=== PATIENT | female | born 1950 | race Caucasian/White ===

== ENCOUNTER → 2020-07-19 12:55 | Outpatient (BNVA) | payer MEDICARE, MEDICAID, SELFPAY | PROVIDERS: PCP Internal Medicine; Visit Provider Surgery Vascular Surgery | DX: I83.12 Varicose veins of left lower extremity with inflammation (principal) | CPT/HCPCS: 99212 ==

== ENCOUNTER 2020-08-03 14:01 | Outpatient (REF) | payer MEDICARE, MEDICAID, SELFPAY ==
--- NOTE | 2020-08-03 | MM_ITS ---
EXAMINATION: MM SCREENING DIGITAL BREAST TOMOSYNTHESIS, BILATERAL CLINICAL INFORMATION: Screening. Asymptomatic. Family history breast cancer, 2 sisters. The lifetime risk of breast cancer based on the Tyrer-Cuzick Model is 8%. COMPARISON: Mammography: 01/17/2019, 06/22/2017, 06/10/2017 TECHNIQUE: Digital breast tomosynthesis is performed in both the craniocaudal and mediolateral oblique views along with computer-aided detection (CAD). Synthesized 2D images are generated from the tomosynthesis. FINDINGS: The breasts are heterogeneously dense, which may obscure small masses (ACR BI-RADS breast composition Category c). Breast tissue composition borders on average fibroglandular. There are no significant masses, abnormal calcifications, or other abnormalities. Parenchymal pattern is similar to prior studies. No developing density. There are some fine vascular calcifications and digital processing artifact on the synthesized images. No significant changes from prior studies. MM/MM tomosynthesis screening BI IMPRESSION: No significant changes from prior studies. ASSESSMENT: BI-RADS 2: Benign RECOMMENDATION: Routine annual mammography screening. This patient's information was entered into a reminder system with a target due date for their next mammogram.
== END 2020-08-03 14:02 | disposition home or self-care (01) ==
LOC: HO.MAMMO 14:01
PROVIDERS: PCP Internal Medicine; Visit Provider Internal Medicine
DX: Z12.31 Encounter for screening mammogram for malignant neoplasm of breast (principal)
CPT/HCPCS: 77063; 77067

== ENCOUNTER → 2020-08-31 10:22 | Outpatient (BNVA) | payer MEDICARE, MEDICAID, SELFPAY | PROVIDERS: PCP Internal Medicine; Referring Provider Internal Medicine; Visit Provider Surgery Vascular Surgery | DX: I83.12 Varicose veins of left lower extremity with inflammation (principal) | CPT/HCPCS: 36482 ==

== ENCOUNTER 2020-09-07 16:46 | Outpatient (REF) | payer MEDICARE, MEDICAID, SELFPAY | END 2020-09-07 16:47 | disposition home or self-care (01) | LOC: HO.LAB 16:46 | PROVIDERS: Visit Provider Internal Medicine | DX: Z20.828 Contact with and (suspected) exposure to other viral communicable diseases (principal) | CPT/HCPCS: C9803; U0003 ==

== ENCOUNTER 2021-07-23 14:23 | Outpatient (REF) | payer MEDICARE, MEDICAID, SELFPAY ==
--- NOTE | ~2021-07-23 | US_ITS ---
EXAMINATION: RIGHT and LEFT LOWER EXTREMITY VENOUS ULTRASOUND (Reflux Exam) CLINICAL INDICATION: leg pain and varicose veins. COMPARISON: Previous exams most recent May 2020 TECHNIQUE: Color flow triplex imaging and compression Doppler was performed to evaluate both the deep and the superficial systems bilaterally. To evaluate the superficial system, the examination was performed in the upright position. Color-flow Doppler ultrasound and compression ultrasound were utilized. In addition, maneuvers were utilized to demonstrate reflux. FINDINGS: 1. DEEP VENOUS ULTRASOUND OF THE RIGHT LOWER EXTREMITY: Respiratory variation, normal compression and augmented flow are noted in the right common femoral vein as well as the right popliteal vein and there is no evidence of deep venous thrombosis at these locations. There is no evidence of reflux in the deep system in either the common femoral vein or the popliteal vein. There is no evidence of a Figueroa's cyst. 2. SUPERFICIAL ULTRASOUND WITH DOPPLER OF RIGHT LOWER EXTREMITY: The right great saphenous vein at the saphenofemoral junction measures 4 mm, at the mid thigh 4 mm, vxblh-uui-mpzu 4 mm, oprsj-yze-ydny 3 mm, at mid calf 3 mm and at not seen at the ankle. There is right greater saphenous vein reflux from the mid thigh to below the knee measuring maximum 3.5 seconds. There is a small accessory lateral greater saphenous vein that measures 1 mm and does not demonstrate reflux. The right small saphenous vein measures 1-2 mm and shows no reflux. There is a small market relationship manager in the proximal calf that measures 2 mm and does not demonstrate reflux. There is a small varicosity in the proximal thigh that measures 3 mm and does not demonstrate reflux. 3. DEEP VENOUS ULTRASOUND OF THE LEFT LOWER EXTREMITY: Respiratory variation, normal compression and augmented flow are noted in the left common femoral vein as well as the left popliteal vein and there is no evidence of deep venous thrombosis at these locations. There is deep venous reflux in the popliteal vein measuring 2.2 seconds.. . There is no evidence of a Figueroa's cyst. 4. SUPERFICIAL ULTRASOUND WITH DOPPLER OF LEFT LOWER EXTREMITY: Left great saphenous vein at the saphenofemoral junction measures 5 mm, at the mid thigh to mm, haygc-mxw-uxhe 2 mm, iysyv-fpa-vbmo 2 mm, at mid calf 2 mm and at the ankle measures 1 mm. there are changes from venous seal procedure in the left greater saphenous vein in the thigh. There is left greater saphenous vein reflux from knee to the ankle measuring maximum 3.4 seconds at the knee. The left lesser saphenous vein measures 1-2 mm and shows no reflux. There is a market relationship manager in the mid thigh that measure 2 mm and demonstrates 1.3 seconds reflux. There is a market relationship manager in the proximal calf that measures 1 mm and does not demonstrate reflux. US/US venous duplex LE BI IMPRESSION: Right: No evidence of DVT or deep venous reflux. Right greater saphenous vein reflux from the mid thigh to below the knee measuring maximum 3.5 seconds. Left: No evidence of DVT. Left deep venous reflux in the popliteal vein measuring 2.2 seconds. Post vena seal changes in the thigh. Left greater saphenous vein reflux from the knee to the ankle measuring maximum 3.4 seconds.
== END 2021-07-23 14:24 | disposition home or self-care (01) ==
LOC: HO.US 14:23
PROVIDERS: PCP Internal Medicine; Visit Provider Surgery Vascular Surgery
DX: I83.893 Varicose veins of bilateral lower extremities with other complications (principal)
CPT/HCPCS: 93970

== ENCOUNTER 2021-07-26 14:23 | Outpatient (REF) | payer MEDICARE, MEDICAID, SELFPAY ==
--- NOTE | ~2021-07-26 | MM_ITS ---
EXAMINATION: BONE DENSITOMETRY CLINICAL INDICATION: Encounter for screening for osteoporosis. COMPARISON: Previous BD dated 07/23/2017 and baseline BD dated 12/31/2007. TECHNIQUE: Using a ECO DXA System (software version: 13.1) manufactured by [employer], dual-energy x-ray absorptiometry was performed of the lumbar spine and left hip. The images are of good technical quality. Summary results are attached. FINDINGS: AP SPINE L1-L3 (excluding L4): The data of L1-L4 has been changed to exclude the L4 vertebral body, because degenerative sclerosis at this level may cause overestimation of lumbar spine density. Current: BMD 0.872 g/cm2, Z-score -0.7, T-score -2.5, osteoporosis, 9.5% increase from previous, 2.0% decrease from baseline (<5% change is not significant). Prior: BMD 0.796 g/cm2. Baseline: BMD 0.890 g/cm2. LEFT FEMUR, NECK: Current: BMD 0.552 g/cm2, Z-score -1.7, T-score -3.5, osteoporosis. Prior: BMD 0.724 g/cm2. Baseline: BMD 0.803 g/cm2. LEFT FEMUR, TOTAL: Current: BMD 0.517 g/cm2, Z-score -2.3, T-score -3.9, osteoporosis, 22.0% decrease from previous, 32.8% decrease from baseline (<5% change is not significant). Prior: BMD 0.663 g/cm2. Baseline: BMD 0.769 g/cm2. IDENTIFIED RISK FACTORS: Rheumatoid arthritis, osteoporosis, menopause. HISTORY OF FRACTURE: None listed. MEDICATIONS: Calcium supplements or multivitamin, vitamin D. MM/XR DEXA axial skeleton IMPRESSION: 1. DIAGNOSIS: Osteoporosis based on the lowest T-score value of -3.9 in the total femur applying World Health Organization criteria. 2. 10-YEAR FRACTURE RISK PREDICTION, FRAX: Major osteoporotic fracture (clinical spine, forearm, hip or shoulder) 14.1%. Hip fracture 5.9%. 3. Treatment Recommendations: NOF guidelines recommend consideration for treatment in postmenopausal women and men age 50 and older presenting with the following: -A hip or vertebral (clinical or morphometric) fracture. -T-score less than or equal to -2.5 at the femoral neck or spine after appropriate evaluation to exclude secondary causes. -Low bone mass at the hip or spine and a 10-year fracture probability by FRAX of greater than or equal to 3% for hip fracture or greater than or equal to 20% for major osteoporotic fracture based on the [place] adapted WHO algorithm. 4. Other Recommendations: All treatment decisions require clinical judgment and consideration of individual patient factors, including patient preferences, comorbidities, previous drug use, risk factors not captured in the FRAX model (e.g. frailty, falls, vitamin D deficiency, increased bone turnover, interval significant decline in bone density) and possible under or overestimation of fracture risk by FRAX. Additional medical evaluation for secondary cause of low bone mineral density may be appropriate. FUTURE SCAN RECOMMENDATION: People with diagnosed cases of osteoporosis or at high risk for fracture should have regular bone mineral density tests. For patients eligible for Medicare, routine testing is allowed once every 2 years. The testing frequency can be increased to one year for patients who have rapidly progressing disease, those who are receiving or discontinuing medical therapy to restore bone mass, or have additional risk factors.
== END 2021-07-26 14:24 | disposition home or self-care (01) ==
LOC: HO.MAMMO 14:23
PROVIDERS: Visit Provider Internal Medicine
DX: Z13.820 Encounter for screening for osteoporosis (principal); M81.0 Age-related osteoporosis without current pathological fracture; E55.9 Vitamin D deficiency, unspecified; M05.9 Rheumatoid arthritis with rheumatoid factor, unspecified; Z78.0 Asymptomatic menopausal state; Z79.899 Other long term (current) drug therapy
CPT/HCPCS: 77080

== ENCOUNTER → 2021-08-22 15:15 | Outpatient (BNVA) | payer MEDICARE, MEDICAID, SELFPAY | PROVIDERS: PCP Internal Medicine; Visit Provider Surgery Vascular Surgery | DX: M79.606 Pain in leg, unspecified (principal) | CPT/HCPCS: 99212 ==

== ENCOUNTER 2021-10-09 09:09 | Outpatient (REF) | payer MEDICARE, MEDICAID, SELFPAY ==
[2021-10-09 15:55] LABS: COVID-19 Test Positive (Negative); IDNOW Serial# 16C4AD1C
== END 2021-10-09 09:10 | disposition home or self-care (01) ==
LOC: HO.LAB 09:09
PROVIDERS: Visit Provider Internal Medicine
DX: Z20.822 Contact with and (suspected) exposure to COVID-19 (principal)
CPT/HCPCS: 87635; C9803

== ENCOUNTER 2021-10-23 10:36 | Outpatient (REF) | payer MEDICARE, MEDICAID, SELFPAY ==
[2021-10-23 11:07] LABS: COVID-19 Test Negative (Negative); IDNOW Serial# 16C4AD1C
== END 2021-10-23 10:37 | disposition home or self-care (01) ==
LOC: HO.LAB 10:36
PROVIDERS: Visit Provider Internal Medicine
DX: Z20.822 Contact with and (suspected) exposure to COVID-19 (principal)
CPT/HCPCS: 87635; C9803

== ENCOUNTER 2021-12-31 09:59 | Outpatient (REF) | payer MEDICARE, MEDICAID, SELFPAY ==
--- NOTE | ~2021-12-31 | XR_ITS ---
EXAMINATION: XR LUMBOSACRAL SPINE WITH OBLIQUES CLINICAL INFORMATION: Pain in left leg. COMPARISON: X-ray of the lumbosacral spine October 2009. TECHNIQUE: AP, both oblique, and lateral views of the lumbar spine. Lateral view of the lumbosacral junction. FINDINGS: The vertebral bodies are normally aligned. At L4-5 there is prominent disc space narrowing with endplate osteophytes indicative of advanced degenerative disc disease. This is new compared to the prior examination. Mild degenerative disc changes at L3-L4 with endplate osteophytes without disc space narrowing. The remaining disc levels are unremarkable. The facets are unremarkable. The partially visualized pelvis including the sacroiliac joints are normal. 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
--- NOTE | ~2021-12-31 | XR_ITS ---
EXAMINATION: XR HIP, LEFT CLINICAL INFORMATION: Pain in the left leg. COMPARISON: None TECHNIQUE: Two views of the left hip. FINDINGS: The hip joint is normal without arthrosis. The immediately surrounding bone and soft tissues are unremarkable. Focal thickening of the lateral cortex of the proximal diaphysis of the femur. I do not see a discrete fracture line or underlying lesion. XR/XR hip LT min 2V IMPRESSION: Normal-appearing left hip joint. Focal cortical thickening of the femur as noted of uncertain clinical significance. This may reflect a normal variation or sequela of old healed fracture.
== END 2021-12-31 10:00 | disposition home or self-care (01) ==
LOC: HO.XRAY 09:59
PROVIDERS: PCP Internal Medicine; Visit Provider Internal Medicine
DX: M79.605 Pain in left leg (principal); M47.817 Spondylosis without myelopathy or radiculopathy, lumbosacral region
CPT/HCPCS: 72110; 73502

== ENCOUNTER 2022-02-20 10:00 | Outpatient (RCR) | payer MEDICARE, MEDICAID, SELFPAY ==
--- NOTE | 2022-04-02 12:01 | MHC.PT.DC ---
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 Electronically signed by: Ruth Montoya,PT Please sign and return to therapist. Thank you for your referral.
== END 2022-04-02 12:03 | disposition home or self-care (01) ==
LOC: HO.PT 10:00
PROVIDERS: PCP Internal Medicine; Visit Provider Internal Medicine
DX: M47.817 Spondylosis without myelopathy or radiculopathy, lumbosacral region (principal); M79.605 Pain in left leg
CPT/HCPCS: 97110; 97161

== ENCOUNTER 2022-03-27 08:22 | Outpatient (REF) | payer MEDICARE, MEDICAID, SELFPAY ==
--- NOTE | ~2022-03-27 | MM_ITS ---
EXAMINATION: MM SCREENING DIGITAL BREAST TOMOSYNTHESIS, BILATERAL CLINICAL INFORMATION: Screening. Asymptomatic. The lifetime risk of breast cancer based on the Tyrer-Cuzick Model is 4%. COMPARISON: Mammography: 08/03/2020, 01/17/2019, 06/22/2017 TECHNIQUE: Digital breast tomosynthesis is performed in both the craniocaudal and mediolateral oblique views along with computer-aided detection (CAD). Synthesized 2D images are generated from the tomosynthesis. FINDINGS: The breasts are heterogeneously dense, which may obscure small masses (ACR BI-RADS breast composition Category c). There are no significant masses, abnormal calcifications, or other abnormalities. Breast tissue composition borders on average fibroglandular. There is fine fibronodular pattern similar to prior exams. No significant changes. MM/MM tomosynthesis screening BI IMPRESSION: No mammographic evidence of malignancy. ASSESSMENT: BI-RADS 1: Negative RECOMMENDATION: Routine annual mammography screening. This patient's information was entered into a reminder system with a target due date for their next mammogram.
== END 2022-03-27 08:23 | disposition home or self-care (01) ==
LOC: HO.MAMMO 08:22
PROVIDERS: Visit Provider Internal Medicine
DX: Z12.31 Encounter for screening mammogram for malignant neoplasm of breast (principal)
CPT/HCPCS: 77063; 77067

== ENCOUNTER 2023-03-30 08:53 | Outpatient (REF) | payer MEDICARE, MEDICAID, SELFPAY ==
--- NOTE | ~2023-03-30 | MM_ITS ---
EXAMINATION: MM SCREENING DIGITAL BREAST TOMOSYNTHESIS, BILATERAL CLINICAL INFORMATION: Screening. Asymptomatic. The lifetime risk of breast cancer based on the Tyrer-Cuzick Model is 4.5%. COMPARISON: Mammography: This study is compared with prior exams dating back to 2017. TECHNIQUE: Digital breast tomosynthesis is performed in both the craniocaudal and mediolateral oblique views along with computer-aided detection (CAD). Synthesized 2D images are generated from the tomosynthesis. FINDINGS: There are scattered areas of fibroglandular density (ACR BI-RADS breast composition Category b). There are no significant masses, abnormal calcifications, or other abnormalities. MM/MM tomosynthesis screening BI IMPRESSION: No mammographic evidence of malignancy. ASSESSMENT: BI-RADS BI-RADS 1 - Negative RECOMMENDATION: Routine annual mammography screening. 1 year F/U This examination should not preclude the clinical evaluation of a suspicious palpable abnormality. This patient's information was entered into a reminder system with a target due date for their next mammogram.
== END 2023-03-30 08:54 | disposition home or self-care (01) ==
LOC: HO.MAMMO 08:53
PROVIDERS: PCP Internal Medicine; Visit Provider Internal Medicine
DX: Z12.31 Encounter for screening mammogram for malignant neoplasm of breast (principal)
CPT/HCPCS: 77063; 77067

== ENCOUNTER → 2023-03-30 09:15 | Outpatient (BNV) | payer MEDICARE, MEDICAID, SELFPAY | PROVIDERS: PCP Internal Medicine; Visit Provider Radiology Diagnostic Radiology | DX: Z12.31 Encounter for screening mammogram for malignant neoplasm of breast (principal) | CPT/HCPCS: 77063; 77067 ==

== ENCOUNTER 2023-06-24 09:00 | Outpatient (RCR) | payer MEDICARE, MEDICAID, SELFPAY ==
--- NOTE | 2023-10-19 09:06 | MHC.PT.DC ---
[facility] [place] Office [place] Office [place] Office [address] Bonnie Menard [address] [phone] F: [phone] F: [phone] F: [phone] F: [phone] Physical Therapy Discharge Report Diagnosis: Low back pain, L radiculopathy Date of Surgery: N/A Date of Evaluation: 06/02/23 Date of Discharge: 06/24/23 Treatments to Date: 5 Cancellations to Date: 1 No Shows to Date: 2 Discharge Status: Visit Non-compliance Discharge Summary: Pt is a 73yo female who presents to PT for treatment of low back and L LE pain. Skilled PT indicated to address core and hip muscle weakness, improve her mobility quality and tolerance for standing/walking. Pt did not f/u with more appointments after cancels and no-shows, and is being discharged due to visit non-compliance. Electronically signed by: Alvina Flores PT, DPT Please sign and return to therapist. Thank you for your referral.
== END 2023-09-22 10:00 | disposition home or self-care (01) ==
LOC: HO.PT 09:00
PROVIDERS: PCP Internal Medicine; Visit Provider Internal Medicine
DX: M47.27 Other spondylosis with radiculopathy, lumbosacral region (principal)
CPT/HCPCS: 97014; 97110; 97162

== ENCOUNTER 2023-11-10 10:00 | Outpatient (RCR) | payer OTHER, SELFPAY | END 2024-02-16 13:47 | disposition home or self-care (01) | LOC: HO.PT 10:00 | PROVIDERS: PCP Internal Medicine; Visit Provider Physician Assistant Surgical | DX: Z98.890 Other specified postprocedural states (principal) | CPT/HCPCS: 97110; 97112; 97116; 97162 ==

== ENCOUNTER 2024-04-04 11:00 | Outpatient (REF) | payer OTHER, SELFPAY ==
[2024-04-04 13:49] LABS: Anion Gap 12 (12-20); Blood Urea Nitrogen 21 mg/dL (9-16); Calcium 8.7 mg/dL (8.4-10.2); Carbon Dioxide 28 mmol/L (22-29); Chloride 106 mmol/L (96-108); Estimated Glomerular Filt Rate 51; Glucose Random 84 mg/dL (60-115); Potassium 3.6 mmol/L (3.3-5.1); Sodium 142 mmol/L (135-145)
== END 2024-04-04 11:01 | disposition home or self-care (01) ==
LOC: HO.HHCL 11:00
PROVIDERS: Visit Provider Internal Medicine
DX: M81.0 Age-related osteoporosis without current pathological fracture (principal); I10 Essential (primary) hypertension
CPT/HCPCS: 36415; 80048; 82306

== ENCOUNTER 2024-04-11 09:37 | Outpatient (REF) | payer OTHER, SELFPAY | END 2024-04-11 09:38 | disposition home or self-care (01) | LOC: HO.MAMMO 09:37 | PROVIDERS: PCP Internal Medicine; Visit Provider Internal Medicine | DX: Z12.31 Encounter for screening mammogram for malignant neoplasm of breast (principal) | CPT/HCPCS: 77063; 77067 ==

== ENCOUNTER → 2024-04-11 09:45 | Outpatient (BNV) | payer OTHER, SELFPAY | PROVIDERS: PCP Internal Medicine; Visit Provider Radiology Diagnostic Radiology | DX: Z12.31 Encounter for screening mammogram for malignant neoplasm of breast (principal) | CPT/HCPCS: 77063; 77067 ==

== ENCOUNTER 2025-01-16 12:55 | Outpatient (REF) | payer OTHER, SELFPAY ==
--- NOTE | ~2025-01-16 | XR_ITS ---
EXAMINATION: XR FEMUR, RIGHT CLINICAL INFORMATION: 1.5 week h/o atraumatic right hip and thigh pain COMPARISON: Right hip dated January 16, 2025. TECHNIQUE: AP and lateral views of the right femur were obtained. FINDINGS: Partial visualization of the femur which is complemented with the right hip x-ray. No acute cortical disruption. Focal periosteal bone reaction in the proximal to mid diaphysis of the femur without a lucent nidus. No lytic or blastic lesions. Small exostosis at the quadriceps tendon insertion. Degenerative changes in the medial and lateral compartment, right knee. XR/XR femur RT 2V IMPRESSION: No acute fracture. The possibility of osteoid osteoma at the proximal/mid diaphysis right femur cannot be excluded. Electronically signed by: Lee Hernandez MD 01/16/2025 02:49 PM EDT
--- NOTE | ~2025-01-16 | US_ITS ---
EXAMINATION: US TRIPLEX LOWER EXTREMITY, RIGHT CLINICAL INFORMATION: Pain, right lower extremity COMPARISON: None available. TECHNIQUE: Color-flow triplex imaging with spectral analysis and compression Doppler were performed on the right lower extremity. FINDINGS: Respiratory variation, normal compression and augmented flow are noted throughout the interrogated common femoral vein, superficial femoral vein, profunda femoral vein, popliteal vein and midcalf peroneal and posterior tibial venous There is no Figueroa's cyst. US/US venous duplex LE RT IMPRESSION: No acute deep venous thrombosis involving the right lower extremity. Negative for DVT. Electronically signed by: Lee Hernandez MD 01/16/2025 02:46 PM EDT
--- NOTE | ~2025-01-16 | XR_ITS ---
EXAMINATION: XR HIP, RIGHT CLINICAL INFORMATION: 1.5 week h/o atraumatic right hip and thigh pain COMPARISON: None available. TECHNIQUE: Two views of the right hip. FINDINGS: No acute cortical disruption or malalignment. No lytic or blastic lesions. Questionable small focal periosteal bone reaction in the proximal to mid diaphysis right femur. XR/XR hip RT min 2V IMPRESSION: No acute fracture or dislocation, right hip. Please refer to the right femur x-ray. Electronically signed by: Lee Hernandez MD 01/16/2025 02:49 PM EDT
--- OUTSIDE RECORDS SUMMARY | 2025-01-16 15:18 | XMS_ITS | Encounter Summary ---
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 Phone Deborah Joaquin MD Primary Care Provider + Reason for Visit * Reason Onset Date Comments Pre-op Exam 03/11/2024 Encounter Details Date Type Department Care Team ([facility] st Contact Info) Description 03/11/2024 Telephone [facility] MEDICINE [address] [place] [address] Deborah Joaquin MD [address] [place], [place] [id number] Pre-op Exam Social History Tobacco Use Types Packs/Day Years Used Date Smoking Tobacco: Never Smokeless Tobacco: Never Alcohol Use Standard Drinks/Week Comments Never 0 (1 standard drink = 0.6 oz pur e alcohol) Housing Stability Answer Date Recorded What is your housing situation today? I have aminatathiago martinez 12/30/[address] you li ve. Do you have problems with any of the following? None of the above 12/30/2023 Food Insecurity Answer Date Recorded Within the past 12 months, y ou worried that your food would run out before you got money to buy more: Never True 12/30/2023 Within the past 12 months,th e food you bought just didn't last and you didn't have enough money to get more: Never True 06/2024 Transportation Answer Date Recorded In the past 12 months, has l ack of transportation kept you from medical appts, meetings, work or from getting things needed for daily living? No 12/30/2023 Utilities Answer Date Recorded In the past 12 months, has t he electric, gas, oil or water company threatened to shut off services in your home? No 12/30/2023 Depression Answer Date Recorded Patient Health Questionnaire-2 Score 0 10/01/2022 Comments Unknown Sex and Gender Information Value Date Recorded Sex Assigned at Female 07/21/2022 10:16 AM EDT Legal Sex Female 10:16 AM EDT Gender Identity Female 07/21/2022 10:16 AM EDT Sexual Orientation Straight 07/21/2022 10 :16 AM EDT documented as of this encounter Miscellaneous Notes * Telephone Encounter - Sejal Grider - 03/14/2024 4:14 PM EDT Pt scheduled for Pre op on 03/18/24 at 9AM with Liza Joaquin * Telephone Encounter - Paddy Rodriguez - 03/11/2024 1:49 PM EDT Date of Surgery: 03/29 Surgical procedure being done: Cataract surgery on the Left eye Type of anesthesia: MAC Lab needed: no EKG: no Surgeon's name: Dr. Sonny Freeman Facility name: [facility] Surgeon's office number: [phone] Surgeon's office fax number: [phone] Contact name (person you spoke with): Manisha Last office note from surgeon requested: Will be faxed Date of Surgery: 04/19 Surgical procedure being done: Cataract Surgery on the right eye Type of anesthesia: Mac Lab needed: no EKG: no Surgeon's name: Dr. 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
--- OUTSIDE RECORDS SUMMARY | 2025-01-16 15:18 | XMS_ITS | Encounter Summary ---
Author Organization [email or web address] Address [address] [facility] [address] [place] [address] Care Team Providers Care Sponge Press Operator Name Role Phone Deborah Joaquin MD Primary Care Provider + Reason for Referral * Imaging (STAT) - Pending Review Specialty Diagnoses / Procedures Referred By Contleela t Referred To Contact Cardiology Diagnoses Right thigh pain Procedures Vascular US lower extremity venous duplex right Eren Rodriguez MD [address] [place] [phone] Phone: tel: fax: [address] Phone: tel: fax: Referral ID Status Reason Start Date Expiration Date Visits Requested Visits Authorized [id number] Pending Review Perform Procedure 01/16/2025 01/16/2026 1 1 Reason for Visit * Reason Comments Leg Pain Encounter Details Date Type Department Care Team (Late st Contact Info) Description 01/16/2025 10:20 AM EDT Office Visit [facility] [address] [place] [address] [phone] Eren Rodriguez MD [address] [place] [address] [phone] Pain of right hip (Primary Dx); Right thigh pain; Hypertension, unspecified type Social History Tobacco Use Types Packs/Day Years Used Date Smoking Tobacco: Never Smokeless Tobacco: Never Alcohol Use Standard Drinks/Week Comments Never 0 (1 standard drink = 0.6 oz pur e alcohol) Housing Stability Answer Date Recorded What is your housing situation today? I have aminata martinez 12/30/[address] you [...] Date Recorded Patient Health Questionnaire-2 Score 0 06/10/2024 Internet Access Answer Date Recorded Internet Access Q1 No 12/07/2024 Internet Access Q2 I do not want or need it 11/19 Comments No Sex and Gender Information Value Date Recorded Sex Assigned at Female 07/21/2022 10:16 AM EDT Legal Sex Female 10:16 AM EDT Gender Identity Female 07/21/2022 10:16 AM EDT Sexual Orientation Straight 07/21/2022 10 :16 AM EDT documented as of this encounter Last Filed Vital Signs Vital Sign Reading Time Taken Comments Blood Pressure 155/82 01/16/2025 10:43 AM EDT Pulse 65 01/16/2025 10:43 AM EDT Temperature 36.4 ??C (97.5 ??F) 01/16/2025 10:43 AM E DT Respiratory Rate 16 01/16/2025 10:43 AM EDT Oxygen Saturation 96% 01/16/2025 10:43 AM EDT Inhaled Oxygen Concentration - - Weight 54.2 kg (119 lb 6.4 oz) 01/16/2025 10:43 AM EDT Height - - Body Mass Index 21.15 06/10/2024 9:43 AM EDT documented in this encounter Progress Notes * Eren Rodriguez MD - 01/16/2025 10:20 AM EDT Subjective Patient ID: Fatoumata Rose is a 74 y.o. female. Figure Clerk: Theresarita Here with daughter. HPI 1.5 weeks ago Fatoumata had onset of pain in right hip and thigh, denies injury, she thinks that it may be due to osteoporosis. Pain is not present when sitting or when she is in bed at night. Pain occurs with weight-bearing. Denies trauma back pain, fever, rash, tick bite, or family h/o gout. Tried Tylenol prn. Lives alone. Never smoked. 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 Respiratory: Negative for shortness of breath. Cardiovascular: Negative for chest pain. Gastrointestinal: Negative for abdominal pain. Musculoskeletal: Positive for arthralgias. Skin: Negative for rash. Neurological: Negative for headaches. Objective Physical Exam Constitutional: Appearance: Normal appearance. HENT: Nose: Nose normal. Eyes: Conjunctiva/sclera: Conjunctivae normal. Pupils: Pupils are equal, round, and reactive to light. Cardiovascular: Rate and Rhythm: Normal rate and regular rhythm. Pulses: Dorsalis pedis pulses are 2+ on the right side. Heart sounds: No murmur heard. Pulmonary: Effort: Pulmonary effort is normal. Breath sounds: Normal breath sounds. Musculoskeletal: General: Normal range of motion. Cervical back: No tenderness. Comments: Tenderness over right hip, with pain on range of motion of hip. Tenderness over the right thigh with no apparent swelling. Normal exam of right knee. No tenderness of the back on exam. Skin: Findings: No rash. Neurological: Mental Status: She is alert. Sensory: Sensation is intact. Motor: Motor function is intact. Gait: Gait is intact. Psychiatric: Mood and Affect: Mood normal. Behavior: Behavior normal. Procedures Assessment/Plan Diagnoses and all orders for this visit: Pain of right hip X-rays ordered. Will call patient with results. Continue Tylenol, try heat or ice. Return to clinic if not improving - XR Hip 2 or 3 Views Right; Future Right thigh pain Stat venous Doppler ultrasound of the right lower extremity ordered to rule out DVT. Will call patient with results. Return to clinic if not improving - Vascular US lower extremity venous duplex right; Future - XR Femur 2+ Views Right; Future Hypertension, unspecified type Has not taken hydrochlorothiazide yet this morning. States home BP readings have been in normal range. documented in this encounter Plan of Treatment Not on file documented as of this encounter Procedures Procedure Name Priority Date/Time Associated Diagnosis Comments XR FEMUR 2+ VIEWS RIGHT Routine 01/16/2025 1:00 PM EDT Right thigh pain XR HIP 2 OR 3 VIEWS RIGHT Routine 01/16/2025 1:00 PM EDT Pain of right hip documented in this encounter Results * XR Femur 2+ Views Right (01/16/2025 1:00 PM EDT) Anatomical Region Laterality Modality Lower Extremities, Femur Right Radiogr aphic Imaging 01/16/2025 1:00 PM EDT Narrative 01/16/2025 2:51 PM EDT ? [facility] ?[address] ?[place] [address] ?XRay Report ? Signed ? Patient: Gibson,Fatoumata ?MR#: [id number] ?? 086 ? : 1950 ?Acct:[id number] ? Age/Sex: 74 / F ?ADM Date: 04/28/25 ? Loc: HO.US ? Attending Dr: Eren Rodriguez MD ? Ordering Physician: EREN RODRIGUEZ MD ?? Date of Service: 01/16/25 ?? Procedure(s): XR femur RT 2V ?? Accession Number(s): [id number] ? cc: EREN RODRIGUEZ MD; Deborah Joaquin MD ? EXAMINATION: ?? XR FEMUR, RIGHT ? CLINICAL INFORMATION: ?? 1.5 week h/o atraumatic right hip and thigh pain ? COMPARISON: ?? Right hip dated January 16, 2025. ? TECHNIQUE: ?? AP and lateral views of the right femur were obtained. ? FINDINGS: ?? Partial visualization of the femur which is complemented with the right ?? hip x-ray. ?? No acute cortical disruption. ?? Focal periosteal bone reaction in the proximal to mid diaphysis of the ?? femur without a lucent nidus. No lytic or blastic lesions. Small ?? exostosis at the quadriceps tendon insertion. ?? Degenerative changes in the medial and lateral compartment, right knee. ? XR/XR femur RT 2V ?? IMPRESSION: ?? No acute fracture. ?? The possibility of osteoid osteoma at the proximal/mid diaphysis right ?? femur cannot be excluded. ? Electronically signed by: ??Lee Hernandez MD ??01/16/2025 02:49 PM ?? EDT ? Dictated By: ?Lee Pinto MD ? Signed By: ?<Electronically signed by Lee Day MD in OV> ? 01/16/25 1449 ? DD/ 1300 ? TD/TT: 01/16/25 1328 ? Training Assistant: ? Procedure Note Niharika, Image - 01/16/[address] [address] XRay Report Signed Patient: Fatoumata GibsonMR#: [id number] 086 : 1Acct:[id number] Age/Sex: 74 / FADM Date: 01/16/25 Loc: HO.US Attending Dr: Eren Rodriguez MD Ordering Physician: EREN RODRIGUEZ MD Date of Service: 01/16/25 Procedure(s): XR femur RT 2V Accession Number(s): [id number] cc: EREN RODRIGUEZ MD; Deborah Joaquin MD EXAMINATION: XR FEMUR, RIGHT CLINICAL INFORMATION: 1.5 week h/o atraumatic right hip and thigh pain COMPARISON: Right hip dated January 16, 2025. TECHNIQUE: AP and lateral views of the right femur were obtained. FINDINGS: Partial visualization of the femur which is complemented with the right hip x-ray. No acute cortical disruption. Focal periosteal bone reaction in the proximal to mid diaphysis of the femur without a lucent nidus. No lytic or blastic lesions. Small exostosis at the quadriceps tendon insertion. Degenerative changes in the medial and lateral compartment, right knee. XR/XR femur RT 2V IMPRESSION: No acute fracture. The possibility of osteoid osteoma at the proximal/mid diaphysis right femur cannot be excluded. Electronically signed by: Lee Hernandez MD 01/16/2025 02:49 PM EDT RP Dictated By: Lee Pinto MD Signed By: <Electronically signed by Lee Day MDin OV> 01/16/25 1449 DD/ 1300 TD/TT: 01/16/25 1328 Training Assistant: Eren Rodriguez MD IMG XR PROCEDURES Final Result * XR Hip 2 or 3 Views Right (01/16/2025 1:00 PM EDT) Anatomical Region Laterality Modality Lower Extremities, Hip Right Radiograp hic Imaging 01/16/2025 1:00 PM EDT Narrative 01/16/2025 2:52 PM EDT ? [facility] ?[address] ?[place] [address] ?XRay Report ? Signed ? Patient: Gibson,Fatoumata ?MR#: [id number] ?? 086 ? : 1950 ?Acct:[id number] ? Age/Sex: 74 / F ?ADM Date: 04/28/25 ? Loc: HO.US ? Attending : Eren Rodriguez MD ? Ordering Physician: EREN RODRIGUEZ MD ?? Date of Service: 01/16/25 ?? Procedure(s): XR hip RT min 2V ?? Accession Number(s): [id number] ? cc: EREN RODRIGUEZ MD; Deborah Joaquin MD ? EXAMINATION: ?? XR HIP, RIGHT ? CLINICAL INFORMATION: ?? 1.5 week h/o atraumatic right hip and thigh pain ? COMPARISON: ?? None available. ? TECHNIQUE: ?? Two views of the right hip. ? FINDINGS: ?? No acute cortical disruption or malalignment. No lytic or blastic ?? lesions. Questionable small focal periosteal bone reaction in the ?? proximal to mid diaphysis right femur. ? XR/XR hip RT min 2V ?? IMPRESSION: ?? No acute fracture or dislocation, right hip. Please refer to the right ?? femur x-ray. ? Electronically signed by: ??Lee Hernandez MD ??01/16/2025 02:49 PM ?? EDT RP ? Dictated By: ?Lee Pinto MD ? Signed By: ?<Electronically signed by Lee Day MD in OV> ? 01/16/25 1449 ? DD/ 1300 ? TD/TT: 01/16/25 1328 ? Training Assistant: ? Procedure Note Jesus Bundy - 01/16/[address] [address] XRay Report Signed Patient: Fatoumata GibsonMR#: [id number] : 1950cct:[id number] Age/Sex: 74 / FADM Date: 01/16/25 Loc: HO.US Attending Dr: Eren Rodriguez MD Ordering Physician: EREN RODRIGUEZ MD Date of Service: 01/16/25 Procedure(s): XR hip RT min 2V Accession Number(s): [id number] cc: EREN RODRIGUEZ MD; Deborah Joaquin MD EXAMINATION: XR HIP, RIGHT CLINICAL INFORMATION: 1.5 week h/o atraumatic right hip and thigh pain COMPARISON: None available. TECHNIQUE: Two views of the right hip. FINDINGS: No acute cortical disruption or malalignment. No lytic or blastic lesions. Questionable small focal periosteal bone reaction in the proximal to mid diaphysis right femur. XR/XR hip RT min 2V IMPRESSION: No acute fracture or dislocation, right hip. Please refer to the right femur x-ray. Electronically signed by: Lee Hernandez MD 01/16/2025 02:49 PM EDT RP Dictated By: Lee Pinto MD Signed By: <Electronically signed by Lee Day MDin OV> 01/16/25 1449 DD/ 1300 TD/TT: 01/16/25 1328 Training Assistant: Eren Rodriguez MD IMG XR PROCEDURES Final Result documented in this encounter Visit Diagnoses Diagnosis Pain of right hip- Primary Right thigh pain Pain in soft tissues of limb Hypertension, unspecified type documented in this encounter Care Teams Sponge Press Operator Relationship Specialty Start Date End Date Deborah Joaquin MD [address] [place] [phone] PCP - General Family Medicine 05/14/17 documented as of this encounter
--- OUTSIDE RECORDS SUMMARY | 2025-01-16 15:18 | XMS_ITS | Encounter Summary ---
Author Organization [employer] Address [address] [facility] [address] [place] [address] Care Team Providers Care Painter Set Name Role Phone Deborah Joaquin MD Primary Care Provider + Encounter Details Date Type Department Care Team (Latest Contact Info) Description 01/13/2025 Travel Social History Tobacco Use Types Packs/Day Years [...] AM EDT documented as of this encounter Plan of Treatment Not on file documented as of this encounter Visit Diagnoses Not on filedocumented in this encounter Care Teams Painter Set Relationship Specialty Start Date End Date Deborah Joaquin MD [address] [place] [phone] PCP - General Family Medicine 05/14/17 documented as of this encounter
--- OUTSIDE RECORDS SUMMARY | 2025-01-16 15:18 | XMS_ITS | Encounter Summary ---
Author Organization [facility] Address [address] [facility] [address] [place] [address] Care Team Providers Care Payroll Bookkeeper Name Role Phone Deborah Joaquin MD Primary Care Provider + Reason for Visit * Reason Comments Med Refill Encounter Details Date Type Department Care Team (Late st Contact Info) Description 04/21/2023 Refill [facility] [address] [place] [address] [phone] Deborah Joaquin MD [address], [place] [phone] Social History Tobacco Use Types Packs/Day Years Used Date Smoking Tobacco: Never Smokeless Tobacco: Never Alcohol Use Standard Drinks/Week Comments Never 0 (1 standard drink = 0.6 oz pur e alcohol) Depression Answer Date Recorded Patient Health Questionnaire-2 [...] on filedocumented in this encounter Care Teams Payroll Bookkeeper Relationship Specialty Start Date End Date Deborah Joaquin MD [address] [place] [address] [phone] PCP - General Family Medicine 05/14/17 documented as of this encounter
--- OUTSIDE RECORDS SUMMARY | 2025-01-16 15:19 | XMS_ITS | Clinical Summary ---
Author Organization [employer] Address [address] [facility] [address] [place] [address] Care Team Providers Care Cyber Systems Administrator Name Role Phone Deborah Joaquin MD Primary Care Provider + Allergies Active Allergy Reactions Criticality Noted Date Comments Atenolol Swelling Ibuprofen 04/09/2012 Other reaction(s): HEART PALPITATIONS Medications latanoprost (Xalatan) 0.005 % ophthalmic solution INSTILL 1 DROP INTO BOTH EYES AT BEDTIME MUST SEE PROVIDER TO OBTAIN MORE REFILLS 022 Active Diclofenac Sodium 1 % gelIndications:Contusio n of rib on left side, initial encounter APPLY 1 INCH TOPICALLY IF NEEDED FOR PAIN IN THE MORNING AND AT BEDTIME 100 g 023 Active Calcium Carb-Cholecalciferol (Calcium 500 + D3) 500-5 MG-MCG tablet Take 1 tablet by mouth Once per day. 90 tablet 3 024 2024 Active alendronate (Fosamax) 70 MG tablet Take 1 tablet (70 mg) by mouth every 7 (seven) days. Take in the morning with a full glass of water, on an empty stomach, and do not take anything else by mouth or lie down for the next 30 min. 4 tablet 11 024 2024 Active lisinopril 40 MG tablet TAKE 1 TABLET BY MOUTH EVERY DAY 90 tablet 1 024 Active hydroCHLOROthiazide (HYDRODiuril) 25 MG tabletIndications:Prima ry hypertension TAKE 1 TABLET BY MOUTH EVERY DAY 90 tablet 1 024 Active atorvastatin (Lipitor) 20 MG tabletIndications:Pure hypercholesterolemia TOME 1 TABLETA POR VIA ORAL TODOS LOS STEWART 90 tablet 1 025 Active brimonidine (AlphaGAN) 0.2 % ophthalmic solutionIndications:Nahomy elsie open angle glaucoma (POAG) of both eyes, moderate stage Administer 1 drop into both eyes 2 times daily. 15 mL 5 025 2024 Active ketorolac (Acular) 0.5 % ophthalmic solution 024 2024 Disconti nued(The rapy complete d) prednisoLONE acetate (Pred-Forte) 1 % ophthalmic suspension 024 2024 Disconti nued(The rapy complete d) Active Problems Problem Noted Date Diagnosed Date Primary open angle glaucoma (POAG) of both eyes, moderate stage 11/25/2024 Encounter for colorectal cancer screening 2023 Hyperlipidemia 03/18/2024 Pre-op exam 03/18/2024 Assessment & Plan (03/18/2024 1:15 PM EDT): -patient is at acceptable risk for the proposed surgery and may procced without further testing -surgery clearance reviewed with patient and informed that no surgery is 100% risk free. This visit is solely to assist the surgeon in accurately reviewing informed consent. -Patient is at low risk for major adverse cardiac event -Meets ACC/AHA guidelines to proceed with this non-cardiac surgery without additional testing -BP is maintained on oral agents: patient advised to take these medications on the morning of surgery Closed 2-part intertrochante mary fracture of left femur with routine healing 08/20/2023 Assessment & Plan (04/04/2024 10:29 AM EDT): - resolved, continues to ambulate PRN with a cane - discussed about prevention of falls - order vitamin D levels Assessment & Plan (08/20/2023 3:36 PM EST): Healing well, continue ambulating w/ a walker inside the house. FU w/ knee orthopedics at [facility], they will refer to PT if needed or let me know to send The referral. 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 take Tylenol PRN or diclofenac gel Use lidocaine patch to affected area and reconsult PRN Poor housing 01/01/2023 Multiple actinic keratoses 01/01/2023 Left leg pain 01/01/2023 Lumbosacral spondylosis 10/01/2022 Assessment & Plan (04/14/2023 9:36 AM EDT): continue tylenol PRN Refer to PT Plantar callosity 10/01/2022 Assessment & Plan (04/14/2023 9:46 AM EDT): I reminded pt to use plantar pads nad reschedule appointment with sulphate tester Assessment & Plan (01/02/2023 12:05 PM EDT): Residual callus on left foot. 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 Keep hydrated and reconsult PRN ulcerations. Hypertension 06/09/2012 Assessment & Plan (06/10/2024 10:14 AM EDT): Controlled. Compliant w/meds Continue lisinopril 40 mg + Hydrochlorothiazide 25 mg Counseled re low salt diet/increase moderate physical activity. Check home BP BIW and prn CP/SEWELL/[place] Non smoking patient. Pt agreed to influenza immunization administration today. Assessment & Plan (04/04/2024 10:19 AM EDT): Controlled. Compliant w/meds Continue lisinopril same dose Counseled re low salt diet/increase moderate physical activity. Check home BP BIW and prn CP/SEWELL/[place] Non smoking patient. Order labs and f/u with me in 2 months Assessment & Plan (01/02/2023 12:06 PM EDT): BP is at goal. Continue Lisinopril 40 + HCTZ 25 Counseled re low salt diet/increase moderate physical activity. Check home BP BIW and prn CP/SEWELL/[place] Non smoking patient. FU in 6 months Assessment & Plan (10/01/2022 10:05 PM EST): Uncontrolled. Sec to recent URI? Unclear if she's compliant w/meds, she didn't bring them and doesn't recall names of them. Continue lisinopril+ hctz same dose Counseled re low salt diet/increase moderate physical activity. Check home BP BIW and prn CP/SEWELL/[place] Non smoking patient. FU w me in 1m Underweight 06/09/2012 Chronic kidney disease, stage II (mild) 04/09/20 09 Anemia 04/09/2008 Osteoporosis 04/09/2008 Assessment & Plan (06/10/2024 10:23 AM EDT): Continue Calcium + Vitamin D daily + Fosamax once per week. Discussed with family and pt risks of fall, she will continue to use cane. Assessment & Plan (04/04/2024 11:12 AM EDT): - she is off Fosamax for now, awaiting Vitamin D replenishment - check Vitamin D and f/u with me - will restart Fosamax once Vitamin D is above 30 Assessment & Plan (01/02/2023 12:09 PM EDT): DC Fosamax Complete vit d supplementation and repat Vit D levels in 3 months. Spoke with pt regarding risk of falls and counseled about outdoor exercise for at least 15 minutes per day. Assessment & Plan (10/01/2022 10:08 PM EST): BMD on 2020, next one on 2022. Continue fosamax, vit D supplementations D/ patient re risk of fractures Vitamin D deficiency 04/09/2008 Assessment & Plan (04/04/2024 10:20 AM EDT): - on daily dose of vitamin D, has constipation - change to vitamin D weekly and recheck vitamin D levels Assessment & Plan (01/02/2023 12:07 PM EDT): Complete Vit d supplementation and repeat vit d levels in 3 months See above. 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 Encounters Date Type Department Care Team Description 01/16/2025 10:20 AM EDT Office Visit [facility] [address] [place] [id number] Eren Oscar MD Pain of right hip (Primary Dx); Right thigh pain; Hypertension, unspecified type 01/16/2025 Orders Only [facility] [address] [place] [id number] Eren Oscar MD 01/13/2025 9:00 AM EDT Office Visit [facility] [address] [place] [address] Kenyd Butler, OD Primary open angle glaucoma (POAG) of both eyes, moderate stage (Primary Dx) 01/13/2025 Travel 12/16/[address] [address] Deborah Joaquin MD Appointment Request 12/16/[address] [address] Deborah Joaquin MD Appointment Request 12/15/[address] [address] Deborah Joaquin MD Chart prep 12/09/2024 9:15 AM EDT Office Visit [facility] [address] [place] [phone] Kendy Butler, OD Primary open angle glaucoma (POAG) of both eyes, moderate stage (Primary Dx) 12/09/2024 Travel 12/07/2024 Patient Outreach [address] [phone] Deborah Joaquin MD Pre-visit Planning (SDOH screening negative and tobacco screening negative) 11/25/2024 9:45 AM EST Office Visit [facility] [address] [place] [address] Kendy Butler, OD Primary open angle glaucoma (POAG) of both eyes, moderate stage (Primary Dx); Pellucid marginal degeneration of both corneas; 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; Posterior vitreous detachment of left eye; Bilateral posterior capsular opacification; Presbyopia 11/25/2024 Travel 10/19/[address] [address] Deborah Joaquin MD December recall from Last 3 Months Immunizations Name Administration Dates Next Due INFLUENZA INJECTABLE QUADRIV ALANT CCIIV4 MDCK Multi-dose vial 07/19/2020 Influenza High-dose Quadriva lent Preservative Free 06/12/2022,06/14/2021 Influenza, High Dose Seasona l, Preservative Free 06/10/2024,06/07/2019,07/19/2018,06/09 Influenza, IIV3, injectable 09/26/2011,1 10/08/2009,11/09/2009,06/22,08/02/2001,09/10/2000 Influenza, Split (incl. flex fied surface antigen) 06/09/2012 Pneumococcal Conjugate PCV 20 06/12/2022 Pneumococcal Polysaccharide PPSV23 03/15/2010, TD (adult), 2 Lf tetanus tox oid, preservative free, adsorbed 06/12/2022,02/22/2008 Tdap 09/26/2011 Family History Medical History Relation Name Comments Glaucoma Brother Relation Name Status Comments Brother Social History Tobacco Use Types Packs/Day Years Used Date Smoking Tobacco: Never Smokeless Tobacco: Never Tobacco Cessation:Counseling Given: Not Answered Alcohol Use Standard Drinks/Week Comments Never 0 [...] Orientation Straight 07/21/2022 10 :16 AM EDT Last Filed Vital Signs Vital Sign Reading [...] 6.4 oz) 01/16/2025 10:43 AM EDT Height 160 cm (5' 3 ) 06/10/2024 9:43 AM EDT Body Mass Index 21.15 06/10/2024 9:43 AM EDT Plan of Treatment Health Maintenance Due Date Last Done Comments CT Colonography 1950 Colonoscopy 1950 Colorectal Cancer Screening 1950 FIT DNA/Cologuard 1950 FIT 1950 FOBT 1950 Sigmoidoscopy 1950 Alcohol/Substance Use Screening 1963 Hepatitis C Screening 1969 Zoster Vaccines (1 of 2) 2001 COVID-19 Vaccine ( season) 2024 12/21/2020, 11/23/2020 Mammogram 04/11/2025 04/11/2024, 03/21, 03/27/2022, Additional history exists Depression Screening 06/10/2025 06/10/2024, 06/10/20 24 SDOH Screening 12/07/2025 12/07/2024 Tobacco Screening 01/16/2026 01/16/2025 RSV Patients and Patients Aged 60 years or older (1 - 1-dose 75+ series) 2026 Lipid Panel 12/31/2026 12/31/2021 DTaP/Tdap/Td Vaccines (3 - Td or Tdap) 06/12/2032 06/12/2022, 09/26/2011, 02/22/2008 Pneumococcal Vaccine: 50+ Years Completed 06/12/2022, 03/15/2010, 08/02/2001 Influenza Vaccine Completed 06/10/2024, , 06/14/2021, Additional history exists HIB Vaccines Aged Out No longer eligi ble based on patient's age to complete this topic HPV Vaccines Aged Out No longer eligi ble based on patient's age to complete this topic Hepatitis A Vaccines Aged Out No long er eligible based on patient's age to complete this topic Hepatitis B Vaccines Aged Out No long er eligible based on patient's age to complete this topic IPV Vaccines Aged Out No longer eligi ble based on patient's age to complete this topic Meningococcal Vaccine Aged Out No molly rahel eligible based on patient's age to complete this topic RSV under 20 months Aged Out No longe r eligible based on patient's age to complete this topic Rotavirus Vaccines Aged Out No longer eligible based on patient's age to complete this topic Procedures Procedure Name Priority Date/Time Associated Diagnosis Comments US VENOUS DUPLEX LE RT Routine 1:30 PM EDT XR FEMUR 2+ VIEWS RIGHT Routine 01/16/2025 1:00 PM EDT Right thigh pain XR HIP 2 OR 3 VIEWS RIGHT Routine 01/16/2025 1:00 PM EDT Pain of right hip AUTOMATED VISUAL FIELD, EXTENDED - OU - BOTH EYES Routine 01/13/2025 4:23 PM EDT Primary open angle glaucoma (POAG) of both eyes, moderate stage OCT, OPTIC NERVE - OU - BOTH EYES Routine 11/25/2024 3:30 PM EST Primary open angle glaucoma (POAG) of both eyes, moderate stage BI MAMMOGRAM SCREENING TOMOSYNTHESIS BILATERAL Routine 04/11/2024 10:15 AM EDT LIPID PANEL, STANDARD Routine 12/31/2021 9:12 AM EDT from Last 3 Months or Most Recently Relevant to Health Maintenance Results * US VENOUS DUPLEX LE RT (01/16/2025 1:30 PM EDT) Anatomical Region Laterality Modality Abdomen Ultrasound 01/16/2025 1:30 PM EDT Narrative 01/16/2025 2:48 PM EDT ? [facility] ?[address] ?[place] [address] ? Ultrasound Report ? Signed ? Patient: Gibson,Fatoumata ?MR#: [id number] ?? 086 ? : 1950 ?Acct:[id number] ? Age/Sex: 74 / F ?ADM Date: 01/16/25 ? Loc: HO.US ? Attending Dr: Eren Oscar MD ? Ordering Physician: EREN OSCAR MD ?? Date of Service: 01/16/25 ?? Procedure(s): US venous duplex LE RT ?? Accession Number(s): [id number] ? cc: EREN OSCAR MD; Deborah Joaquin MD ? EXAMINATION: ?? US TRIPLEX LOWER EXTREMITY, RIGHT ? CLINICAL INFORMATION: ?? Pain, right lower extremity ? COMPARISON: ?? None available. ? TECHNIQUE: ?? Color-flow triplex imaging with spectral analysis and compression ?? Doppler were performed on the right lower extremity. ? FINDINGS: ?? Respiratory variation, normal compression and augmented flow are noted ?? throughout the interrogated common femoral vein, superficial femoral ?? vein, profunda femoral vein, popliteal vein and midcalf peroneal and ?? posterior tibial venous ? There is no Figueroa's cyst. ? US/US venous duplex LE RT ?? IMPRESSION: ?? No acute deep venous thrombosis involving the right lower extremity. ?? Negative for DVT. ? Electronically signed by: ??Lee Hernandez MD ??01/16/2025 02:46 PM ?? EDT RP ? Dictated By: ?Lee Pinto MD ? Signed By: ?<Electronically signed by Lee Day MD in OV> ? 01/16/25 1446 ? DD/ 1330 ? TD/TT: 01/16/25 1343 ? Specialties Operator: ? Procedure Note Niharika, Image - 01/16/[address] [address] Ultrasound Report Signed Patient: Fatoumata GibsonMR#: [id number] 086 : 1950cct:[id number] Age/Sex: 74 / FADM Date: 01/16/25 Loc: .US Attending Dr: Eren Oscar MD Ordering Physician: EREN OSCAR MD Date of Service: 01/16/25 Procedure(s): US venous duplex LE RT Accession Number(s): [id number] cc: EREN OSCAR MD; Deborah Joaquin MD EXAMINATION: US TRIPLEX LOWER EXTREMITY, RIGHT CLINICAL INFORMATION: Pain, right lower extremity COMPARISON: None available. TECHNIQUE: Color-flow triplex imaging with spectral analysis and compression Doppler were performed on the right lower extremity. FINDINGS: Respiratory variation, normal compression and augmented flow are noted throughout the interrogated common femoral vein, superficial femoral vein, profunda femoral vein, popliteal vein and midcalf peroneal and posterior tibial venous There is no Figueroa's cyst. US/US venous duplex LE RT IMPRESSION: No acute deep venous thrombosis involving the right lower extremity. Negative for DVT. Electronically signed by: Lee Hernandez MD 01/16/2025 02:46 PM EDT Dictated By: Lee Pinto MD Signed By: <Electronically signed by Lee Day MDin OV> 01/16/25 1446 DD/ 1330 TD/TT: 01/16/25 1343 Specialties Operator: us Eren Oscar MD IMG US PROCEDURES Final Result * XR Femur 2+ Views Right (01/16/2025 1:00 PM EDT) Anatomical Region Laterality Modality Lower Extremities, Femur Right Radiogr aphic Imaging 01/16/2025 1:00 PM EDT Narrative 01/16/2025 2:51 PM EDT ? [place] [facility] ?[address] ?[place] [address] ?XRay Report ? Signed ? Patient: Gibson,Fatoumata ?MR#: [id number] ?? 086 ? : 1950 ?Acct:[id number] ? Age/Sex: 74 / F ?ADM Date: 01/16/25 ? Loc: HO.US ? Attending Dr: Eren Oscar MD ? Ordering Physician: EREN OSCAR MD ?? Date of Service: 01/16/25 ?? Procedure(s): XR femur RT 2V ?? Accession Number(s): [id number] ? cc: EREN OSCAR MD; Deborah Joaquin MD ? EXAMINATION: ?? [...] DD/ 1300 ? TD/TT: 01/16/25 1328 ? Specialties Operator: ? Procedure Note Jesus Bundy - 01/16/[address] [address] XRay Report Signed Patient: Fatoumata GibsonMR#: [id number] 086 : 1Acct:[id number] Age/Sex: 74 / FADM Date: 01/16/25 Loc: HO.US Attending Dr: Eren Oscar MD Ordering Physician: EREN OSCAR MD Date of Service: 01/16/25 Procedure(s): XR femur RT 2V Accession Number(s): [id number] cc: EREN OSCAR MD; Deborah Joaquin MD EXAMINATION: XR FEMUR, [...] 01/16/25 1449 DD/ 1300 TD/TT: 01/16/25 1328 Specialties Operator: Eren Oscar MD IMG XR PROCEDURES Final Result * XR Hip 2 or 3 Views Right (01/16/2025 1:00 PM EDT) Anatomical Region Laterality Modality Lower Extremities, Hip Right Radiograp hic Imaging 01/16/2025 1:00 PM EDT Narrative 01/16/2025 2:52 PM EDT ? [facility] ?[address] ?[place] [address] ?XRay Report ? Signed ? Patient: Gibson,Fatoumata ?MR#: [id number] ?? 086 ? : 1950 ?Acct:[id number] ? Age/Sex: 74 / F ?ADM Date: 04/28/25 ? Loc: HO.US ? Attending Dr: Eren Oscar MD ? Ordering Physician: EREN OSCAR MD ?? Date of Service: 01/16/25 ?? Procedure(s): XR hip RT min 2V ?? Accession Number(s): [id number] ? cc: EREN OSCAR MD; Deborah Joaquin MD ? EXAMINATION: ?? [...] DD/ 1300 ? TD/TT: 01/16/25 1328 ? Specialties Operator: ? Procedure Note Donamyter, Image - 01/16/[address] [address] XRay Report Signed Patient: Fatoumata GibsonMR#: [id number] 086 : 1Acct:[id number] Age/Sex: 74 / FADM Date: 01/16/25 Loc: HO.US Attending Dr: Eren Oscar MD Ordering Physician: EREN OSCAR MD Date of Service: 01/16/25 Procedure(s): XR hip RT min 2V Accession Number(s): [id number] cc: EREN OSCAR MD; Deborah Joaquin MD EXAMINATION: XR HIP, [...] right femur x-ray. Electronically signed by: Lee Heranndez MD 01/16/2025 02:49 PM EDT RP Dictated By: Lee Pinto MD Signed By: <Electronically signed by Lee Day MDin OV> 01/16/25 1449 DD/ 1300 TD/TT: 01/16/25 1328 Specialties Operator: Eren Oscar MD IMG XR PROCEDURES Final Result * Automated Visual Field, Extended - OU - Both Eyes (01/13/2025 4:23 PM EDT) Kendy Gaona, OD - 01/13/2025 4:23 PM EDT VISUAL FIELD INTERPRETATION Reliability: OD: _Reduced reliability_ (FP: 28%, FN: 25%) OS: _Unreliable_ (FP: 0%, FN: 55%) Statistical Indices: OD: MD: ??-18.3 dB, PSD: 8.3 dB OS: MD: ??-18.8 dB, PSD: ??6.3 dB Impression: OD: 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 Baseline. OS: Enlarged blindspot with cluster of defects inferior temporal - no structural correlation. Baseline. Management Plan: Poor reliability, visual rubio likely much better than testing is showing (very high FN). Continue to monitor with OCT as patient is a poor visual field (VF) test taker. Repeat OCT in 6 months, need to repeat visual field (VF) testing afterwards. us Kendy Butler OD OPHTH VISUAL FIELD Final Result * OCT, Optic Nerve - OU - Both Eyes (11/25/2024 3:30 PM EST) Kendy Gaona, OD - 11/25/2024 3:30 PM EST OCT GLAUCOMA INTERPRETATION Reliability: OD: SS 39, adequate quality scan OS: SS 38, adequate quality scan Optical Coherence Tomography Interpretation Report RNFL Measurements RNFL: Avg RNFL thickness OD: ??73 microns OS: ??64 microns Test findings RNFL: RNFL OD: Progressive thinning inferior nasal and superior nasal, however overall reduction in signal quality today compared to last could be contributing to apparent thinning. Need to repeat scans to determine reliability/repeatability. RNFL OS: Progressive thinning in most clock hours. However overall reduction in signal quality today compared to last could be contributing to apparent thinning. Need to repeat scans to determine reliability/repeatability. Optical Coherence Tomography Interpretation Report GCL: Test findings GCL: GCL OD: Thin inferior temporal, borderline thin superior temporal and inferior. Baseline. GCL OS: Thin inferior temporal with horizontal midline respect. Baseline. Impression and Plan: Primary open angle glaucoma (POAG) both eyes (OU). Possibly progressive thinning since last/baseline scans on 03/17/2022. Need to repeat. Kendy Butler OD OPHTH TOMOGRAPHY Edited Result - Final * BI Mammogram Screening Tomosynthesis Bilateral (04/11/2024 10:15 AM EDT) Anatomical Region Laterality Modality Breast Bilateral Mammography 04/11/2024 10:1 5 AM EDT Narrative 05/03/2024 6:13 PM EDT ? [facility] [place] ? [address] ?[place] [address] ? Mammography Report ? Signed ? Patient: Gibson,Fatoumata ?MR#: [id number] ?? 086 ? : 1950 ?Acct:[id number] ? Age/Sex: 74 / F ?ADM Date: 07/22/24 ? Loc: HO.MAMMO ? Attending Dr: Deborah Joaquin MD ? Ordering Physician: Deborah Joaquin MD ?Results: 1Ne ?? gative ? Date of Service: 04/11/24 ?Follow Up: 1 Year From Orig ?? inal Mammogram ? Procedure(s): MM tomosynthesis screening BI ?? Accession Number(s): [id number] ? cc: Deborah Joaquin MD ? EXAMINATION: ?? MM SCREENING DIGITAL BREAST TOMOSYNTHESIS, BILATERAL ? CLINICAL INFORMATION: ? Screening. Asymptomatic. ? COMPARISON: ?? Mammography: This study is compared with prior exams dating back to ?? 2018. ? TECHNIQUE: ?? Digital breast tomosynthesis is performed in both the craniocaudal and ?? mediolateral oblique views along with computer-aided detection (CAD). ?? Synthesized 2D images are generated from the tomosynthesis. ? FINDINGS: ?? There are scattered areas of fibroglandular density (ACR BI-RADS breast ?? composition Category b). ? There are no significant masses, abnormal calcifications, or other ?? abnormalities. ? MM/MM tomosynthesis screening BI ?? IMPRESSION: ?? No mammographic evidence of malignancy. ? ASSESSMENT: ? BI-RADS BI-RADS 1 - Negative ? RECOMMENDATION: ?? Routine annual mammography screening. ? 1 year F/U ? This examination should not preclude the clinical evaluation of a ?? suspicious palpable abnormality. ? This patient's information was entered into a reminder system with a ?? target due date for their next mammogram. ? Dictated By: ?Lesia Jimenez MD ? Signed By: ?<Electronically signed by Lesia Jimenez MD in OV> ? 08/13/24 1809 ? DD/ 1015 ? TD/TT: ? Specialties Operator: ? Procedure Note Donotuseinterpreter, Image - [facility] [address] [place], [place] [id number] Mammography Report Signed Patient: Fatoumata GibsonMR#: [id number] 086 : 1Acct:[id number] Age/Sex: 74 / FADM Date: 04/11/24 Loc: HO.MAMMO Attending Dr: Deborah Joaquin MD Ordering Physician: Deborah Joaquin MDResults: 1Ne gative Date of Service: 04/11/24Follow Up: 1 Year From Orig inal Mammogram Procedure(s): MM tomosynthesis screening BI Accession Number(s): [id number] cc: Deborah Joaquin MD EXAMINATION: MM SCREENING DIGITAL BREAST TOMOSYNTHESIS, BILATERAL CLINICAL INFORMATION: Screening. Asymptomatic. COMPARISON: Mammography: This study is compared with prior exams dating back to 2019. TECHNIQUE: Digital breast tomosynthesis is performed in both the craniocaudal and mediolateral oblique views along with computer-aided detection (CAD). Synthesized 2D images are generated from the tomosynthesis. FINDINGS: There are scattered areas of fibroglandular density (ACR BI-RADS breast composition Category b). There are no significant masses, abnormal calcifications, or other abnormalities. MM/MM tomosynthesis screening BI IMPRESSION: No mammographic evidence of malignancy. ASSESSMENT: BI-RADS BI-RADS 1 - Negative RECOMMENDATION: Routine annual mammography screening. 1 year F/U This examination should not preclude the clinical evaluation of a suspicious palpable abnormality. This patient's information was entered into a reminder system with a target due date for their next mammogram. Dictated By: Lesia Jimenez MD Signed By: <Electronically signed by Lesia Jimenez MD in OV> 05/03/24 1809 DD/ 1015 TD/TT: Specialties Operator: Deborah Joaquin MD IM BI PROCEDURES Edited Result - Final * LIPID PANEL, STANDARD (12/31/2021 9:12 AM EDT) Chol/HDLC Ratio 2.1 <5.0 (calc) [facility] Cholesterol, Total 164 <200 mg/dL [facility] HDL Cholesterol 78 > OR = 50 mg/dL [facility] LDL Cholesterol 69 mg/dL (calc) [facility] Comment: Reference range: <100 ?? Desirable range <100 mg/dL for primary prevention; ?? <70 mg/dL for patients with CHD or diabetic patients ?? with > or = 2 CHD risk factors. ?? LDL-C is now calculated using the Ce ?? calculation, which is a validated novel method providing ?? better accuracy than the Friedewald equation in the ?? estimation of LDL-C. ?? Jorge LAKHANI et al. TIM. 2013;310(19): 0996-1062 ?? (http://education.Keystok/faq/TOC807) Non-HDL Cholesterol 86 <130 mg/dL (calc) [facility] Comment: For patients with diabetes plus 1 major ASCVD risk ?? factor, treating to a non-HDL-C goal of <100 mg/dL ?? (LDL-C of <70 mg/dL) is considered a therapeutic ?? option. Triglycerides 90 <150 mg/dL [facility] 12/31/2021 9:12 AM EDT us Deborah Joaquin MD LAB BLOOD ORDERABLES Fin al Result [facility] [address] from Last 3 Months or Most Recently Relevant to Health Maintenance Insurance STANDARD [facility] RESIDENTIAL OPTIONS (HMO D-SNP) Care Teams Cyber Systems Administrator Relationship Specialty Start Date End Date Deborah Joaquin MD [address] [place] [phone] PCP - General Family Medicine 05/14/17
--- OUTSIDE RECORDS SUMMARY | 2025-01-16 15:19 | XMS_ITS | Encounter Summary ---
Author Organization [employer] Address [address] 7[address] [place] [address] Care Team Providers Care Occupational Work Experience Teacher Name Role Phone Deborah Joaquin MD Primary Care Provider + Reason for Visit * Reason Onset Date Comments Appointment Request 12/16/2024 Encounter Details Date Type Department Care Team ([facility] Contact Info) Description 12/16/2024 Telephone [facility] [address] [place] [address] Deborah Joaquin MD [address] [place], [place] [phone] Appointment Request Social History Tobacco Use Types Packs/Day Years [...] the past 12 months, has t he [employer], oil or water company threatened to shut [...] encounter Miscellaneous Notes * Telephone Encounter - Tim Hancock - 12/16/2024 8:15 AM EDT Tc from pt requesting nto R/s appt from 12/16/24. Contact pt at [phone] documented in this encounter Plan of Treatment Not on file documented as of this encounter Visit Diagnoses Not on filedocumented in this encounter Care Teams Occupational Work Experience Teacher Relationship Specialty Start Date End Date Deborah Joaquin MD [address] [place] [id number] PCP - General Family Medicine 05/14/17 documented as of this encounter
--- OUTSIDE RECORDS SUMMARY | 2025-01-16 15:19 | XMS_ITS | Encounter Summary ---
Author Organization [employer] Address [address] 7[address] [place] [address] Care Team Providers Care Professor Of Legal Studies Name Role Phone Deborah Joaquin MD Primary Care Provider + Encounter Details Date Type Department Care Team (Late st Contact Info) Description 01/13/2025 9:00 AM EDT Office Visit [facility] [address] [place], [place] [phone] Kendy Butler, OD [address] [place], [place] [phone] Primary open angle glaucoma (POAG) of both eyes, moderate stage (Primary Dx) Social History Tobacco Use Types Packs/Day Years [...] AM EDT documented as of this encounter Progress Notes * Kendy Butler, OD - 01/13/2025 9:00 AM EDT Eye Care Progress Note Patient ID: Fatoumata Rose is a 74 y.o. female. HPI Patient presents for visual field and intraocular pressure (IOP) check. Current glaucoma medications: Latanoprost QHS OU, Brimonidine BID OU. Patient reports compliance with Latanoprost QHS OU but reports fatigue when using Brimonidine in the AM, so she only uses Brimonidine QHS OU. Patient uses artificial tears BID both eyes (OU). Last edited by Kendy Butler, OD on 01/13/2025 12:45 PM. Current Outpatient Medications Medication Sig Dispense Refill alendronate (Fosamax) 70 MG tablet Take 1 tablet (70 mg) by mouth every 7 (seven) days. Take in themorning with a full glass of water, on an empty stomach, and do not take anything else by mouth or lie down for the next 30 min. 4 tablet 11 atorvastatin (Lipitor) 20 MG tablet TOME 1 TABLETA POR VIA ORAL TODOS LOS STEWART 90 tablet 1 brimonidine (AlphaGAN) 0.2 % ophthalmic solution Administer 1 drop into both eyes 2 times daily. 15mL 5 Calcium Carb-Cholecalciferol (Calcium 500 + D3) 500-5 MG-MCG tablet Take 1 tablet by mouth Once perday. 90 tablet 3 Diclofenac Sodium 1 % gel APPLY 1 INCH TOPICALLY IF NEEDED FOR PAIN IN THE MORNING AND AT BEDTIME 100 g 0 hydroCHLOROthiazide (HYDRODiuril) 25 MG tablet TAKE 1 TABLET BY MOUTH EVERY DAY 90 tablet 1 latanoprost (Xalatan) 0.005 % ophthalmic solution INSTILL 1 DROP INTO BOTH EYES AT BEDTIME MUST SEEPROVIDER TO OBTAIN MORE REFILLS lisinopril 40 MG tablet TAKE 1 TABLET BY MOUTH EVERY DAY 90 tablet 1 No current facility-administered medications for this visit. No past medical history on file. Past Surgical History: Procedure Laterality Date CATARACT EXTRACTION, BILATERAL Bilateral 05/2024 ORIF FEMUR FRACTURE Left 07/19/2023 Family History Problem Relation Name Age of Onset Glaucoma Brother Tobacco Use: Low Risk (11/25/2024) Tobacco Smoking Tobacco Use: Never Smokeless Tobacco Use: Never Passive Exposure: Not on file Allergies Allergen Reactions Atenolol Swelling Ibuprofen Other reaction(s): HEART PALPITATIONS ROS Positive for: Eyes Negative for: Constitutional, Gastrointestinal, Neurological, Skin, Genitourinary, Musculoskeletal,HENT, Endocrine, Cardiovascular, Respiratory, Psychiatric, Allergic/Imm, Heme/Lymph Last edited by Kendy Butler, CEASAR on 01/13/2025 9:29 AM. Base Eye Exam Visual Acuity (Snellen - Linear) Right Left Dist cc 20/30 20/40 Dist ph cc NI NI Tonometry (Applanation, 9:34 AM) Right Left Pressure 15 16 Gonioscopy (Zeiss, four mirror) Right Left Temporal CBB CBB Nasal CBB CBB Superior CBB CBB Inferior CBB CBB OU: Gr 3+ pigment, (-) NVA/PAS/AR Pupils Pupils APD Right PERRL None Left PERRL None Visual Marie (Counting fingers) Left Right Full Full Extraocular Movement Right Left Full Full Neuro/Psych Oriented x3: Yes Mood/Affect: Normal Slit Lamp and Fundus Exam External Exam Right Left External Normal Normal Slit Lamp Exam Right Left Lids/Lashes Lid margin scalloping, tr bleph UL Lid margin scalloping, 1+ bleph UL Conjunctiva/Sclera White and quiet White and quiet Cornea CE scars temporal, 3 small round scars inferior with one scar encroaching on VA, EBMD superior Nasal EBDM superior, CE scars temporal Anterior Chamber Deep and quiet, angles open gr 4 Deep and quiet, angles open Iris Flat, round Flat, round Lens 1+ diffuse PCO tr diffuse PCO Fundus Exam Right Left Vitreous Clear (+) PVD Disc [place] and healthy, glial tissue nasally [place] and healthy C/D Ratio Vertical 0.70 0.70 C/D Ratio Horizontal 0.65 0.65 Assessment and Plan Diagnoses and all orders for this visit: Primary open angle glaucoma (POAG) of both eyes, moderate stage Glaucoma summary - Current treatment: Latanoprost QHS OU, Brimondine BID OU - using QHS - Fhx glaucoma: (+) brother - IOP today (GAT): , Tmax: (11/16/20) - RNFL OCT (11/25/24): Appears to have progressive thinning OU however reduction in signal could be contributing, need to repeat scans to determine reliability - GCL OCT today (11/25/24): OD: thin GCL inferior temporal, OS: thin GCL inferior and inferior temporal. Baseline. - HVF 24-2 today (01/13/25): OD: Reduced reliability, central defects in all 4 quadrants with a cluster of dense defects inferior temporal - no structural correlation, OS: Poor reliability with 55% FN, enlarge blindspot with cluster of defects inferior temporal - no structural correlation. Baseline.Need to repeat. - Gonio today (01/13/25): Open to ciliary body bend (CBB) 360 OU - Pachymetry (09/09/2017): 520/522 - Continue use of Latanoprost QHS OU. Due to excellent IOP, patient can continue using Brimonidine 1gtt QHS only OU for now - RTC in 6 months for intraocular pressure (IOP) check and dilated OCT Intraocular pressure (IOP) history: /27 @ 1518 09/27/2018 @ 1315 / @ 1400 --- Latanoprost OU initiated by [facility]--- 03/17/2022 1515 @ 0917 (icare) 05/07/2023 @ 1120 (icare) 06/28/2024 18 @ 1600 5/15 @ 1554 /19 @ 1005 --- Brimonidine OU added, patient using QHS only--- 12/09/2024 14/17 @ 0933 12/13/2024 15 @ 0934 Kendy Butler, OD 01/13/2025, 4:24 PM Scrap Piler Source: __ None _x_ Bilingual Staff __ Qualified Staff Head Screen Worker __ Telephone Scrap Piler; ID# __ Scrap Piler brought by patient (family member, friend, POWER PLANT ASSISTANT, etc) __ In person retirement plan counselor __ Ipad Scrap Piler; ID#: Language Spoken During Exam: Icelandic documented in this encounter Plan of Treatment Not on file documented as of this encounter Procedures Procedure Name Priority Date/Time Associated Diagnosis Comments AUTOMATED VISUAL FIELD, EXTENDED - OU - BOTH EYES Routine 01/13/2025 4:23 PM EDT Primary open angle glaucoma (POAG) of both eyes, moderate stage documented in this encounter Results * Automated Visual Field, Extended - OU [...] correlation. Baseline. Management Plan: Poor reliability, visual marie likely much better than testing is showing (very high FN). Continue to monitor with OCT as patient is a poor visual field (VF) test taker. Repeat OCT in 6 months, need to repeat visual field (VF) testing afterwards. us Kendyvalente Butler OD OPHTH VISUAL FIELD Final Result documented in this encounter Visit Diagnoses Diagnosis Primary open angle glaucoma (POAG) of both eyes, moderate stage- Primary documented in this encounter Care Teams Professor Of Legal Studies Relationship Specialty Start Date End Date Deborah Joaquin MD [address] [place] [address] PCP - General Family Medicine 05/14/17 documented as of this encounter
--- OUTSIDE RECORDS SUMMARY | 2025-01-16 15:19 | XMS_ITS | Encounter Summary ---
Author Organization [employer] Address [address] [place] [address] Care Team Providers Care Pick Up Operator Name Role Phone Deborah Joaquin MD Primary Care Provider + Encounter Details Date Type Department Care Team (Late st Contact Info) Description 01/16/2025 Orders Only [facility] [address] [place] [address] rEen Rodriguez MD [address] [place] [phone] Social History Tobacco Use Types Packs/Day Years [...] Comments US VENOUS DUPLEX LE RT Routine 01/16/2025 1:30 PM EDT documented in this encounter Results * US VENOUS DUPLEX LE RT (01/16/2025 1:30 PM EDT) Anatomical Region Laterality Modality Abdomen Ultrasound 01/16/2025 1:30 PM EDT Narrative 01/16/2025 2:48 PM EDT ? [facility] ?[address] ?[place] [address] ? Ultrasound Report ? Signed ? Patient: Fatoumata Gibson ?MR#: [id number] ?? [id number] ? : 1950 ?Acct:[id number] ? Age/Sex: 74 / F ?ADM Date: 01/16/25 ? Loc: HO.US ? Attending Dr: Eren Rodriguez MD ? Ordering Physician: EREN RODRIGUEZ MD ?? Date of Service: 01/16/25 ?? Procedure(s): US venous duplex LE RT ?? Accession Number(s): [id number] ? cc: EREN RODRIGUEZ MD; Deborah Joaquin [...] DD/ 1330 ? TD/TT: 01/16/25 1343 ? Air Valve Mechanic: ? Procedure Note Donotuseinterpreter, Image - 01/16/2025 [place] [address] Ultrasound Report Signed Patient: Fatoumata GibsonMR#: [id number] : 1950cct:[id number] Age/Sex: 74 / FADM Date: 01/16/25 Loc: HO.US Attending Dr: Eren Rodriguez MD Ordering Physician: EREN RODRIGUEZ MD Date of Service: 01/16/25 Procedure(s): US venous duplex LE RT Accession Number(s): [id number] cc: EREN RODRIGUEZ MD; Deborah Joaquin MD EXAMINATION: US TRIPLEX [...] 01/16/25 1446 DD/ 1330 TD/TT: 01/16/25 1343 Air Valve Mechanic: us Eren Rodriguez MD [facility] PROCEDURES Final Result documented in this encounter Visit Diagnoses Not on filedocumented in this encounter Care Teams Pick Up Operator Relationship Specialty Start Date End Date Deborah Joaquin MD [address] [place] [phone] PCP - General Family Medicine 05/14/17 documented as of this encounter
== END 2025-01-16 12:56 | disposition home or self-care (01) ==
LOC: HO.US 12:55
PROVIDERS: PCP Internal Medicine; Visit Provider Emergency Medicine
DX: M79.651 Pain in right thigh (principal); M25.551 Pain in right hip
CPT/HCPCS: 73502; 73552; 93971

== ENCOUNTER → 2025-01-16 13:00 | Outpatient (BNV) | payer OTHER, SELFPAY | PROVIDERS: PCP Internal Medicine; Visit Provider Radiology Diagnostic Radiology | DX: D16.21 Benign neoplasm of long bones of right lower limb (principal); M89.8X5 Other specified disorders of bone, thigh; M79.604 Pain in right leg | CPT/HCPCS: 73502; 73552; 93971 ==

== ENCOUNTER 2025-02-24 10:10 | Outpatient (AMB) | payer OTHER, SELFPAY ==
--- NOTE | 2025-02-24 10:18 | A.OFFVIS_ITS ---
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 Patient was seen by her PCP who ordered x-rays and an US to rule out DVT. Patient was referred to orthopedics for pain with weight bear. States pain is on her lateral aspect of her hip and sharp radiating pains down the side of her leg. At ties she has mild tingling in her toes. No pain at rest. Denies injury, P.T or injections. 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 She denies injury. She does have a history of a left femur fracture in 2022 in which she needed an intramedullary nail placed. She states this fracture was not the result of an injury. She does not have any history of cancer. She feels the right lower extremity is similar to how the left 1 felt prior to her fracture. She has discomfort with prolonged standing and sleeping it is radiates down the leg. She denies numbness or tingling. She does have a history of low back pain. She states she has osteoporosis and arthritis. [facility] Medical History (Updated 02/24/25 @ 10:36 by Adiel Henderson PA-C) Femur fracture, left Surgical History H/O removal of cyst Family History Father Heart problem HTN (hypertension) CVD (cardiovascular disease) Mother HTN (hypertension) Brother No problems noted. Brother No problems noted. Brother No problems noted. Sister No problems noted. Sister No problems noted. Sister No problems noted. Daughter No problems noted. Daughter No problems noted. Social History (Updated 02/24/25 @ 10:25 by SOLEDAD Davison) Current occupational status: disabled Current occupation: right hand Review of Systems Const All systems reviewed & are unremarkable except as noted in HPI and below Physical Exam Vital Signs: BMI result Body Mass Index 22.1 Const General: cooperative and no acute distress Orientation/consciousness: patient oriented x3 Resp Effort & Inspection: normal respiratory effort and able to speak in complete sentences Cardio Peripheral pulses: Peripheral pulses 2+ throughout Neuro General: patient oriented x3 Extrem Other: Right hip appears normal to inspection. She has no pain with hip flexion or range of motion. She does have tenderness with palpation over the greater troch and also some discomfort along the proximal and mid shaft of the thigh when compared to contralateral side. Results Reviewed Results Reviewed: Right femur IMPRESSION: No acute fracture. The possibility of osteoid osteoma at the proximal/mid diaphysis right femur cannot be excluded. Assessment & Plan Assessment & Plan (1) Pain in right femur: Code(s): M89.8X5 - Other specified disorders of bone, thigh Category: Medical Plan: Given her history of a traumatic femur fracture on the left an MRI of the right femur has been ordered to further evaluate the integrity of her bone and determine etiology of her pain. If the MRI is negative I will treat this as trochanteric bursitis of the right and we can refer her to physical therapy. I also explained how anti-inflammatories and cortisone injections can be helpful in the setting of trochanteric bursitis. Once the scan is complete I will contact her to discuss the results along with treatment options. Orders: Orders MR femur RT wo con Today M89.8X5 - Other specified disorders of bone, thigh Coding Level of Care Code New Pt Level 3 (58908) Complex EM visit Add On G2211 Diagnoses Pain in right femur M89.8X5
[2025-02-24 10:21] VITALS: BMI 22.1
--- OUTSIDE RECORDS SUMMARY | 2025-02-24 10:56 | XMS_ITS | Encounter Summary ---
Author Organization [employer] Address [address] [facility] 7[address] [place] [address] Care Team Providers Care Hydrogeologist Name Role Phone Deborah Joaquin MD Primary Care Provider + Reason for Visit * Reason Comments Med Refill Encounter Details Date Type Department Care Team (Late st Contact Info) Description 04/21/2023 Refill [facility] [address] [place] [address] [phone] Deborah Joaquin MD [address] [place], [place] [phone] Social History Tobacco Use Types Packs/Day Years [...] on filedocumented in this encounter Care Teams Hydrogeologist Relationship Specialty Start Date End Date Deborah Joaquin MD [address] [place] [address] [phone] PCP - General Family Medicine 05/14/17 documented as of this encounter
== END 2025-02-24 11:01 | disposition home or self-care (01) ==
LOC: HO.HOS 10:11
PROVIDERS: PCP Internal Medicine; Visit Provider Physician Assistant
DX: M89.8X5 Other specified disorders of bone, thigh (principal)
CPT/HCPCS: 99203; G2211

== ENCOUNTER → 2025-02-24 10:10 | Outpatient (BNVA) | payer OTHER, SELFPAY | PROVIDERS: PCP Internal Medicine; Visit Provider Physician Assistant | DX: M89.8X5 Other specified disorders of bone, thigh (principal) | CPT/HCPCS: 99202 ==

== ENCOUNTER 2025-04-02 11:16 | Outpatient (REF) | payer OTHER, SELFPAY ==
--- NOTE | ~2025-04-02 | MR_ITS ---
CLINICAL HISTORY: M89.8X5 - Other specified disorders of bone, thigh --- Additional Notes or Special Instructions: h o atraumatic femur fracture on left MRI right femur without contrast Comparison: 01/16/2025 Findings: Increased signal noted central medullary canal mid femur. Cortical thickening noted lateral aspect of this region. The appearance on coronal images suggests stress fracture. Recommend continued follow-up to ensure healing. No bone destruction is identified. No other bony abnormality is identified. No soft tissue or muscular abnormality noted. Impression: Probable stress fracture mid femur as above Recommend continued follow-up to ensure healing This document has been electronically signed by: Piero Anand MD on 04/04/2025 19:09:29
--- OUTSIDE RECORDS SUMMARY | 2025-04-02 11:21 | XMS_ITS | Encounter Summary ---
Author Organization [employer] Address [address] [place] [address] [address] [place] [address] Care Team Providers Care Taper Operator Name Role Phone Deborah Joaquin MD Primary Care Provider + Reason for Visit * Reason Comments Med Refill Encounter Details Date Type Department Care Team (Late st Contact Info) Description 04/21/2023 Refill [facility] [address] [place], [place] [phone] Deborah Joaquin MD [address] [place] [address] Social History Tobacco Use Types Packs/Day Years [...] as of this encounter Plan of Treatment Upcoming Encounters Date Type Department Care Team (Late st Contact Info) Description 07/24/2025 11:15 AM EST Office Visit [facility] OPTOMETRY [address] [place], [place] [phone] TarsharifaKendy, OD [address] [place], [place] [phone] documented as of this encounter Visit Diagnoses Not on filedocumented in this encounter Care Teams Taper Operator Relationship Specialty Start Date End Date Deborah Joaquin MD [address] [place] [address] PCP - General Family Medicine 05/14/17 documented as of this encounter
== END 2025-04-02 11:17 | disposition home or self-care (01) ==
LOC: HO.MRI 11:16
PROVIDERS: PCP Internal Medicine; Visit Provider Physician Assistant
DX: M89.8X5 Other specified disorders of bone, thigh (principal)
CPT/HCPCS: 73718

== ENCOUNTER → 2025-04-02 11:33 | Outpatient (BNV) | payer OTHER, SELFPAY | PROVIDERS: PCP Internal Medicine; Visit Provider Radiology Diagnostic Radiology | DX: M79.651 Pain in right thigh (principal) | CPT/HCPCS: 73718 ==

== ENCOUNTER 2025-04-10 09:27 | Outpatient (AMB) | payer OTHER, SELFPAY ==
--- NOTE | 2025-04-10 09:44 | A.OFFVIS_ITS ---
Vital Signs 04/10/25 09:49 Height 5 ft 3 in Weight 125 lb BMI 22.1 Intake Visit Reasons: ov-MRI results of right femur Intake Note: Fatoumata is a 75 year old female who presents today for a MRI review of her right femur. Patient states that her pain has gotten better. Assistant Federal Public Defender Services: Assistant Federal Public Defender Present (([id number])) Allergies atenolol Allergy (Unknown, Verified 04/10/25 09:48) swelling ibuprofen (From Motrin) Adverse Reaction (Mild, Verified 04/10/25 09:48) TACHYCARDIA/CHEST PAIN Medication List - Last Reconciled 04/10/25 by Adiel Henderson PA-C alendronate 0 mg PO DIRECTED atorvastatin 20 mg PO DAILY hydrochlorothiazide 25 mg PO DAILY lisinopril 40 mg PO DAILY HPI HPI ov-MRI results of right femur: Details: 75 yo female returns to the office today fu Rt femur MRI. She continues to have some pain but it is less than her previous visit. [facility] Medical History (Updated 04/10/25 @ 10:16 by Adiel Henderson PA-C) Femur fracture, left Surgical History H/O removal of cyst Family History Father Heart problem HTN (hypertension) CVD (cardiovascular disease) Mother HTN (hypertension) Brother No problems noted. Brother No problems noted. Brother No problems noted. Sister No problems noted. Sister No problems noted. Sister No problems noted. Daughter No problems noted. Daughter No problems noted. Social History Current occupational status: disabled Current occupation: right hand Review of Systems Const All systems reviewed & are unremarkable except as noted in HPI and below Physical Exam Vital Signs: BMI result Body Mass Index 22.1 Const General: cooperative and no acute distress Orientation/consciousness: patient oriented x3 Resp Effort & Inspection: normal respiratory effort and able to speak in complete sentences Cardio Peripheral pulses: Peripheral pulses 2+ throughout Neuro General: patient oriented x3 Extrem Other: Right hip appears normal to inspection. She has no pain with hip flexion or range of motion. She does have some discomfort along the proximal and mid shaft of the thigh when compared to contralateral side. Results Reviewed Results Reviewed: MRI rt femur Impression: Probable stress fracture mid femur as above Recommend continued follow-up to ensure healing Assessment & Plan Assessment & Plan (1) Stress fracture, right femur, initial encounter for fracture: Code(s): M84.351A - Stress fracture, right femur, initial encounter for fracture Category: Medical Plan: Dr. Ortiz was available to see the patient with me today. We discussed the extent of the MRI findings along with the injury. We discussed options which includes nonsurgical intervention which would likely be partial to nonweightbearing right lower extremity to reduce risk of fracture. Surgical intervention would be prophylactic intramedullary nailing of the right femur in the setting of the stress fracture, especially since she has a history of a traumatic femur fracture on the left which resulted in an IM nail. We explained to the patient and her daughter in the office today prophylactically treating this would reduce risk of fracture but also be less recovery time than if she were to fracture and then need surgery. We also discussed her medication which is a bisphosphonate and its affect it can have on quality. She has been taking this medication for quite some time which may be causing an increased risk of her fracture which is a concern. At this time I have placed an endocrinology referral for her to discuss this at more length with a provider to determine if this is an appropriate medication for her and how she should continue to manage this. In the meantime, her and her family we will also discuss the option of surgical intervention along with the risks and benefits of this which were discussed in the office today with Dr. Ortiz. Risks are including but not limited to blood loss, pain, nerve , bone or tissue damage to surrounding area, risk for periprosthetic fracture. If she would like to proceed they will contact our office and we will booked him for a right femur intramedullary nail. All questions were answered today. Orders: Referrals Endocrinology Referral T45.8X5A - Adverse effect of other primarily systemic and hematological agents, initial encounter Coding Level of Care Code Est Pt Level 4 (12532) Diagnoses Stress fracture, right femur, initial encounter for fracture M84.351A
[2025-04-10 09:49] VITALS: BMI 22.1
--- OUTSIDE RECORDS SUMMARY | 2025-04-10 09:56 | XMS_ITS | Encounter Summary ---
Author Organization [employer] Address [address] [place] [address] [address] [place] [address] Care Team Providers Care Dedicated Local Truck Driver Name Role Phone Deborah Joaquin MD Primary Care Provider + Reason for Visit * Reason Comments Med Refill Encounter Details Date Type Department Care Team (Late st Contact Info) Description 04/21/[address] [facility] [address] [place], [place] [phone] Deborah Joaquin MD [address] [place] [address] Social History Tobacco Use Types Packs/Day Years [...] Description 07/24/2025 11:15 AM EST Office Visit [facility] [address] [place], [place] [phone] TarKendy skaggs, OD [address] [place], [place] [phone] documented as of this encounter Visit Diagnoses Not on filedocumented in this encounter Care Teams Dedicated Local Truck Driver Relationship Specialty Start Date End Date Deborah Joaquin MD [address] [place] [address] PCP - General Family Medicine 05/14/17 documented as of this encounter
== END 2025-04-10 10:34 | disposition home or self-care (01) ==
LOC: HO.HOS 09:27
PROVIDERS: PCP Internal Medicine; Visit Provider Physician Assistant
DX: M84.351A Stress fracture, right femur, initial encounter for fracture (principal)
CPT/HCPCS: 99214

== ENCOUNTER → 2025-04-10 09:27 | Outpatient (BNVA) | payer OTHER, SELFPAY | PROVIDERS: PCP Internal Medicine; Visit Provider Physician Assistant | DX: Z71.2 Person consulting for explanation of examination or test findings (principal); M84.351A Stress fracture, right femur, initial encounter for fracture | CPT/HCPCS: 99212 ==

== ENCOUNTER 2025-04-19 14:22 | Outpatient (AMB) | payer OTHER, SELFPAY ==
--- NOTE | 2025-04-19 14:23 | MHC.OFFVIS ---
Vital Signs 04/19/25 14:24 Height 5 ft 3 in Weight 118 lb 2.684 oz BMI 20.9 BP 140/76 H Blood Pressure Location Lt brachial Position Sitting Pulse 65 Pulse Source Pulse Oximeter Pulse Oximetry (%) 96 Oxygen Delivery Method Room Air Intake Visit Reasons: Adverse effect of other primarily systemic and hem Intake Note: Patient present today for Adverse effect of other primarily systemic and hematological agents, initial encounter. Parking Lot Manager Required: Yes Parking Lot Manager Language: Sample Maker Hand Services: Parking Lot Manager Present Parking Lot Manager Name: Information Interpreted: non-clinical & clinical Accompanied by: Daughter Allergies atenolol Allergy (Unknown, Verified 04/19/25 14:29) swelling ibuprofen (From Motrin) Adverse Reaction (Mild, Verified 04/19/25 14:29) TACHYCARDIA/CHEST PAIN Medication List - Last Reconciled 04/19/25 by Ramu Mahoney MD alendronate 0 mg PO DIRECTED atorvastatin 20 mg PO DAILY hydrochlorothiazide 25 mg PO DAILY lisinopril 40 mg PO DAILY HPI Comments Details: 75 YO Female is seen in consultation at the request of PCP for Osteoporosis. First diagnosed in >10 yrs . Received treatment in the past with alendronate , from more than 10 yrs . Developed a right femoral stress fracture on alendronate.Stopped alendronate last wk history of pathologic fracture in hip or ONJ. Has servings of dietary calcium per day in the form of []. Takes Calcium supplement ? mg daily in divided doses. Takes [] IU of Vitamin D daily. Denies ever using PPI, anticoagulant, antiepileptic or glucocorticoid medication. 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 UTD on dental cleanings and sees dentist every 6 months. No planned upcoming dental work or extractions. No tabacco use or heavy ETOH abuse DXA dated 2020 :FINDINGS: AP SPINE L1-L3 (excluding L4): The data of L1-L4 has been changed to exclude the L4 vertebral body, because degenerative sclerosis at this level may cause overestimation of lumbar spine density. Current: BMD 0.872 g/cm2, Z-score -0.7, T-score -2.5, osteoporosis, 9.5% increase from previous, 2.0% decrease from baseline (<5% change is not significant). Prior: BMD 0.796 g/cm2. Baseline: BMD 0.890 g/cm2. LEFT FEMUR, NECK: Current: BMD 0.552 g/cm2, Z-score -1.7, T-score -3.5, osteoporosis. Prior: BMD 0.724 g/cm2. Baseline: BMD 0.803 g/cm2. LEFT FEMUR, TOTAL: Current: BMD 0.517 g/cm2, Z-score -2.3, T-score -3.9, osteoporosis, 22.0% decrease from previous, 32.8% decrease from baseline (<5% change is not significant). Prior: BMD 0.663 g/cm2. Baseline: BMD 0.769 g/cm2. IDENTIFIED RISK FACTORS: Rheumatoid arthritis, osteoporosis, menopause. HISTORY OF FRACTURE: None listed. MEDICATIONS: Calcium supplements or multivitamin, vitamin D. MM/XR DEXA axial skeleton IMPRESSION: 1. DIAGNOSIS: Osteoporosis based on the lowest T-score v Labs: COUNTS INCLUDE 234 BEDS AT THE [facility] Medical History (Updated 04/19/25 @ 14:30 by Ramu Mahoney MD) Osteoporosis Femur fracture, left Surgical History H/O removal of cyst Family History Father Heart problem HTN (hypertension) CVD (cardiovascular disease) Mother HTN (hypertension) Brother No problems noted. Brother No problems noted. Brother No problems noted. Sister No problems noted. Sister No problems noted. Sister No problems noted. Daughter No problems noted. Daughter No problems noted. Social History Current occupational status: disabled Current occupation: right hand Physical Exam There are no Cushingoid features. Absence of blue sclera. Absence of kyphosis. Thyroid gland is of nl size and weighs 15 gms. There are no thyroid nodules palpated. Lungs CTA. Heart S1 S2 Reg R/R Abdominal exam benign. Muscle strength 5/5 . Examination of spine reveals absence of tenderness on palpation Assessment & Plan Assessment & Plan (1) Stress fracture, right femur, initial encounter for fracture: Code(s): M84.351A - Stress fracture, right femur, initial encounter for fracture Category: Medical Plan: Plan as below (2) Osteoporosis: Code(s): M81.0 - Age-related osteoporosis without current pathological fracture Category: Medical Plan: This is a 75-year-old female with a history of severe osteoporosis currently being treated the bisphosphonate and having a stress fracture of the right femur while on alendronate. Rule out secondary causes. The plan is to stop the alendronate. We will complete secondary workup by checking TSH, free T4, 24 hour urine for calcium and creatinine, phosphorus level, urine immunofixation. We will also obtain urine NTX. Will ensure 1200 mg of calcium as well as continued vitamin D3 supplementation. Assuming secondary workup is negative, would strongly consider starting a anabolic agent like Tymlos or Forteo which would increase bone strength and decrease the risk of fracture and then could transition back to bisphosphonate after course Orders: Orders Thyroid Stimulating Hormone Today M81.0 - Age-related osteoporosis without current pathological fracture, M84.351A - Stress fracture, right femur, initial encounter for fracture Immunofixation, Random Urine Today M81.0 - Age-related osteoporosis without current pathological fracture, M84.351A - Stress fracture, right femur, initial encounter for fracture Free T4 (Free Thyroxine) Today M81.0 - Age-related osteoporosis without current pathological fracture, M84.351A - Stress fracture, right femur, initial encounter for fracture Creatinine, 24 Hr Group Today M81.0 - Age-related osteoporosis without current pathological fracture, M84.351A - Stress fracture, right femur, initial encounter for fracture Calcium, 24 Hr Ur Today M81.0 - Age-related osteoporosis without current pathological fracture, M84.351A - Stress fracture, right femur, initial encounter for fracture Phosphorus Today M81.0 - Age-related osteoporosis without current pathological fracture, M84.351A - Stress fracture, right femur, initial encounter for fracture Collagen Crosslinks NTX Today M81.0 - Age-related osteoporosis without current pathological fracture Coding Level of Care Code New Pt Level 4 (65592) Diagnoses Stress fracture, right femur, initial encounter for fracture M84.351A Osteoporosis M81.0
[2025-04-19 14:24] VITALS: BP 140/76; PULSE 65; O2SAT 96; BMI 20.9
== END 2025-04-19 15:17 | disposition home or self-care (01) ==
LOC: HO.ENCR 14:23
PROVIDERS: PCP Internal Medicine; Visit Provider Internal Medicine Endocrinology, Diabetes & Metabolism
DX: M84.351A Stress fracture, right femur, initial encounter for fracture (principal); M81.0 Age-related osteoporosis without current pathological fracture
CPT/HCPCS: 99204

== ENCOUNTER → 2025-04-19 14:22 | Outpatient (BNVA) | payer OTHER, SELFPAY | PROVIDERS: PCP Internal Medicine; Visit Provider Internal Medicine Endocrinology, Diabetes & Metabolism | DX: M81.0 Age-related osteoporosis without current pathological fracture (principal); M84.351A Stress fracture, right femur, initial encounter for fracture | CPT/HCPCS: 99202 ==

== ENCOUNTER 2025-04-20 11:19 | Outpatient (AMB) | payer OTHER, SELFPAY ==
--- NOTE | 2025-04-20 11:37 | A.OFFVIS_ITS ---
Vital Signs 04/20/25 11:45 Height 5 ft 3 in Weight 118 lb BMI 20.9 BP 128/60 Blood Pressure Location Rt brachial Position Sitting Pulse 58 Pulse Source Pulse Oximeter Pulse Oximetry (%) 97 Oxygen Delivery Method Room Air Intake Visit Reasons: Pre-Rt Femur IMN 04/26/25 Intake Note: Fatoumata is a 75 year old female who presents today pre-operatively to discuss upcoming right femur IMN scheduled for 04/26/[address] Ortiz. Leave Specialist Required: Yes Leave Specialist Language: Electrical Power Station Technician Services: Leave Specialist Present Leave Specialist Name: Atul SOLEDAD/KRISTOFER Information Interpreted: non-clinical & clinical Allergies atenolol Allergy (Unknown, Verified 04/20/25 11:47) swelling ibuprofen (From Motrin) Adverse Reaction (Mild, Verified 04/20/25 11:47) TACHYCARDIA/CHEST PAIN HPI HPI Pre-Rt Femur IMN 04/26/25: Details: The patient is a 75-year-old female with a known history of left femoral stress fracture treated with intramedullary (IM) nailing with [employer] in 2022, she is unaware of who the surgeon was at that time. She reorts no post operative complications. She now presents with right thigh pain and imaging-confirmed stress fracture of the right femoral shaft. Ever since the left femur IM Nail she has been using a cane to assist with ambulation. She has a PMH significant for HTN, HLD and osteoporosis (On Alendronate). The patient reports the gradual onset of right-sided anterior thigh pain over the past month and a half, associated with increased activity levels such as standing or walking. The pain is described as throbbing and burning, worsened by weight-bearing and physical activity, and relieved with rest. Patient uses a cane to assist with ambulation. The patient denies any acute trauma, swelling, or constitutional symptoms. There is no weakness in the lower extremities. Due to persistent symptoms and imaging findings concerning for a high-risk femoral stress fracture, the patient is now interested in undergoing right femoral IM nailing, having previously had a successful outcome on the left side. The left femoral IM nail continues to be well tolerated without complication. Patient had a prior left great saphenous vein ablation performed by Dr. Rodriguez on 08/31/2020 for left leg varicose veins with inflammation. Of note, the patient was last seen with Dr. Rodriguez in vascular surgery on 08/22/2021 for reoccurring pa in on the left lower extremity. She was discharged with continued conservative management. She reports a history of low back pain and scoliosis associated with numbness in bilateral feet in which she has been treated at physical therapy for 02/20/2022. At her last appointment with our office she was referred to Endocrinology with Dr. Mahoney for further workup and treatment of osteoporosis. The result of that visit was to stop the alendronate and complete a secondary workup by checking TSH, free T4, 24 hour urine for calcium and creatinine, phosphorus level, urine immunofixation and urine NTX. Recommendation for 1200 mg of calcium as well as continued vitamin D3 supplementation. If the secondary workup is negative, Dr. Mahoney recommended consideration of an anabolic agent like Tymlos or Forteo to increase bone strength and decrease the risk of fracture. After this course, the patient would likely transition back to bisphosphonates. [facility] Medical History (Updated 04/19/25 @ 14:30 by Raum Mahoney MD) Osteoporosis Femur fracture, left Surgical History H/O removal of cyst Family History Father Heart problem HTN (hypertension) CVD (cardiovascular disease) Mother HTN (hypertension) Brother No problems noted. Brother No problems noted. Brother No problems noted. Sister No problems noted. Sister No problems noted. Sister No problems noted. Daughter No problems noted. Daughter No problems noted. Social History Current occupational status: disabled Current occupation: right hand Physical Exam Vital Signs: Last Vital Signs Pulse 58 04/20/25 11:45 BP 128/60 04/20/25 11:45 Pulse Ox 97 04/20/25 11:45 Oxygen Delivery Method Room Air 04/20/25 11:45 BMI result Body Mass Index 20.9 Const General: cooperative and no acute distress Orientation/consciousness: patient oriented x3 Resp Effort & Inspection: normal respiratory effort and able to speak in complete sentences Cardio Peripheral pulses: Peripheral pulses 2+ throughout Neuro General: patient oriented x3 Extrem Other: Right hip: Full hip ROM in all planes. No groin pain with internal and external rotation. Tenderness to palpation over the proximal and mid shaft of the femur. Reports numbness and tingling in bilateral feet. Assessment & Plan Assessment & Plan (1) Stress fracture, right femur, initial encounter for fracture: Code(s): M84.351A - Stress fracture, right femur, initial encounter for fracture Category: Medical Plan The patient is a 75-year-old female with a known history of left femoral shaft fracture treated with intramedullary (IM) nailing with [facility] in 2022, she is unaware of who the surgeon was at that time. She reorts no post operative complications. She now presents with right thigh pain and imaging-confirmed stress fracture of the right femoral shaft. Ever since the left femur IM Nail she has been using a cane to assist with ambulation. She has a PMH significant for HTN, HLD and osteoporosis (On Alendronate). The patient reports the gradual onset of right-sided anterior thigh pain over the past month and a half, associated with increased activity levels such as standing or walking. The pain is described as throbbing and burning, worsened by weight-bearing and physical activity, and relieved with rest. Patient uses a cane to assist with ambulation. The patient denies any acute trauma, swelling, or constitutional symptoms. There is no weakness in the lower extremities. Due to persistent symptoms and imaging findings concerning for a high-risk femoral stress fracture, the patient is now interested in undergoing right femoral IM nailing before the fracture progresses to a complete fracture. She has previously had a successful outcome on the left side. The left femoral IM nail continues to be well tolerated without complication. Patient had a prior left great saphenous vein ablation performed by Dr. Rodriguez on 08/31/2020 for left leg varicose veins with inflammation. Of note, the patient was last seen with Dr. Rodriguez in vascular surgery on 08/22/2021 for reoccurring pain on the left lower extremity. She was discharged with continued conservative management. She reports a history of low back pain and scoliosis associated with numbness in bilateral feet in which she has been treated at physical therapy for 02/20/2022. At her last appointment with our office she was referred to Endocrinology with Dr. Mahoney for further workup and treatment of osteoporosis. The result of that visit was to stop the alendronate and complete a secondary workup by checking TSH, free T4, 24 hour urine for calcium and creatinine, phosphorus level, urine immunofixation and urine NTX. Recommendation for 1200 mg of calcium as well as continued vitamin D3 supplementation. If the secondary workup is negative, Dr. Mahoney recommended consideration of an anabolic agent like Tymlos or Forteo to increase bone strength and decrease the risk of fracture. After this course, the patient would likely transition back to bisphosphonates. I conducted a detailed discussion with the patient and her daughter regarding the proposed the right femur intramedullary nail. The nature of the procedure was explained as follows; we inserted a metal demetrius into the center of the bone using x-ray guidance to ensure proper positioning. Throughout his then secured with screws at the top and bottom of the femur so it does not move. This keeps the bone stable. After the surgery it is anticipated the patient will stay in the hospital for 1-2 days. Physical therapy will work with the patient to regain movement strength and return to normal activities. The patient wishes to return home instead of rehab. The patient's daughter states that she will have help at home. This will be evaluated with physical therapy in the hospital postoperatively. We discussed the risks, benefits and alternatives to the surgery as well as the rehabilitation course. The alternatives; Activity modification, rest, physical therapy, nutritional optimization, bone health workup and bracing. The risks; which include, but are not limited to infection, bleeding, nerve injury, ongoing pain, swelling, and stiffness, perioperative risk of injury to bones and/or soft tissues, nonunion or malunion, hardware complications, blood clots, the need for further surgery, amputation and . The benefits; stable fixation, faster recovery, high success rate, and durability. The patient was given ample opportunity to ask questions and all were answered. The patient expressed understanding of the procedure, risks and alternatives. The patient voluntarily consents to proceed with a right femur intramedullary nail to be performed by Dr. Ortiz. The patient is unable to read or write therefore I witnessed the consent form be signed by her daughter. Coding Level of Care Code Global (94645) Diagnoses Stress fracture, right femur, initial encounter for fracture M84.351A
[2025-04-20 11:45] VITALS: BP 128/60; PULSE 58; O2SAT 97; BMI 20.9
--- OUTSIDE RECORDS SUMMARY | 2025-04-20 12:09 | XMS_ITS | Encounter Summary ---
Author Organization [employer] Address [address] [place] [address] [address] [place] [address] Care Team Providers Care Pasteurizing Machine Operator Name Role Phone Deborah Joaquin MD Primary Care Provider + Reason for Visit * Reason Comments Med Refill Encounter Details Date Type Department Care Team (Late st Contact Info) Description 04/21/2023 Refill [facility] [address] [place], [place] [phone] Deborah Joaquin MD [address] [place] [address] Social History Tobacco Use Types Packs/Day Years [...] Description 07/24/2025 11:15 AM EST Office Visit [facility] [address] [place], [place] [address] TarKendy skaggs, OD [address] [place], [place] [phone] documented as of this encounter Visit Diagnoses Not on filedocumented in this encounter Care Teams Pasteurizing Machine Operator Relationship Specialty Start Date End Date Deborah Joaquin MD [address] [place] [address] PCP - General Family Medicine 05/14/17 documented as of this encounter
== END 2025-04-20 12:12 | disposition home or self-care (01) ==
LOC: HO.HOS 11:20
PROVIDERS: PCP Internal Medicine; Visit Provider Physician Assistant
DX: M84.351A Stress fracture, right femur, initial encounter for fracture (principal)
CPT/HCPCS: 99024

== ENCOUNTER → 2025-04-20 11:19 | Outpatient (BNVA) | payer OTHER, SELFPAY | PROVIDERS: PCP Internal Medicine; Visit Provider Physician Assistant | DX: Z01.818 Encounter for other preprocedural examination (principal); M84.351A Stress fracture, right femur, initial encounter for fracture; X58.XXXA Exposure to other specified factors, initial encounter; Y93.9 Activity, unspecified; Y92.9 Unspecified place or not applicable; Y99.9 Unspecified external cause status; M81.0 Age-related osteoporosis without current pathological fracture; Z79.83 Long term (current) use of bisphosphonates | CPT/HCPCS: 99212 ==

== ENCOUNTER → 2025-04-21 14:18 | Outpatient (BNV) | payer OTHER, SELFPAY | PROVIDERS: Admitting Provider Orthopaedic Surgery; PCP Internal Medicine; Visit Provider Internal Medicine Cardiovascular Disease | DX: R00.1 Bradycardia, unspecified (principal) | CPT/HCPCS: 93010 ==

== ENCOUNTER 2025-04-24 09:44 | Outpatient (REF) | payer OTHER, SELFPAY ==
--- OUTSIDE RECORDS SUMMARY | 2025-04-24 10:18 | XMS_ITS | Encounter Summary ---
Author Organization [employer] Address [address] [place] [address] [address] [place] [address] Care Team Providers Care Radiologic Therapist Name Role Phone Deborah Joaquin MD Primary Care Provider + Reason for Visit * Reason Comments Med Refill Encounter Details Date Type Department Care Team (Late st Contact Info) Description 04/21/2023 Refill [facility] MEDICINE [address], [place] [phone] Deborah Joaquin MD [address] [place] [address] Social History Tobacco Use Types Packs/Day Years [...] Description 07/24/2025 11:15 AM EST Office Visit [facility] OPTOMETRY [address] [place], [place] [phone] TarKendy skaggs, OD [address], [place] [phone] documented as of this encounter Visit Diagnoses Not on filedocumented in this encounter Care Teams Radiologic Therapist Relationship Specialty Start Date End Date Deborah Joaquin MD [address] [place] [address] PCP - General Family Medicine 05/14/17 documented as of this encounter
== END 2025-04-24 09:45 | disposition home or self-care (01) ==
LOC: HO.MAMMO 09:44
PROVIDERS: PCP Internal Medicine; Visit Provider Internal Medicine
DX: Z12.31 Encounter for screening mammogram for malignant neoplasm of breast (principal)
CPT/HCPCS: 77063; 77067

== ENCOUNTER → 2025-04-24 10:00 | Outpatient (BNV) | payer OTHER, SELFPAY | PROVIDERS: PCP Internal Medicine; Visit Provider Internal Medicine | DX: Z12.31 Encounter for screening mammogram for malignant neoplasm of breast (principal) | CPT/HCPCS: 77063; 77067 ==

== ENCOUNTER → 2025-04-26 07:21 | Outpatient (BNV) | payer OTHER, SELFPAY | PROVIDERS: PCP Internal Medicine; Visit Provider Internal Medicine | DX: I48.91 Unspecified atrial fibrillation (principal) | CPT/HCPCS: 99223 ==

== ENCOUNTER → 2025-04-26 07:21 | Outpatient (BNV) | payer OTHER, SELFPAY | PROVIDERS: PCP Internal Medicine; Visit Provider Orthopaedic Surgery | DX: M84.351A Stress fracture, right femur, initial encounter for fracture (principal) | CPT/HCPCS: 27506 ==

== ENCOUNTER → 2025-04-26 07:21 | Outpatient (BNV) | payer OTHER, SELFPAY | PROVIDERS: PCP Internal Medicine; Visit Provider Nurse Practitioner Family | DX: I48.91 Unspecified atrial fibrillation (principal) | CPT/HCPCS: 99223; 99233 ==

== ENCOUNTER → 2025-04-27 07:00 | Outpatient (BNV) | payer OTHER, SELFPAY | PROVIDERS: PCP Internal Medicine; Visit Provider Internal Medicine | DX: I48.91 Unspecified atrial fibrillation (principal); I36.1 Nonrheumatic tricuspid (valve) insufficiency; I51.7 Cardiomegaly | CPT/HCPCS: 93306 ==

== ENCOUNTER 2025-04-27 12:46 | Inpatient (IN) | payer OTHER, SELFPAY ==
--- OUTSIDE RECORDS SUMMARY | 2025-04-14 11:20 | XMS_ITS | Encounter Summary ---
Author Organization [employer] Address [address] [place] [address] [address] [place] [address] Care Team Providers Care Matrix Drier Tender Name Role Phone Deborah Joaquin MD Primary Care Provider + Reason for Visit * Reason Comments Med Refill Encounter Details Date Type Department Care Team (Late st Contact Info) Description 04/21/2023 Refill [facility] [address] [place], [place] [phone] Deborah Joaquin MD [address] [place] [address] Social History Tobacco Use Types Packs/Day Years [...] Description 07/24/2025 11:15 AM EST Office Visit [facility] [address] [place], [place] [phone] TarKendy skaggs, OD [address] [place], [place] [phone] documented as of this encounter Visit Diagnoses Not on filedocumented in this encounter Care Teams Matrix Drier Tender Relationship Specialty Start Date End Date Deborah Joaquin MD [address] [place] [address] PCP - General Family Medicine 05/14/17 documented as of this encounter
--- NOTE | 2025-04-21 | ECG_ITS ---
Test Reason : pre op Blood Pressure : */* mmHG Vent. Rate : 58 BPM Atrial Rate : 58 BPM P-R Int : 166 ms QRS Dur : 92 ms QT Int : 422 ms P-R-T Axes : 75 29 47 degrees QTcB Int : 414 ms Sinus bradycardia RSR' or QR pattern in V1 suggests right ventricular conduction delay Borderline ECG When compared with ECG of 30-Oct-2017 10:08, No significant change was found Referred By: Alisa Toney Electronically Signed By: LANDY RIVERA MD
[2025-04-21 13:04] VITALS: BP 149/70; PULSE 65; RESP 16; O2SAT 100; BMI 21.1
--- NOTE | 2025-04-21 13:49 | HO.ANESPROP2 ---
Documented by User: Alisa Toney NP 04/21/25 14:02 HPI - Anesthesia Eval Consult details Narrative: 75 yr old female for right femoral I-M nailing No recent illness No CP/SOB with walking inside her house only s/p left femoral nailing 2022 PMFSH Active Problems Active Problems: All Active Problems Stress fracture, right femur, initial encounter for fracture (Acute) Pain in right femur (Acute) Lower extremity pain (Acute) Varicose veins of left lower extremity with inflammation (Acute) Osteoporosis (Acute) Past Medical History Medical History Teeth missing Anemia CKD (chronic kidney disease), stage II Benign paroxysmal positional vertigo Ambulates with cane HLD (hyperlipidemia) HTN (hypertension) Osteoporosis Femur fracture, left Family History Family History Father Heart problem HTN (hypertension) CVD (cardiovascular disease) Mother HTN (hypertension) Brother No problems noted. Brother No problems noted. Brother No problems noted. Sister No problems noted. Sister No problems noted. Sister No problems noted. Daughter No problems noted. Daughter No problems noted. Family history of problems with anesthesia: No Surgical History Surgical History Hx of bilateral cataract extraction (~2023) Hx of colonoscopy History of surgery (~2022) Hx of breast biopsy H/O removal of cyst History of Problems with Anesthesia: No Social History Social History (Updated 04/21/25 @ 13:24 by Floresita Yusuf RN) Household Members: None Housing: Apartment Are you a primary home care giver to a significant other at home: No Do you presently have visiting nurse or other home services: Yes ([employer] 20 hours per week) Patient Tobacco Use Status: Never used Tobacco e-Cigarette/Vaping Use: Never Used Use of substances other than those prescribed or required for medical reasons: No Have you been hit, kicked, punched, or otherwise hurt by someone within the past year? If so, by whom?: No Are you DNR?: No Advance Directives: No Advance Directives Information Provided: Yes Advance Directives on File: No Poor oral hygiene: No (teeth upper, only front lower teeth) Current occupational status: disabled Current occupation: right hand Meds Allergies Allergy/AdvReac Type Severity Reaction Status Date / Time atenolol Allergy Unknown swelling Verified 04/26/25 07:59 ibuprofen (From Motrin) AdvReac Intermediate palpatations,TACHYCARDIA/CHEST Verified 04/26/25 07:59 PAIN Home Medications ?Medication ?Instructions ?Recorded ?Confirmed ?Last Taken ?Type atorvastatin 20 mg tablet 20 mg PO DAILY 07/19/20 04/21/25 Unknown History hydrochlorothiazide 25 mg tablet 25 mg PO DAILY 07/19/20 04/21/25 Unknown History lisinopril 40 mg tablet 40 mg PO DAILY 08/22/21 04/21/25 Unknown History Exam Height,Weight and Vital Signs: Height 5 ft 3 in Weight 53.977 kg Last Vital Signs Pulse 65 04/21/25 13:04 Resp 16 04/21/25 13:04 BP 149/70 H 04/21/25 13:04 Pulse Ox 100 04/21/25 13:04 O2 Del Method Room Air 04/21/25 13:04 Airway Mallampati Class: I TM Dist: >3cm Neck ROM: Full Loose/Missing/Broken Teeth: Yes, Upper (M all) and Lower (M all back teeth) Heart: RRR Lungs: CTAB Assessment and Plan Final Anesthetic Review Family History of Problems with Anesthesia: No History of Problems with Anesthesia: No Documented by User: Dahlia Leon NP 04/24/25 12:54 [facility] Past Medical History Medical History Teeth missing Anemia CKD (chronic kidney disease), stage II Benign paroxysmal positional vertigo Ambulates with cane HLD (hyperlipidemia) HTN (hypertension) Osteoporosis Femur fracture, left Family History Family History Father Heart problem HTN (hypertension) CVD (cardiovascular disease) Mother HTN (hypertension) Brother No problems noted. Brother No problems noted. Brother No problems noted. Sister No problems noted. Sister No problems noted. Sister No problems noted. Daughter No problems noted. Daughter No problems noted. 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 If so, by whom?: No Are you DNR?: No Advance Directives: No Advance Directives Information Provided: Yes Advance Directives on File: No Poor oral hygiene: No (teeth upper, only front lower teeth) Current occupational status: disabled Current occupation: right hand Meds Allergies Allergy/AdvReac Type Severity Reaction Status Date / Time atenolol Allergy Unknown swelling Verified 04/26/25 07:59 ibuprofen (From Motrin) AdvReac Intermediate palpatations,TACHYCARDIA/CHEST Verified 04/26/25 07:59 PAIN Home Medications ?Medication ?Instructions ?Recorded ?Confirmed ?Last Taken ?Type atorvastatin 20 mg tablet 20 mg PO DAILY 07/19/20 04/21/25 Unknown History hydrochlorothiazide 25 mg tablet 25 mg PO DAILY 07/19/20 04/21/25 Unknown History lisinopril 40 mg tablet 40 mg PO DAILY 08/22/21 04/21/25 Unknown History Exam Pertinent Lab Results Pertinent Lab Results: Lab Results 04/21/25 04/21/25 Range/Units 13:30 14:25 WBC 5.6 (4.8-10.8) X10*3/uL RBC 4.68 (4.20-5.50) X10*6/uL Hgb 12.3 (12.0-16.0) g/dl Hct 38.7 (37.0-47.0) % MCV 82.7 (80.0-98.0) fL MCH 26.3 L (27.0-33.0) pg MCHC 31.8 (31.0-35.0) g/dl RDW 13.6 (11.0-16.0) % Plt Count 238 (160-400) X10*3/uL MPV 9.4 (9.4-12.3) fL Absolute Nucleated RBC 0.000 (0.0-0.012) X10*3/uL Nucleated RBC % (auto) 0.0 (0.0-0.2) /100WBC Sodium 143 (135-145) mmol/L Potassium 4.2 (3.3-5.1) mmol/L Chloride 106 (96-108) mmol/L Carbon Dioxide 30 H (22-29) mmol/L Anion Gap 11 L (12-20) BUN 24 H (9-16) mg/dL Creatinine 1.16 (0.5-1.4) mg/dL Estim Creat Clear Calc 35.2 Estimated GFR 46 Random Glucose 91 (60-115) mg/dL Calcium 9.7 D (8.4-10.2) mg/dL Nasal Screen MRSA (PCR) NEGATIVE (Negative) Nasal S. aureus Screen NEGATIVE (Negative) Nasal MRSA/S.aureus Interp SEE NOTE Blood Type B Positive Antibody Screen NEGATIVE Narrative Narrative: EKG 04/2025 Vent. Rate : 58 BPM Atrial Rate : 58 BPM P-R Int : 166 ms QRS Dur : 92 ms QT Int : 422 ms P-R-T Axes : 75 29 47 degrees QTcB Int : 414 ms Sinus bradycardia RSR' or QR pattern in V1 suggests right ventricular conduction delay Borderline ECG When compared with ECG of 30-Oct-2017 10:08, No significant change was found Documented by User: Teresa Reyna MD 04/26/25 08:08 [facility] Past Medical History Medical History Teeth missing Anemia CKD (chronic kidney disease), stage II Benign paroxysmal positional vertigo Ambulates with cane HLD (hyperlipidemia) HTN (hypertension) Osteoporosis Femur fracture, left Family History Family History Father Heart problem HTN (hypertension) CVD (cardiovascular disease) Mother HTN (hypertension) Brother No problems noted. Brother No problems noted. Brother No problems noted. Sister No problems noted. Sister No problems noted. Sister No problems noted. Daughter No problems noted. Daughter No problems noted. 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 If so, by whom?: No Are you DNR?: No Advance Directives: No Advance Directives Information Provided: Yes Advance Directives on File: No Poor oral hygiene: No (teeth upper, only front lower teeth) Current occupational status: disabled Current occupation: right hand Meds Allergies Allergy/AdvReac Type Severity Reaction Status Date / Time atenolol Allergy Unknown swelling Verified 04/26/25 07:59 ibuprofen (From Motrin) AdvReac Intermediate palpatations,TACHYCARDIA/CHEST Verified 04/26/25 07:59 PAIN Home Medications ?Medication ?Instructions ?Recorded ?Confirmed ?Last Taken ?Type atorvastatin 20 mg tablet 20 mg PO DAILY 07/19/20 04/21/25 Unknown History hydrochlorothiazide 25 mg tablet 25 mg PO DAILY 07/19/20 04/21/25 Unknown History lisinopril 40 mg tablet 40 mg PO DAILY 08/22/21 04/21/25 Unknown History Exam Airway Mallampati Class: I (couple teeth present on bottom center, edentulous) Assessment and Plan Assessment Anesthesia Assessment: Anesthesia Plan Discussed and Chart Reviewed Final Anesthetic Review NPO: Yes ASA Class: III Final Preanesthetic Review: No Changes in Pt Med Stat, Meds/Allgs Chart Reviewed and Consent Obtained/Reviewed Patient Risk: Intermediate Procedure Risk: Intermediate Anesthetic Plan Anesthetic Plan: GA Disposition: Standard PACU
[2025-04-21 14:48] LABS: Hematocrit 38.7 % (37.0-47.0); Hemoglobin 12.3 g/dl (12.0-16.0); Mean Corpuscular HGB Conc 31.8 g/dl (31.0-35.0); Mean Corpuscular Hemoglobin 26.3 pg (27.0-33.0); Mean Corpuscular Volume 82.7 fL (80.0-98.0); NRBC Abs Auto 0.000 X10*3/uL (0.0-0.012); NRBC Pct Auto 0.0 /100WBC (0.0-0.2); Platelet Count 238 X10*3/uL (160-400); Red Blood Count 4.68 X10*6/uL (4.20-5.50); White Blood Count 5.6 X10*3/uL (4.8-10.8)
[2025-04-21 15:10] LABS: Anion Gap 11 (12-20); Blood Urea Nitrogen 24 mg/dL (9-16); Calcium 9.7 mg/dL (8.4-10.2); Carbon Dioxide 30 mmol/L (22-29); Chloride 106 mmol/L (96-108); Creatinine Clr Calc Pharmacy 35.2; Estimated Glomerular Filt Rate 46; Potassium 4.2 mmol/L (3.3-5.1); Sodium 143 mmol/L (135-145)
[2025-04-21 15:31] LABS: MRSA Nasal PCR NEGATIVE (Negative); SA Nasal PCR NEGATIVE (Negative)
[2025-04-26] VITALS (14 sets, daily range): BP systolic 123–158; BP diastolic 59–76; PULSE 53–101; RESP 12–18; TEMP 36.1–36.8; O2SAT 96–100; BMI 21.1
--- NOTE | 2025-04-26 | ECG_ITS ---
Test Reason : tachycardia ? irregularoty Blood Pressure : */* mmHG Vent. Rate : 102 BPM Atrial Rate : * BPM P-R Int : * ms QRS Dur : 82 ms QT Int : 358 ms P-R-T Axes : * 18 24 degrees QTcB Int : 466 ms Atrial fibrillation with rapid ventricular response Abnormal ECG When compared with ECG of 21-Apr-2025 14:18, Atrial fibrillation has replaced Sinus rhythm Vent. rate has increased by 44 bpm Nonspecific T wave abnormality now evident in Inferior leads Nonspecific T wave abnormality now evident in Anterolateral leads Referred By: Jayashree Ag Electronically Signed By: KEITH SHAH
[2025-04-26] MEDS: Lactated Ringers 1,000 ML 100 ML IVCONT ×3 (07:43→23:48)
--- NOTE | 2025-04-26 08:55 | MHC.SHP ---
Pre-Procedural Eval Section A - 24 Hr Update-Section A only Date of Service: 04/26/25 The patient is an INPATIENT: No Changes since office visit: No Cold of Flu in the past 2 weeks, No New Medical Problems, No Changes in Medication and No Patient answered all questions The patient has been examined within 24 hours of the surgical procedure. The History & Physical has been completed within 30 days and I have reviewed it.: Yes Section B - Complete if H&P > 30 days Chief Complaint: Stress fracture, right femur, initial encounter Allergies: Allergies Allergy/AdvReac Type Severity Reaction Status Date / Time atenolol Allergy Unknown swelling Verified 04/26/25 07:59 ibuprofen (From Motrin) AdvReac Intermediate palpatations,TACHYCARDIA/CHEST Verified 04/26/25 07:59 PAIN Plan I have reviewed the history and physical and performed a pertinent physical examination on my patient. No changes have occurred unless specified. Time Spent With Patient Time: Total time managing care of this patient today ____ minutes.
[2025-04-26] MEDS: oxyCODONE HCl Immed Release 5 MG TABLET PO ×2 (09:04→16:51)
--- NOTE | 2025-04-26 09:06 | PC.NURSE ---
dr. laguerre changed oxycontin 5 mg to oxycodone IR 5 mg as our pharmacy does not carry first dose.
--- NOTE | 2025-04-26 11:03 | P.BOP_ITS ---
Brief Operative Note Date of Service: 04/26/25 Pre-op diagnosis: Right femur stress fracture Post-op diagnosis: same Procedure: Right femur IMN Implants: Collins 10x 360 Piriformis nail with 2 proximal and one distal screw Surgeon: Amanuel Ortiz MD Anesthesia: GETA Was an Traffic Controller Cable used for this Procedure?: Yes Traffic Controller Cable: Sharron Velez Estimated blood loss (mL): 100 IV fluids (mL): 750 Pathology: none sent Condition: stable Disposition: PACU
--- NOTE | 2025-04-26 13:50 | PHA.MEDREC ---
Pharmacy Consult ? Medication Reconciliation Pharmacy has completed the medication reconciliation.
--- NOTE | 2025-04-26 15:06 | PHA.MEDREC ---
Addendum entered by Corky Daniel PharmD 04/26/25 16:07: reviewed Original Note: Pharmacy Consult ? Medication Reconciliation Pharmacy has completed the medication reconciliation. Spoke with patient daughter at bedside and she confirmed her mothers medications. Pt using Brimonidine eye drops; claims shows written 1 drop in both eyes BID, daughter confirmed pt is only using it at bedtime.
--- NOTE | 2025-04-26 19:19 | HO.PM.IMCN ---
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 Patient is seen postoperatively resting in bed appearing comfortable. Family at bedside. Reviewed patient's past medical and surgical history with sales support administrator. Patient states years ago when she lived in [place] she was told that she had some problems with 1 of her kidneys. Patient has been tested since being in the [facility] and was told that her renal function stable. Currently labs reveal creatinine of 1.16, creatinine clearance of 35.2 and a GFR of 46. Patient is normally on lisinopril for hypertension. In addition patient currently denies any chest pain, nausea or vomiting but was having nausea with 1 episode of vomiting postoperatively which is now resolved since patient had some broth. Patient denies any pain in the affected leg. Patient does not have chronic issues with diarrhea or constipation. On exam, only concern was patient has borderline tachycardia, question of irregularity and bounding pulse. At times it felt pulse was racing with irregular irregularity that was intermittent and patient has sensed skipping of her heart rate since surgery. Patient also states she has had this sensation in the past. HR currently 99, BP 126/76. EKG done on April 21 notes sinus bradycardia with a heart rate of 58 and a VA of 166. There is suggestion of right ventricular conduction delay. No echo available. Patient does not normally follow with a pier worker and denies any specific cardiac history except for hypertension and hyperlipidemia. Blood pressure is currently stable and patient is not diaphoretic or dizzy or lightheaded. Patient denies any recent falls. Patient takes lisinopril and hydrochlorothiazide for blood pressure. Patient is not on any AV laura blocking agents. Medical concerns found on exam include CKD Stage III B and new onset AFIB with RVR - 2100 ECG notes AFIB RVR HR 103, BP stable. MG 1.4, low. BNP 321. See plan in A/P. Review of Systems Review of Systems: Patient states nausea that occurred earlier postoperatively is now resolved since having some chicken broth. Patient currently denies any chest pain, shortness of breath at rest, but is reporting a ?racing heart rate?. Patient denies any abdominal pain, lower leg pain. Patient presents comfortable in no distress. (Family at the bedside) Yes all other systems are reviewed and are negative [facility] Medical History Teeth missing Anemia CKD (chronic kidney disease), stage II Benign paroxysmal positional vertigo Ambulates with cane HLD (hyperlipidemia) HTN (hypertension) Osteoporosis Femur fracture, left Cognitive capacity: Alert and orientated x3 Functional capacity: wheelchair bound (Status post femur fracture repair) Family History Father Heart problem HTN (hypertension) CVD (cardiovascular disease) Mother HTN (hypertension) Brother No problems noted. Brother No problems noted. Brother No problems noted. Sister No problems noted. Sister No problems noted. Sister No problems noted. Daughter No problems noted. Daughter No problems noted. Surgical History Hx of bilateral cataract extraction (~2023) Hx of colonoscopy History of surgery (~2022) Hx of breast biopsy H/O removal of cyst Social History (Updated 04/26/25 @ 19:32 by WILBER Herrera-TARYN) Household Members: None Housing: Apartment Are you a primary plant care worker to a significant other at home: No Do you presently have visiting nurse or other home services: No Alcohol intake: never Comment: COUNTS CORRECT Patient Tobacco Use Status: Never used Tobacco e-Cigarette/Vaping Use: Never Used Second Hand Smoke Exposure: No Use of substances other than those prescribed or required for medical reasons: No Currently Displaying Signs/Symptoms of Drug Intoxication Withdrawal: No Have you been hit, kicked, punched, or otherwise hurt by someone within the past year? If so, by whom?: No Do you feel safe in your current relationship?: No Current Relationship Are you DNR?: No Advance Directives: No Advance Directives Information Provided: Yes Advance Directives on File: No Do you have a plan to hurt others: No Plan Recently lost weight without trying: No Nutrition Risks: No Nutritional Risk Patient : No : No Poor oral hygiene: No Current occupational status: disabled Current occupation: right hand Ebola Risk: Travel/Contact With Anyone From Affected Area/s: No Has Patient Experienced Ebola Symptoms: No Meds Allergies Allergy/AdvReac Type Severity Reaction Status Date / Time atenolol Allergy Unknown swelling Verified 04/26/25 07:59 ibuprofen (From Motrin) AdvReac Intermediate palpatations,TACHYCARDIA/CHEST Verified 04/26/25 07:59 PAIN Active Medications: Current Medications Acetaminophen (Acetaminophen 325 Mg Tablet) 650 mg PO Q6H PRN PRN Reason: Pain, Mild 1-3,fever,headache Aspirin (Aspirin 325 Mg Tablet) 325 mg PO BID [facility] Atorvastatin Calcium (Atorvastatin Calcium 20 Mg Tablet) 20 mg PO DAILY [facility] Celecoxib (Celecoxib 200 Mg Capsule) 200 mg PO BID [facility] Docusate Sodium (Docusate Sodium 100 Mg Capsule) 100 mg PO BID [facility] Hydrochlorothiazide (Hydrochlorothiazide 25 Mg Tablet) 25 mg PO DAILY [facility]; Protocol Hydromorphone HCl (Hydromorphone Hcl 0.5 Mg/0.5 Ml Syringe) 0.25 mg IVPUSH Q4H PRN; Protocol PRN Reason: Pain, Severe (Pain Scale 7-10) Lactated Ringer's (Lr) 1,000 mls @ 100 mls/hr IVCONT .Q10H [facility] Last Admin: 04/26/25 13:58 Dose: 100 mls/hr Lisinopril (Lisinopril 40 Mg Tablet) 40 mg PO DAILY [facility]; Protocol Magnesium Hydroxide (Milk Of Magnesia 30 Ml Oral.Susp) 30 ml PO DAILY PRN PRN Reason: Constipation Melatonin (Melatonin 3 Mg Tablet) 6 mg PO BEDTIME PRN PRN Reason: Insomnia Ondansetron HCl (Ondansetron Hcl 4 Mg/2 Ml Vial) 4 mg IVPUSH Q8H PRN PRN Reason: Nausea and Vomiting Oxycodone HCl (Oxycodone Hcl Er 10 Mg Tab.Er.12h) 10 mg PO BID [facility] Oxycodone HCl (Oxycodone Hcl Immed Release 5 Mg Tablet) 5 mg PO Q4H PRN PRN Reason: Pain, Moderate(Pain Scale 4-6) Last Admin: 04/26/25 16:51 Dose: 5 mg Sodium Chloride (0.9 % Sodium Chloride Flush 3 Ml Syringe) 3 ml IVFLUSH QSHIFT [facility] Last Admin: 04/26/25 15:30 Dose: Not Given Home Medications ?Medication ?Instructions ?Recorded ?Confirmed ?Last Taken ?Type hydrochlorothiazide 25 mg tablet 25 mg PO DAILY 07/19/20 04/26/25 04/25/25 History lisinopril 40 mg tablet 40 mg PO DAILY 08/22/21 04/26/25 04/25/25 History brimonidine 0.2 % eye drops 1 drp ophthalmic (eye) BEDTIME 04/26/25 04/26/25 04/25/25 History Physical Exam Vital Signs and Narrative: Vital Signs: Last Vital Signs Temp 97.8 F 04/26/25 18:56 Pulse 99 04/26/25 18:56 Resp 17 04/26/25 18:56 BP 126/76 04/26/25 18:56 Pulse Ox 96 04/26/25 18:56 O2 Del Method Room Air 04/26/25 18:56 O2 Flow Rate 4 04/26/25 11:25 BMI result Body Mass Index 21.1 Alert and orientated X3, counter former used, pt able to answer questions asked regarding medical history Neuro: CN II-X11 intact, no deficits, visual acuity intact EYES: PERRLA, EOM intact, sclerae nonicteric, conjunctiva pink ENT: hearing intact, no issues with swallowing, uvula midline, lips moist, nares patent no epistaxis Cardiac: S1 S2, heart rate bounding with intermittent irregular racing and noted tachycardia 100 beats per minute, no murmur, no JVD, no edema in Lower ext Pulmonary: lungs clear to auscultation B Abdominal: BS active in all 4 quadrants, no guarding, tenderness, rebounding MSK: strength 4/5 upper and L lower extremities , unable to assess strength in the right lower extremity : no CVA tenderness no bladder distension Extremities: no edema in lower extremities, PT and DP pulses palpable +2 Psych: mood stable, judgement and insight good Skin: Intact, dressing to incision sites of right leg dry and intact Results Labs 04/26/25 19:56 04/26/25 19:56 ECG Attestation: I personally reviewed and interpreted this ECG as follows: (AFIB RVR 103 ) Imaging Radiologist's Impressions: Impressions Guidance Fluoroscopy 04/26/25 09:45 IMPRESSION: Fluoroscopy during procedure. Please see procedure report for additional information. 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 Medical concerns found on exam include CKD Stage III B and Tachycardia with possible Sinus Arrhythmia. NEW ONSET AFIB / elevated BNP Patient noted to be bradycardic prior to surgical intervention, normal VA, possible ventricular conduction delay EKG ordered now, AFIB RVR HR 103, pt asymptomatic Cardiololgy consulted ECHO ordered BNP elevated 321 Anticoagulation per cardiology and surgery Pt has hx of adverse reaction to atenolol, giving low dose cardizem 15 mg X1 now MG 1.4, replacement ordered TSH WNL Telemetry started to monitor patient's rhythm overnight Chronic kidney disease stage IIIB Patient is recorded as having a history of chronic kidney disease stage II (in [place] years ago pt had issues with her renal fx) Based on patient's current creatinine clearance and GFR, chronic kidney disease is now IIIb Repeat BMP Monitor I's and O's Pt does not currently follow with assistant accounting manager as an outpatient Recommend patient receive a referral from PCP for follow-up with renal specialist in the community for folllow up upon discharge as pt is on lisinopril HTN Currently controlled Lisinopril is planned to continue in AM, reviewed with hospitalist attending noting CKD III B Hyperlipidemia Continue statin Cardiac low-fat diet Osteoporosis Continue calcium and vitamin D3 Patient follows with recreation attendant supervisor in the outpatient setting We appreciate this consultation the hospitalist group will continue to follow to ensure cardiac issues and renal function are stable and will make further recommendations as needed. Please contact the hospital group with any concerns or questions. Plan reviewed with Dr. Peter, hospitalist attending.
[2025-04-26] MEDS: oxyCODONE HCl ER 10 MG TAB.ER.12H PO (19:42)
[2025-04-26 20:48] LABS: Hematocrit 33.0 % (37.0-47.0); Hemoglobin 10.8 g/dl (12.0-16.0); Imm Gran Abs Auto 0.04 X10*3/uL (0.00-0.03); Imm Gran Pct Auto 0.4 % (0.0-0.4); Lymphocytes Absolute Auto 0.5 X10*3/uL (1.2-4.9); MANUAL DIFF FLAG SCAN; Mean Corpuscular HGB Conc 32.7 g/dl (31.0-35.0); Mean Corpuscular Hemoglobin 26.5 pg (27.0-33.0); Mean Corpuscular Volume 80.9 fL (80.0-98.0); NRBC Abs Auto 0.000 X10*3/uL (0.0-0.012); NRBC Pct Auto 0.0 /100WBC (0.0-0.2); Platelet Count 180 X10*3/uL (160-400); Red Blood Count 4.08 X10*6/uL (4.20-5.50); SCAN SMEAR FLAG 1; White Blood Count 9.9 X10*3/uL (4.8-10.8)
[2025-04-26 20:50] LABS: B Type Natriuretic Peptide 321 pg/mL (<100)
[2025-04-26 21:11] LABS: Alanine Aminotransferase 22 U/L (0-31); Albumin Level 3.9 g/dL (3.5-5.0); Alkaline Phosphatase 75 U/L (39-117); Anion Gap 11 (12-20); Aspartate Amino Transferase 30 U/L (5-31); Blood Urea Nitrogen 20 mg/dL (9-16); Calcium 8.5 mg/dL (8.4-10.2); Carbon Dioxide 28 mmol/L (22-29); Chloride 103 mmol/L (96-108); Creatinine Clr Calc Pharmacy 38.8; Estimated Glomerular Filt Rate 51; Magnesium 1.4 mg/dL (1.6-2.6); Potassium 4.2 mmol/L (3.3-5.1); Sodium 138 mmol/L (135-145); Total Protein 6.5 g/dL (6.5-8.0)
[2025-04-26] MEDS: Magnesium Sulfate/H2O 2 GM/50 ML PIGGYBACK IV (21:35)
--- NOTE | ~2025-04-27 | FL_ITS ---
EXAMINATION: FL GUIDANCE ONLY HISTORY: I-M Nail COMPARISON: Correlation is made with an MRI of the right femur dated 04/02/2025. TECHNIQUE: Fluoroscopy time: 1.6 minutes. Cumulative Dose: 12.3 mGy. DAP: 0.205 mGym2 Images: 6. FINDINGS: Fluoroscopic spot films of the right femur demonstrate placement of an intramedullary demetrius. FL/FL guidance in OR IMPRESSION: Fluoroscopy during procedure. Please see procedure report for additional information. Electronically signed by: Ramu Caal MD 04/26/2025 11:51 AM EDT
[2025-04-27 03:28] VITALS: BP 105/57; PULSE 87; RESP 18; TEMP 36.3; O2SAT 96
[2025-04-27 06:53] LABS: MANUAL DIFF FLAG NO
--- NOTE | 2025-04-27 07:00 | CA_ITS ---
Transthoracic Echocardiogram Patient (Last, First, Middle): Fatoumata Gibson, Gender: Female Date of : 1950 Age: 75 Procedure Date: 04/27/2025 Procedure Type: Transthoracic Echocardiogram Location: S3E Height: 160.02 cm Weight: 53.98 kg BSA: 1.55 m2 Heart Rate: bpm BP: 124 / 72 mmHg Housekeeper Manager: TO/RC Referring MD: Jayashree Ag DYE RANGE FEEDER- Symptoms: new onset AFIB, elevated BNP Study Quality: Fair/Contrast ECG Rhythm: Atrial Fibrillation Conclusions: - The left ventricular systolic function is normal. The visually estimated ejection fraction is between 60-65%. - No obvious valvular pathology seen on this study. Findings Procedure Information Contrast agent, definity, is being given per protocol without apparent complications. Left Ventricle Normal left ventricular cavity size. There is normal left ventricular wall thickness. The left ventricular systolic function is normal. The visually estimated ejection fraction is between 60-65%. There is no evidence of regional wall motion abnormalities. Diastolic function is indeterminate on the basis of available data. Right Ventricle Normal right ventricular cavity size. There is mildly decreased right ventricular systolic function. Atria The left atrium is normal in size. The right atrium is mildly dilated. Aortic Valve There is a normal trileaflet aortic valve. There is no aortic valve stenosis. There is no aortic valve regurgitation. Mitral Valve The mitral valve appears normal. There is trace mitral valve regurgitation. There is no mitral valve stenosis. Pulmonic Valve The pulmonic valve is likely normal. Tricuspid Valve There is mild tricuspid valve regurgitation. There is no evidence of pulmonary hypertension. Great Vessels The asc aorta is normal in size. Venous The inferior vena cava is normal in size and collapses less than 50% with inspiration. Pericardium/Pleural There is no evidence of pericardial effusion. Prior Study Comparison No significant change compared to prior study dated: 01/21/2007. Recommendations, Care & Conclusions No obvious valvular pathology seen on this study. Measurements 2D Linear Measurements IVSd: 0.97 0.6-0.9/0.6-1.0 cm LVIDd: 3.07 3.9-5.3/4.2-5.9 cm LVIDd Index: 1.98 2.4-3.2/2.2-3.1 cm/m2 LVIDs: 2.07 2.0-3.6 cm LVPWd: 1.03 0.7-1.1 cm LV Mass: 105.77 67-162/88-224 g LV Mass Index: 68.24 43-95/49-115 g/m2 LVOT Diam: 1.90 3.0+(-)1.3 cm 2D Systolic Function EF 4C: 65.60 >55% EF 2C: 64.20 >55% EF BiP: 65.30 >55% Mitral Valve MV Pk E: 0.86 MV Decel Time: 165.00 E'Lateral: 10.40 E'Medial: 7.61 E/E' Med: 11.20 E/E' Lat: 8.20 Aortic Valve AoV Pk Arcenio: 1.32 AoV Pk Grad: 7.00 LVOT LVOT Pk Arcenio: 0.97 LVOT Mn Arcenio: 0.62 LVOT VTI: 0.16 LVOT Pk Grad: 4.00 LVOT Mn Grad: 2.00 LVOT Diam: 1.90 LVOT Area: 2.84 Diastolic Function MV Pk E: 0.86 E'Medial: 7.61 E/E' Med: 11.20 E' Laterial: 10.40 E/E' Lat: 8.20 Right Ventricle TAPSE (mm): 15.30 TVS' Arcenio: 8.96 Tricuspid Valve TR Pk Arcenio: 2.10 TR Pk Grad: 18.00 RA Press: 8.00 RVSP: 26.00 Great Vessels Aorta Sinus of Valsalva: 2.70 2.0-3.5 cm Ao Asc: 3.10 2.1-3.4 cm Pulmonary Valve PV Pk Arcenio: 0.77 Peak PV Grad: 2.00 Updated in Other Vendor System with Status of Final Mayo Allan MD electronically signed on 04/27/2025 10:59:31 AM with status of Final
[2025-04-27 07:17] LABS: Hematocrit 32.5 % (37.0-47.0); Hemoglobin 11.2 g/dl (12.0-16.0); Imm Gran Abs Auto 0.05 X10*3/uL (0.00-0.03); Imm Gran Pct Auto 0.5 % (0.0-0.4); Lymphocytes Absolute Auto 1.0 X10*3/uL (1.2-4.9); Mean Corpuscular HGB Conc 34.5 g/dl (31.0-35.0); Mean Corpuscular Hemoglobin 27.5 pg (27.0-33.0); Mean Corpuscular Volume 79.9 fL (80.0-98.0); NRBC Abs Auto 0.000 X10*3/uL (0.0-0.012); NRBC Pct Auto 0.0 /100WBC (0.0-0.2); Platelet Count 217 X10*3/uL (160-400); Red Blood Count 4.07 X10*6/uL (4.20-5.50); White Blood Count 9.6 X10*3/uL (4.8-10.8)
[2025-04-27 07:21] LABS: Anion Gap 13 (12-20); Blood Urea Nitrogen 22 mg/dL (9-16); Calcium 8.3 mg/dL (8.4-10.2); Carbon Dioxide 27 mmol/L (22-29); Chloride 103 mmol/L (96-108); Creatinine Clr Calc Pharmacy 37.1; Estimated Glomerular Filt Rate 49; Potassium 4.6 mmol/L (3.3-5.1); Sodium 138 mmol/L (135-145)
[2025-04-27 07:22] LABS: Cholesterol 135 mg/dL (<200); HDL Cholesterol 64 mg/dL (>40); Magnesium 2.0 mg/dL (1.6-2.6); Triglycerides 69 mg/dL (<150)
[2025-04-27 07:35] VITALS: BP 124/72; PULSE 87; RESP 18; TEMP 36.1; O2SAT 97
--- NOTE | 2025-04-27 07:47 | PM.PNORT ---
Subjective Subjective Date of Service: 04/27/25 Interval history: Postop day 1 status post right femur IM nail Patient resting comfortably in bed this morning Pain well managed Of note, patient was noted to have gone into new onset atrial fibrillation last night Cardiology consult was placed at that time Patient currently on telemetry monitoring No other acute complaints or concerns at this time Physical Exam Vital Signs: Vital Signs: Last Vital Signs Temp 96.9 F 04/27/25 07:35 Pulse 87 04/27/25 07:35 Resp 18 04/27/25 07:35 BP 124/72 04/27/25 07:35 Pulse Ox 97 04/27/25 07:35 O2 Del Method Room Air 04/27/25 07:35 O2 Flow Rate 4 04/26/25 11:25 BMI result Body Mass Index 21.1 Extrem: Other: Dressing on right leg clean, dry, intact No evidence of surrounding erythema, ecchymosis No evidence of infection Patient is able to flex and extend the digits of the left foot without difficulty Compartments soft, nontender Distal sensation intact Capillary refill brisk Procedures Date of Service Date of Service: 04/27/25 Progress Note: A&P Assessment and plan (1) Stress fracture, right femur, initial encounter for fracture: Status: Acute Plan 1. Status post IM nail of right femur DOS 04/26/2025 Continue pain management Begin aspirin 325 b.i.d. for DVT prophylaxis Cardiology consult pending for new onset atrial fibrillation PT/OT eval pending Weight-bearing as tolerated on right lower extremity Dispo planning-cardiology consult pending, case management, PT/OT pending Time Spent With Patient Time: Total time managing care of this patient today ____ minutes. Quality Stroke Does the patient have a stroke diagnosis?: No VTE Prior VTE?: No VTE Risk Level:: Surgical - high VTE Device Contraindication: N/A - Device Ordered VTE Drug Contraindication: N/A - Med Ordered
--- NOTE | 2025-04-27 08:01 | HO.POSTANES ---
Post Anesthesia Evaluation Post Anesthesia Evaluation Date of Service: 04/27/25 Vital Signs: Vital Signs Temp Pulse Resp BP Pulse Ox O2 Del Method 04/27/25 07:35 96.9 F 87 18 124/72 97 Room Air 04/27/25 03:28 97.3 F 87 18 105/57 L 96 Room Air 04/26/25 23:30 98.3 F 93 18 123/72 98 Room Air 04/26/25 22:20 101 H 126/69 Anesthesia: General Mental Status: Awake Pain Control: Satisfactory Nausea/Vomiting: None Hydration: Adequate Anesthesia-Related Issues: No Anes. Related Issues
[2025-04-27] MEDS: oxyCODONE HCl ER 10 MG TAB.ER.12H PO (08:51)
--- NOTE | 2025-04-27 08:51 | P.PNIM_ITS ---
Subjective Subjective Date of Service: 04/27/25 Interval History: Seen and examined this morning Follow-up for medical consultation History obtained with the assistance of a caterpillar tractor operator and patient's daughter at the bedside Patient denies any palpitations, chest pain Right hip pain under adequate control Constitutional Constitutional: Denies chills and Denies fever(s) Physical Exam 2 Vital Signs: Vital Signs: Last Vital Signs Temp 96.9 F 04/27/25 07:35 Pulse 87 04/27/25 07:35 Resp 18 04/27/25 07:35 BP 124/72 04/27/25 07:35 Pulse Ox 97 04/27/25 07:35 O2 Del Method Room Air 04/27/25 07:35 O2 Flow Rate 4 04/26/25 11:25 BMI result Body Mass Index 21.1 Const: General: cooperative, comfortable, no acute distress, alert and awake Nutritional Appearance: average body habitus Resp: Effort & Inspection: normal respiratory effort, able to speak in complete sentences, no respiratory distress and no use of accessory muscles Cardio: Rate: regular rate Rhythm: abnormal rhythm (irregular) GI: Inspection: No distended Palpation (GI): Soft to palpation Objective Data Active Medications Acetaminophen (Acetaminophen 325 Mg Tablet) 650 mg PO Q6H PRN PRN Reason: Pain, Mild 1-3,fever,headache Aspirin (Aspirin 325 Mg Tablet) 325 mg PO BID [facility] Atorvastatin Calcium (Atorvastatin Calcium 20 Mg Tablet) 20 mg PO DAILY [facility] Celecoxib (Celecoxib 200 Mg Capsule) 200 mg PO BID [facility] Last Admin: 04/26/25 19:42 Dose: 200 mg Documented By: JASMIN Docusate Sodium (Docusate Sodium 100 Mg Capsule) 100 mg PO BID [facility] Last Admin: 04/26/25 19:42 Dose: 100 mg Documented By: JSAMIN Hydrochlorothiazide (Hydrochlorothiazide 25 Mg Tablet) 25 mg PO DAILY [facility]; Protocol Hydromorphone HCl (Hydromorphone Hcl 0.5 Mg/0.5 Ml Syringe) 0.25 mg IVPUSH Q4H PRN; Protocol PRN Reason: Pain, Severe (Pain Scale 7-10) Lactated Ringer's (Lr) 1,000 mls @ 100 mls/hr IVCONT .Q10H [facility] Last Admin: 04/26/25 23:48 Dose: 100 mls/hr Documented By: JASMIN Lisinopril (Lisinopril 40 Mg Tablet) 40 mg PO DAILY [facility]; Protocol Magnesium Hydroxide (Milk Of Magnesia 30 Ml Oral.Susp) 30 ml PO DAILY PRN PRN Reason: Constipation Melatonin (Melatonin 3 Mg Tablet) 6 mg PO BEDTIME PRN PRN Reason: Insomnia Ondansetron HCl (Ondansetron Hcl 4 Mg/2 Ml Vial) 4 mg IVPUSH Q8H PRN PRN Reason: Nausea and Vomiting Oxycodone HCl (Oxycodone Hcl Er 10 Mg Tab.Er.12h) 10 mg PO BID [facility] Last Admin: 04/26/25 19:42 Dose: 10 mg Documented By: JASMIN Oxycodone HCl (Oxycodone Hcl Immed Release 5 Mg Tablet) 5 mg PO Q4H PRN PRN Reason: Pain, Moderate(Pain Scale 4-6) Last Admin: 04/26/25 16:51 Dose: 5 mg Documented By: ISABEL Sodium Chloride (0.9 % Sodium Chloride Flush 3 Ml Syringe) 3 ml IVFLUSH QSHIFT [facility] Last Admin: 04/27/25 07:05 Dose: Not Given Documented By: ISABEL Non-Admin Reason: IV Running Labs 04/27/25 05:33 04/27/25 05:33 Labs: Laboratory Results - last 24 hr 04/26/25 04/27/25 19:56 05:33 MCV 80.9 79.9 L MCH 26.5 L 27.5 MCHC 32.7 34.5 RDW 13.3 13.9 Plt Count 180 217 MPV 9.6 11.6 Immature Gran % (Auto) 0.4 0.5 H Neut % (Auto) 91.9 H 82.1 H Lymph % (Auto) 5.1 L 10.6 L Gonzales % (Auto) 2.5 6.6 Eos % (Auto) 0.0 0.1 Baso % (Auto) 0.1 0.1 Lymph # (Auto) 0.5 L 1.0 L Gonzales # (Auto) 0.3 0.6 Eos # (Auto) 0.0 0.0 Baso # (Auto) 0.0 0.0 Abs Immat Gran (auto) 0.04 H 0.05 H Absolute Neuts (auto) 9.1 H 7.9 Absolute Nucleated RBC 0.000 0.000 Nucleated RBC % (auto) 0.0 0.0 Smear Tech's Comments VERIFIED Anion Gap 11 L 13 Estim Creat Clear Calc 38.8 37.1 Estimated GFR 51 49 Random Glucose 195 H Fasting Glucose 108 H Calcium 8.5 D 8.3 L Magnesium 1.4 L* 2.0 Total Bilirubin 0.5 AST 30 ALT 22 Alkaline Phosphatase 75 B-Natriuretic Peptide 321 H Total Protein 6.5 Albumin 3.9 Triglycerides 69 Cholesterol 135 LDL Cholesterol, Calc 58 HDL Cholesterol 64 TSH 0.54 Assessment and Plan (1) New onset a-fib: Status: Acute Plan This is a 75-year-old female Stateless-speaking only, machine preservative filler used for consultation has past medical history of hypertension, hyperlipidemia, osteoporosis, varicose veins, previous femur fracture with current repair of right stress fracture of the femur is seen for medical management per request of Orthopedics. stress fracture right femoral shaft Postop day 1 status post right femur IM nail Management as per Orthopedic team NEW ONSET AFIB Patient noted to be bradycardic prior to surgical intervention EKG ordered now, AFIB RVR HR 103, pt asymptomatic Received Cardizem 15 mg x 1 overnight. Heart rate controlled Cardiololgy consult pending ECHO pending CHADS2 Vasc score 3 - likely change AC to Eliquis, will discuss with cardiology and surgery TSH WNL Hypomagnesemia Improved with replacement Chronic kidney disease stage IIIB Patient is recorded as having a history of chronic kidney disease stage II (in [place] years ago pt had issues with her renal fx) Based on patient's current creatinine clearance and GFR, chronic kidney disease is now IIIb Outpatient follow-up HTN Currently controlled, BP soft overnight, hold lisinopril, HCTZ this am and monitor bp Hyperlipidemia Continue statin Osteoporosis Continue calcium and vitamin D3 Patient follows with section laborer in the outpatient setting Thank you for allowing us to participate in the care of this patient, we will follow along with you Quality Stroke Does the patient have a stroke diagnosis?: No VTE Prior VTE?: No VTE Risk Level:: Surgical - high VTE Device Contraindication: N/A - Device Ordered VTE Drug Contraindication: N/A - Med Ordered
--- NOTE | 2025-04-27 09:37 | P.CONCA_ITS ---
History of Present Illness History of Present Illness Date of Service: 04/27/25 Chief complaint: s/p right femur IM nail Narrative: This is a cardiology consultation regarding atrial fibrillation. It appears that she underwent surgical fixation of the femur for stress fracture. In this context, has developed atrial fibrillation but the actual time of onset is not very clear to me. EKG from April 21 shows sinus rhythm at 58/Min. There is another EKG from April 26 that shows atrial fibrillation at 102/Min. Patient herself denies any clear-cut complaints like angina or shortness of breath or palpitations or in fact anything cardiac sounding. She also denies any previous cardiac history. Review of Systems 2 Review of Systems: Yes all other systems are reviewed and are negative Constitutional: Constitutional: Reports as per HPI and Reports no additional constitutional complaints Eyes: Eyes: Reports as per HPI and Denies no additional eye complaints ENT: Denies system reviewed and no additional complaints, except as documented and Reports as per HPI Cardiovascular: Cardiovascular: Reports as per HPI, Reports no additional cardiovascular complaints, Denies acrocyanosis, Denies cool extremities, Denies chest pain, Denies leg edema, Denies lightheadedness, Denies palpitations and Denies dyspnea Respiratory: Respiratory: Reports as per HPI, Denies no additional respiratory complaints and Denies dyspnea Gastrointestinal: Gastrointestinal: Reports as per HPI and Denies no additional gastrointestinal complaints Genitourinary: Genitourinary: Reports as per HPI Musculoskeletal: Musculoskeletal: Reports no additional musculoskeletal complaints and Reports as per HPI Integumentary/Breasts: Skin/Breast: Reports system reviewed and no additional complaints, except as docu Neurologic: Reports system reviewed and no additional complaints, except as documented and Reports as per HPI Psychiatric: Psychiatric: Reports no additional psychiatric complaints and Reports as per HPI Endocrine: Endocrine: Reports no additional endocrine complaints, Reports as per HPI and Denies palpitations Hematologic/Lymphatic: Hematologic/Lymphatic: Reports no additional hematologic/lymphatic complaints and Reports as per HPI Allergic/Immunologic: Allergic/Immunologic: Reports no additional allergic/immunologic complaints and Reports as per HPI PMF Past Medical History Medical History Teeth missing Anemia CKD (chronic kidney disease), stage II Benign paroxysmal positional vertigo Ambulates with cane HLD (hyperlipidemia) HTN (hypertension) Osteoporosis Femur fracture, left Family History Family History Father Heart problem HTN (hypertension) CVD (cardiovascular disease) Mother HTN (hypertension) Brother No problems noted. Brother No problems noted. Brother No problems noted. Sister No problems noted. Sister No problems noted. Sister No problems noted. Daughter No problems noted. Daughter No problems noted. Surgical History Surgical History Hx of bilateral cataract extraction (~2023) Hx of colonoscopy History of surgery (~2022) Hx of breast biopsy H/O removal of cyst Social History Social History (Updated 04/26/25 @ 19:32 by PARISH Herrera) Household Members: None Housing: Apartment Are you a primary resident care manager to a significant other at home: No Do you presently have visiting nurse or other home services: No Alcohol intake: never Comment: COUNTS CORRECT Patient Tobacco Use Status: Never used Tobacco e-Cigarette/Vaping Use: Never Used Second Hand Smoke Exposure: No Use of substances other than those prescribed or required for medical reasons: No Currently Displaying Signs/Symptoms of Drug Intoxication Withdrawal: No Have you been hit, kicked, punched, or otherwise hurt by someone within the past year? If so, by whom?: No Do you feel safe in your current relationship?: No Current Relationship Are you DNR?: No Advance Directives: No Advance Directives Information Provided: Yes Advance Directives on File: No Do you have a plan to hurt others: No Plan Recently lost weight without trying: No Nutrition Risks: No Nutritional Risk Patient : No : No Poor oral hygiene: No Current occupational status: disabled Current occupation: right hand Travel History Ebola Risk: Travel/Contact With Anyone From Affected Area/s: No Has Patient Experienced Ebola Symptoms: No Meds Allergies Allergy/AdvReac Type Severity Reaction Status Date / Time atenolol Allergy Unknown swelling Verified 04/26/25 07:59 ibuprofen (From Motrin) AdvReac Intermediate palpatations,TACHYCARDIA/CHEST Verified 04/26/25 07:59 PAIN Active Medications: Current Medications Acetaminophen (Acetaminophen 325 Mg Tablet) 650 mg PO Q6H PRN PRN Reason: Pain, Mild 1-3,fever,headache Aspirin (Aspirin 325 Mg Tablet) 325 mg PO BID [facility] Atorvastatin Calcium (Atorvastatin Calcium 20 Mg Tablet) 20 mg PO DAILY [facility] Last Admin: 04/27/25 08:51 Dose: 20 mg Celecoxib (Celecoxib 200 Mg Capsule) 200 mg PO BID [facility] Last Admin: 04/27/25 08:51 Dose: 200 mg Docusate Sodium (Docusate Sodium 100 Mg Capsule) 100 mg PO BID [facility] Last Admin: 04/27/25 08:51 Dose: 100 mg Hydrochlorothiazide (Hydrochlorothiazide 25 Mg Tablet) 25 mg PO DAILY [facility]; Protocol On Hold: 04/27/25 09:00 Hydromorphone HCl (Hydromorphone Hcl 0.5 Mg/0.5 Ml Syringe) 0.25 mg IVPUSH Q4H PRN; Protocol PRN Reason: Pain, Severe (Pain Scale 7-10) Lactated Ringer's (Lr) 1,000 mls @ 100 mls/hr IVCONT .Q10H [facility] Last Admin: 04/26/25 23:48 Dose: 100 mls/hr Lisinopril (Lisinopril 40 Mg Tablet) 40 mg PO DAILY [facility]; Protocol On Hold: 04/27/25 09:00 Magnesium Hydroxide (Milk Of Magnesia 30 Ml Oral.Susp) 30 ml PO DAILY PRN PRN Reason: Constipation Melatonin (Melatonin 3 Mg Tablet) 6 mg PO BEDTIME PRN PRN Reason: Insomnia Ondansetron HCl (Ondansetron Hcl 4 Mg/2 Ml Vial) 4 mg IVPUSH Q8H PRN PRN Reason: Nausea and Vomiting Oxycodone HCl (Oxycodone Hcl Er 10 Mg Tab.Er.12h) 10 mg PO BID [facility] Last Admin: 04/27/25 08:51 Dose: 10 mg Oxycodone HCl (Oxycodone Hcl Immed Release 5 Mg Tablet) 5 mg PO Q4H PRN PRN Reason: Pain, Moderate(Pain Scale 4-6) Last Admin: 04/26/25 16:51 Dose: 5 mg Sodium Chloride (0.9 % Sodium Chloride Flush 3 Ml Syringe) 3 ml IVFLUSH QSHIFT [facility] Last Admin: 04/27/25 07:05 Dose: Not Given Home Medications ?Medication ?Instructions ?Recorded ?Confirmed ?Last Taken ?Type hydrochlorothiazide 25 mg tablet 25 mg PO DAILY 10/2904/26/25 04/25/25 History lisinopril 40 mg tablet 40 mg PO DAILY 08/22/21 08/0 03/1504/25/25 History brimonidine 0.2 % eye drops 1 drp ophthalmic (eye) BED TIME 04/26/25 04/26/25 04/25/25 History Physical Exam 2 Vital Signs: Vital Signs: Last Vital Signs Temp 96.9 F 04/27/25 07:35 Pulse 87 04/27/25 07:35 Resp 18 04/27/25 07:35 BP 124/72 04/27/25 07:35 Pulse Ox 97 04/27/25 07:35 O2 Del Method Room Air 04/27/25 07:35 O2 Flow Rate 4 04/26/25 11:25 BMI result Body Mass Index 21.1 Const: General: comfortable and no acute distress O rientation/consciousness: patient oriented x3 HEENT: Other: Unremarkable Head: Yes normal to inspection Neck: Neck: Yes normal visual inspection Chest: Chest palpation & inspection: normal inspection of the chest Resp: Auscultation: clear to auscultation bilaterally Cardio: Palpation: normal PMI Heart sounds: S1 normal heart sound present, S2 normal heart sound present, no gallops, no murmurs and no rubs GI: Palpation (GI): Soft to palpation Back/Spine/Pelvis: Other: unremarkable Skin: General skin exam: no rashes or lesions noted Neuro: General: patient oriented x3 Extrem: General: Yes normal to inspection Psych: Mental Status: mental status grossly normal Objective Labs and Meds 04/27/25 05:33 04/27/25 05:33 Lab results: Laboratory Results - last 24 hr 04/26/25 04/27/25 19:56 05:33 WBC 9.9 9.6 RBC 4.08 L 4.07 L Hgb 10.8 L 11.2 L Hct 33.0 L 32.5 L MCV 80.9 79.9 L MCH 26.5 L 27.5 MCHC 32.7 34.5 RDW 13.3 13.9 Plt Count 180 217 MPV 9.6 11.6 Immature Gran % (Auto) 0.4 0.5 H Neut % (Auto) 91.9 H 82.1 H Lymph % (Auto) 5.1 L 10.6 L [place] % (Auto) 2.5 6.6 Eos % (Auto) 0.0 0.1 Baso % (Auto) 0.1 0.1 Lymph # (Auto) 0.5 L 1.0 L [place] # (Auto) 0.3 0.6 Eos # (Auto) 0.0 0.0 Baso # (Auto) 0.0 0.0 Abs Immat Gran (auto) 0.04 H 0.05 H Absolute Neuts (auto) 9.1 H 7.9 Absolute Nucleated RBC 0.000 0.000 Nucleated RBC % (auto) 0.0 0.0 Smear Tech's Comments VERIFIED Sodium 138 138 Potassium 4.2 4.6 Chloride 103 103 Carbon Dioxide 28 27 Anion Gap 11 L 13 BUN 20 H 22 H Creatinine 1.05 1.10 Estim Creat Clear Calc 38.8 37.1 Estimated GFR 51 49 Random Glucose 195 H Fasting Glucose 108 H Calcium 8.5 D 8.3 L Magnesium 1.4 L* 2.0 Total Bilirubin 0.5 AST 30 ALT 22 Alkaline Phosphatase 75 B-Natriuretic Peptide 321 H Total Protein 6.5 Albumin 3.9 Triglycerides 69 Cholesterol 135 LDL Cholesterol, Calc 58 HDL Cholesterol 64 TSH 0.54 ECG Interpretation: EKG with atrial fibrillation at a rate of 102/Min. Previous EKGs from April 21 and that shows sinus rhythm. Imaging Radiologist's impression: Impressions Guidance Fluoroscopy 04/26/25 09:45 IMPRESSION: Fluoroscopy during procedure. Please see procedure report for additional information. Electronically signed by: Ramu Caal MD 04/26/2025 11:51 AM EDT Assessment and Plan (1) New onset a-fib: Status: Acute Plan New onset atrial fibrillation in the perioperative setting. Her ventricular rate appears to be reasonably controlled at baseline. She needs an echocardiogram for further evaluation. When okayed by Orthopedics, start Eliquis. She is also on aspirin and hence to discuss with them if it is necessary or not. Try to avoid at least minimize NSAID use. Discussed with patient using pretzel twister. Discussed with daughter. Procedures Date of Service Date of Service: 04/27/25
[2025-04-27 11:50] VITALS: BP 112/67; PULSE 97; RESP 16; TEMP 36.7; O2SAT 96
--- NOTE | 2025-04-27 13:44 | PM.DS ---
DS: Providers Provider Date of Service: 04/25/25 Date of discharge: 04/27/25 Primary care physician: Deborah Joaquin MD Consults: 04/26/25 13:44 Consult to Hospitalist Routine Comment: Consulting Provider: [facility] Hospitalists Reason For Exam: routine medical management 04/27/25 07:24 Consult to Cardiology Routine Consulting Provider: [facility] Specialists Reason for consultation: new afib Has provider been notified: No DS: Diagnosis Discharge Diagnosis (1) New onset a-fib: Status: Acute DS: Summary Hospital Course Hospital Course: Patient is a 75-year-old female who was admitted to the hospital for treatment of stress fracture of right femur. The patient underwent a successful total right femur IM nail on , was transferred to PACU and then to the floor to recover. During their stay, their vitals were stable, afebrile at 98.1. Labs were unremarkable, H/H 11.2/32.5. POD 1 she was started on Eliquis 5 mg b.i.d. per cardiology for DVT ppx and new onset atrial fibrillation, they also received Physical Therapy services twice a day. Patient should continue Eliquis for at least 6 weeks for DVT prophylaxis, duration of further therapy per Cardiology Physical therapy should include gait training, core and lumbar strength, glute strength. WBAT. Prior to discharge, her dressing was changed, incision clean dry and intact, new Aquacel dressing applied. The Aquacel dressing should remain intact and dry at all times. Any concerns with the dressing, please contact orthopedic office. No showering. The plan is to be discharged Status at Discharge Cognitive/behavioral status at discharge: Stable for discharge Time Attestation Discharge Coordination Time (in mins): 30 Quality: Safe Use of Opioids Does Pt have an Active Cancer Diagnosis on the Problem List?: No Quality: Stroke Does the patient have a stroke diagnosis?: No Physical Exam Vital Signs: Vital Signs: Last Vital Signs Temp 98.1 F 04/27/25 11:50 Pulse 97 04/27/25 11:50 Resp 16 04/27/25 11:50 BP 112/67 04/27/25 11:50 Pulse Ox 96 04/27/25 11:50 O2 Del Method Room Air 04/27/25 11:50 O2 Flow Rate 4 04/26/25 11:25 BMI result Body Mass Index 21.1 DS: Data Data Completed and Pending Labs on day of discharge: Laboratory Results - last 24 hr 04/26/25 04/27/25 19:56 05:33 WBC 9.9 9.6 RBC 4.08 L 4.07 L Hgb 10.8 L 11.2 L Hct 33.0 L 32.5 L MCV 80.9 79.9 L MCH 26.5 L 27.5 MCHC 32.7 34.5 RDW 13.3 13.9 Plt Count 180 217 MPV 9.6 11.6 Immature Gran % (Auto) 0.4 0.5 H Neut % (Auto) 91.9 H 82.1 H Lymph % (Auto) 5.1 L 10.6 L [place] % (Auto) 2.5 6.6 Eos % (Auto) 0.0 0.1 Baso % (Auto) 0.1 0.1 Lymph # (Auto) 0.5 L 1.0 L [place] # (Auto) 0.3 0.6 Eos # (Auto) 0.0 0.0 Baso # (Auto) 0.0 0.0 Abs Immat Gran (auto) 0.04 H 0.05 H Absolute Neuts (auto) 9.1 H 7.9 Absolute Nucleated RBC 0.000 0.000 Nucleated RBC % (auto) 0.0 0.0 Smear Tech's Comments VERIFIED Sodium 138 138 Potassium 4.2 4.6 Chloride 103 103 Carbon Dioxide 28 27 Anion Gap 11 L 13 BUN 20 H 22 H Creatinine 1.05 1.10 Estim Creat Clear Calc 38.8 37.1 Estimated GFR 51 49 Random Glucose 195 H Fasting Glucose 108 H Calcium 8.5 D 8.3 L Magnesium 1.4 L* 2.0 Total Bilirubin 0.5 AST 30 ALT 22 Alkaline Phosphatase 75 B-Natriuretic Peptide 321 H Total Protein 6.5 Albumin 3.9 Triglycerides 69 Cholesterol 135 LDL Cholesterol, Calc 58 HDL Cholesterol 64 TSH 0.54 Discharge Plan Discharge Patient Disposition: Home Health Service Referrals: Natalee MARTINEZ [Outside] - 1 Week Deborah Joaquin MD [Primary Care Provider, Internal Medicine] - 1 Week Mayo Allan MD [Physician, Cardiology] - 1 Week Referral Note: New onset AFib while in the hospital Patient started on Eliquis [address] Jerrell Problems: New onset a-fib Discharge Medications: New acetaminophen 325 mg Tablet 650 mg PO Q6H PRN (Reason: Pain, Mild 1-3,Fever,Headache) 30 Days Qty: 240 0RF docusate sodium 100 mg Capsule 100 mg PO BID 30 Days Qty: 60 0RF oxycodone 5 mg Tablet 5 mg PO Q4H PRN (Reason: Pain, Moderate(Pain Scale 4-6)) 7 Days Qty: 42 0RF Rx Instructions: Partial Fill upon patient request. Eliquis 5 mg Tablet 5 mg PO BID 42 Days Qty: 84 0RF Continued brimonidine 0.2 % drops 1 drp ophthalmic (eye) BEDTIME hydrochlorothiazide 25 mg tablet 25 mg PO DAILY lisinopril 40 mg tablet 40 mg PO DAILY Discharge Orders: Discharge Order (Routine); Ordered 04/27/25 Ordered By: Roni Dixon Diet: Advance to usual diet Activity on Discharge: Use cane or walker Activity Restrictions/Additional Instructions: Physical therapy for right femur IM nail: WBAT, gait training, range of motion, strength Limit stair climbing No showering, no tub bath-keep dressing clean dry and intact No driving for 6 weeks Continue Eliquis twice a day for at least 6 weeks for DVT prophylaxis, determination of further therapy per Cardiology Follow-up with [facility] in 2 weeks Print Language: Divehi
--- NOTE | 2025-04-27 13:46 | W.MHC.F2F ---
Service Date Service Date: 04/27/25 Encounter Date of encounter: 04/27/25 Reasons for Services Signs and symptoms assessed: Status post right femoral IM nail Reason for physical therapy: home safety and mobility, therapeutic exercises, restore joint function and gait/transfer training Reason for occupational therapy: home safety and mobility, therapeutic exercises, restore joint function, gait/transfer training and ADL training Homebound: Leaving the home is medically contraindicated at this time without the asist of a device and/or another person due th the listed conditions above and below. Reason homebound: unsteady gait / fall risk, pain with ambulation, poor balance / fall risk and unable to drive Certification: Based on the above findings, I certify that this patient is confined to the home and needs intermittent intermediate care, physical therapy and/or speech therapy, or continues to need occupational therapy. The patient is under my care, and I have initiated the establishment of the plan of care. The patient will be followed by a physician who will periodically review the plan of care. Time Spent With Patient Time: Total time managing care of this patient today ____ minutes.
--- NOTE | 2025-04-27 14:51 | MHC.CM.PN ---
CM MET WITH PT WITH A COUNTER HAND PT REPORTS SHE LIVES ALONE BUT HER DAUGHTERS/[employer]PER[employer], ARE THERE DAILY SHE SAYS SHE HAS A WALKER AND A SHOWER CHAIR FOR DME SHE DOES NOT WANT TO COMPLETE A HCP TODAY PCP: ROSSI PEREZ DCP: HOME TODAY WITH [facility] AND RESUMPTION OF [employer] FAMILY TO TRANSPORT
--- NOTE | 2025-05-01 07:44 | P.OP_ITS ---
Operative Note Operative Note Date of Service: 04/26/25 Narrative: Date of Service: 04/26/25 Pre-op diagnosis: Right femur stress fracture Post-op diagnosis: same Procedure: Right femur IMN Implants: Langley 10x 360 Piriformis nail with 2 proximal and one distal screw Surgeon: Amanuel Ortiz MD Anesthesia: GETA Was an Lay Out Machine Operator used for this Procedure?: Yes Lay Out Machine Operator: Sharron Velez Estimated blood loss (mL): 100 IV fluids (mL): 750 Pathology: none sent Condition: stable Disposition: PACU Indications: This is a 75-year-old woman who presented with a right femur bisphosphonate induced stress fracture. She had previously had this go on to fracture on the contralateral femur requiring emergent surgical stabilization. We elected to treat this prophylactically. I explained to her the procedure in the risks of surgery. The risks of iatrogenic fracture, pain, nerve injury as well as the potential for medical complications associated with surgery. Procedure in detail: Patient was brought to the operating room and prepped and draped in standard sterile fashion. Time-out was called to identify proper site procedure proper surgeon and IV antibiotics per weight were administered. She was positioned on the fracture table and a traction and slight internal rotation were performed and biplanar fluoroscopy was utilized to visualize the femur.. I then made a stab incision proximal to the greater trochanter in using a guidewire made a entry point in the piriformis fossa using biplanar fluoroscopy to confirm the entry site. Once I was satisfied that I was slightly anterior to the femur piriformis recess at the junction of the greater trochanter in the femoral neck, i inserted a guidepin.I then over-reamed with 13 mm Reamer placed my ball-tip guidewire down distally in the femur and measured my length. I selected a [id number] nail and reamed up to a 11. I then inserted the nail without difficulty. I turned my attention to the proximal aspect of the nail where I used the static transverse hole at the level of the lesser trochanter and then a proximal to distal oblique screw through the greater trochanter aimed at the lesser. I was satisfied with the position of the screws on both the AP and lateral projections. I turned my attention to the distal aspect of the nail. There was a mismatch in terms of the anterior bow of the nail versus the anterior bow of her femur in the distal aspect of the nail was slightly posterior. This was acceptable however and,uUsing perfect kaibab technique I placed 1 static interlocking screw in standard AO technique. I then removed all extraneous instrumentation. Final biplanar radiographs were taken. I was satisfied with the position of the hardware. I copiously irrigated and closed with absorbable sutures george and injected 30 mL of into the area of the incisions. The patient was placed in sterile dressing awakened from anesthesia brought to recovery room stable condition there were no known complications.
== END 2025-04-27 15:21 | disposition home health service (06) | DRG 482 ==
LOC: HO.SSS 05-26 07:45 → HO.S3 05-26 07:51
PROVIDERS: Nurse Practitioner; Nurse Practitioner Family; Orthopaedic Surgery; Admitting Provider Physician Assistant; PCP Internal Medicine; Visit Provider Physician Assistant
PROC: 0QH634Z Insertion of Internal Fixation Device into Right Upper Femur, Percutaneous Approach (ICD-10-PCS; CPT 27506; principal; 2025-04-26 09:40)
DX: M84.351A Stress fracture, right femur, initial encounter for fracture (principal); M81.0 Age-related osteoporosis without current pathological fracture; I12.9 Hypertensive chronic kidney disease with stage 1 through stage 4 chronic kidney disease, or unspecified chronic kidney disease; N18.2 Chronic kidney disease, stage 2 (mild); D63.1 Anemia in chronic kidney disease; T45.8X5A Adverse effect of other primarily systemic and hematological agents, initial encounter; E83.42 Hypomagnesemia; I48.91 Unspecified atrial fibrillation; E78.5 Hyperlipidemia, unspecified; Z88.6 Allergy status to analgesic agent; Z88.8 Allergy status to other drugs, medicaments and biological substances; Z79.899 Other long term (current) drug therapy
CPT/HCPCS: 27506; 36415; 80048; 80053; 80061; 83735; 83880; 84443; 85025; 85027; 86850; 86900; 86901; 87640; 87641; 93005; 93306; 97161; 97165; C1713; J0131; J0690; J1100; J2003; J2405; J2704; J2795; J3010; J3475; J7120; Q9957

== ENCOUNTER 2025-04-28 10:59 | Emergency (ER) | payer OTHER, SELFPAY ==
--- NOTE | 2025-04-28 | ECG_ITS ---
Test Reason : CP Blood Pressure : */* mmHG Vent. Rate : 86 BPM Atrial Rate : 86 BPM P-R Int : 146 ms QRS Dur : 86 ms QT Int : 360 ms P-R-T Axes : 72 22 31 degrees QTcB Int : 430 ms Normal sinus rhythm Possible Left atrial enlargement Borderline ECG When compared with ECG of 26-Apr-2025 21:08, Sinus rhythm has replaced Atrial fibrillation Referred By: Generic ED Physician Electronically Signed By: KEITH SHAH
--- NOTE | ~2025-04-28 | XR_ITS ---
EXAMINATION: XR CHEST 1 VIEW HISTORY: chest pain COMPARISON: Comparison is made with the prior examination dated 10/08/2017. FINDINGS: A single AP portable view of the chest performed at 11:35 AM is submitted. The lungs are expanded and clear. There is no pleural effusion, pneumothorax, or pulmonary vascular congestion. The heart is normal in size. The bones are intact. XR/XR chest 1V IMPRESSION: No acute cardiopulmonary abnormality. Electronically signed by: Ramu Caal MD 04/28/2025 12:16 PM EDT
--- NOTE | ~2025-04-28 | CT_ITS ---
EXAMINATION: CT CHEST ANGIOGRAPHY WITH IV CONTRAST INDICATION: severe chest pain radiating to back COMPARISON: Correlation is made with an AP portable view of the chest performed earlier in the day. TECHNIQUE: Helical CT scan of the chest was performed following administration of intravenous contrast (65 mL Omnipaque 350). The contrast bolus was timed to optimally opacify the pulmonary arteries. Thin sections were obtained through the pulmonary arteries. Coronal and sagittal reformatted images were generated. 3D/MIP reconstructed images are also obtained and reviewed. This CT exam was performed with one or more of the following dose reduction techniques: automated exposure control, adjustment of the mA and/or kV according to patient size, use of iterative reconstruction technique. DLP: 165 mGy-cm CHEST: THYROID: The thyroid gland is unremarkable. PULMONARY ARTERIES: Evaluation of the lower lobe pulmonary arteries is limited by patient motion. No definite intraluminal filling defects are identified within the pulmonary arteries to suggest pulmonary emboli. LUNGS: There is a cluster of small nodular opacities in the right upper lobe measuring up to 4 mm in size (series 6, images 61-66). There is subsegmental atelectasis at both lung bases. MEDIASTINUM: There is no mediastinal lymphadenopathy. RASHARD: There is no hilar lymphadenopathy. CARDIOVASCULATURE: There is biatrial cardiac enlargement. There is no pericardial effusion. The thoracic aorta is normal in caliber. DEGREE OF CORONARY CALCIFICATION: none PLEURA: There is no pleural effusion. No pneumothorax. MAIN AIRWAYS: The mainstem bronchi and proximal branches are patent. AXILLA: There is no axillary lymphadenopathy. UPPER ABDOMEN: The visualized portions of the liver, spleen, and adrenals are unremarkable. BONES AND SOFT TISSUES: Unremarkable. CT/CT angio chest PE protocol IMPRESSION: 1. No definite evidence of pulmonary emboli, although evaluation is limited by respiratory motion in the lower lobes. 2. Cluster of small nodular opacities in the right upper lobe. Follow-up is recommended with chest CT in 6 months. Electronically signed by: Ramu Caal MD 04/28/2025 01:23 PM EDT
[2025-04-28 11:16] VITALS: BP 137/81; PULSE 96; O2SAT 97; BMI 21.5
[2025-04-28 11:21] VITALS: BP 139/68; PULSE 83; PULSE 87; RESP 28; TEMP 37.1; O2SAT 98
--- NOTE | 2025-04-28 11:55 | ED_ITS ---
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 Patient had her eliquis last night then went to bed in the middle of the night her entire chest burned and it went to the back. She fell back asleep when she woke still has pains. She denies fevers, cough, URI symptoms, she notes nothing makes it worse. ECHO from 04/27/25 Left Ventricle Normal left ventricular cavity size. There is normal left ventricular wall thickness. The left ventricular systolic function is normal. The visually estimated ejection fraction is between 60-65%. There is no evidence of regional wall motion abnormalities. Diastolic function is indeterminate on the basis of available data. Right Ventricle Normal right ventricular cavity size. There is mildly decreased right ventricular systolic function. MD complaint: chest pain Onset (ago): day(s) (in middle of the night) Timing of current episode: constant Prior episodes: Yes Onset: during rest Pain location: substernal Pain radiation: back Severity: moderate Quality: burning Relieving factors: nothing Exacerbating factors: nothing Context: recent illness, recent surgery and recent immobilization Treatment prior to arrival: none Related Data Home Medications ?Medication ?Instructions ?Recorded ?Confirmed hydrochlorothiazide 25 mg tablet 25 mg PO DAILY 04/26/25 lisinopril 40 mg tablet 40 mg PO DAILY 08/22/2103/15 brimonidine 0.2 % eye drops 1 drp ophthalmic (eye) BED TIME 04/26/25 04/26/25 Previous Rx's ?Medication ?Instructions ?Recorded acetaminophen 325 mg tablet 650 mg (2 x 325 mg) PO Q6H PRN 04/27/25 Pain, Mild 1-3,Fever,Headache 30 days #240 tabs apixaban 5 mg tablet (Eliquis) 5 mg PO BID 42 days #84 tabs 04/27/25 docusate sodium 100 mg capsule 100 mg PO BID 30 days # 60 caps 04/27/25 oxycodone 5 mg tablet 5 mg PO Q4H PRN Pain, Moderate(Pain Scale 4-6) 7 days #42 tabs Allergies Allergy/AdvReac Type Severity Reaction Status Date / Time atenolol Allergy Unknown swelling Verified 04/28/25 11:20 ibuprofen (From Motrin) AdvReac Intermediate palpatations,TACHYCARDIA/CHEST Verified 04/28/25 11:20 PAIN Review of Systems 2 Review of Systems: Constitutional : No Weight loss, No Fever, No Chills ENT/Mouth : No sore throat, No Rhinorrhea Eyes: No Eye Pain, No Swelling Cardiovascular : pos Chest Pain, no SOB, no Dyspnea on Exertion, No Orthopnea, No Edema, No Palpitations Respiratory : No Cough, No Sputum Gastrointestinal : no Nausea, No Vomiting, No Diarrhea, No abdominal Pain, No Hematochezia, No Melena Genitourinary : No Dysuria, No Urinary Frequency Musculoskeletal : No joint pain, No Myalgias, No Joint Swelling Skin : No Skin Lesions, No rash All other systems reviewed and are negative PMFSH Past Medical History Attestation statement: The following information was validated with the patient. Source: old records reviewed Medical History Teeth missing Anemia CKD (chronic kidney disease), stage II Benign paroxysmal positional vertigo Ambulates with cane HLD (hyperlipidemia) HTN (hypertension) Osteoporosis Femur fracture, left Surgical History Hx of bilateral cataract extraction (~2023) Hx of colonoscopy History of surgery (~2022) Hx of breast biopsy H/O removal of cyst Family History Family History Father Heart problem HTN (hypertension) CVD (cardiovascular disease) Mother HTN (hypertension) Brother No problems noted. Brother No problems noted. Brother No problems noted. Sister No problems noted. Sister No problems noted. Sister No problems noted. Daughter No problems noted. Daughter No problems noted. Social History Social History Household Members: None Housing: Apartment Are you a primary career development engineer to a significant other at home: No Do you presently have visiting nurse or other home services: No Alcohol intake: never Comment: COUNTS CORRECT Patient Tobacco Use Status: Never used Tobacco Smoked in Last 30 Days: No e-Cigarette/Vaping Use: Never Used Second Hand Smoke Exposure: No Use of substances other than those prescribed or required for medical reasons: No Advance Directives: No Advance Directives Information Provided: Yes service: No Current occupational status: disabled Current occupation: right hand Physical Exam 2 Vital Signs: Vital Signs: Last Vital Signs Temp 98.7 F 04/28/25 11:21 Pulse 81 04/28/25 12:00 Resp 26 H 04/28/25 12:00 BP 138/67 04/28/25 12:00 Pulse Ox 98 04/28/25 12:00 O2 Del Method Room Air 04/28/25 12:00 BMI result Body Mass Index 21.5 Appearance: Alert. Oriented X3. No acute distress. Eyes: Pupils equal, round and reactive to light. ENT: Pharynx normal. Neck: Normal inspection. Neck supple. CVS: regular heart rate and rhythm. Pulses normal. Respiratory: No respiratory distress. Breath sounds normal. Abdomen: Soft and nontender. Skin: Skin warm and dry. Normal skin color. Normal skin turgor. Extremities: No lower extremity edema. R surg site c/d/i Neuro: Oriented X 3. No motor deficit. No sensory deficit. CN2-12 intact Medications Administered Discontinued Medications Generic Name Dose Route Start Last Admin Trade Name Freq PRN Reason Stop Dose Admin Iohexol 100 ml 04/28/25 13:09 04/28/25 13:09 Iohexol 350 Mg/Ml 100 Ml Infus..Btl IV 04/28/25 13:10 65 ml ONCE ONE Administration Morphine Sulfate 2 mg 04/28/25 11:48 04/28/25 12:03 Morphine Sulfate 2 Mg/Ml Cartridge IVPUSH 04/28/25 11:49 2 mg ONCE ONE Administration Protocol Medical Decision Making Medical Decision Making MDM Narrative: 75 yo female with PMH of afib on eliquis 5mg BID just dx, CKD, hypomagnesemia, HTN, HLD, osteoporosis just seen here s/p R femur IMN on 04/26 for stress fracture here with c/o burning chest pain to the back but no resp distress, no fevers but at this time will need labs, IV Morphine for pain, CTA for PE - took her eliquis last night. Differential Diagnosis Differential Diagnoses: The differential diagnosis associated with the presentation includes PE, atypical chest pain, lyte abnormality Admission/Observation Consideration of admission/observation: Escalation of care including admission/observation considered if trop negative would DC Home to resume meds Lab Data MDM Lab Attestation statement: I reviewed the patient's lab results. BNP at baseline no clinical CHF 04/28/25 11:56 04/28/25 11:56 Labs: Lab Results 04/28/25 04/28/25 Range/Units 11:56 13:22 WBC 8.6 (4.8-10.8) X10*3/uL RBC 4.55 (4.20-5.50) X10*6/uL Hgb 12.2 (12.0-16.0) g/dl Hct 37.1 (37.0-47.0) % MCV 81.5 (80.0-98.0) fL MCH 26.8 L (27.0-33.0) pg MCHC 32.9 (31.0-35.0) g/dl RDW 13.8 (11.0-16.0) % Plt Count 194 (160-400) X10*3/uL MPV 9.6 (9.4-12.3) fL Immature Gran % (Auto) 0.2 (0.0-0.4) % Neut % (Auto) 77.0 H (45-73) % Lymph % (Auto) 14.2 L (20-40) % [place] % (Auto) 7.8 (2-11) % Eos % (Auto) 0.6 (0-4) % Baso % (Auto) 0.2 (0-2) % Lymph # (Auto) 1.2 (1.2-4.9) X10*3/uL [place] # (Auto) 0.7 (0.1-1.2) X10*3/uL Eos # (Auto) 0.1 (0.0-0.4) X10*3/uL Baso # (Auto) 0.0 (0.0-0.2) X10*3/uL Abs Immat Gran (auto) 0.02 (0.00-0.03) X10*3/uL Absolute Neuts (auto) 6.7 (2.0-8.3) x10*3/uL Absolute Nucleated RBC 0.000 (0.0-0.012) X10*3/uL Nucleated RBC % (auto) 0.0 (0.0-0.2) /100WBC PT 11.8 (10.9-12.4) SEC INR 1.0 (0.9-1.1) Sodium 139 (135-145) mmol/L Potassium 4.0 (3.3-5.1) mmol/L Chloride 105 (96-108) mmol/L Carbon Dioxide 29 (22-29) mmol/L Anion Gap 9 L (12-20) BUN 21 H (9-16) mg/dL Creatinine 1.08 (0.5-1.4) mg/dL Estim Creat Clear Calc 37.7 Estimated GFR 50 Random Glucose 123 H (60-115) mg/dL Calcium 8.7 (8.4-10.2) mg/dL Total Bilirubin 0.3 (0.0-1.0) mg/dL AST 34 H (5-31) U/L ALT 20 (0-31) U/L Alkaline Phosphatase 82 (39-117) U/L Troponin I High Sens 17.1 H 17.8 H (<3.5-17.0) ng/L B-Natriuretic Peptide 362 H (<100) pg/mL Total Protein 6.8 (6.5-8.0) g/dL Albumin 4.0 (3.5-5.0) g/dL Independent Interpretation I performed an independent interpretation of an: EKG, Plain X-Ray (normal ) and CT Scan (nodules no PE) Interpretation: Rate: 86 Rhythm: NSR [place]: normal Normal P waves. Normal ASHLEY. Normal QRS complex. ST T wave : inverted t wave III, artfiact V1-V2 no ONEL qTC: 430 prior studies: no acute ischemia The study has been interpreted contemporaneously by me. . Radiology Impression Discussion of test interpretation with radiology: I have reviewed the radiologist's reading. Independent Historian Clinical information obtained from an independent historian. History obtained from or confirmed by: EMS and Other (daughter) External Record Review External record reviewed: Inpatient record and Outpatient record Discharge Plan Discharge Clinical Impression: Atypical chest pain Patient Disposition: Home, Self-Care Instructions: Chest Pain (ED) Additional Instructions: no signs of blood clot on exam labs reassuring EKG and tests for the heart normal continue your medications. CT/CT angio chest PE protocol IMPRESSION: 1. No definite evidence of pulmonary emboli, although evaluation is limited by respiratory motion in the lower lobes. 2. Cluster of small nodular opacities in the right upper lobe. Follow-up is recommended with chest CT in 6 months. Prescriptions: No Action brimonidine 0.2 % drops 1 drp ophthalmic (eye) BEDTIME acetaminophen 325 mg Tablet 650 mg PO Q6H PRN (Reason: Pain, Mild 1-3,Fever,Headache) 30 Days Qty: 240 0RF docusate sodium 100 mg Capsule 100 mg PO BID 30 Days Qty: 60 0RF oxycodone 5 mg Tablet 5 mg PO Q4H PRN (Reason: Pain, Moderate(Pain Scale 4-6)) 7 Days Qty: 42 0RF Rx Instructions: Partial Fill upon patient request. Eliquis 5 mg Tablet 5 mg PO BID 42 Days Qty: 84 0RF hydrochlorothiazide 25 mg tablet 25 mg PO DAILY lisinopril 40 mg tablet 40 mg PO DAILY Print Language: Syriac
[2025-04-28 11:58] VITALS: BP 156/66; PULSE 79; RESP 25; O2SAT 98
[2025-04-28 12:00] VITALS: BP 138/67; PULSE 81; RESP 26; O2SAT 98
[2025-04-28 12:03] LABS: MANUAL DIFF FLAG NO
[2025-04-28 12:04] LABS: Hematocrit 37.1 % (37.0-47.0); Hemoglobin 12.2 g/dl (12.0-16.0); Imm Gran Abs Auto 0.02 X10*3/uL (0.00-0.03); Imm Gran Pct Auto 0.2 % (0.0-0.4); Lymphocytes Absolute Auto 1.2 X10*3/uL (1.2-4.9); Mean Corpuscular HGB Conc 32.9 g/dl (31.0-35.0); Mean Corpuscular Hemoglobin 26.8 pg (27.0-33.0); Mean Corpuscular Volume 81.5 fL (80.0-98.0); NRBC Abs Auto 0.000 X10*3/uL (0.0-0.012); NRBC Pct Auto 0.0 /100WBC (0.0-0.2); Platelet Count 194 X10*3/uL (160-400); Red Blood Count 4.55 X10*6/uL (4.20-5.50); White Blood Count 8.6 X10*3/uL (4.8-10.8)
[2025-04-28 12:09] LABS: INTERNATIONAL NORM RATIO 1.0 (0.9-1.1); Prothrombin Time 11.8 SEC (10.9-12.4)
[2025-04-28 12:23] LABS: Alanine Aminotransferase 20 U/L (0-31); Albumin Level 4.0 g/dL (3.5-5.0); Alkaline Phosphatase 82 U/L (39-117); Anion Gap 9 (12-20); Aspartate Amino Transferase 34 U/L (5-31); Blood Urea Nitrogen 21 mg/dL (9-16); Calcium 8.7 mg/dL (8.4-10.2); Carbon Dioxide 29 mmol/L (22-29); Chloride 105 mmol/L (96-108); Creatinine Clr Calc Pharmacy 37.7; Estimated Glomerular Filt Rate 50; Potassium 4.0 mmol/L (3.3-5.1); Sodium 139 mmol/L (135-145); Total Protein 6.8 g/dL (6.5-8.0)
[2025-04-28 12:31] LABS: Troponin-I High Sensitivity 17.1 ng/L (<3.5-17.0)
--- NOTE | 2025-04-28 12:35 | PC.NURSE ---
Medical History Teeth missing Anemia CKD (chronic kidney disease), stage II Benign paroxysmal positional vertigo Ambulates with cane HLD (hyperlipidemia) HTN (hypertension) Osteoporosis Femur fracture, left
--- NOTE | 2025-04-28 12:35 | PC.NURSE ---
Addendum entered by Sudha Maria RN 04/28/25 12:36: Patient is a 75-year-old female who was admitted to the hospital for treatment of stress fracture of right femur. The patient underwent a successful total right femur IM nail on started on Eliquis 5 mg b.i.d. per cardiology for DVT ppx and new onset atrial fibrillation, they also received Physical Therapy services twice a day. Patient should continue Eliquis for at least 6 weeks for DVT prophylaxis, duration of further therapy per Cardiology. Was discharged yesterday. Today awoke with intermittent chest pain radiating to her back. Placed on school lunch monitor and NSR noted. Lungs clear bilat. respirations even and non-labored. Abdomen soft, non-tender with positive bowel sounds. Positive pedal pulses with no edema noted. Original Note: Medical History Teeth missing Anemia CKD (chronic kidney disease), stage II Benign paroxysmal positional vertigo Ambulates with cane HLD (hyperlipidemia) HTN (hypertension) Osteoporosis Femur fracture, left
--- OUTSIDE RECORDS SUMMARY | 2025-04-28 12:40 | XMS_ITS | Encounter Summary ---
Author Organization [employer] Address [address] [place] [address] [address] [place] [address] Care Team Providers Care Senior Design Engineer Name Role Phone Deborah Joaquin MD Primary Care Provider + Reason for Visit * Reason Comments Med Refill Encounter Details Date Type Department Care Team (Late st Contact Info) Description 04/21/2023 Refill [facility] MEDICINE [address] [place], [place] [phone] Deborah Joaquin MD [address] [place] [address] Social History Tobacco Use Types Packs/Day Years [...] Description 07/24/2025 11:15 AM EST Office Visit [facility] OPTOMETRY [address] [place], [place] [phone] TarsharifaKendy, OD [address] [place], [place] [phone] documented as of this encounter Visit Diagnoses Not on filedocumented in this encounter Care Teams Senior Design Engineer Relationship Specialty Start Date End Date Deborah Joaquin MD [address] [place] [address] PCP - General Family Medicine 05/14/17 documented as of this encounter
[2025-04-28] MEDS: iohexoL 350 MG/ML 100 ML INFUS..BTL IV (13:09)
[2025-04-28 13:11] LABS: B Type Natriuretic Peptide 362 pg/mL (<100)
[2025-04-28 13:55] LABS: Troponin-I High Sensitivity 17.8 ng/L (<3.5-17.0)
[2025-04-28 14:04] VITALS: BP 157/72; PULSE 77; RESP 14; TEMP 36.9; O2SAT 98
[2025-04-28 14:39] VITALS: BP 157/72; PULSE 77; RESP 14; TEMP 36.9; O2SAT 98
== END 2025-04-28 14:40 | disposition home or self-care (01) ==
PROVIDERS: Emergency Provider Emergency Medicine; PCP Internal Medicine
DX: R07.89 Other chest pain (principal); I12.9 Hypertensive chronic kidney disease with stage 1 through stage 4 chronic kidney disease, or unspecified chronic kidney disease; N18.2 Chronic kidney disease, stage 2 (mild); E78.5 Hyperlipidemia, unspecified; M81.0 Age-related osteoporosis without current pathological fracture; I48.91 Unspecified atrial fibrillation; Z79.01 Long term (current) use of anticoagulants; Z79.899 Other long term (current) drug therapy
CPT/HCPCS: 36415; 71045; 71275; 80053; 83880; 84484; 85025; 85610; 93005; 96374; 99285; J2270; Q9967

== ENCOUNTER → 2025-04-28 11:34 | Outpatient (BNV) | payer OTHER, SELFPAY | PROVIDERS: Emergency Provider Emergency Medicine; Visit Provider Internal Medicine | DX: R07.9 Chest pain, unspecified (principal) | CPT/HCPCS: 93010 ==

== ENCOUNTER → 2025-04-28 11:48 | Outpatient (BNV) | payer OTHER, SELFPAY | PROVIDERS: Emergency Provider Emergency Medicine; PCP Internal Medicine; Visit Provider Radiology Diagnostic Radiology | DX: J98.11 Atelectasis (principal); R07.9 Chest pain, unspecified | CPT/HCPCS: 71045; 71275 ==

== ENCOUNTER 2025-05-09 08:54 | Outpatient (AMB) | payer OTHER, SELFPAY ==
[2025-05-09 08:58] VITALS: BMI 21.4
--- NOTE | 2025-05-09 08:58 | A.OFFVIS_ITS ---
Vital Signs 05/09/25 08:58 Height 5 ft 3 in Weight 121 lb BMI 21.4 Intake Visit Reasons: PO-Rt Femur INM 04/26/25 NE Intake Note: Fatoumata is a 75 year old female who presents today for a post operative appointment status post of her Right femur IMN 04/26/25 NE. Patient reports having a burning sensation in her heal since surgery and having some swelling in her foot when she is walking. Her swelling is better when she is sitting and laying down. She notices that she is having some headaches and feeling sore. Administrative Nursing Supervisor Services: Administrative Nursing Supervisor Present (Roman ([phone])) Allergies atenolol Allergy (Unknown, Verified 05/09/25 08:58) swelling ibuprofen (From Motrin) Adverse Reaction (Intermediate, Verified 05/09/25 08:58) palpatations,TACHYCARDIA/CHEST PAIN HPI HPI PO-Rt Femur INM 04/26/25 NE: Details: Ms. Gibson is a 75-year-old female who presents to the office today accompanied by her daughter. Patient is status post right femur IM nail for prophylactic treatment of a stress fracture to the right femur. Date of surgery was 04/26/2025. During her postoperative recovery in the hospital on postop day 0 she was found to have a new onset of AFib. Cardiology was consulted at that time and the patient started Eliquis for DVT prophylaxis. Additionally, the patient reported that she had issues with her kidneys in [place] years ago. Unfortunately, she did not disclose this information at her preoperative appointment. Repeat labs were obtained and with the patient's current creatinine clearance and GFR her chronic kidney disease has now progress to stage IIIb. Patient reports that after discharge she felt that she was having a burning sensation in her entire chest that went into the back. She additionally reports headaches with a burning sensation. The patient had a full workup including an EKG, plain x-ray and CT scan. There is no evidence of pulmonary embolism and EKG was negative for any acute ischemia. Patient was discharged home and instructed to follow up with Cardiology. The patient's daughter reports she has an appointment on 06/02/2025 with cardiology for follow up. She continues to take the Eliquis as prescribed. In regards to the right femur the patient reports that she has manageable pain and swelling that is accumulating in the right foot. Denies any calf cramping. [facility] Medical History Teeth missing Anemia CKD (chronic kidney disease), stage II Benign paroxysmal positional vertigo Ambulates with cane HLD (hyperlipidemia) HTN (hypertension) Osteoporosis Femur fracture, left Surgical History Hx of bilateral cataract extraction (~2023) Hx of colonoscopy History of surgery (~2022) Hx of breast biopsy H/O removal of cyst Family History Father Heart problem HTN (hypertension) CVD (cardiovascular disease) Mother HTN (hypertension) Brother No problems noted. Brother No problems noted. Brother No problems noted. Sister No problems noted. Sister No problems noted. Sister No problems noted. Daughter No problems noted. Daughter No problems noted. Social History Household Members: None Housing: Apartment Are you a primary medicare compliance auditor to a significant other at home: No Do you presently have visiting nurse or other home services: No 75 years or older and lives alone: No Alcohol intake: never Comment: COUNTS CORRECT Patient Tobacco Use Status: Never used Tobacco e-Cigarette/Vaping Use: Never Used Second Hand Smoke Exposure: No service: No Current occupational status: disabled Current occupation: right hand Review of Systems Const All systems reviewed & are unremarkable except as noted in HPI and below Physical Exam Vital Signs: BMI result Body Mass Index 21.4 Const General: cooperative, healthy appearing and no acute distress Resp Effort & Inspection: normal respiratory effort and able to speak in complete sentences Extrem Other: Right thigh incision sites are clean dry and intact. Lolis intact. No surrounding erythema or drainage. No signs of infection. Resolving ecchymosis localized to the incision sites. Patient is able to dorsiflex and plantar flex. Calf is supple and nontender. Negative Homans. NVI. Psych Appearance: grossly normal Mental Status: mental status grossly normal Attitude: cooperative Assessment & Plan Assessment & Plan (1) Stress fracture, right femur, initial encounter for fracture: Code(s): M84.351A - Stress fracture, right femur, initial encounter for fracture Category: Medical Plan Ms. Gibson is a 75-year-old female who presents to the office today accompanied by her daughter. Patient is status post right femur IM nail for prophylactic treatment of a stress fracture to the right femur. Date of surgery was 04/26/2025. During her postoperative recovery in the hospital on postop day 0 she was found to have a new onset of AFib. Cardiology was consulted at that time and the patient started Eliquis for DVT prophylaxis. Additionally, the patient reported that she had issues with her kidneys in [place] years ago. Unfortunately, she did not disclose this information at her preoperative appointment. Repeat labs were obtained and with the patient's current creatinine clearance and GFR her chronic kidney disease has now progress to stage IIIb. Patient reports that after discharge she felt that she was having a burning sensation in her entire chest that went into the back. She additionally reports headaches with a burning sensation. The patient had a full workup including an EKG, plain x-ray and CT scan. There is no evidence of pulmonary embolism and EKG was negative for any acute ischemia. Patient was discharged home and instructed to follow up with Cardiology. The patient's daughter reports she has an appointment on 06/02/2025 with cardiology for follow up. She continues to take the Eliquis as prescribed. In regards to the right femur the patient reports that she has manageable pain and swelling that is accumulating in the right foot. Denies any calf cramping. While in the office today, I recommended the patient continue to work with physical therapy on glute core and quad strengthening. Gait training with a walker. She may continue to weightbear as tolerated with the use of a walker. I have recommended that they contact cardiology today and explain the symptoms that the patient was having upon discharge as well as the burning sensation throughout her body and in her head that she is currently experiencing. She will follow up in 4 weeks with repeat x-rays, sooner if needed. X-rays of the right femur which were obtained while in the office today and were reviewed by me, Sharron Velez PA-C, revealed intact orthopedic hardware. Orders: Orders XR femur RT 2V Today M84.351A - Stress fracture, right femur, initial encounter for fracture Coding Level of Care Code Global (87239) Diagnoses Stress fracture, right femur, initial encounter for fracture M84.351A
--- OUTSIDE RECORDS SUMMARY | 2025-05-09 09:44 | XMS_ITS | Encounter Summary ---
Author Organization [employer] Address [address] [facility] [address] [place] [address] Care Team Providers Care Coat Cutter Name Role Phone Deborah Joaquin MD Primary Care Provider + Reason for Visit * Reason Comments Med Refill Encounter Details Date Type Department Care Team (Late st Contact Info) Description 04/21/2023 Refill [facility] MEDICINE [address] [place] [address] [phone] Deborah Joaquin MD [address] [place] [address] [phone] Social History Tobacco Use Types Packs/Day Years [...] Care Team (Late st Contact Info) Description 05/15/2025 1:00 PM EDT Office Visit [facility] MEDICINE [address] [place] [address] Octavio Billy MD [address] [place] [address] [phone] 07/24/2025 11:00 AM EST Office Visit [facility] OPTOMETRY [address] [place], [place] [phone] Kendy Butler, OD [address] [place] [address] documented as of this encounter Visit Diagnoses Not on filedocumented in this encounter Care Teams Coat Cutter Relationship Specialty Start Date End Date Deborah Joaquin MD [address] [place] [address] [phone] PCP - General Family Medicine 05/14/17 documented as of this encounter
== END 2025-05-09 09:43 | disposition home or self-care (01) ==
LOC: HO.HOS 08:54
PROVIDERS: PCP Internal Medicine; Visit Provider Physician Assistant
DX: M84.351A Stress fracture, right femur, initial encounter for fracture (principal)
CPT/HCPCS: 99024

== ENCOUNTER 2025-05-09 08:55 | Outpatient (REF) | payer OTHER, SELFPAY ==
--- NOTE | ~2025-05-09 | XR_ITS ---
CLINICAL HISTORY: M84.351A - Stress fracture, right femur, initial encounter for fracture Right femur two views Comparison: 2024 Findings: No acute fracture or dislocation identified. Intramedullary lacho has been placed. Lacho and screws are intact. Cortical thickening lateral mid femur is unchanged. Impression: No acute bony abnormality This document has been electronically signed by: Piero Anand MD on 05/09/2025 20:01:26
--- OUTSIDE RECORDS SUMMARY | 2025-05-10 09:38 | XMS_ITS | Encounter Summary ---
Author Organization [employer] Address [address] [facility] [address] [place] [address] Care Team Providers Care Radio Antenna Installer Name Role Phone Deborah Joaquin MD Primary Care Provider + Reason for Visit * Reason Comments Med Refill Encounter Details Date Type Department Care Team (Late st Contact Info) Description 04/21/2023 Refill [facility] MEDICINE [address] [place] [address] [phone] Deborah Joaquin MD [address] [place] [address] [phone] Social History Tobacco Use Types Packs/Day Years [...] Description 05/15/2025 1:00 PM EDT Office Visit [facility] MEDICINE [address] [place] [address] Octavio Billy MD [address] [place] [address] [phone] 07/24/2025 11:00 AM EST Office Visit [facility] OPTOMETRY [address] [place], [place] [phone] Kendy Butler, OD [address] [place] [address] documented as of this encounter Visit Diagnoses Not on filedocumented in this encounter Care Teams Radio Antenna Installer Relationship Specialty Start Date End Date Deborah Joaquin MD [address] [place] [address] [phone] PCP - General Family Medicine 05/14/17 documented as of this encounter
== END 2025-05-09 08:56 | disposition home or self-care (01) ==
LOC: HO.HOSX 08:55
PROVIDERS: Visit Provider Physician Assistant
DX: M84.351A Stress fracture, right femur, initial encounter for fracture (principal)
CPT/HCPCS: 73552; 99212

== ENCOUNTER → 2025-05-09 08:55 | Outpatient (BNV) | payer OTHER, SELFPAY | PROVIDERS: Visit Provider Radiology Diagnostic Radiology | DX: M84.351D Stress fracture, right femur, subsequent encounter for fracture with routine healing (principal) | CPT/HCPCS: 73552 ==

== ENCOUNTER 2025-05-15 13:35 | Outpatient (REF) | payer OTHER, SELFPAY ==
--- OUTSIDE RECORDS SUMMARY | 2025-05-15 13:00 | XMS_ITS | Encounter Summary ---
Author Organization [employer] Address [address] [place] [address] 7 [place] [address] Care Team Providers Care Material Control Specialist Name Role Phone Deborah Joaquin MD Primary Care Provider + Reason for Referral * Medications - Pending Review Specialty Diagnoses / Procedures Referred By Contac t Referred To Contact Diagnoses S/P ORIF (open reduction internal fixation) fracture Foot pain, right Octavio Billy MD [address] [place] [phone] Phone: tel: fax: Referral ID Status Reason Start Date Expiration Date V isits Requested Visits Authorized [id number] Pending Review 1 1 Reason for Visit * Reason Comments HDF Encounter Details Date Type Department Care Team (Late st Contact Info) Description 05/15/2025 1:00 PM EDT Office Visit [facility] [address] [place] [address] [phone] Octavio Billy MD [address] [place] [address] [phone] Paroxysmal A-fib (CMS/HCC) (Primary Dx); Foot pain, right; S/P ORIF (open reduction internal fixation) fracture Social History Tobacco Use Types Packs/Day Years Used Date Smoking Tobacco: Never Smokeless Tobacco: Never Tobacco Cessation:Counseling Given: Not Answered Alcohol Use Standard Drinks/Week Comments Never 0 (1 standard drink = 0.6 oz pur e alcohol) Depression Answer Date Recorded Patient Health Questionnaire-9 Score 3 05/15/2025 Patient Health Questionnaire-9 Score 3 05/15/2025 Last PHQ-9: Questionnaire Data Not on file 0 05/15/2025 Housing Stability Answer Date Recorded What is [...] Answer Date Recorded Patient Health Questionnaire-2 Score 1 05/15/2025 Internet Access Answer Date Recorded Internet Access [...] Sign Reading Time Taken Comments Blood Pressure 132/68 05/15/2025 1:11 PM EDT Pulse 86 05/15/2025 1:11 PM EDT Temperature 36.5 C (97.7 F) 05/15/2025 1:11 PM EDT Respiratory Rate 12 05/15/2025 1:11 PM EDT Oxygen Saturation 96% 05/15/2025 1:11 PM EDT Inhaled Oxygen Concentration - - Weight 54.7 kg (120 lb 9.6 oz) 05/15/2025 1:11 P M EDT Height 160 cm (5' 3 ) 05/15/2025 1:11 PM EDT Body Mass Index 21.36 05/15/2025 1:11 PM EDT documented in this encounter Functional Status * Over the past 2 weeks, how often have you been bothered by any of the following problems? Question Answer Date of Assessment Author Patient Health Questionnaire -2 Score 1 05/15/2025 1:12 PM EDT Chiquita Bush MA * Little interest or pleasure in doing things Answer Date of Assessment Author Not at all 05/15/2025 1:12 PM EDT Michelle Bush MA * Feeling down, depressed, or hopeless Answer Date of Assessment Author Several days 05/15/2025 1:12 PM EDT Michelle Bush MA * Trouble falling or staying asleep, or sleeping too much Answer Date of Assessment Author Not at all 05/15/2025 1:12 PM EDT Michelle Bush MA * Feeling tired or having little energy Answer Date of Assessment Author Several days 05/15/2025 1:12 PM EDT Michelle Bush MA * Poor appetite or overeating Answer Date of Assessment Author Not at all 05/15/2025 1:12 PM EDT Michelle Bush MA * Feeling bad about yourself - or that you are a failure or have let yourself or your family down Answer Date of Assessment Author Not at all 05/15/2025 1:12 PM EDT Michelle Bush MA * Trouble concentrating on things, such as reading the newspaper or watching television Answer Date of Assessment Author Not at all 05/15/2025 1:12 PM EDT Michelle Bush MA * Moving or speaking so slowly that other people could have noticed? Or the opposite - being so fidgety or restless that you have been moving around a lot more than usual. Answer Date of Assessment Author Several days 05/15/2025 1:12 PM EDT Michelle Bush MA * Thoughts that you would be better off or hurting yourself in some way Answer Date of Assessment Author Not at all 05/15/2025 1:12 PM EDT Michelle Bush MA * Patient Health Questionnaire-9 Score Answer Date of Assessment Author 3 05/15/2025 1:12 PM EDT Michelle Bush MA * Over the last 2 weeks, how often have you been bothered by any of the following problems? Question Answer Date of Assessment Author Feeling nervous, anxious, or on edge 1 05/15/2025 1:13 PM EDT Chiquita Bush MA Not being able to stop or control worrying 0 05/15/2025 1:13 PM EDT Chiquita Bush MA Worrying too much about different things 0 05/15/2025 1:13 PM EDT Chiquita Bush MA Trouble relaxing 0 05/15/2025 1:13 PM EDT Michelle Hadley MA Being so restless that it is hard to sit still 0 05/15/2025 1:13 PM EDT Chiquita Bush MA Becoming easily annoyed or irritable 0 05/15/2025 1:13 PM EDT Chiquita Bush MA Feeling afraid as if somethi ng awful might happen 0 05/15/2025 1:13 PM EDT Chiquita Bush MA ANETTE-7 Total Score 1 05/15/2025 1:13 PM EDT Michelle Bush MA documented as of this encounter Progress Notes * Octavio Billy MD - 05/15/2025 1:00 PM EDT Subjective Patient ID: Fatoumata Rose is a 75 y.o. female who presents for HDF. Patient comes for a posthospital visit. She is accompanied by her daughter. She recently had open reduction and internal fixation of the right femur. Postoperative period was complicated by new onsetof atrial fibrillation. The patient is currently on Eliquis for stroke prevention and DVT prevention. Currently she denies any chest pains, no palpitations. She did have episode of chest burning discomfort after the surgery and she was evaluated at [facility]. She was ruled out for LA and she had negative CT angiogram for PE. She still describes burning discomfort on the on and off in the back of thehead and on the right foot. Summary of the recent hospitalization is written below: [facility] (04/26/25-04/27/25) Patient admitted for treatment of stress fracture of right femur. Underwent successful total right femur IM nail on. Started on Eliquis per cardiology for DVT prophylaxis and new onset Afib for 6 weeks and further therapy per cardiology. Patient discharged home with PT and follow up with orthopedics in 2 weeks. Medication changes that occurred during hospitalization include: ?? Added ?? Acetaminophen 325 mg - 2 tabs every 6 hours as needed for mild pain, fever and headache ?? Docusate sodium 100 mg twice a day ?? Oxycodone 5 mg every 4 hours as needed for moderate pain ?? Eliquis 5 mg twice a day x 42 days ?? Changed: none ?? Discontinued: none Review of Systems Constitutional: Negative for chills and fever. HENT: Negative for sore throat. Respiratory: Negative for cough, shortness of breath and wheezing. Cardiovascular: Negative for chest pain, palpitations and leg swelling. Gastrointestinal: Negative for abdominal pain. Musculoskeletal: See HPI Visit Vitals BP 132/68 (BP Location: Left arm, Patient Position: Sitting, BP Cuff Size: Adult) Pulse 86 Temp 97.7 ??F (36.5 ??C) (Temporal) Resp 12 Ht 5' 3 (1.6 m) Wt 120 lb 9.6 oz (54.7 kg) SpO2 96% BMI 21.36 kg/m?? OB Status Postmenopausal Smoking Status Never BSA 1.56 m?? Objective Physical Exam Constitutional: Appearance: Normal appearance. Cardiovascular: Rate and Rhythm: Normal rate and regular rhythm. Heart sounds: No murmur heard. No gallop. Pulmonary: Effort: Pulmonary effort is normal. No respiratory distress. Breath sounds: Normal breath sounds. No wheezing. Musculoskeletal: General: No swelling. Right lower leg: No edema. Left lower leg: No edema. Comments: Antalgic gait, she comes using a walker, clean scars from recent right femur ORIF Neurological: Mental Status: She is alert. Assessment/Plan Diagnoses and all orders for this visit: Paroxysmal A-fib (CMS/[facility]) Comments: Patient is in sinus rhythm today. She will continue Eliquis for stroke prevention She has an appointment with cardiology in the coming weeks Foot pain, right Comments: I recommend to continue as needed acetaminophen, continue physical therapy, I added lidocaine creamto her pain regimen. Orders: - lidocaine (Xylocaine) 5 % ointment; Apply topically if needed for mild pain. S/P ORIF (open reduction internal fixation) fracture Comments: See above Orders: - lidocaine (Xylocaine) 5 % ointment; Apply topically if needed for mild pain. documented in this encounter Plan of Treatment Upcoming Encounters Date Type Department Care Team (Late st Contact Info) Description 06/20/2025 10:45 AM EDT Office Visit [facility] [address] [place] [address] Deborah Joaquin MD [address] [place] [address] 07/24/2025 11:00 AM EST Office Visit [facility] OPTOMETRY [address] [place], [place] [phone] Kendy Butler, OD [address] [place] [address] documented as of this encounter Visit Diagnoses Diagnosis Paroxysmal A-fib (CMS/HCC)- Primary Foot pain, right Pain in soft tissues of limb S/P ORIF (open reduction internal fixation) fracture documented in this encounter Additional Health Concerns Assessment Noted Time PHQ-9 Depression Total Score: 3 05/15/20 25 1:12 PM EDT documented as of this encounter Care Teams Material Control Specialist Relationship Specialty Start Date End Date Deborah Joaquin MD [address] [place] [phone] PCP - General Family Medicine 05/14/17 documented as of this encounter
--- OUTSIDE RECORDS SUMMARY | 2025-05-15 14:53 | XMS_ITS | Encounter Summary ---
Author Organization [employer] Address [address] [facility] [address]t [place] [address] Care Team Providers Care Bean Weigher Name Role Phone Deborah Joaquin MD Primary Care Provider + Encounter Details Date Type Department Care Team (Latest Contact Info) Description 05/15/2025 Travel Social History Tobacco Use Types Packs/Day [...] AM EDT documented as of this encounter Functional Status * Over the [...] Several days 05/15/2025 1:12 PM EDT Michelle Bsuh MA * Poor appetite or overeating Answer Date of Assessment Author Not at all 05/15/2025 1:12 PM EDT Michelle Bush MA * Feeling bad about yourself - or that you are a failure or have let yourself or your family down Answer Date of Assessment Author Not at all 05/15/2025 1:12 PM NENAT Michelle Bush MA * Trouble concentrating on [...] Chiquita Bush MA Feeling afraid as if something awful might happen 0 05/15/2025 1:13 PM EDT Michelle Fink MA ANETTE-7 Total Score 1 05/15/2025 1:13 PM EDT Michelle Bush MA documented as of this encounter Plan of Treatment Upcoming Encounters Date Type Department Care Team (Late st Contact Info) Description 06/20/2025 10:45 AM EDT Office Visit [facility] MEDICINE [address] [place] [address] Deborah Joaquin MD [address] [place] [address] 07/24/2025 11:00 AM EST Office Visit [facility] OPTOMETRY [address] [place], [place] [phone] Kendy Butler, OD [address] [place] [address] documented as of this encounter Visit Diagnoses Not on filedocumented in this encounter Additional Health Concerns Assessment Noted Time PHQ-9 Depression Total Score: 3 05/15/20 25 1:12 PM EDT documented as of this encounter Care Teams Bean Weigher Relationship Specialty Start Date End Date Deborah Joaquin MD [address] [place] [address] [phone] PCP - General Family Medicine 05/14/17 documented as of this encounter
--- OUTSIDE RECORDS SUMMARY | 2025-05-15 14:53 | XMS_ITS | Encounter Summary ---
Author Organization [employer] Address [address] [facility] 7t [place] [address] Care Team Providers Care Director Counseling Bureau Name Role Phone Deborah Joaquin MD Primary Care Provider + Reason for Visit * Reason Onset Date Comments Hospital Follow-up 04/28/2025 Encounter Details Date Type Department Care Team ([facility] st Contact Info) Description 04/28/2025 Telephone [facility] MED[facility]INE [address] [place] [address] Deborah Joaquin MD [address] [place], [place] [phone] Hospital Follow-up Social History Tobacco Use Types Packs/Day Years Used Date Smoking Tobacco: Never Smokeless Tobacco: Never Alcohol Use Standard Drinks/Week Comments Never 0 (1 standard drink = 0.6 oz pur e alcohol) Housing Stability Answer Date Recorded What is your housing situation today? I have aminata michelle 12/30/[address] you li [...] t he electric, gas, oil or water [employer] threatened to shut off services in your [...] encounter Miscellaneous Notes * Telephone Encounter - Isabella Mccarty - 04/28/2025 8:17 AM EDT Tc from pt requesting a HDF appt. Hospital: [facility] Date of admission: 04/25 Discharge date: 04/27 Diagnosed: Surgery Contact pt at [phone] Need spanish medical interpreter documented in this encounter Plan of Treatment Upcoming Encounters Date Type Department Care Team (Late st Contact Info) Description 06/20/2025 10:45 AM EDT Office Visit [facility] [address] [place] [address] Deborah Joaquin MD [address] [place] [address] 07/24/2025 11:00 AM EST Office Visit [facility] OPTOMETRY [address] [place] [address] Kendy Butler, OD [address] [place] [address] documented as of this encounter Visit Diagnoses Not on filedocumented in this encounter Care Teams Director Counseling Bureau Relationship Specialty Start Date End Date Deborah Joaquin MD [address] [place] [address] PCP - General Family Medicine 05/14/17 documented as of this encounter
--- OUTSIDE RECORDS SUMMARY | 2025-05-15 14:53 | XMS_ITS | Encounter Summary ---
Author Organization [employer] Address [address] [place] [address] Care Team Providers Care Admission Specialist Name Role Phone Deborah Joaquin MD Primary Care Provider + Reason for Visit * Reason Onset Date Comments CHART PREP 05/15/2025 Encounter Details Date Type Department Care Team ([facility] st Contact Info) Description 05/15/2025 Telephone [facility] MEDICINE [address] [place], [place] [phone] Name, MD Octavio [address] [place], [place] [phone] CHART PREP Social History Tobacco Use Types Packs/Day Years [...] encounter Miscellaneous Notes * Telephone Encounter - Perez Streeter [place] - 05/15/2025 12:04 PM EDT Chart Prep Labs: not applicable Images: not applicable Referrals: not applicable Vaccines due: Covid and Zoster Screenings: colonoscopy Overdue care gaps: SBIRT, PHQ-9, and ANETTE-7 documented in this encounter Plan of Treatment Upcoming Encounters Date Type Department Care Team (Late st Contact Info) Description 06/20/2025 10:45 AM EDT Office Visit [facility] MEDICINE [address] [place] [address] Deborah Joaquin MD [address] [place] [address] 07/24/2025 11:00 AM EST Office Visit [facility] OPTOMETRY [address] [place] [address] Kendy Butler OD [address] [place] [address] documented as of this encounter Visit Diagnoses Not on filedocumented in this encounter Additional Health Concerns Assessment Noted Time PHQ-9 Depression Total Score: 3 05/15/20 1:12 PM EDT documented as of this encounter Care Teams Admission Specialist Relationship Specialty Start Date End Date Deobrah Joaquin MD [address] [place] [phone] PCP - General Family Medicine 05/14/17 documented as of this encounter
--- OUTSIDE RECORDS SUMMARY | 2025-05-15 14:53 | XMS_ITS | Encounter Summary ---
Author Organization [employer] Address [address] [facility] [address] [place] [address] Care Team Providers Care Director Audience Marketing Name Role Phone Deborah Joaquin MD Primary Care Provider + Reason for Visit * Reason Onset Date Comments Appointment Request 12/16/2024 Encounter Details Date Type Department Care Team ([facility] st Contact Info) Description 12/16/[address] [facility] MEDICINE [address] [place], [place] [phone] Deborah Joaquin MD [address] [place], [place] [phone] Appointment Request Social History Tobacco Use Types [...] t he electric, gas, oil or water [employer] threatened to shut off services in your [...] R/s appt from 12/16/24. Contact pt at [phone] documented in this encounter Plan of Treatment Upcoming Encounters Date Type Department Care Team (Late st Contact Info) Description 06/20/2025 10:45 AM EDT Office [address] [facility] MEDICINE [address] [place] [address] Deborah Joaquin MD [address] [place] [address] 07/24/2025 11:00 AM EST Office Visit [facility] OPTOMETRY [address] [place] [address] Kendy Butler, OD [address] [place] [address] documented as of this encounter Visit Diagnoses Not on filedocumented in this encounter Care Teams Director Audience Marketing Relationship Specialty Start Date End Date Deborah Joaquin MD [address] [place] [address] PCP - General Family Medicine 05/14/17 documented as of this encounter
--- OUTSIDE RECORDS SUMMARY | 2025-05-15 14:53 | XMS_ITS | Encounter Summary ---
Author Organization [employer] Address [address] [facility] [address] [place] [address] Care Team Providers Care Benefits Administrator Name Role Phone Deborah Joaquin MD Primary Care Provider + Reason for Visit * Reason Onset Date Comments Pre-op Exam 03/11/2024 Encounter Details Date Type Department Care Team ([facility] Contact Info) Description 03/11/2024 Telephone [facility] MEDICINE [address] [place] [address] Deborah Joaquin MD [address] [place] [address] Pre-op Exam Social History Tobacco Use Types [...] t he electric, gas, oil or water [employer] threatened to shut off services in your [...] [facility] Surgeon's office number: [phone] Surgeon's office fax number: [phone] Contact name (person you spoke with): Manisha Last office note from surgeon requested: Will be faxed Date of Surgery: 04/19 Surgical procedure being done: Cataract Surgery on the right eye Type of anesthesia: Mac Lab needed: no EKG: no Surgeon's name: Dr. Sonny Freeman Facility name: [facility] Surgeon's office number: [phone] Surgeon's office fax number: [phone] Contact name (person you spoke with): Manisha Last office note from surgeon requested: Will Be faxed documented in this encounter Plan of Treatment Upcoming Encounters Date Type Department Care Team ([facility] st Contact Info) Description 06/20/2025 10:45 AM EDT Office Visit [address] [address] Deborah Joaquin MD [address] [place] [address] 07/24/2025 11:00 AM EST Office Visit [facility] OPTOMETRY [address] [place], [place] [phone] Kendy Butler, OD [address] [place], [place] [phone] documented as of this encounter Visit Diagnoses Not on filedocumented in this encounter Care Teams Benefits Administrator Relationship Specialty Start Date End Date Deborah Joaquin MD [address] [place] [address] PCP - General Family Medicine 05/14/17 documented as of this encounter
--- OUTSIDE RECORDS SUMMARY | 2025-05-15 14:53 | XMS_ITS | Encounter Summary ---
Author Organization [email or web address] Address [address] [place] [address] 7[address] [place] [address] Care Team Providers Care Kerfer Machine Operator Name Role Phone Deborah Joaquin MD Primary Care Provider + Reason for Visit * Reason Comments Med Refill Encounter Details Date Type Department Care Team (Late st Contact Info) Description 04/21/2023 Refill [facility] MEDICINE [address] [place] [phone] Deborah Joaquin MD [address] [place] [phone] Social History Tobacco Use Types Packs/Day Years [...] Description 06/20/2025 10:45 AM EDT Office Visit [facility] MEDICINE [address] [place], [place] [phone] Deborah Joaquin MD [address] [place] [phone] 07/24/2025 11:00 AM EST Office Visit [facility] OPTOMETRY [address] [place] [address] Kendy Butler, OD [address] [place], [place] [phone] documented as of this encounter Visit Diagnoses Not on filedocumented in this encounter Care Teams Kerfer Machine Operator Relationship Specialty Start Date End Date Deborah Joaquin MD [address] [place] [phone] PCP - General Family Medicine 05/14/17 documented as of this encounter
--- OUTSIDE RECORDS SUMMARY | 2025-05-15 14:54 | XMS_ITS | Clinical Summary ---
Author Organization [employer] Address [address] [place] [address] [address] [place] [address] Care Team Providers Care Mobile Patrol Officer Name Role Phone Deborah Joaquin MD Primary Care Provider + Allergies Active Allergy Reactions Criticality Noted Date Comments Atenolol Swelling Ibuprofen 04/09/2012 Other reaction(s): HEART PALPITATIONS Medications latanoprost (Xalatan) 0.005 % ophthalmic solution INSTILL 1 DROP INTO BOTH EYES AT BEDTIME MUST SEE PROVIDER TO OBTAIN MORE REFILLS 022 Active Diclofenac Sodium 1 % gelIndications:Contusi on of rib on left side, initial encounter APPLY 1 INCH TOPICALLY IF NEEDED FOR PAIN IN THE MORNING AND AT BEDTIME 100 g 023 Active brimonidine (AlphaGAN) 0.2 % ophthalmic solutionIndications:Pr imary open angle glaucoma (POAG) of both eyes, moderate stage Administer 1 drop into both eyes 2 times daily. 15 mL 5 025 05/24 Active hydroCHLOROthiazide (HYDRODiuril) 25 MG tabletIndications:Prim pascual hypertension TAKE 1 TABLET BY MOUTH EVERY DAY 90 tablet 025 Active lisinopril 40 MG tablet TAKE 1 TABLET BY MOUTH EVERY DAY 90 tablet 025 Active atorvastatin (Lipitor) 20 MG tabletIndications:Pure hypercholesterolemia TAKE 1 TABLET BY MOUTH EVERY DAY 90 tablet 1 025 Active Calcium Carb-Cholecalciferol (Oyster Shell Calcium w/D) 500-5 MG-MCG tablet Take 1 tablet by mouth Once per day. TOME 1 TABLETA POR VIA ORAL TODOS LOS DIASTOME 1 TABLETA POR VIA ORAL TODOS LOS STEWART 90 tablet 3 Active apixaban (Eliquis) 5 MG tablet Take 1 tablet by mouth 2 times daily. Active Docusate Sodium (DSS) 100 MG capsule Take 1 capsule by mouth 2 times daily. Active acetaminophen (Tylenol) 325 MG tablet Take 650 mg by mouth every 6 (six) hours if needed for mild pain, headaches or fever. Active lidocaine (Xylocaine) 5 % ointmentIndications:S/ P ORIF (open reduction internal fixation) fracture,Foot pain, right Apply topically if needed for mild pain. 30 g 2 025 05/15 Active alendronate (Fosamax) 70 MG tablet Take 1 tablet (70 mg) by mouth every 7 (seven) days. Take in the morning with a full glass of water, on an empty stomach, and do not take anything else by mouth or lie down for the next 30 min. 4 tablet 11 024 04/27 Discontinued Calcium Carb-Cholecalciferol (Oyster Shell Calcium w/D) 500-5 MG-MCG tablet Take 1 tablet by mouth Once per day. TAKE 1 TABLET BY MOUTH EVERY DAY 90 tablet 3 025 04/19 Discontinued Calcium Carb-Cholecalciferol (Oyster Shell Calcium w/D) 500-5 MG-MCG tablet TOME 1 TABLETA POR VIA ORAL TODOS LOS STEWART 90 tablet 3 025 04/19 Discontinued( Reorder (will not trigger notification to Pharmacy)) alendronate (Fosamax) 70 MG tablet TAKE 1 TABLET (70 MG) BY MOUTH EVERY 7 (SEVEN) DAYS. TAKE IN THE MORNING WITH A FULL GLASS OF WATER, ON AN EMPTY STOMACH, AND DO NOT TAKE ANYTHING ELSE BY MOUTH OR LIE DOWN FOR THE NEXT 30 MIN. 12 tablet 3 025 05/12 Discontinued( Discontinued by another clinician) Active Problems Problem Noted Date Diagnosed Date Paroxysmal A-fib 05/15/2025 Opacity of lung on imaging study 05/01/2025 Overview (05/01/2025): CT scan chest on 04/28/2025 at [facility] [place] [place] showed scattered opacities (approximate 6) on right upper lobe measuring up to 4 mm in size Primary open angle glaucoma (POAG) of both eyes, moderate stage 11/25/2024 Hyperlipidemia 03/18/2024 Pre-op exam 03/18/2024 Assessment & [...] the house. FU w/ knee orthopedics at [facility], they will refer to PT if needed [...] use plantar pads nad reschedule appointment with video production intern Assessment & Plan (01/02/2023 12:05 PM EDT): [...] re Outdoor exercise Kyphoscoliosis and scoliosis 04/09/2007 Resolved Problems Problem Noted Date Diagnosed Date Resolved Date Encounter for colorectal cancer screening 06/10/2024 05/15/2025 Encounters Date Type Department Care Team Description 05/15/2025 1:00 PM EDT Office Visit [facility] [address] [place] [phone] Name, MD Octavio Paroxysmal A-fib ([facility]) (Primary Dx); Foot pain, right; S/P ORIF (open reduction internal fixation) fracture 05/15/2025 Travel 05/15/[address] [facility] [address] [place] [phone] Name, MD Octavio CHART PREP 05/01/2025 Results Follow-Up [facility] [address] [place] [phone] Deborah Joaquin MD CTA Chest PE Protocal 04/28/2025 Orders Only [facility] External Provider, [facility] 04/28/2025 Patient Outreach [facility] [address] [place] [phone] Deborah Joaquin MD Transition Of Care (Tcm) (HDF unscheduled ) 04/28/[address] [facility] [address] [place] [address] Deborah Joaquin MD Hospital Follow-up 04/27/2025 Results Follow-Up [facility] [address] [place] [address] Deborah Joaquin MD B Type Natriuretic Peptide (BNP), CBC auto differential, TSH with Reflex to Free T4, Additional followed-up results: 3 04/27/2025 Orders Only GENERIC EXTERNAL DATA DEPARTMENT Provider, Generic External Data 04/27/[address] [facility] [address] [place] [address] Deborah Joaquin MD 04/26/2025 Orders Only [facility] External Provider, [facility] 04/24/2025 Orders Only [facility] [address] [place] [address] Deborah Joaquin MD 04/21/2025 Orders Only GENERIC EXTERNAL DATA DEPARTMENT Provider, Generic External Data 04/19/[address] [facility] [address] [place] [address] Deborah Joaquin MD 04/18/[address] [facility] [address] [place] [address] Deborah Joaquin MD 04/13/[address] [facility] [address] [place] [address] Deborah Joaquin MD 04/02/2025 Orders Only [facility] External Provider, [facility] 03/29/[address] [facility] [address] [place] [address] Deborah Joaquin MD Pure hypercholesterolemia 02/20/[address] [facility] [address] [place] [address] Deborah Joaquin MD Primary hypertension from Last 3 Months Immunizations Immunization Administration Dates Next Due INFLUENZA INJECTABLE QUADRIV [...] Mass Index 21.36 05/15/2025 1:11 PM EDT Plan of Treatment Upcoming Encounters Date Type Department Care Team (Late st Contact Info) Description 06/20/2025 10:45 AM EDT Office Visit [facility] [address] [place] [address] Deborah Joaquin MD [address] [place] [address] 07/24/2025 11:00 AM EST Office Visit [facility] OPTOMETRY [address] [place] [address] Kendy Butler, CEASAR [address] [place] [address] Health Maintenance Due Date Last Done Comments CT Colonography 1950 Colonoscopy 1950 Colorectal Cancer Screening 1950 FIT DNA/Cologuard 1950 FIT 1950 FOBT 1950 Sigmoidoscopy 1950 Hepatitis C Screening 1969 Zoster Vaccines (1 of 2) 2001 RSV Patients and Patients Aged 60 years or older (1 - Risk 60-74 years 1-dose series) 2011 COVID-19 Vaccine (3 - season) 2024 12/21/2020, 11/23/2020 Influenza Vaccine (#1) 2025 , 06/12/2022, 06/14/2021, Additional history exists SDOH Screening 12/07/2025 12/07/2024 Mammogram 04/24/2026 04/24/2025, 03/22, 03/30/2023, Additional history exists Alcohol/Substance Use Screening 05/15/2026 05/15/2025 Depression Screening 05/15/2026 05/15/2025, 05/15/20 Tobacco Screening 05/15/2026 05/15/2025 Lipid Panel 04/27/2030 04/27/2025, 12/31/2021 DTaP/Tdap/Td Vaccines (3 - Td or Tdap) 06/12/2032 06/12/2022, 09/26/2011, 02/22/2008 Pneumococcal Vaccine: 50+ Years Completed 06/12/2022, 03/15/2010, 08/02/2001 HIB Vaccines Aged Out No longer eligi [...] patient's age to complete this topic Meningococcal B Vaccine Aged Out No l onger eligible based on patient's age to complete [...] Procedure Name Priority Date/Time Associated Diagnosis Comments CTA CHEST PE PROTOCAL Routine 04/28/2025 11:59 AM EDT LIPID PANEL, STANDARD Routine 04/27/2025 5:33 AM EDT MAGNESIUM Routine 04/27/2025 5:33 AM EDT BASIC METABOLIC PANEL, FASTING Routine 04/27/2025 5:33 AM EDT CBC WITH AUTO DIFFERENTIAL Routine 04/27/2025 5:33 AM EDT SLIDE REVIEW Routine 04/26/2025 7:56 PM EDT MAGNESIUM Routine 04/26/2025 7:56 PM EDT COMPREHENSIVE METABOLIC PANEL Routine 04/26/2025 7:56 PM EDT TSH W/REFLEX TO FT4 Routine 04/26/2025 7 :56 PM EDT CBC WITH AUTO DIFFERENTIAL Routine 04/26/2025 7:56 PM EDT B TYPE NATRIURETIC PEPTIDE (BNP) Routine 04/26/2025 7:56 PM EDT FL GUIDANCE IN OR Routine 04/26/2025 9:4 5 AM EDT BI MAMMOGRAM SCREENING TOMOSYNTHESIS BILATERAL Routine 04/24/2025 9:50 AM EDT CBC Routine 04/21/2025 2:25 PM EDT MR FEMUR WO CONTRAST RIGHT Routine 04/04/2025 7:09 PM EDT from Last 3 Months Results * CTA Chest PE Protocal (04/28/2025 11:59 AM EDT) Anatomical Region Laterality Modality Body, Chest Computed Tomogra phy 04/28/2025 11:5 9 AM EDT Narrative 04/28/2025 1:26 PM EDT [address] [address] [address] Scan Report Signed Patient: Fatoumata Gibson MR#: [id number] : 1950 Acct:[id number] Age/Sex: 75 / F ADM Date: 04/28/25 Loc: HO.ED Attending Dr: Ordering Physician: Hollie Ladd DO Date of Service: 04/28/25 Procedure(s): CT angio chest PE protocol Accession Number(s): [id number] cc: Deborah Joaquin MD; Hollie Ladd DO Report Number: [id number]: Total DLP = 165.00 mGy-cm EXAMINATION: CT CHEST ANGIOGRAPHY WITH IV CONTRAST INDICATION: severe chest pain radiating to back COMPARISON: Correlation is made with an AP portable view of the chest performed earlier in the day. TECHNIQUE: Helical CT scan of the chest was performed following administration of intravenous contrast (65 mL Omnipaque 350). The contrast bolus was timed to optimally opacify the pulmonary arteries. Thin sections were obtained through the pulmonary arteries. Coronal and sagittal reformatted images were generated. 3D/MIP reconstructed images are also obtained and reviewed. This CT exam was performed with one or more of the following dose reduction techniques: automated exposure control, adjustment of the mA and/or kV according to patient size, use of iterative reconstruction technique. DLP: 165 mGy-cm CHEST: THYROID: The thyroid gland is unremarkable. PULMONARY ARTERIES: Evaluation of the lower lobe pulmonary arteries is limited by patient motion. No definite intraluminal filling defects are identified within the pulmonary arteries to suggest pulmonary emboli. LUNGS: There is a cluster of small nodular opacities in the right upper lobe measuring up to 4 mm in size (series 6, images 61-66). There is subsegmental atelectasis at both lung bases. MEDIASTINUM: There is no mediastinal lymphadenopathy. RASHARD: There is no hilar lymphadenopathy. CARDIOVASCULATURE: There is biatrial cardiac enlargement. There is no pericardial effusion. The thoracic aorta is normal in caliber. DEGREE OF CORONARY CALCIFICATION: none PLEURA: There is no pleural effusion. No pneumothorax. MAIN AIRWAYS: The mainstem bronchi and proximal branches are patent. AXILLA: There is no axillary lymphadenopathy. UPPER ABDOMEN: The visualized portions of the liver, spleen, and adrenals are unremarkable. BONES AND SOFT TISSUES: Unremarkable. CT/CT angio chest PE protocol IMPRESSION: 1. No definite evidence of pulmonary emboli, although evaluation is limited by respiratory motion in the lower lobes. 2. Cluster of small nodular opacities in the right upper lobe. Follow-up is recommended with chest CT in 6 months. Electronically signed by: Ramu Caal MD 04/28/2025 01:23 PM EDT RP Dictated By: Ramu Caal MD Signed By: <Electronically signed by Ramu Caal MD in OV> 04/28/25 1323 DD/ 1159 TD/TT: 04/28/25 1309 Stringer Up Soldering Machine: Procedure Note Donotuseinterpreter, Image - 04/28/[address] [place] [address] [address] Scan Report Signed Patient: Carola Gibson#: [id number] : 1950cct:[id number] Age/Sex: 75 / FADM Date: 04/28/25 Loc: .ED Attending Dr: Ordering Physician: Hollie Ladd DO Date of Service: 04/28/25 Procedure(s): CT angio chest PE protocol Accession Number(s): [id number] cc: Deborah Joaquin MD; Hollie Ladd DO Report Number: [id number]: Total DLP = 165.00 mGy-cm EXAMINATION: CT CHEST ANGIOGRAPHY WITH IV CONTRAST INDICATION: severe chest pain radiating to back COMPARISON: Correlation is made with an AP portable view of the chest performed earlier in the day. TECHNIQUE: Helical CT scan of the chest was performed following administration of intravenous contrast (65 mL Omnipaque 350). The contrast bolus was timed to optimally opacify the pulmonary arteries. Thin sections were obtained through the pulmonary arteries. Coronal and sagittal reformatted images were generated. 3D/MIP reconstructed images are also obtained and reviewed. This CT exam was performed with one or more of the following dose reduction techniques: automated exposure control, adjustment of the mA and/or kV according to patient size, use of iterative reconstruction technique. DLP: 165 mGy-cm CHEST: THYROID: The thyroid gland is unremarkable. PULMONARY ARTERIES: Evaluation of the lower lobe pulmonary arteries is limited by patient motion. No definite intraluminal filling defects are identified within the pulmonary arteries to suggest pulmonary emboli. LUNGS: There is a cluster of small nodular opacities in the right upper lobe measuring up to 4 mm in size (series 6, images 61-66). There is subsegmental atelectasis at both lung bases. MEDIASTINUM: There is no mediastinal lymphadenopathy. RASHARD: There is no hilar lymphadenopathy. CARDIOVASCULATURE: There is biatrial cardiac enlargement. There is no pericardial effusion. The thoracic aorta is normal in caliber. DEGREE OF CORONARY CALCIFICATION: none PLEURA: There is no pleural effusion. No pneumothorax. MAIN AIRWAYS: The mainstem bronchi and proximal branches are patent. AXILLA: There is no axillary lymphadenopathy. UPPER ABDOMEN: The visualized portions of the liver, spleen, and adrenals are unremarkable. BONES AND SOFT TISSUES: Unremarkable. CT/CT angio chest PE protocol IMPRESSION: 1. No definite evidence of pulmonary emboli, although evaluation is limited by respiratory motion in the lower lobes. 2. Cluster of small nodular opacities in the right upper lobe. Follow-up is recommended with chest CT in 6 months. Electronically signed by: Ramu Caal MD 04/28/2025 01:23 PM EDT Dictated By: Ramu Caal MD Signed By: <Electronically signed by Ramu Caal MD in OV> 04/28/25 1323 DD/ 1159 TD/TT: 04/28/25 1309 Stringer Up Soldering Machine: [facility] External Provider IM CT PROCEDURES Final Result * (ABNORMAL) Basic Metabolic Panel, Fasting (04/27/2025 5:33 AM EDT) Sodium 138 135 - 145 mmol/L [facility] Potassium 4.6 3.3 - 5.1 mmol/L [facility] Chloride 103 96 - 108 mmol/L [facility] Carbon Dioxide 27 22 - 29 mmol/L [facility] Anion Gap 13 12 - 20 [facility] Urea Nitrogen (BUN) 22(H) 9 - 16 mg/dL [facility] Creatinine, Serum 1.10 0.5 - 1.4 mg/dL [facility] Creatinine Clr Calc Pharmacy 37.1 [facility] Comment:Provided height and weight: 160.02 cm,53.977 kg.eGFR (calculated from the MDRD study equation) and eCrCl(calculated from the Cockcroft-Gault equation) are based ondifferent parameters and may not yield comparable results.If eCrCl result is absurd, please check patient'sheight/weight. Estimated Glomerular Filt Rate 49 [facility] Comment:Chronic Kidney Disea se: Estimated GFR < 60 mL/min/[id number] Kidney Disease: Estimated GFR < 15 mL/min/1.73m2 Glucose Fasting 108(H) 60 - 99 mg/dL [facility] Comment:A fasting glucose fr om 100-125 mg/dl is considered impaired(pre-diabetes). Calcium 8.3(L) 8.4 - 10.2 mg/dL [facility] 04/27/2025 5:33 AM EDT 04/27/2025 6:49 AM EDT us Generic External Data Provider LAB BLOOD ORDERAB LES Final Result [facility] [address] [place], [place] [phone] * (ABNORMAL) CBC auto differential (04/27/2025 5:33 AM EDT) Only the most recent of2 resultswithin the time period is included. White Blood Count 9.6 4.8 - 10.8 X10*3/uL [facility] Red Blood Count 4.07(L) 4.20 - 5.50 X10*6/uL [facility] Hemoglobin 11.2(L) 12.0 - 16.0 g/dl [facility] Hematocrit 32.5(L) 37.0 - 47.0 % [facility] Mean Corpuscular Volume 79.9(L) 80.0 - 98.0 fL [facility] Mean Corpuscular Hemoglobin 27.5 27.0 - 33.0 pg [facility] Mean Corpuscular HGB Conc 34.5 31.0 - 35.0 g/dl [facility] Red Cell Distribution Width 13.9 11.0 - 16.0 % [facility] Platelet Count 217 160 - 400 X10*3/uL [facility] Mean Platelet Volume 11.6 9.4 - 12.3 fL [facility] Neutrophils Percent Auto 82.1(H) 45 - 73 % [facility] Imm Gran Pct Auto 0.5(H) 0.0 - 0.4 % [facility] Lymphocytes Percent Auto 10.6(L) 20 - 40 % [facility] Monocytes Percent Auto 6.6 2 - 11 % [facility] Eosinophils Percent Auto 0.1 0 - 4 % [facility] Basophils Percent Auto 0.1 0 - 2 % [facility] NRBC Pct Auto 0.0 0.0 - 0.2 /100WBC [facility] Neutrophils Absolute Auto 7.9 2.0 - 8.3 x10*3/uL [facility] Imm Gran Abs Auto 0.05(H) 0.00 - 0.03 X10*3/uL [facility] Lymphocytes Absolute Auto 1.0(L) 1.2 - 4.9 X10*3/uL [facility] Monocytes Absolute Auto 0.6 0.1 - 1.2 X10*3/uL [facility] Eosinophils Absolute Auto 0.0 0.0 - 0.4 X10*3/uL [facility] Basophils Absolute Auto 0.0 0.0 - 0.2 X10*3/uL [facility] NRBC Abs Auto 0.000 0.0 - 0.012 X10*3/uL [facility] 04/27/2025 5:33 AM EDT 04/27/2025 6:49 AM EDT Generic External Data Provider LAB BLOOD ORDERAB LES Final Result Performing Organization Address City/[facility]/ZIP Co de Phone Number [facility] [address] [place] [phone] * Magnesium (04/27/2025 5:33 AM EDT) Only the most recent of2 resultswithin the time period is included. Pathologist [facility] Magnesium 2.0 1.6 - 2.6 mg/dL [facility] 04/27/2025 5:33 AM EDT 04/27/2025 6:49 AM EDT Generic External Data Provider LAB BLOOD ORDERAB LES Final Result Performing Organization Address City/[facility]/ZIP Co de Phone Number [facility] [address] [place] [phone] * Lipid Panel, Standard (04/27/2025 5:33 AM EDT) Triglycerides 69 <150 mg/dL [facility] Comment:Desirable Triglyceri de: less than 150 mg/dLBorderline High Triglyceride 150-199 mg/dLHigh Triglyceride: 200-499 mg/dLVery High Triglyceride: greater than or equal to 5OO mg/dL Cholesterol 135 <200 mg/dL [facility] Comment:Desirable Cholestero l: less than 200 mg/dLBorderline High Cholesterol: 200-239 mg/dLHigh Cholesterol: greater than 239 mg/dL LDL Cholesterol Calculated 58 <100 mg/dL [facility] Comment:Desirable LDL: less than 100 mg/dLNear Optimal/Above Optimal LDL: 110- 129 mg/dLBorderline High LDL: 130-159 mg/dLHigh LDL: 160-189 mg/dLVery High LDL: greater than or equal to 190 mg/dL HDL Cholesterol 64 >40 mg/dL [facility] Comment:Desirable HDL: great er than 40 mg/dL Note: This HDL assay may give artificially low results in patients with liver disease. 04/27/2025 5:33 AM EDT 04/27/2025 6:49 AM EDT Generic External Data Provider LAB BLOOD ORDERAB LES Final Result Performing Organization Address [facility] Co de Phone Number [facility] [address] [place] [phone] * Slide Review (04/26/2025 7:56 PM EDT) Slide Review VERIFIED [facility] 04/26/2025 7:56 PM EDT 04/26/2025 8:23 PM EDT us Generic External Data Provider LAB BLOOD ORDERAB LES Final Result Performing Organization Address [facility] Co de Phone Number [facility] [address] [place] [phone] * TSH with Reflex to Free T4 (04/26/2025 7:56 PM EDT) TSH reflex Free T4 0.54 0.32 - 4.0 uIU/mL [facility] 04/26/2025 7:56 PM EDT 04/26/2025 8:23 PM EDT Generic External Data Provider LAB BLOOD ORDERAB LES Final Result Performing Organization Address [facility] de Phone Number [facility] [address] [place] [phone] * (ABNORMAL) B Type Natriuretic Peptide (BNP) (04/26/2025 7:56 PM EDT) B Type Natriuretic Peptide 321(H) <100 pg/mL [facility] 04/26/2025 7:56 PM EDT 04/26/2025 8:23 PM EDT us Generic External Data Provider LAB BLOOD ORDERAB LES Final Result [facility] [address] [place] [phone] * (ABNORMAL) Comprehensive Metabolic Panel (04/26/2025 7:56 PM EDT) Sodium 138 135 - 145 mmol/L [facility] Potassium 4.2 3.3 - 5.1 mmol/L [facility] Chloride 103 96 - 108 mmol/L [facility] Carbon Dioxide 28 22 - 29 mmol/L [facility] Anion Gap 11(L) 12 - 20 [facility] Urea Nitrogen (BUN) 20(H) 9 - 16 mg/dL [facility] Creatinine, Serum 1.05 0.5 - 1.4 mg/dL [facility] Creatinine Clr Calc Pharmacy 38.8 [facility] Comment:Provided height and weight: 160.02 cm,53.977 kg.eGFR (calculated from the MDRD study equation) and eCrCl(calculated from the Cockcroft-Gault equation) are based ondifferent parameters and may not yield comparable results.If eCrCl result is absurd, please check patient'sheight/weight. Estimated Glomerular Filt Rate 51 [facility] Comment:Chronic Kidney Disea se: Estimated GFR < 60 mL/min/[id number] Kidney Disease: Estimated GFR < 15 mL/min/1.73m2 Glucose 195(H) 60 - 115 mg/dL [facility] Calcium 8.5 8.4 - 10.2 mg/dL [facility] Bilirubin, Total 0.5 0.0 - 1.0 mg/dL [facility] Aspartate Amino Transferase 30 5 - 31 U/L [facility] Alanine Aminotransferase 22 0 - 31 U/L [facility] Total Protein 6.5 6.5 - 8.0 g/dL [facility] Albumin Level 3.9 3.5 - 5.0 g/dL [facility] Alkaline Phosphatase 75 39 - 117 U/L [facility] 04/26/2025 7:56 PM EDT 04/26/2025 8:23 PM EDT us Generic External Data Provider LAB BLOOD ORDERAB LES Final Result Performing Organization Address City/State/[facility] Co de Phone Number [facility] [address] [place] [phone] * FL Guidance in OR (04/26/2025 9:45 AM EDT) Anatomical Region Laterality Modality X-Ray Angiograph y 04/26/2025 9:45 AM EDT Narrative 04/26/2025 11:54 AM EDT [address] [address] Fluoroscopy Report Signed Patient: Fatoumata Gibson MR#: [id number] : 1950 Acct:[id number] Age/Sex: 75 / F ADM Date: 04/26/25 Loc: [facility] Attending Dr: Sharron Velez PA-C Ordering Physician: Amanuel Ortiz MD Date of Service: 04/26/25 Procedure(s): FL guidance in OR Accession Number(s): [id number] cc: Deborah Joaquin MD; Amanuel Ortiz MD EXAMINATION: FL GUIDANCE ONLY HISTORY: I-M Nail COMPARISON: Correlation is made with an MRI of the right femur dated 04/02/2025. TECHNIQUE: Fluoroscopy time: 1.6 minutes. Cumulative Dose: 12.3 mGy. DAP: 0.205 mGym2 Images: 6. FINDINGS: Fluoroscopic spot films of the right femur demonstrate placement of an intramedullary demetrius. FL/FL guidance in OR IMPRESSION: Fluoroscopy during procedure. Please see procedure report for additional information. Electronically signed by: Ramu Caal MD 04/26/2025 11:51 AM EDT Dictated By: Ramu Caal MD Signed By: <Electronically signed by Ramu Caal MD in OV> 04/26/25 1151 DD/ 0945 TD/TT: 04/26/25 1055 Stringer Up Soldering Machine: Procedure Note Tavonshadelibbyflorencio, Image - 04/26/2025 [place] [address] Fluoroscopy Report Signed Patient: Fatoumata GibsonMR#: [id number] : 1950cct:[id number] Age/Sex: 75 / FADM Date: 04/26/25 Loc: HO.SSS Attending Dr: Sharron Velez PA-C Ordering Physician: Amanuel Ortiz MD Date of Service: 04/26/25 Procedure(s): FL guidance in OR Accession Number(s): [id number] cc: Deborah Joaquin MD; Amanuel Ortiz MD EXAMINATION: FL GUIDANCE ONLY HISTORY: I-M Nail COMPARISON: Correlation is made with an MRI of the right femur dated 04/02/2025. TECHNIQUE: Fluoroscopy time: 1.6 minutes. Cumulative Dose: 12.3 mGy. DAP: 0.205 mGym2 Images: 6. FINDINGS: Fluoroscopic spot films of the right femur demonstrate placement of an intramedullary demetrius. FL/FL guidance in OR IMPRESSION: Fluoroscopy during procedure. Please see procedure report for additional information. Electronically signed by: Ramu Caal MD 04/26/2025 11:51 AM EDT Dictated By: Ramu Caal MD Signed By: <Electronically signed by Ramu Caal MD in OV> 04/26/25 1151 DD/ 0945 TD/TT: 04/26/25 1055 Stringer Up Soldering Machine: [facility] External Provider IMG IR PROCEDURES Final Result * BI Mammogram Screening Tomosynthesis Bilateral (04/24/2025 9:50 AM EDT) Anatomical Region Laterality Modality Breast Bilateral Mammography 04/24/2025 9:50 AM EDT Narrative 05/02/2025 4:17 PM EDT [address] [place] [address] Mammography Report Signed Patient: Fatoumata Gibson MR#: [id number] : 1950 Acct:[id number] Age/Sex: 75 / F ADM Date: 04/24/25 Loc: HO.MAMMO Attending Dr: Deborah Joaquin MD Ordering Physician: Deborah Joaquin MD Results: 1Ne gative Date of Service: 04/24/25 Follow Up: 1 Year From Orig inal Mammogram Procedure(s): MM tomosynthesis screening BI Accession Number(s): [id number] cc: Deborah Joaquin MD EXAMINATION: MM SCREENING DIGITAL BREAST TOMOSYNTHESIS, BILATERAL CLINICAL INFORMATION: Screening. Asymptomatic. COMPARISON: Mammography: Comparison is made with available priors TECHNIQUE: Digital breast mammography with tomosynthesis is performed in both the craniocaudal and mediolateral oblique views along with computer-aided detection (CAD). FINDINGS: The breasts are heterogeneously dense, which may obscure small masses (ACR BI-RADS breast composition Category c). There are no significant masses, abnormal calcifications, [...] target due date for their next mammogram. Electronically signed by: Evita Marsh DO 05/02/2025 04:14 PM EDT Dictated By: Evita Marsh DO Signed By: <Electronically signed by Evita Marsh DO in OV> 05/02/25 1614 DD/ 0950 TD/TT: 04/24/25 1009 Stringer Up Soldering Machine: Procedure Note Donotuseinterpreter, Image - 05/02/[address] [place] [address] Mammography Report Signed Patient: Fatoumata GibsonMR#: [id number] : 1950cct:[id number] Age/Sex: 75 / FADM Date: 04/24/25 Loc: HO.MAMMO Attending Dr: Deborah Joaquin MD Ordering Physician: Deborah Joaquin MDResults: 1Ne gative Date of Service: 04/24/25Follow Up: 1 Year From Orig ina Mammogram Procedure(s): MM tomosynthesis screening BI Accession Number(s): [id number] cc: Deborah Joaquin MD EXAMINATION: MM SCREENING DIGITAL BREAST TOMOSYNTHESIS, BILATERAL CLINICAL INFORMATION: Screening. Asymptomatic. COMPARISON: Mammography: Comparison is made with available priors TECHNIQUE: Digital breast mammography with tomosynthesis is performed in both the craniocaudal and mediolateral oblique views along with computer-aided detection (CAD). FINDINGS: The breasts are heterogeneously dense, which may obscure small masses (ACR BI-RADS breast composition Category c). There are no significant masses, abnormal calcifications, [...] target due date for their next mammogram. Electronically signed by: Evita Marsh DO 05/02/2025 04:14 PM EDT Dictated By: Evita Marsh DO Signed By: <Electronically signed by Evita Marsh DO in OV> 05/02/25 1614 DD/ 0950 TD/TT: 04/24/25 1009 Stringer Up Soldering Machine: Deborah Joaquin MD IMG BI PROCEDURES Final Result * (ABNORMAL) CBC (04/21/2025 2:25 PM EDT) White Blood Count 5.6 4.8 - 10.8 X10*3/uL [facility] Red Blood Count 4.68 4.20 - 5.50 X10*6/uL [facility] Hemoglobin 12.3 12.0 - 16.0 g/dl [facility] Hematocrit 38.7 37.0 - 47.0 % [facility] Mean Corpuscular Volume 82.7 80.0 - 98.0 fL [facility] Mean Corpuscular Hemoglobin 26.3(L) 27.0 - 33.0 pg [facility] Mean Corpuscular HGB Conc 31.8 31.0 - 35.0 g/dl [facility] Red Cell Distribution Width 13.6 11.0 - 16.0 % [facility] Platelet Count 238 160 - 400 X10*3/uL [facility] Mean Platelet Volume 9.4 9.4 - 12.3 fL [facility] NRBC Pct Auto 0.0 0.0 - 0.2 /100WBC [facility] NRBC Abs Auto 0.000 0.0 - 0.012 X10*3/uL [facility] 04/21/2025 2:25 PM EDT 04/21/2025 2:31 PM EDT us Generic External Data Provider LAB BLOOD ORDERAB LES Final Result Performing Organization Address City/State/[facility] Co de Phone Number [facility] [address] [place] [phone] * MR Femur W/o Contrast Right (04/04/2025 7:09 PM EDT) Anatomical Region Laterality Modality Lower Extremities, Femur Right Magneti c Resonance 04/04/2025 7:09 PM EDT Narrative 04/04/2025 7:10 PM EDT [address] [address] Magnetic Resonance Report Signed Patient: Fatoumata Gibson MR#: [id number] : 1950 Acct:[id number] Age/Sex: 74 / F ADM Date: 04/02/25 Loc: HO.MRI Attending Dr: Adiel Henderson PA-C Ordering Physician: Adiel Henderson PA-C Date of Service: 04/02/25 Procedure(s): MR femur RT wo con Accession Number(s): [id number] cc: Deborah Joaquin MD; Adiel Henderson PA-C CLINICAL HISTORY: M89.8X5 - Other specified disorders of bone, thigh --- Additional Notes or Special Instructions: h o atraumatic femur fracture on left MRI right femur without contrast Comparison: 01/16/2025 Findings: Increased signal noted central medullary canal mid femur. Cortical thickening noted lateral aspect of this region. The appearance on coronal images suggests stress fracture. Recommend continued follow-up to ensure healing. No bone destruction is identified. No other bony abnormality is identified. No soft tissue or muscular abnormality noted. Impression: Probable stress fracture mid femur as above Recommend continued follow-up to ensure healing This document has been electronically signed by: Piero Anand MD on 04/04/2025 19:09:29 Dictated By: Piero Anand MD Signed By: <Electronically signed by Piero Anand MD in OV> 04/04/251909 DD/ 08 TD/TT: 04/04/251908 Stringer Up Soldering Machine: Procedure Note Donamyter, Image - 04/04/2025 [place] [address] Magnetic Resonance Report Signed Patient: Fatoumata Gibson#: [id number] : 1950cct:[id number] Age/Sex: 74 / FADM Date: 04/02/25 Loc: HO.MRI Attending Dr: Adiel Henderson PA-C Ordering Physician: Adiel Henderson PA-C Date of Service: 04/02/25 Procedure(s): MR femur RT wo con Accession Number(s): [id number] cc: Deborah Joaquin MD; Adiel Henderson PA-C CLINICAL HISTORY: M89.8X5 - Other specified disorders of bone, thigh ---Additional Notes or Special Instructions: h o atraumatic femur fracture on left MRI right femur without contrast Comparison: 01/16/2025 Findings: Increased signal noted central medullary canal mid femur. Cortical thickening noted lateral aspect of this region. The appearance on coronal images suggests stress fracture. Recommend continued follow-up to ensure healing. No bone destruction is identified. No other bony abnormality is identified. No soft tissue or muscular abnormality noted. Impression: Probable stress fracture mid femur as above Recommend continued follow-up to ensure healing This document has been electronically signed by: Piero Anand MD on 04/04/2025 19:09:29 Dictated By: Piero Anand MD Signed By: <Electronically signed by Piero Anand MD in OV> 04/04/251909 DD/ 08 TD/TT: 04/04/251908 Stringer Up Soldering Machine: [facility] External Provider IMG MRI PROCEDURES Final Result from Last 3 Months Insurance [facility] STANDARD [facility] DETENTION OPTIONS (HMO D-SNP) Care Teams Mobile Patrol Officer Relationship Specialty Start Date End Date Deborah Joaquin MD [address] [place] [phone] PCP - General Family Medicine 05/14/17
[2025-05-15 16:49] LABS: Anion Gap 15 (12-20); Blood Urea Nitrogen 39 mg/dL (9-16); Calcium 9.4 mg/dL (8.4-10.2); Carbon Dioxide 23 mmol/L (22-29); Chloride 105 mmol/L (96-108); Estimated Glomerular Filt Rate 43; Magnesium 2.2 mg/dL (1.6-2.6); Potassium 5.0 mmol/L (3.3-5.1); Sodium 138 mmol/L (135-145)
[2025-05-15 16:50] LABS: Free T4 (Free Thyroxine) 1.09 ng/dL (0.71-1.85)
[2025-05-15 16:53] LABS: Thyroid Stimulating Hormone 1.85 uIU/mL (0.32-4.0)
[2025-05-19 22:09] LABS: NTXCreaRU 93 mg/dL (20-275)
== END 2025-05-15 13:36 | disposition home or self-care (01) ==
LOC: HO.HHCL 13:35
PROVIDERS: Internal Medicine Endocrinology, Diabetes & Metabolism; PCP Internal Medicine; Visit Provider Internal Medicine
DX: M84.351A Stress fracture, right femur, initial encounter for fracture (principal); E83.42 Hypomagnesemia; M81.0 Age-related osteoporosis without current pathological fracture; Z13.29 Encounter for screening for other suspected endocrine disorder
CPT/HCPCS: 36415; 80048; 82523; 83735; 84100; 84439; 84443; 86335

== ENCOUNTER 2025-06-02 14:24 | Outpatient (AMB) | payer OTHER, SELFPAY ==
[2025-06-02 14:44] VITALS: BP 104/62; PULSE 64; BMI 21.8
--- NOTE | 2025-06-02 14:44 | MHC.OFFVIS ---
Vital Signs 06/02/25 14:44 Height 5 ft 3 in Weight 123 lb 0.287 oz BMI 21.8 BP 104/62 Blood Pressure Location Lt brachial Position Sitting Pulse 64 Pulse Source Pulse Oximeter Intake Visit Reasons: 6 week f/up Affiliate Marketing Coordinator Required: Yes Affiliate Marketing Coordinator Name: Sanju [id number] samanta Accompanied by: Daughter Allergies atenolol Allergy (Unknown, Verified 06/02/25 14:49) swelling ibuprofen (From Motrin) Adverse Reaction (Intermediate, Verified 06/02/25 14:49) palpatations,TACHYCARDIA/CHEST PAIN Medication List - Last Reconciled 06/02/25 by Jose Ulloa NP acetaminophen 650 mg (2 x 325 mg) PO Q6H PRN 30 days apixaban (Eliquis) 5 mg PO BID 42 days brimonidine 0.2% 1 drp ophthalmic (eye) BEDTIME docusate sodium 100 mg PO BID 30 days hydrochlorothiazide 25 mg PO DAILY lisinopril 40 mg PO DAILY HPI Comments Details: This is a 75-year-old female patient coming in for a hospital discharge follow-up, accompanied by her daughter. A parts interpreter was used throughout the visit. Patient with a history of hypertension who was recently diagnosed with atrial fibrillation after patient had a surgical fixation of her femur fracture. Patient was started on Eliquis therapy. Today, patient is reporting intermittent palpitations and feeling fatigued. Patient is otherwise denying any exertional chest pain, shortness of breath, dizziness, orthopnea, PND, leg edema, presyncope or syncope. Patient is reporting compliance with all her medications. Patient was with the understanding that she is taking the Eliquis for DVT prophylaxis and therefore was a little confused. [facility] Medical History (Updated 06/02/25 @ 15:26 by Jose Ulloa NP) Teeth missing Anemia CKD (chronic kidney disease), stage II Benign paroxysmal positional vertigo Ambulates with cane HLD (hyperlipidemia) HTN (hypertension) Osteoporosis Femur fracture, left Surgical History Hx of bilateral cataract extraction (~2023) Hx of colonoscopy History of surgery (~2022) Hx of breast biopsy H/O removal of cyst Family History Father Heart problem HTN (hypertension) CVD (cardiovascular disease) Mother HTN (hypertension) Brother No problems noted. Brother No problems noted. Brother No problems noted. Sister No problems noted. Sister No problems noted. Sister No problems noted. Daughter No problems noted. Daughter No problems noted. Social History Household Members: None Housing: Apartment Are you a primary laboratory animal caretaker to a significant other at home: No Do you presently have visiting nurse or other home services: No 75 years or older and lives alone: No Alcohol intake: never Comment: COUNTS CORRECT Patient Tobacco Use Status: Never used Tobacco e-Cigarette/Vaping Use: Never Used Second Hand Smoke Exposure: No service: No Current occupational status: disabled Current occupation: right hand Review of Systems Const Denies daytime sleepiness, Denies difficulty sleeping, Denies snoring, Denies stops breathing during sleep and Denies weakness Card Denies chest pain, Denies rapid heart rate, Denies irregular heart rhythm, Denies claudication, Denies leg edema, Denies lightheadedness, Reports palpitations, Denies dyspnea, Denies dyspnea on exertion, Denies orthopnea, Denies paroxysmal nocturnal dyspnea and Denies slow heart rate Resp Denies cough, Denies dyspnea, Denies dyspnea on exertion and Denies snoring GI Reports no additional complaints, Denies hematochezia, Denies change in stool character and Denies dyspepsia Musc Denies abnormal gait, Denies muscle weakness and Denies numbness Neuro Denies abnormal gait, Denies numbness and Denies weakness Endo Reports palpitations Physical Exam Vital Signs: Last Vital Signs Pulse 64 06/02/25 14:44 BP 104/62 06/02/25 14:44 BMI result Body Mass Index 21.8 Const General: cooperative, healthy appearing, comfortable and no acute distress Orientation/consciousness: patient oriented x3 HEENT Head: Yes normal to inspection Neck Neck: Yes normal visual inspection, Yes trachea midline and Yes supple Chest Chest palpation & inspection: normal inspection of the chest Resp Effort & Inspection: normal respiratory effort Auscultation: clear to auscultation bilaterally, no crackles, no rales, no rhonchi and no wheezes Cardio Jugular venous distension: no JVD Palpation: normal PMI Rate: regular rate Rhythm: regular rhythm Heart sounds: S1 normal heart sound present, S2 normal heart sound present, no click, no gallops, no murmurs and no rubs Peripheral pulses: Peripheral pulses 2+ throughout GI Inspection: Yes normal to inspection Palpation (GI): Soft to palpation Auscultation: normal bowel sounds Skin General skin exam: no rashes or lesions noted Neuro General: patient oriented x3 Extrem General: Yes normal to inspection, No no pedal edema and No calf tenderness Psych Appearance: grossly normal Mental Status: mental status grossly normal Speech and movement: Normal speech and movement present Assessment & Plan Assessment & Plan (1) New onset a-fib: Code(s): I48.91 - Unspecified atrial fibrillation Category: Medical (2) HTN (hypertension): Code(s): I10 - Essential (primary) hypertension Category: Medical (3) Hospital discharge follow-up: Code(s): Z09 - Encounter for follow-up examination after completed treatment for conditions other than malignant neoplasm Plan Given her symptoms of palpitations and ongoing fatigue, we will get a Holter monitor to look for AFib recurrence and the need for rate management. Discussed cardioversion and catheter ablation as intervention for AFib management. Further treatment plans based on findings. Continue Eliquis for full anticoagulation. No reported signs of bleeding or falls. We will get a CBC and BMP. Patient seems to be healing well from her surgery. Blood pressure today is well-controlled. Continue current regimen with a blood pressure goal less than 130/80. Advised monitoring blood pressures at home. Advised heart healthy diet, regular exercise, med compliance, avoiding caffeinated beverages, stress mitigation strategies, and management of vascular risk factors. Follow up in 3 months. In the interim, patient will call the office with any concerns or change in symptoms. This note was generated using voice recognition software. While every effort has been made to ensure accuracy and proper director of health care marketing, there may be occasional errors that could affect the content or meaning of the described symptoms. Orders: Orders ECG 3 day holter monitor Today I48.91 - Unspecified atrial fibrillation Basic Metabolic Panel Today I48.91 - Unspecified atrial fibrillation Complete Blood Count no Diff Today I48.91 - Unspecified atrial fibrillation Medications: Changed From apixaban (Eliquis) 5 mg PO BID 42 days 84 tabs 0RF To apixaban (Eliquis) 5 mg PO BID 90 tabs 3RF Coding Level of Care Code Est Pt Level 4 (91935) Complex EM visit Add On G2211 Diagnoses New onset a-fib I48.91 HTN (hypertension) I10 Hospital discharge follow-up Z09 Time Spent (min) 31 Comment Time spent in reviewing the chart, test results, assessment, counseling and documentation.
--- OUTSIDE RECORDS SUMMARY | 2025-06-02 17:18 | XMS_ITS | Encounter Summary ---
Author Organization [employer] Address [address] [place] [address] [address] [place] [address] Care Team Providers Care Assistant Professor Of Biology Name Role Phone Deborah Joaquin MD Primary Care Provider + Reason for Visit * Reason Comments Med Refill Encounter Details Date Type Department Care Team (Late st Contact Info) Description 04/21/2023 Refill [facility] [address] [place] [address] [phone] Deborah Joaquin MD [address] [place] [address] [phone] Social History Tobacco Use Types Packs/Day Years [...] Description 06/20/2025 10:45 AM EDT Office Visit [facility] [address] [place], [place] [phone] Deborah Joaquin MD [address] [place] [address] [phone] 07/24/2025 11:00 AM EST Office Visit [facility] OPTOMETRY [address] [place] [address] Kendy Butler, OD [address] [place], [place] [phone] documented as of this encounter Visit Diagnoses Not on filedocumented in this encounter Care Teams Assistant Professor Of Biology Relationship Specialty Start Date End Date Deborah Joaquin MD [address] [place] [address] [phone] PCP - General Family Medicine [facility] documented as of this encounter
--- OUTSIDE RECORDS SUMMARY | 2025-06-02 17:18 | XMS_ITS | Encounter Summary ---
Author Organization [employer] Address [address] [facility] 7t [place] [address] Care Team Providers Care Air Brake Worker Name Role Phone Deborah Joaquin MD Primary Care Provider + Reason for Visit * Reason Onset Date Comments Hospital Follow-up 04/28/2025 Encounter Details Date Type Department Care Team ([facility] st Contact Info) Description 04/28/2025 Telephone [facility] [address] [place] [address] Deborah Joaquin MD [address] [place], [place] [phone] Hospital Follow-up Social History Tobacco Use Types [...] from pt requesting a HDF appt. Hospital: [facility] Date of admission: 04/25 Discharge date: 04/27 Diagnosed: Surgery Contact pt at [phone] Need american sign language interpreter documented in this encounter Plan of Treatment Upcoming Encounters Date Type Department Care Team (Late st Contact Info) Description 06/20/2025 10:45 AM EDT Office Visit [facility] [address] [place] [address] Deborah Joaquin MD [address] [place] [address] 07/24/2025 11:00 AM EST Office Visit [facility] OPTOMETRY [address] [place] [address] Kendy Butler, OD [address] [place] [address] documented as of this encounter Visit Diagnoses Not on filedocumented in this encounter Care Teams Air Brake Worker Relationship Specialty Start Date End Date Deborah Joaquin MD [address] [place] [address] PCP - General Family Medicine 05/14/17 [place]alee MARTINEZ 05/10/25 documented as of this encounter
--- OUTSIDE RECORDS SUMMARY | 2025-06-02 17:18 | XMS_ITS | Encounter Summary ---
Author Organization [employer] Address [address] [facility] 7[address] [place] [address] Care Team Providers Care Health Technician Hearing Name Role Phone Deborah Joaquin MD Primary Care Provider + Reason for Visit * Reason Onset Date Comments Call Back Request 05/18/2025 Encounter Details Date Type Department Care Team ([facility] Contact Info) Description 05/18/2025 Telephone [facility] [address] [place], [place] [phone] Deborah Joaquin MD [address] [place], [place] [phone] Call Back Request Social History Tobacco Use Types Packs/Day [...] encounter Miscellaneous Notes * Telephone Encounter - Leola Sarah RN - 05/19/2025 3:03 PM EDT TC placed to patient EC (Zenaida) on HIPAA [phone] regarding below message. RN left an VM for the EC to CB Red team nurses. EC and PT to F/U PRN. * Telephone Encounter - Ina Colon - 05/18/2025 9:43 AM EDT Tc from pt daughter requesting a call back to discuss phosphorus lab results , they are wondering if medication will be needed Contact pt daughter Zenaida (on HIPAA) at [phone] documented in this encounter Plan of Treatment Upcoming Encounters Date Type Department Care Team (Late st Contact Info) Description 06/20/2025 10:45 AM EDT Office Visit [facility] [address] [place] [address] Deborah Joaquin MD [address] [place], [place] [phone] 07/24/2025 11:00 AM EST Office Visit [facility] OPTOMETRY [address] [place], [place] [phone] Kendy Butler, OD [address] [place] [address] documented as of this encounter Visit Diagnoses Not on filedocumented in this encounter Additional Health Concerns Assessment Noted Time PHQ-9 Depression Total Score: 3 05/15/20 25 1:12 PM EDT documented as of this encounter Care Teams Health Technician Hearing Relationship Specialty Start Date End Date Deborah Joaquin MD [address] [place] [address] PCP - General Family Medicine 05/14/17 Natalee OCONNORA 05/10/25 documented as of this encounter
--- OUTSIDE RECORDS SUMMARY | 2025-06-02 17:18 | XMS_ITS | Encounter Summary ---
Author Organization [employer] Address [address] [facility] [address] [place] [address] Care Team Providers Care Intervention Analyst Name Role Phone Deborah Joaquin MD Primary Care Provider + Reason for Visit * Reason Onset Date Comments Appointment Request 12/16/2024 Encounter Details Date Type Department Care Team ([facility] st Contact Info) Description 12/16/2024 Telephone [facility] [address] [place], [place] [phone] Deborah Joaquin MD [address] [place], [place] [phone] Appointment Request Social History Tobacco Use Types [...] t he electric, gas, oil or water [employer] threatened to shut off services in your [...] R/s appt from 12/16/24. Contact pt at [phone] documented in this encounter Plan of Treatment Upcoming Encounters Date Type Department Care Team (Late st Contact Info) Description 06/20/2025 10:45 AM EDT Office Visit [facility] [address] [place] [address] Deborah Joaquin MD [address] [place] [address] 07/24/2025 11:00 AM EST Office Visit [facility] OPTOMETRY [address] [place] [address] Kendy Butler, OD [address] [place] [address] documented as of this encounter Visit Diagnoses Not on filedocumented in this encounter Care Teams Intervention Analyst Relationship Specialty Start Date End Date Deborah Joaquin MD [address] [place] [address] PCP - General Family Medicine 05/14/17 [place] 05/10/25 documented as of this encounter
--- OUTSIDE RECORDS SUMMARY | 2025-06-02 17:18 | XMS_ITS | Clinical Summary ---
Author Organization [employer] Address [address] [place] [address] 7[address] [place] [address] Care Team Providers Care Sales Operations Manager Name Role Phone Deborah Joaquin MD Primary [...] AND AT BEDTIME 100 g 023 Active atorvastatin (Lipitor) 20 MG tabletIndications:Pure hypercholesterolemia TAKE 1 TABLET BY MOUTH EVERY DAY 90 tablet 1 025 Active Calcium Carb-Cholecalciferol (Oyster Shell Calcium w/D) 500-5 MG-MCG tablet Take 1 tablet by mouth Once per day. TOME 1 TABLETA POR VIA ORAL TODOS LOS DIASTOME 1 TABLETA POR VIA ORAL TODOS LOS STEWART 90 tablet 3 025 Active apixaban (Eliquis) 5 MG tablet Take 1 tablet by mouth 2 times daily. 025 Active Docusate Sodium (DSS) 100 MG capsule Take 1 capsule by mouth 2 times daily. 025 Active acetaminophen (Tylenol) 325 MG tablet Take 650 mg by mouth every 6 (six) hours if needed for mild pain, headaches or fever. 025 Active lidocaine (Xylocaine) 5 % ointmentIndications:S/ P ORIF (open reduction internal fixation) fracture,Foot pain, right Apply topically if needed for mild pain. 30 g 2 05/15/ 025 05/15 Active brimonidine (AlphaGAN) 0.2 % ophthalmic solutionIndications:Pr imary open angle glaucoma (POAG) of both eyes, moderate stage ADMINISTER 1 DROP INTO BOTH EYES 2 TIMES DAILY. 45 mL 1 025 11/20 Active hydroCHLOROthiazide (HYDRODiuril) 25 MG tabletIndications:Prim pascual hypertension TAKE 1 TABLET BY MOUTH EVERY DAY 90 tablet Active lisinopril 40 MG tablet TAKE 1 TABLET BY MOUTH EVERY DAY 90 tablet Active brimonidine (AlphaGAN) 0.2 % ophthalmic solutionIndications:Pr imary open angle glaucoma (POAG) of both eyes, moderate stage Administer 1 drop into both eyes 2 times daily. 15 mL 5 025 05/24 Discontinued hydroCHLOROthiazide (HYDRODiuril) 25 MG tabletIndications:Prim pascual hypertension TAKE 1 TABLET BY MOUTH EVERY DAY 90 tablet 025 05/24 Discontinued lisinopril 40 MG tablet TAKE 1 TABLET BY MOUTH EVERY DAY 90 tablet 025 05/24 Discontinued alendronate (Fosamax) 70 MG tablet TAKE 1 [...] (05/01/2025): [place] [facility]acities (approximate 6) on right [...] the house. FU w/ knee orthopedics at [facility], they will refer to PT if needed [...] use plantar pads nad reschedule appointment with chro Assessment & Plan (01/02/2023 12:05 PM EDT): [...] Encounters Date Type Department Care Team Description 05/24/2025 Refill [facility] [address] [place] [address] Sara Patterson DO Primary hypertension 05/24/2025 Refill [facility] [address] [place] [address] Kendy Butler, OD Primary open angle glaucoma (POAG) of both eyes, moderate stage 05/18/2025 Telephone [facility] [address] [place] [address] Deborah Joaquin MD Call Back Request 05/15/2025 1:00 PM EDT Office Visit [facility] [address] [place] [address] Octavio Billy MD Paroxysmal A-fib (CMS/HCC) (Primary Dx); Foot pain, right; S/P ORIF (open reduction internal fixation) fracture 05/15/2025 Orders Only GENERIC EXTERNAL DATA DEPARTMENT Provider, Generic External Data 05/15/2025 Travel 05/15/2025 Telephone [facility] [address] [place] [address] Octavio Billy MD CHART PREP 05/01/2025 Results Follow-Up [facility] [address] [facility] [place] [address] Deborah Joaquin MD CTA Chest PE Protocal 04/28/2025 Orders Only External Provider, [facility] 04/28/2025 Patient Outreach [facility] [address] [place] [address] Deborah Joaquin MD Transition Of Care (Tcm) (HDF unscheduled ) 04/28/2025 Telephone [facility] [address] [facility] [place] [address] Deborah Joaquin MD Hospital Follow-up 04/27/2025 Results Follow-Up [facility] [address] [facility] [place] [address] Deborah Joaquin MD B Type Natriuretic Peptide (BNP), CBC auto differential, TSH with Reflex to Free T4, Additional followed-up results: 3 04/27/2025 Orders Only GENERIC EXTERNAL DATA DEPARTMENT Provider, Generic External Data 04/27/2025 Refill [facility] [address] [place] [address] Deborah Joaquin MD 04/26/2025 Orders Only External Provider, [facility] 04/24/2025 Orders Only [facility] [address] [place] [address] Deborah Joaquin MD 04/21/2025 Orders Only GENERIC EXTERNAL DATA DEPARTMENT Provider, Generic External Data 04/19/2025 Refill [facility] [address] [place] [address] Deborah Joaquin MD 04/18/2025 Refill [facility] [address] [place], [place] [phone] Deborah Joaquin MD 04/13/2025 Refill [facility] [address] [place] [address] Deborah Joaquin MD 04/02/2025 Orders Only External Provider, [facility] 03/29/2025 Refill [facility] [address] [place] [address] Deborah Joaquin MD Pure hypercholesterolemia from Last 3 Months Immunizations Immunization Administration [...] Description 06/20/2025 10:45 AM EDT Office Visit [facility] [address] [place] [address] Deborah Joaquin MD [address] [place] [address] 07/24/2025 11:00 AM EST Office Visit [facility] [address] [place] [address] Kendy Butler, OD [address] [place] [address] Health Maintenance Due Date Last Done Comments CT Colonography 1950 Colonoscopy 1950 Colorectal Cancer Screening 1950 FIT DNA/Cologuard 1950 FIT 1950 FOBT 1950 Sigmoidoscopy 1950 Hepatitis C Screening 1969 Zoster Vaccines (1 of 2) 2001 RSV Patients and Patients Aged 60 years or older (1 - Risk 60-74 years 1-dose series) 2011 COVID-19 Vaccine (3 - 2024- season) 2025 12/21/2020, 11/23/2020 Influenza Vaccine (#1) 2025 , [...] Procedure Name Priority Date/Time Associated Diagnosis Comments COLLAGEN CROSS-LINKED N-TELOPEPTIDE (NTX), U Routine 05/15/2025 1:45 PM EDT IMMUNOFIXATION, URINE Routine 05/15/2025 1:45 PM EDT TSH Routine 05/15/2025 1:45 PM EDT T4, FREE Routine 05/15/2025 1:45 PM EDT PHOSPHATE ( PHOSPHORUS) Routine 05/15/2025 1:45 PM EDT BASIC METABOLIC PANEL Routine 05/15/2025 1:45 PM EDT Hypomagnesemia MAGNESIUM Routine 05/15/2025 1:45 PM EDT Hypomagnesemia CTA CHEST PE PROTOCAL Routine 04/28/2025 11:59 [...] EDT from Last 3 Months Results * Immunofixation (ROSY), Urine (05/15/2025 1:45 PM EDT) ROSY Interpretation SEE NOTE [facility] Comment:Normal pattern. No m onoclonal proteins detected.THIS TEST WAS PERFORMED AT:[facility] [address] [id number] JJ MD 05/15/2025 1:4 5 PM EDT 05/15/2025 4:14 PM EDT us Generic External Data Provider LAB URINE ORDERAB LES Final Result LABS [address] [place] [phone] * Collagen Cross-Linked N-Telopeptide (NTx), U (05/15/2025 1:45 PM EDT) N Telopetide (NTx) 35 see note [facility] Comment:Result Units: nM BCE /mM creatPremenopausal Females: 4 - 64 nM BCE/mM creatResults are primarily used for monitoring theresponse to therapy. A value within thepremenopausal range does not rule out osteoporosisnor the need for therapyUnits of Measure: nM BCE/mM creat CREATININE, RANDOM URINE 93 20 - 275 mg/dL LABS Comment:THIS TEST WAS PERFOR MED AT:[id number] [place] [address]YSBFBDILEILANI RUBIN MD,PHD 05/15/2025 1:45 PM EDT 05/15/2025 4:14 PM EDT Generic External Data Provider LAB URINE ORDERAB LES Final Result Performing Organization Address [facility] Co de Phone Number LABS [address] [place] [phone] * TSH (05/15/2025 1:45 PM EDT) Thyroid Stimulating Hormone 1.85 0.32 - 4.0 uIU/mL LABS Comment:TSH 3rd Generation ( [facility]) 05/15/2025 1:45 PM EDT 05/15/2025 4:05 PM EDT Generic External Data Provider LAB BLOOD ORDERAB LES Final Result Performing Organization Address [facility] Co de Phone Number LABS [address] [place] [phone] * T4, Free (05/15/2025 1:45 PM EDT) Free T4 (Free Thyroxine) 1.09 0.71 - 1.85 ng/dL LABS 05/15/2025 1:45 PM EDT 05/15/2025 4:05 PM EDT Generic External Data Provider LAB BLOOD ORDERAB LES Final Result Performing Organization Address [facility] Co de Phone Number LABS [address] [place] [phone] * (ABNORMAL) Phosphate (As Phosphorus) (05/15/2025 1:45 PM EDT) [facility] Phosphorus 5.1(H) 2.7 - 4.5 mg/dL LABS 05/15/2025 1:45 PM EDT 05/15/2025 4:05 PM EDT us Generic External Data Provider LAB BLOOD ORDERAB LES Final Result Performing Organization Address [facility]/ZIP Co de Phone Number LABS [address] [place] [phone] * Magnesium (05/15/2025 1:45 PM EDT) Only the most recent of3 resultswithin the time period is included. [facility] Magnesium 2.2 1.6 - 2.6 mg/dL LABS Blood Venous blood specimen / Unknown 05/15/2025 1:45 PM EDT 05/15/2025 4:05 PM EDT Deborah Joaquin MD LAB BLOOD ORDERABLES Fin al Result Performing Organization Address [facility] Co de Phone Number LABS [address] [place] [phone] * (ABNORMAL) Basic Metabolic Panel (05/15/2025 1:45 PM EDT) [facility] Sodium 138 135 - 145 mmol/L LABS Potassium 5.0 3.3 - 5.1 mmol/L LABS Comment:Mild Hemolysis.Inter pret result with caution Chloride 105 96 - 108 mmol/L LABS Carbon Dioxide 23 22 - 29 mmol/L LABS Anion Gap 15 12 - 20 LABS Urea Nitrogen (BUN) 39(H) 9 - 16 mg/dL LABS Creatinine, Serum 1.23 0.5 - 1.4 mg/dL LABS Estimated Glomerular Filt Rate 43 LABS Comment:Chronic Kidney Disea se: Estimated GFR < 60 mL/min/1.85z4Qeryas Kidney Disease: Estimated GFR < 15 mL/min/1.73m2 Glucose 86 60 - 115 mg/dL LABS Calcium 9.4 8.4 - 10.2 mg/dL LABS Blood Venous blood specimen / Unknown 05/15/2025 1:45 PM EDT 05/15/2025 4:05 PM EDT us Deborah Joaquin MD LAB BLOOD ORDERABLES Fin al Result Performing Organization Address City/State/[facility] Co de Phone Number LABS [address] [place] [phone] * CTA Chest PE Protocal (04/28/2025 11:59 AM EDT) Anatomical Region Laterality Modality Body, Chest Computed Tomogra phy 04/28/2025 11:5 9 AM EDT Narrative 04/28/2025 1:26 PM EDT [place] [address] [address] Scan Report Signed Patient: Fatoumata Gibson MR#: [id number] 086 : 1950 Acct:[id number] Age/Sex: 75 / F ADM Date: 04/28/25 Loc: .ED Attending Dr: Ordering Physician: Hollie Ladd DO Date of Service: 04/28/25 Procedure(s): CT angio chest PE protocol Accession Number(s): [id number] cc: Deborah Joaquin MD; Hollie Ladd DO Report Number: [id number]: Total DLP = 165.00 mGy-cm EXAMINATION: CT [...] 04/28/25 1323 DD/ 1159 TD/TT: 04/28/25 1309 Polysom Tech: Procedure Note Donotuseinterpreter, Image - 04/28/[address] [address] [address] Scan Report Signed Patient: Fatoumata GibsonMR#: [id number] 086 : 1Acct:[id number] Age/Sex: 75 / FADM Date: 04/28/25 Loc: HO.ED Attending Dr: Ordering Physician: Hollie Ladd DO Date of Service: 04/28/25 Procedure(s): CT angio chest PE protocol Accession Number(s): [id number] cc: Deborah Joaquin MD; Hollie Ladd DO Report Number: [id number]: Total DLP = 165.00 mGy-cm EXAMINATION: CT [...] 04/28/25 1323 DD/ 1159 TD/TT: 04/28/25 1309 Polysom Tech: [facility] External Provider IMG CT PROCEDURES Final Result * (ABNORMAL) Basic Metabolic Panel, Fasting (04/27/2025 5:33 AM EDT) Sodium 138 135 - 145 mmol/L LABS Potassium 4.6 3.3 - 5.1 mmol/L LABS Chloride 103 96 - 108 mmol/L LABS Carbon Dioxide 27 22 - 29 mmol/L LABS Anion Gap 13 12 - 20 LABS Urea Nitrogen (BUN) 22(H) 9 - 16 mg/dL LABS Creatinine, Serum 1.10 0.5 - 1.4 mg/dL LABS Creatinine Clr Calc Pharmacy 37.1 LABS Comment:Provided height and weight: 160.02 cm,53.977 kg.eGFR (calculated from the MDRD study equation) and eCrCl(calculated from the Cockcroft-Gault equation) are based ondifferent parameters and may not yield comparable results.If eCrCl result is absurd, please check patient'sheight/weight. Estimated Glomerular Filt Rate 49 LABS Comment:Chronic Kidney Disea se: Estimated GFR < 60 mL/min/1.99v9Nfnvmq Kidney Disease: Estimated GFR < 15 mL/min/1.73m2 Glucose Fasting 108(H) 60 - 99 mg/dL LABS Comment:A fasting glucose fr om 100-125 mg/dl is considered impaired(pre-diabetes). Calcium 8.3(L) 8.4 - 10.2 mg/dL LABS 04/27/2025 5:33 AM EDT 04/27/2025 6:49 AM EDT us Generic External Data Provider LAB BLOOD ORDERAB LES Final Result LABS [address] [place] [phone] * (ABNORMAL) CBC auto differential (04/27/2025 5:33 AM EDT) Only the most recent of2 resultswithin the time period is included. White Blood Count 9.6 4.8 - 10.8 X10*3/uL LABS Red Blood Count 4.07(L) 4.20 - 5.50 X10*6/uL LABS Hemoglobin 11.2(L) 12.0 - 16.0 g/dl LABS Hematocrit 32.5(L) 37.0 - 47.0 % LABS Mean Corpuscular Volume 79.9(L) 80.0 - 98.0 fL LABS Mean Corpuscular Hemoglobin 27.5 27.0 - 33.0 pg LABS Mean Corpuscular HGB Conc 34.5 31.0 - 35.0 g/dl LABS Red Cell Distribution Width 13.9 11.0 - 16.0 % LABS Platelet Count 217 160 - 400 X10*3/uL LABS Mean Platelet Volume 11.6 9.4 - 12.3 fL LABS Neutrophils Percent Auto 82.1(H) 45 - 73 % LABS Imm Gran Pct Auto 0.5(H) 0.0 - 0.4 % LABS Lymphocytes Percent Auto 10.6(L) 20 - 40 % LABS Monocytes Percent Auto 6.6 2 - 11 % LABS Eosinophils Percent Auto 0.1 0 - 4 % LABS Basophils Percent Auto 0.1 0 - 2 % LABS NRBC Pct Auto 0.0 0.0 - 0.2 /100WBC LABS Neutrophils Absolute Auto 7.9 2.0 - 8.3 x10*3/uL LABS Imm Gran Abs Auto 0.05(H) 0.00 - 0.03 X10*3/uL LABS Lymphocytes Absolute Auto 1.0(L) 1.2 - 4.9 X10*3/uL LABS Monocytes Absolute Auto 0.6 0.1 - 1.2 X10*3/uL LABS Eosinophils Absolute Auto 0.0 0.0 - 0.4 X10*3/uL LABS Basophils Absolute Auto 0.0 0.0 - 0.2 X10*3/uL LABS NRBC Abs Auto 0.000 0.0 - 0.012 X10*3/uL LABS 04/27/2025 5:33 AM EDT 04/27/2025 6:49 AM EDT us Generic External Data Provider LAB BLOOD ORDERAB LES Final Result LABS [address] [place] [phone] * Lipid Panel, Standard (04/27/2025 5:33 AM EDT) Triglycerides 69 <150 mg/dL [facility] LAB[facility] Comment:Desirable Triglyceri de: less than 150 mg/dLBorderline High Triglyceride 150-199 mg/dLHigh Triglyceride: 200-499 mg/dLVery High Triglyceride: greater than or equal to 5OO mg/dL Cholesterol 135 <200 mg/dL LABS Comment:Desirable Cholestero l: less than 200 mg/dLBorderline High Cholesterol: 200-239 mg/dLHigh Cholesterol: greater than 239 mg/dL LDL Cholesterol Calculated 58 <100 mg/dL LABS Comment:Desirable LDL: less than 100 mg/dLNear Optimal/Above Optimal LDL: 110- 129 mg/dLBorderline High LDL: 130-159 mg/dLHigh LDL: 160-189 mg/dLVery High LDL: greater than or equal to 190 mg/dL HDL Cholesterol 64 >40 mg/dL [facility] LAB[facility] Comment:Desirable HDL: great er than 40 mg/dL Note: This HDL assay may give artificially low results in patients with liver disease. 04/27/2025 5:33 AM EDT 04/27/2025 6:49 AM EDT us Generic External Data Provider LAB BLOOD ORDERAB LES Final Result Performing Organization Address [facility] Co de Phone Number LABS [address] [place] [phone] * Slide Review (04/26/2025 7:56 PM EDT) Slide Review VERIFIED LABS 04/26/2025 7:56 PM EDT 04/26/2025 8:23 PM EDT us Generic External Data Provider LAB BLOOD ORDERAB LES Final Result Performing Organization Address [facility] de Phone Number LABS [address] [place] [phone] * TSH with Reflex to Free T4 (04/26/2025 7:56 PM EDT) TSH reflex Free T4 0.54 0.32 - 4.0 uIU/mL LABS 04/26/2025 7:56 PM EDT 04/26/2025 8:23 PM EDT us Generic External Data Provider LAB BLOOD ORDERAB LES Final Result Performing Organization Address [facility]/ZIP Co de Phone Number LABS [address] [place] [phone] * (ABNORMAL) B Type Natriuretic Peptide (BNP) (04/26/2025 7:56 PM EDT) Pathologist [facility] B Type Natriuretic Peptide 321(H) <100 pg/mL LABS 04/26/2025 7:56 PM EDT 04/26/2025 8:23 PM EDT us Generic External Data Provider LAB BLOOD ORDERAB LES Final Result LABS [address] [place] [phone] * (ABNORMAL) Comprehensive Metabolic Panel (04/26/2025 7:56 PM EDT) [facility] Sodium 138 135 - 145 mmol/L LABS Potassium 4.2 3.3 - 5.1 mmol/L LABS Chloride 103 96 - 108 mmol/L LABS Carbon Dioxide 28 22 - 29 mmol/L LABS Anion Gap 11(L) 12 - 20 LABS Urea Nitrogen (BUN) 20(H) 9 - 16 mg/dL LABS Creatinine, Serum 1.05 0.5 - 1.4 mg/dL LABS Creatinine Clr Calc Pharmacy 38.8 LABS Comment:Provided height and weight: 160.02 cm,53.977 kg.eGFR (calculated from the MDRD study equation) and eCrCl(calculated from the Cockcroft-Gault equation) are based ondifferent parameters and may not yield comparable results.If eCrCl result is absurd, please check patient'sheight/weight. Estimated Glomerular Filt Rate 51 LABS Comment:Chronic Kidney Disea se: Estimated GFR < 60 mL/min/1.38c6Meolpi Kidney Disease: Estimated GFR < 15 mL/min/1.73m2 Glucose 195(H) 60 - 115 mg/dL LABS Calcium 8.5 8.4 - 10.2 mg/dL LABS Bilirubin, Total 0.5 0.0 - 1.0 mg/dL LABS Aspartate Amino Transferase 30 5 - 31 U/L LABS Alanine Aminotransferase 22 0 - 31 U/L LABS Total Protein 6.5 6.5 - 8.0 g/dL LABS Albumin Level 3.9 3.5 - 5.0 g/dL LABS Alkaline Phosphatase 75 39 - 117 U/L LABS 04/26/2025 7:56 PM EDT 04/26/2025 8:23 PM EDT us Generic External Data Provider LAB BLOOD ORDERAB LES Final Result Performing Organization Address City/State/[facility] Co de Phone Number LABS [address] [place] [phone] * FL Guidance in OR (04/26/2025 9:45 AM EDT) Anatomical Region Laterality Modality X-Ray Angiograph y 04/26/2025 9:45 AM EDT Narrative 04/26/2025 11:54 AM EDT [place] [address] Fluoroscopy Report Signed Patient: Fatoumata Gibson MR#: [id number] 086 : 1950 Acct:[id number] Age/Sex: 75 / F ADM Date: 04/26/25 Loc: HO.[facility] Attending Dr: Sharron Velez PA-C Ordering Physician: Amaunel Ortiz MD Date of Service: 04/26/25 Procedure(s): FL guidance in OR Accession Number(s): [id number] cc: Deborah Joaquin MD; Amanuel Ortiz MD [...] Ramu Caal MD 04/26/2025 11:51 AM EDT RP Dictated By: Ramu Caal MD Signed By: <Electronically signed by Ramu Caal MD in OV> 04/26/25 1151 DD/ TD/TT: 04/26/25 105 Polysom Tech: Procedure Note Donotuseinterpreter, Image - 04/26/2025 [place] [address] Fluoroscopy Report Signed Patient: Fatoumata GibsonMR#: [id number] 086 : 1950cct:[id number] Age/Sex: 75 / FADM Date: 04/26/25 Loc: HO.[facility] Attending Dr: Sharron Velez PA-C Ordering Physician: Amanuel Ortiz MD Date of Service: 04/26/25 Procedure(s): FL guidance in OR Accession Number(s): [id number] cc: Deborah Joaquin MD; Amanuel Ortiz MD [...] Ramu Caal MD 04/26/2025 11:51 AM EDT RP Dictated By: Ramu Caal MD Signed By: <Electronically signed by Ramu Caal MD in OV> 04/26/25 1151 DD/ TD/TT: 04/26/25 1055 Polysom Tech: [facility] External Provider IMG IR PROCEDURES Final Result * BI Mammogram Screening Tomosynthesis Bilateral (04/24/2025 9:50 AM EDT) Anatomical Region Laterality Modality Breast Bilateral Mammography 04/24/2025 9:50 AM EDT Narrative 05/02/2025 4:17 PM EDT [address] [place] [address] Mammography Report Signed Patient: Fatoumata Gibson MR#: [id number] 086 : 1950 Acct:[id number] Age/Sex: 75 / F ADM Date: 04/24/25 Loc: HO.MAMMO Attending Dr: Deborah Joaquin MD Ordering Physician: Deborah Joaquin MD Results: 1Ne gative Date of Service: 04/24/25 Follow Up: 1 Year From [facility] Mammogram Procedure(s): MM tomosynthesis screening BI Accession Number(s): [id number] cc: Deborah Joaquin MD EXAMINATION: MM SCREENING [...] Marsh DO Signed By: <Electronically signed by Eviat Marsh DO in OV> 05/02/25 1614 DD/ 0950 TD/TT: 04/24/25 1009 Polysom Tech: Procedure Note Donnorbertointerpreter, Image - 05/02/[facility] [address] [place], [place] [address] Mammography Report Signed Patient: Fatoumata GibsonMR#: [id number] 086 : 1950cct:[id number] Age/Sex: 75 / FADM Date: 04/24/25 Loc: HO.MAMMO Attending Dr: Deborah Joaquin MD Ordering Physician: Deborah Joaquin MDResults: 1Ne gative Date of Service: 04/24/25Follow Up: 1 Year From Orig ina Mammogram Procedure(s): MM tomosynthesis screening BI Accession Number(s): [id number] cc: Deborah Joaquin MD EXAMINATION: MM SCREENING [...] 05/02/25 1614 DD/ 0950 TD/TT: 04/24/25 1009 Polysom Tech: us Deborah Joaquin MD IMG BI PROCEDURES Final Result * (ABNORMAL) CBC (04/21/2025 2:25 PM EDT) White Blood Count 5.6 4.8 - 10.8 X10*3/uL LABS Red Blood Count 4.68 4.20 - 5.50 X10*6/uL LABS Hemoglobin 12.3 12.0 - 16.0 g/dl LABS Hematocrit 38.7 37.0 - 47.0 % LABS Mean Corpuscular Volume 82.7 80.0 - 98.0 fL LABS Mean Corpuscular Hemoglobin 26.3(L) 27.0 - 33.0 pg LABS Mean Corpuscular HGB Conc 31.8 31.0 - 35.0 g/dl LABS Red Cell Distribution Width 13.6 11.0 - 16.0 % LABS Platelet Count 238 160 - 400 X10*3/uL LABS Mean Platelet Volume 9.4 9.4 - 12.3 fL LABS NRBC Pct Auto 0.0 0.0 - 0.2 /100WBC LABS NRBC Abs Auto 0.000 0.0 - 0.012 X10*3/uL LABS 04/21/2025 2:25 PM EDT 04/21/2025 2:31 PM EDT us Generic External Data Provider LAB BLOOD ORDERAB LES Final Result LABS [address] [place] [phone] * MR Femur W/o Contrast Right (04/04/2025 7:09 PM EDT) Anatomical Region Laterality Modality Lower Extremities, Femur Right Magneti c Resonance 04/04/2025 7:09 PM EDT Narrative 04/04/2025 7:10 PM EDT [address] [address] Magnetic Resonance Report Signed Patient: Fatoumata Gibson MR#: [id number] 086 : 1950 Acct:[id number] Age/Sex: 74 / F ADM Date: 04/02/25 Loc: HO.MRI Attending Dr: Adiel Henderson PA-C Ordering Physician: Adiel Henderson PA-C Date of Service: 04/02/25 Procedure(s): MR femur RT wo con Accession Number(s): [id number] cc: Deborah Joaquin MD; Adiel Henderson PA-C [...] in OV> 04/04/251909 DD/ 08 TD/TT: 04/04/251908 Polysom Tech: Procedure Note Donotuseinterpreter, Image - 04/04/[address] [address] Magnetic Resonance Report Signed Patient: Fatoumata GibsonMR#: [id number] 086 : 1950cct:[id number] Age/Sex: 74 / FADM Date: 04/02/25 Loc: HO.MRI Attending Dr: Adiel Henderson PA-C Ordering Physician: Adiel Henderson PA-C Date of Service: 04/02/25 Procedure(s): MR femur RT wo con Accession Number(s): [id number] cc: Deborah Joaquin MD; Adiel Henderson PA-C [...] in OV> 04/04/251909 DD/ 08 TD/TT: 04/04/251908 Polysom Tech: [facility] External Provider IMG MRI PROCEDURES Final Result from Last [address] [place] [address] [employer] (HMO D-SNP) [place]ANEY WOLF [id number] Care Teams Sales Operations Manager Relationship Specialty Start Date End Date Deborah Joaquin MD [address] [place] [phone] PCP - General Family Medicine 05/14/17 [place] A 05/10/25
--- OUTSIDE RECORDS SUMMARY | 2025-06-02 17:18 | XMS_ITS | Encounter Summary ---
Author Organization [employer] Address [address] [facility] 7t [place] [address] Care Team Providers Care Loss Prevention Research Engineer Name Role Phone Deborah Joaquin MD Primary Care Provider + Reason for Visit * Reason Onset Date Comments Pre-op Exam 03/11/2024 Encounter Details Date Type Department Care Team ([facility] Contact Info) Description 03/11/2024 Telephone [facility] [address] [place] [address] Deborah Joaquin MD [address] [place] [address] Pre-op Exam Social History Tobacco Use Types [...] [facility] Surgeon's office number: [phone] Surgeon's office fax number: [phone] Contact name (person you spoke with): Manisha Last office note from surgeon requested: Will be faxed Date of Surgery: 04/19 Surgical procedure being done: Cataract Surgery on the right eye Type of anesthesia: Mac Lab needed: no EKG: no Surgeon's name: Dr. Sonny Freeman Facility name[facility] Surgeon's office number: [phone] Surgeon's office fax number: [phone] Contact name (person you spoke with): Manisha Last office note from surgeon requested: Will Be faxed documented in this encounter Plan of Treatment Upcoming Encounters Date Type Department Care Team ([facility] st Contact Info) Description 06/20/2025 10:45 AM EDT Office Visit [address] [address] Deborah Joaquin MD [address] [place] [address] 07/24/2025 11:00 AM EST Office Visit [facility] [address] [place], [place] [phone] Kendy Butler, OD [address] [place], [place] [phone] documented as of this encounter Visit Diagnoses Not on filedocumented in this encounter Care Teams Loss Prevention Research Engineer Relationship Specialty Start Date End Date Deborah Joaquin MD [address] [place] [address] PCP - General Family Medicine 05/14/17 [facility] 05/10/25 documented as of this encounter
== END 2025-06-02 15:24 | disposition home or self-care (01) ==
LOC: HO.HCS 14:25
PROVIDERS: PCP Internal Medicine
DX: I48.91 Unspecified atrial fibrillation (principal); I10 Essential (primary) hypertension; Z09 Encounter for follow-up examination after completed treatment for conditions other than malignant neoplasm
CPT/HCPCS: 99214; G2211

== ENCOUNTER → 2025-06-02 14:24 | Outpatient (BNVA) | payer OTHER, SELFPAY | PROVIDERS: PCP Internal Medicine | DX: Z09 Encounter for follow-up examination after completed treatment for conditions other than malignant neoplasm (principal); I10 Essential (primary) hypertension; I48.91 Unspecified atrial fibrillation; R53.83 Other fatigue; R00.2 Palpitations | CPT/HCPCS: 99212 ==

== ENCOUNTER 2025-06-08 08:31 | Outpatient (REF) | payer OTHER, SELFPAY ==
--- NOTE | ~2025-06-08 | XR_ITS ---
CLINICAL HISTORY: M84.351A - Stress fracture, right femur, initial encounter for fracture 2 view right femur Comparison: DX - XR FEMUR RT 2V - 05/09/25 08:55 EDT Findings: Status post open reduction internal fixation of the femur. Appropriate alignment. No evidence of hardware failure. No acute fracture. Cortical thickening of the lateral aspect of the proximal diaphysis of the femur at a site of prior stress fracture, without change. No dislocation. No knee effusion. No significant arthritic change. No radiopaque foreign body. IMPRESSION: Status post open reduction internal fixation of the right femur with an appropriate postoperative appearance. This document has been electronically signed by: Ofe Pedersen MD on 06/09/2025 14:46:23
--- OUTSIDE RECORDS SUMMARY | 2025-06-09 09:05 | XMS_ITS | Encounter Summary ---
Author Organization [employer] Address [address] [facility] 7t [place] [address] Care Team Providers Care Cattle Examiner Name Role Phone Deborah Joaquin MD Primary Care Provider + Reason for Visit * Reason Onset Date Comments Hospital Follow-up 04/28/2025 Encounter Details Date Type Department Care Team ([facility] st Contact Info) Description 04/28/2025 Telephone [facility] [address] [place] [address] Deborah Joaquin MD [address] [place], [place] [phone] Hospital Follow-up Social History Tobacco Use Types Packs/Day Years Used Date Smoking Tobacco: Never Smokeless Tobacco: Never Alcohol Use Standard Drinks/Week Comments Never 0 (1 standard drink = 0.6 oz pur e alcohol) Housing Stability Answer Date Recorded What is your housing situation today? I have aimnata michelle 12/30/[address] you [...] from pt requesting a HDF appt. Hospital: [facility] Date of admission: 04/25 Discharge date: 04/27 Diagnosed: Surgery Contact pt at [phone] Need ball machine operator documented in this encounter Plan of Treatment Upcoming Encounters Date Type Department Care Team (Late st Contact Info) Description 06/20/2025 10:45 AM EDT Office Visit [facility] [address] [place] [address] Deborah Joaquin MD [address] [place] [address] 07/24/2025 11:00 AM EST Office Visit [facility] OPT[facility] [address] [place] [address] Kendy Butler, OD [address] [place] [address] documented as of this encounter Visit Diagnoses Not on filedocumented in this encounter Care Teams Cattle Examiner Relationship Specialty Start Date End Date Deborah Joaquin MD [address] [place] [address] PCP - General Family Medicine 05/14/17 Natalee MARTINEZ 05/10/25 documented as of this encounter
--- OUTSIDE RECORDS SUMMARY | 2025-06-09 09:05 | XMS_ITS | Encounter Summary ---
Author Organization [employer] Address [address] [facility] 7t [place] [address] Care Team Providers Care Small Battery Plate Assembler Name Role Phone Deborah Joaquin MD Primary Care Provider + Reason for Visit * Reason Onset Date Comments Call Back Request 05/18/2025 Encounter Details Date Type Department Care Team ([facility] Contact Info) Description 05/18/2025 Telephone [facility]INE [address] [place], [place] [phone] Deborah Joaquin MD [address] [place], [place] [phone] Call Back Request Social History Tobacco Use [...] placed to patient EC (Zenaida) on HIPAA [phone] regarding below message. RN left an VM for the EC to CB Red team nurses. EC and PT to F/U PRN. * Telephone Encounter - Ina Colon - 05/18/2025 9:43 AM EDT Tc from pt daughter requesting a call back to discuss phosphorus lab results , they are wondering if medication will be needed Contact pt daughter Zenaida (on HIPAA) at [phone] documented in this encounter Plan of Treatment Upcoming Encounters Date Type Department Care Team (Late st Contact Info) Description 06/20/2025 10:45 AM EDT Office Visit [facility] [address] [place] [address] Deborah Joaquin MD [address] [place], [place] [phone] 07/24/2025 11:00 AM EST Office Visit [facility] [address] [place], [place] [phone] Kendy Butler, OD [address] [place] [address] documented as of this encounter Visit Diagnoses Not on filedocumented in this encounter Additional Health Concerns Assessment Noted Time PHQ-9 Depression Total Score: 3 05/15/20 25 1:12 PM EDT documented as of this encounter Care Teams Small Battery Plate Assembler Relationship Specialty Start Date End Date Deborah Joaquin MD [address] [place] [address] PCP - General Family Medicine 05/14/17 Natalee OCONNORA 05/10/25 documented as of this encounter
--- OUTSIDE RECORDS SUMMARY | 2025-06-09 09:05 | XMS_ITS | Encounter Summary ---
Author Organization [employer] Address [address] [place] [address] 7t [place] [address] Care Team Providers Care Soil Sampler Name Role Phone Deborah Joaquin MD Primary Care Provider + Reason for Visit * Reason Comments Med Refill Encounter Details Date Type Department Care Team (Late st Contact Info) Description 04/21/2023 Refill [facility] [address] [place] [phone] Deborah Joaquin MD [address] [place] [phone] Social History Tobacco Use Types Packs/Day Years [...] Description 06/20/2025 10:45 AM EDT Office Visit [facility] [address] [place], [place] [phone] Deborah Joaquin MD [address] [place] [phone] 07/24/2025 11:00 AM EST Office Visit [facility] OPTOMETRY [address] [place] [address] Kendy Butler, OD [address] [place], [place] [phone] documented as of this encounter Visit Diagnoses Not on filedocumented in this encounter Care Teams Soil Sampler Relationship Specialty Start Date End Date Deborah Joaquin MD [address] [place] [phone] PCP - General Family Medicine 05[facility]14[facility] documented as of this encounter
--- OUTSIDE RECORDS SUMMARY | 2025-06-09 09:05 | XMS_ITS | Encounter Summary ---
Author Organization [employer] Address [address] [facility] 7t [place] [address] Care Team Providers Care Lettuce Trimmer Name Role Phone Deborah Joaquin MD Primary Care Provider + Reason for Visit * Reason Onset Date Comments Pre-op Exam 03/11/2024 Encounter Details Date Type Department Care Team ([facility] Contact Info) Description 03/11/2024 Telephone [facility] [address] [place] [address] Deborah Joaquin MD [address] [place] [address] Pre-op Exam Social History Tobacco Use Types [...] [facility] Surgeon's office number: [phone] Surgeon's office fax number: [phone] Contact name (person you spoke with): Manisha Last office note from surgeon requested: Will be faxed Date of Surgery: 04/19 Surgical procedure being done: Cataract Surgery on the right eye Type of anesthesia: Mac Lab needed: no EKG: no Surgeon's name: Dr. Sonny Freeman Facility name: [facility] Surgeon's office number: [phone] Surgeon's office fax number: [phone] Contact name (person you spoke with): Manisha Last office note from surgeon requested: Will Be faxed documented in this encounter Plan of Treatment Upcoming Encounters Date Type Department Care Team ([facility] st Contact Info) Description 06/20/2025 10:45 AM EDT Office Visit [address] [address] Deborah Joaquin MD [address] [place] [address] 07/24/2025 11:00 AM EST Office Visit [facility] OPTOM[facility] [address] [place], [place] [phone] Kendy Butler, OD [address] [place], [place] [phone] documented as of this encounter Visit Diagnoses Not on filedocumented in this encounter Care Teams Lettuce Trimmer Relationship Specialty Start Date End Date Deborah Joaquin MD [address] [place] [address] PCP - General Family Medicine 05/14/17 [facility] 05/10/25 documented as of this encounter
--- OUTSIDE RECORDS SUMMARY | 2025-06-09 09:05 | XMS_ITS | Encounter Summary ---
Author Organization [employer] Address [address] [facility] 7t [place] [address] Care Team Providers Care Secretarial Teacher Name Role Phone Deborah Joaquin MD Primary Care Provider + Reason for Visit * Reason Onset Date Comments Appointment Request 12/16/2024 Encounter Details Date Type Department Care Team ([facility] st Contact Info) Description 12/16/2024 Telephone [facility] MEDICINE [address] [place], [place] [phone] Deborah Joaquin MD [address] [place], [place] [phone] Appointment Request Social History Tobacco Use Types [...] t he electric, gas, oil or water [employer] threatened to shut off services in your [...] R/s appt from 12/16/24. Contact pt at [phone] documented in this encounter Plan of Treatment Upcoming Encounters Date Type Department Care Team (Late st Contact Info) Description 06/20/2025 10:45 AM EDT Office Visit [facility] MEDICINE [address] [place] [address] Deborah Joaquin MD [address] [place] [address] 07/24/2025 11:00 AM EST Office Visit [facility] OPTOMETRY [address] [place] [address] Kendy Butler, OD [address] [place] [address] documented as of this encounter Visit Diagnoses Not on filedocumented in this encounter Care Teams Secretarial Teacher Relationship Specialty Start Date End Date Deborah Joaquin MD [address] [place] [address] PCP - General Family Medicine 05/14/17 [facility] 05/10/25 documented as of this encounter
--- OUTSIDE RECORDS SUMMARY | 2025-06-09 09:05 | XMS_ITS | Clinical Summary ---
Author Organization [employer] Address [address] [place] [address] 7[address] [place] [address] Care Team Providers Care Firmware Engineer Name Role Phone Deborah Joaquin MD [...] (05/01/2025): CT scan chest on 04/28/2025 at [facility] showed scattered opacities (approximate 6) on right [...] use plantar pads nad reschedule appointment with senior environmental practice leader Assessment & Plan (01/02/2023 12:05 PM EDT): [...] Type Department Care Team Description 05/24/2025 Refill [facility] [address] [place] [address] Sara Patterson DO Primary hypertension 05/24/2025 Refill [facility]OM[facility] [address] [place] [address] Kendy Butler, OD Primary open angle glaucoma (POAG) of both eyes, moderate stage 05/18/2025 Telephone [facility] [address] [place] [address] Deborah Jaoquin MD Call Back Request 05/15/2025 1:00 PM EDT Office Visit [facility] [address] [place] [address] Octavio Billy MD Paroxysmal A-fib (CMS/HCC) (Primary Dx); Foot pain, right; S/P ORIF (open reduction internal fixation) fracture 05/15/2025 Orders Only GENERIC EXTERNAL DATA DEPARTMENT Provider, Generic External Data 05/15/2025 Travel 05/15/2025 Telephone [facility] [address] [place] [address] Octavio Billy MD CHART PREP 05/01/2025 Results Follow-Up [facility] [address] [facility] [place] [address] Deborah Joaquin MD CTA Chest PE Protocal 04/28/2025 Orders Only [facility] External Provider, [facility] 04/28/2025 Patient Outreach [facility] [address] [place] [address] Deborah Joaquin MD Transition Of Care (Tcm) (HDF unscheduled ) 04/28/2025 Telephone [facility] [address] [facility] [place] [address] Deborah Joaquin MD Hospital Follow-up 04/27/2025 Results Follow-Up [facility] [address] [facility] [place] [address] Deborah Joaquin MD B Type Natriuretic Peptide (BNP), CBC auto differential, TSH with Reflex to Free T4, Additional followed-up results: 3 04/27/2025 Orders Only GENERIC EXTERNAL DATA DEPARTMENT Provider, Generic External Data 04/27/2025 Refill [facility] [address] [place] [address] Deborah Joaquin MD 04/26/2025 Orders Only [facility] External Provider, [facility] 04/24/2025 Orders Only [facility] [address] [place] [address] Deborah Joaquin MD 04/21/2025 Orders Only GENERIC EXTERNAL DATA DEPARTMENT Provider, Generic External Data 04/19/2025 Refill [facility] [address] [place] [address] Deborah Joaquin MD 04/18/2025 Refill [facility] [address] [place], [place] [phone] Deborah Joaquin MD 04/13/2025 Refill [facility] [address] [place] [address] Deborah Joaquin MD 04/02/2025 Orders Only [facility] External Provider, [facility] 03/29/2025 Refill [facility] [address] [place] [address] Deborah Joaquin MD Pure hypercholesterolemia from Last [...] Description 06/20/2025 10:45 AM EDT Office Visit [facility] [address] [place] [address] Deborah Joaquin MD [address] [place] [address] 07/24/2025 11:00 AM EST Office Visit [facility] OPTOMETRY [address] [place] [address] Kendy Butler, OD [address] [place] [address] Health Maintenance Due Date Last Done Comments [...] PM EDT) ROSY Interpretation SEE NOTE [facility] Comment:Normal pattern. No m onoclonal proteins detected.THIS TEST WAS PERFORMED AT:[facility] [address] [phone] JJ MD 05/15/2025 1:4 5 PM EDT 05/15/2025 4:14 PM EDT us Generic External Data Provider LAB URINE ORDERAB LES Final Result [facility] [address] [place] [address] [phone] * Collagen Cross-Linked N-Telopeptide (NTx), U (05/15/2025 1:45 PM EDT) N Telopetide (NTx) 35 see note [facility] Comment:Result Units: nM BCE /mM creatPremenopausal Females: 4 - 64 nM BCE/mM creatResults are primarily used for monitoring theresponse to therapy. A value within thepremenopausal range does not rule out osteoporosisnor the need for therapyUnits of Measure: nM BCE/mM creat CREATININE, RANDOM URINE 93 20 - 275 mg/dL [facility] Comment:THIS TEST WAS PERFOR MED AT:[facility]DHBNFZXIF[address] [place] [phone] RUBIN MD,PHD 05/15/2025 1:45 PM EDT 05/15/2025 4:14 PM EDT Generic External Data Provider LAB URINE ORDERAB LES Final Result Performing Organization Address [facility] Co de Phone Number [facility] [address] [place] [phone] * TSH (05/15/2025 1:45 PM EDT) Thyroid Stimulating Hormone 1.85 0.32 - 4.0 uIU/mL [facility] Comment:TSH 3rd Generation ( [facility]) 05/15/2025 1:45 PM EDT 05/15/2025 4:05 PM EDT Generic External Data Provider LAB BLOOD ORDERAB LES Final Result Performing Organization Address [facility] Co de Phone Number [facility] [address] [place] [phone] * T4, Free (05/15/2025 1:45 PM EDT) Free T4 (Free Thyroxine) 1.09 0.71 - 1.85 ng/dL [facility] 05/15/2025 1:45 PM EDT 05/15/2025 4:05 PM EDT Generic External Data Provider LAB BLOOD ORDERAB LES Final Result Performing Organization Address [facility] Co de Phone Number [facility] [address] [place] [phone] * (ABNORMAL) Phosphate (As Phosphorus) (05/15/2025 1:45 PM EDT) [facility] Phosphorus 5.1(H) 2.7 - 4.5 mg/dL [facility] 05/15/2025 1:45 PM EDT 05/15/2025 4:05 PM EDT us Generic External Data Provider LAB BLOOD ORDERAB LES Final Result Performing Organization Address [facility]/ZIP Co de Phone Number [facility] [address] [place] [phone] * Magnesium (05/15/2025 1:45 PM EDT) Only the most recent of3 resultswithin the time period is included. [facility] Magnesium 2.2 1.6 - 2.6 mg/dL [facility] Blood Venous blood specimen / Unknown 05/15/2025 1:45 PM EDT 05/15/2025 4:05 PM EDT Deborah Joaquin MD LAB BLOOD ORDERABLES Fin al Result Performing Organization Address [facility] Co de Phone Number [facility] [address] [place] [phone] * (ABNORMAL) Basic Metabolic Panel (05/15/2025 1:45 PM EDT) [facility] Sodium 138 135 - 145 mmol/L [facility] Potassium 5.0 3.3 - 5.1 mmol/L [facility] Comment:Mild Hemolysis.Inter pret result with caution Chloride 105 96 - 108 mmol/L [facility] Carbon Dioxide 23 22 - 29 mmol/L [facility] Anion Gap 15 12 - 20 [facility] Urea Nitrogen (BUN) 39(H) 9 - 16 mg/dL [facility] Creatinine, Serum 1.23 0.5 - 1.4 mg/dL [facility] Estimated Glomerular Filt Rate 43 [facility] Comment:Chronic Kidney Disea se: Estimated GFR < 60 mL/min/1.96j0Mcyorg Kidney Disease: Estimated GFR < 15 mL/min/1.73m2 Glucose 86 60 - 115 mg/dL [facility] Calcium 9.4 8.4 - 10.2 mg/dL [facility] Blood Venous blood specimen / Unknown 05/15/2025 1:45 PM EDT 05/15/2025 4:05 PM EDT us Deborah Joaquin MD LAB BLOOD ORDERABLES Fin al Result Performing Organization Address City/State/[facility] Co de Phone Number [facility] [address] [place] [address] [phone] * CTA Chest PE Protocal (04/28/2025 11:59 AM EDT) Anatomical Region Laterality Modality Body, Chest Computed Tomogra phy 04/28/2025 11:5 9 AM EDT Narrative 04/28/2025 1:26 PM EDT [place] [address] [address] Scan Report Signed Patient: Fatoumata Gibson MR#: [id number] : 1950 Acct:[id number] Age/Sex: 75 / F ADM Date: 04/28/25 Loc: .ED Attending Dr: Ordering Physician: Hollie Ladd DO Date of Service: 04/28/25 Procedure(s): CT angio chest PE protocol Accession Number(s): [id number] cc: Deborah Joaquin MD; Hollie Ladd DO Report Number: [id number]: Total DLP = 165.00 mGy-cm EXAMINATION: CT [...] 04/28/25 1323 DD/ 1159 TD/TT: 04/28/25 1309 Balance Weigher: Procedure Note Donotuseinterpreter, Image - 04/28/[address] [address] [address] Scan Report Signed Patient: Fatoumata GibsonMR#: [id number] : 1Acct:[id number] Age/Sex: 75 / FADM Date: 04/28/25 Loc: HO.ED Attending Dr: Ordering Physician: Hollie Ladd DO Date of Service: 04/28/25 Procedure(s): CT angio chest PE protocol Accession Number(s): [id number] cc: Deborah Joaquin MD; Hollie Ladd DO Report Number: [id number]: Total DLP = 165.00 mGy-cm EXAMINATION: CT [...] 04/28/25 1323 DD/ 1159 TD/TT: 04/28/25 1309 Balance Weigher: [facility] External Provider IMG CT PROCEDURES Final Result * (ABNORMAL) Basic Metabolic Panel, Fasting (04/27/2025 5:33 AM EDT) Sodium 138 135 - 145 mmol/L [facility] Potassium 4.6 3.3 - 5.1 mmol/L [facility] Chloride 103 96 - 108 mmol/L [facility] Carbon Dioxide 27 22 - 29 mmol/L [facility] Anion Gap 13 12 - 20 [facility] Urea Nitrogen (BUN) 22(H) 9 - 16 mg/dL [facility] Creatinine, Serum 1.10 0.5 - 1.4 mg/dL [facility] Creatinine Clr Calc Pharmacy 37.1 [facility] Comment:Provided height and weight: 160.02 cm,53.977 kg.eGFR (calculated from the MDRD study equation) and eCrCl(calculated from the Cockcroft-Gault equation) are based ondifferent parameters and may not yield comparable results.If eCrCl result is absurd, please check patient'sheight/weight. Estimated Glomerular Filt Rate 49 [facility] Comment:Chronic Kidney Disea se: Estimated GFR < 60 mL/min/1.13u4Cchyro Kidney Disease: Estimated GFR < 15 mL/min/1.73m2 Glucose Fasting 108(H) 60 - 99 mg/dL [facility] Comment:A fasting glucose fr om 100-125 mg/dl is considered impaired(pre-diabetes). Calcium 8.3(L) 8.4 - 10.2 mg/dL [facility] 04/27/2025 5:33 AM EDT 04/27/2025 6:49 AM EDT us Generic External Data Provider LAB BLOOD ORDERAB LES Final Result [facility] [address] [place] [phone] [phone] * (ABNORMAL) CBC auto differential (04/27/2025 5:33 AM EDT) Only the most recent of2 resultswithin the time period is included. White Blood Count 9.6 4.8 - 10.8 X10*3/uL [facility] Red Blood Count 4.07(L) 4.20 - 5.50 X10*6/uL [facility] Hemoglobin 11.2(L) 12.0 - 16.0 g/dl [facility] Hematocrit 32.5(L) 37.0 - 47.0 % [facility] Mean Corpuscular Volume 79.9(L) 80.0 - 98.0 fL [facility] Mean Corpuscular Hemoglobin 27.5 27.0 - 33.0 pg [facility] Mean Corpuscular HGB Conc 34.5 31.0 - 35.0 g/dl [facility] Red Cell Distribution Width 13.9 11.0 - 16.0 % [facility] Platelet Count 217 160 - 400 X10*3/uL [facility] Mean Platelet Volume 11.6 9.4 - 12.3 fL [facility] Neutrophils Percent Auto 82.1(H) 45 - 73 % [facility] Imm Gran Pct Auto 0.5(H) 0.0 - 0.4 % [facility] Lymphocytes Percent Auto 10.6(L) 20 - 40 % [facility] Monocytes Percent Auto 6.6 2 - 11 % [facility] Eosinophils Percent Auto 0.1 0 - 4 % [facility] Basophils Percent Auto 0.1 0 - 2 % [facility] NRBC Pct Auto 0.0 0.0 - 0.2 /100WBC [facility] Neutrophils Absolute Auto 7.9 2.0 - 8.3 x10*3/uL [facility] Imm Gran Abs Auto 0.05(H) 0.00 - 0.03 X10*3/uL [facility] Lymphocytes Absolute Auto 1.0(L) 1.2 - 4.9 X10*3/uL [facility] Monocytes Absolute Auto 0.6 0.1 - 1.2 X10*3/uL [facility] Eosinophils Absolute Auto 0.0 0.0 - 0.4 X10*3/uL [facility] Basophils Absolute Auto 0.0 0.0 - 0.2 X10*3/uL [facility] NRBC Abs Auto 0.000 0.0 - 0.012 X10*3/uL [facility] 04/27/2025 5:33 AM EDT 04/27/2025 6:49 AM EDT us Generic External Data Provider LAB BLOOD ORDERAB LES Final Result [facility] [address] [place] [phone] * Lipid Panel, Standard (04/27/2025 5:33 AM EDT) Triglycerides 69 <150 mg/dL [facility] Comment:Desirable Triglyceri de: less than 150 mg/dLBorderline High Triglyceride 150-199 mg/dLHigh Triglyceride: 200-499 mg/dLVery High Triglyceride: greater than or equal to 5OO mg/dL Cholesterol 135 <200 mg/dL [facility] Comment:Desirable Cholestero l: less than 200 mg/dLBorderline High Cholesterol: 200-239 mg/dLHigh Cholesterol: greater than 239 mg/dL LDL Cholesterol Calculated 58 <100 mg/dL [facility] Comment:Desirable LDL: less than 100 mg/dLNear Optimal/Above Optimal LDL: 110- 129 mg/dLBorderline High LDL: 130-159 mg/dLHigh LDL: 160-189 mg/dLVery High LDL: greater than or equal to 190 mg/dL HDL Cholesterol 64 >40 mg/dL [facility] Comment:Desirable HDL: great er than 40 mg/dL Note: This HDL assay may give artificially low results in patients with liver disease. 04/27/2025 5:33 AM EDT 04/27/2025 6:49 AM EDT us Generic External Data Provider LAB BLOOD ORDERAB LES Final Result Performing Organization Address [facility] Co de Phone Number [facility] [address] [place] [phone] * Slide Review (04/26/2025 7:56 PM EDT) Slide Review VERIFIED [facility] 04/26/2025 7:56 PM EDT 04/26/2025 8:23 PM EDT us Generic External Data Provider LAB BLOOD ORDERAB LES Final Result Performing Organization Address [facility] de Phone Number [facility] [address] [place] [phone] * TSH with Reflex to Free T4 (04/26/2025 7:56 PM EDT) TSH reflex Free T4 0.54 0.32 - 4.0 uIU/mL [facility] 04/26/2025 7:56 PM EDT 04/26/2025 8:23 PM EDT us Generic External Data Provider LAB BLOOD ORDERAB LES Final Result Performing Organization Address [facility]/ZIP Co de Phone Number [facility] [address] [place] [address] [phone] * (ABNORMAL) B Type Natriuretic Peptide (BNP) (04/26/2025 7:56 PM EDT) Pathologist [facility] B Type Natriuretic Peptide 321(H) <100 pg/mL [facility] 04/26/2025 7:56 PM EDT 04/26/2025 8:23 PM EDT us Generic External Data Provider LAB BLOOD ORDERAB LES Final Result [facility] [address] [place] [address] [phone] * (ABNORMAL) Comprehensive Metabolic Panel (04/26/2025 7:56 PM EDT) [facility] Sodium 138 135 - 145 mmol/L [facility] Potassium 4.2 3.3 - 5.1 mmol/L [facility] Chloride 103 96 - 108 mmol/L [facility] Carbon Dioxide 28 22 - 29 mmol/L [facility] Anion Gap 11(L) 12 - 20 [facility] Urea Nitrogen (BUN) 20(H) 9 - 16 mg/dL [facility] Creatinine, Serum 1.05 0.5 - 1.4 mg/dL [facility] Creatinine Clr Calc Pharmacy 38.8 [facility] Comment:Provided height and weight: 160.02 cm,53.977 kg.eGFR (calculated from the MDRD study equation) and eCrCl(calculated from the Cockcroft-Gault equation) are based ondifferent parameters and may not yield comparable results.If eCrCl result is absurd, please check patient'sheight/weight. Estimated Glomerular Filt Rate 51 [facility] Comment:Chronic Kidney Disea se: Estimated GFR < 60 mL/min/1.77a7Dltgur Kidney Disease: Estimated GFR < 15 mL/min/1.73m2 Glucose 195(H) 60 - 115 mg/dL [facility] Calcium 8.5 8.4 - 10.2 mg/dL [facility] Bilirubin, Total 0.5 0.0 - 1.0 mg/dL [facility] Aspartate Amino Transferase 30 5 - 31 U/L [facility] Alanine Aminotransferase 22 0 - 31 U/L [facility] Total Protein 6.5 6.5 - 8.0 g/dL [facility] Albumin Level 3.9 3.5 - 5.0 g/dL [facility] Alkaline Phosphatase 75 39 - 117 U/L [facility] 04/26/2025 7:56 PM EDT 04/26/2025 8:23 PM EDT us Generic External Data Provider LAB BLOOD ORDERAB LES Final Result Performing Organization Address City/State/[facility] Co de Phone Number [facility] [address] [place] [address] [phone] * FL Guidance in OR (04/26/2025 9:45 AM EDT) Anatomical Region Laterality Modality X-Ray Angiograph y 04/26/2025 9:45 AM EDT Narrative 04/26/2025 11:54 AM EDT [place] [address] Fluoroscopy Report Signed Patient: Fatoumata Gibson MR#: [id number] : 1950 Acct:[id number] Age/Sex: 75 / F ADM Date: 04/26/25 Loc: HO.[facility] Attending Dr: Sharron Velez PA-C Ordering Physician: Amanuel Ortiz MD Date of Service: 04/26/25 Procedure(s): FL guidance in OR Accession Number(s): [id number] cc: Deborah Joaquin MD; Amanuel Ortiz MD [...] OV> 04/26/25 1151 DD/ TD/TT: 04/26/25 105 Balance Weigher: Procedure Note Donotuseinterpreter, Image - 04/26/2025 [place] [address] Fluoroscopy Report Signed Patient: Fatoumata GibsonMR#: [id number] : 1950cct:[id number] Age/Sex: 75 / FADM Date: 04/26/25 Loc: HO.[facility] Attending Dr: Sharron Velez PA-C Ordering Physician: Amanuel Ortiz MD Date of Service: 04/26/25 Procedure(s): FL guidance in OR Accession Number(s): [id number] cc: Deborah Joaquin MD; Amanuel Ortiz MD [...] OV> 04/26/25 1151 DD/ TD/TT: 04/26/25 1055 Balance Weigher: [facility] External Provider IMG IR PROCEDURES Final Result * BI Mammogram Screening Tomosynthesis Bilateral (04/24/2025 9:50 AM EDT) Anatomical Region Laterality Modality Breast Bilateral Mammography 04/24/2025 9:50 AM EDT Narrative 05/02/2025 4:17 PM EDT [address] [place] [address] Mammography Report Signed Patient: Fatoumata Gibson MR#: [id number] [id number] : 1950 Acct:[id number] Age/Sex: 75 / F ADM Date: 04/24/25 Loc: HO.MAMMO Attending Dr: Deborah Joaquin MD Ordering Physician: Deborah Joaquin MD Results: 1Ne gative Date of Service: 04/24/25 Follow Up: 1 Year From [facility] Mammogram Procedure(s): MM tomosynthesis screening BI Accession Number(s): [id number] cc: Deborah Joaquin MD EXAMINATION: MM SCREENING [...] 05/02/25 1614 DD/ 0950 TD/TT: 04/24/25 1009 Balance Weigher: Procedure Note Donnorbertointerpreter, Image - 05/02/2025 [facility] [address] [place], [place] [address] Mammography Report Signed Patient: Fatoumata GibsonMR#: [id number] : 1950cct:[id number] Age/Sex: 75 / FADM Date: 04/24/25 Loc: HO.MAMMO Attending Dr: Deborah Joaquin MD Ordering Physician: Deborah Joaquin MDResults: 1Ne gative Date of Service: 04/24/25Follow Up: 1 Year From Orig ina Mammogram Procedure(s): MM tomosynthesis screening BI Accession Number(s): [id number] cc: Deborah Joaquin MD EXAMINATION: MM SCREENING [...] 05/02/25 1614 DD/ 0950 TD/TT: 04/24/25 1009 Balance Weigher: us Deborah Joaquin MD IMG BI PROCEDURES Final Result * (ABNORMAL) CBC (04/21/2025 2:25 PM EDT) White Blood Count 5.6 4.8 - 10.8 X10*3/uL [facility] Red Blood Count 4.68 4.20 - 5.50 X10*6/uL [facility] Hemoglobin 12.3 12.0 - 16.0 g/dl [facility] Hematocrit 38.7 37.0 - 47.0 % [facility] Mean Corpuscular Volume 82.7 80.0 - 98.0 fL [facility] Mean Corpuscular Hemoglobin 26.3(L) 27.0 - 33.0 pg [facility] Mean Corpuscular HGB Conc 31.8 31.0 - 35.0 g/dl [facility] Red Cell Distribution Width 13.6 11.0 - 16.0 % [facility] Platelet Count 238 160 - 400 X10*3/uL [facility] Mean Platelet Volume 9.4 9.4 - 12.3 fL [facility] NRBC Pct Auto 0.0 0.0 - 0.2 /100WBC [facility] NRBC Abs Auto 0.000 0.0 - 0.012 X10*3/uL [facility] 04/21/2025 2:25 PM EDT 04/21/2025 2:31 PM EDT us Generic External Data Provider LAB BLOOD ORDERAB LES Final Result [facility] [address] [place] [phone] * MR Femur W/o Contrast Right (04/04/2025 7:09 PM EDT) Anatomical Region Laterality Modality Lower Extremities, Femur Right Magneti c Resonance 04/04/2025 7:09 PM EDT Narrative 04/04/2025 7:10 PM EDT [address] [address] Magnetic Resonance Report Signed Patient: Fatoumata Gibson MR#: [id number] [id number] : 1950 Acct:[id number] Age/Sex: 74 / F ADM Date: 04/02/25 Loc: HO.MRI Attending Dr: Adiel Henderson PA-C Ordering Physician: Adiel Henderson PA-C Date of Service: 04/02/25 Procedure(s): MR femur RT wo con Accession Number(s): [id number] cc: Deborah Joaquin MD; Adiel Henderson PA-C [...] in OV> 04/04/251909 DD/ 08 TD/TT: 04/04/251908 Balance Weigher: Procedure Note Donotuseinterpreter, Image - 04/04/[address] [address] Magnetic Resonance Report Signed Patient: Fatoumata GibsonMR#: [id number] : 1950cct:[id number] Age/Sex: 74 / FADM Date: 04/02/25 Loc: HO.MRI Attending Dr: Adiel Henderson PA-C Ordering Physician: Adiel Henderson PA-C Date of Service: 04/02/25 Procedure(s): MR femur RT wo con Accession Number(s): [id number] cc: Deborah Joaquin MD; Adiel Henderson PA-C [...] in OV> 04/04/251909 DD/ 08 TD/TT: 04/04/251908 Balance Weigher: [facility] External Provider IMG MRI PROCEDURES Final Result from Last [address] [place] [address] [employer] (HMO D-SNP) [place] [id number] Care Teams Firmware Engineer Relationship Specialty Start Date End Date Deborah Joaquin MD [address] [place] [phone] PCP - General Family Medicine 05/14/17 [place] A 05/10/25
== END 2025-06-08 08:32 | disposition home or self-care (01) ==
LOC: HO.HOSX 08:31
PROVIDERS: Visit Provider Physician Assistant
DX: Z47.89 Encounter for other orthopedic aftercare (principal); M84.351D Stress fracture, right femur, subsequent encounter for fracture with routine healing; R60.0 Localized edema
CPT/HCPCS: 73552; 99212

== ENCOUNTER 2025-06-08 12:58 | Outpatient (AMB) | payer OTHER, SELFPAY ==
--- NOTE | 2025-06-08 13:10 | A.OFFVIS_ITS ---
Vital Signs 06/08/25 13:12 Height 5 ft 3 in Weight 123 lb BMI 21.8 Intake Visit Reasons: PO- RT femur IMN, DOS 04/26/25 Intake Note: Fatoumata is a 75 year old female who presents today for a post operative appointment status post of her Right femur IMN 04/26/25 NE. At her last visit she was advised to continue to work with physical therapy on glutes, core and quad strengthening. Also, gait training with a walker. Patient reports she has concerns due to the discoloration of her right foot. States since after surgery she has notice her ankle and foot swells often and has discoloration. Also has numbness and throbbing in her toes as well. Warranty Administrator Name: Ena GONZALEZ/KRISTOFER Allergies atenolol Allergy (Unknown, Verified 06/08/25 13:14) swelling ibuprofen (From Motrin) Adverse Reaction (Intermediate, Verified 06/08/25 13:14) palpatations,TACHYCARDIA/CHEST PAIN HPI HPI PO- RT femur IMN, DOS 04/26/25: Details: Ms. Gibson is a 75-year-old female who presents to the office today status post right femur IM nail on 04/26/2025 for prophylaxis in the setting with stress fracture. Patient states that she continues to have right lower extremity edema. She also states that she continues to have on and off pain in the right hip and lateral side of the femur. She is using a walker to assist with ambulation. No additional complaints. [facility] Medical History (Updated 06/02/25 @ 15:26 by Jose Ulloa NP) Teeth missing Anemia CKD (chronic kidney disease), stage II Benign paroxysmal positional vertigo Ambulates with cane HLD (hyperlipidemia) HTN (hypertension) Osteoporosis Femur fracture, left Surgical History Hx of bilateral cataract extraction (~2023) Hx of colonoscopy History of surgery (~2022) Hx of breast biopsy H/O removal of cyst Family History Father Heart problem HTN (hypertension) CVD (cardiovascular disease) Mother HTN (hypertension) Brother No problems noted. Brother No problems noted. Brother No problems noted. Sister No problems noted. Sister No problems noted. Sister No problems noted. Daughter No problems noted. Daughter No problems noted. Social History Household Members: None Housing: Apartment Are you a primary wound care physician to a significant other at home: No Do you presently have visiting nurse or other home services: No 75 years or older and lives alone: No Alcohol intake: never Comment: COUNTS CORRECT Patient Tobacco Use Status: Never used Tobacco e-Cigarette/Vaping Use: Never Used Second Hand Smoke Exposure: No service: No Current occupational status: disabled Current occupation: right hand Review of Systems Const All systems reviewed & are unremarkable except as noted in HPI and below Physical Exam Vital Signs: BMI result Body Mass Index 21.8 Const General: cooperative, healthy appearing and no acute distress Resp Effort & Inspection: normal respiratory effort and able to speak in complete sentences Extrem Other: Right lower extremity: No signs of infection. No surrounding erythema or drainage around the incision sites. Patient is able to dorsiflex and plantar flex. Calf is supple and nontender. Negative Homans. NVI. Psych Appearance: grossly normal Mental Status: mental status grossly normal Attitude: cooperative Assessment & Plan Assessment & Plan (1) Stress fracture, right femur, initial encounter for fracture: Code(s): M84.351A - Stress fracture, right femur, initial encounter for fracture Category: Medical Plan Ms. Gibson is a 75-year-old female who presents to the office today status post right femur IM nail on 04/26/2025 for prophylaxis in the setting with stress fracture. Patient states that she continues to have right lower extremity edema. She also states that she continues to have on and off pain in the right hip and lateral side of the femur. She is using a walker to assist with ambulation. No additional complaints. While the office today, I educated the patient that full recovery from this type of surgery can take up to 1 year for the patient to resume back to near normal activity. Residual edema in the right lower extremity is normal. I did examine the lower extremity and the patient's calf is supple and nontender with no signs of DVT. I recommended the patient attend outpatient physical therapy which an order has been placed while in the office today. She will follow up in 6 weeks after the beginning of outpatient physical therapy, sooner if needed. X-rays of the right femur which were obtained while in the office today and were reviewed by me, Sharron Velez PA-C, revealed intact orthopedic hardware. Orders: Orders XR femur RT 2V Today M84.351A - Stress fracture, right femur, initial encounter for fracture Coding Level of Care Code Global (20385) Diagnoses Stress fracture, right femur, initial encounter for fracture M84.351A
[2025-06-08 13:12] VITALS: BMI 21.8
== END 2025-06-08 13:33 | disposition home or self-care (01) ==
LOC: HO.HOS 12:58
PROVIDERS: PCP Internal Medicine; Visit Provider Physician Assistant
DX: M84.351A Stress fracture, right femur, initial encounter for fracture (principal)
CPT/HCPCS: 99024

== ENCOUNTER → 2025-06-08 13:02 | Outpatient (BNV) | payer OTHER, SELFPAY | PROVIDERS: Visit Provider Radiology Diagnostic Radiology | DX: M84.351D Stress fracture, right femur, subsequent encounter for fracture with routine healing (principal) | CPT/HCPCS: 73552 ==

== ENCOUNTER 2025-06-19 14:09 | Outpatient (REF) | payer OTHER, SELFPAY ==
--- NOTE | ~2025-06-19 | XR_ITS ---
EXAMINATION: XR TIBIA AND FIBULA, RIGHT CLINICAL INFORMATION: hx of stress fracture, burning pain x 2 months in right foot and vital COMPARISON: None available. TECHNIQUE: AP and lateral views of the right tibia and fibula were obtained. FINDINGS: The bones and soft tissues are normal. No fracture. No osseous lesions. XR/XR tibia fibula RT 2V IMPRESSION: Unremarkable right tibia and fibula. Electronically signed by: Kulwinder Caro MD 06/19/2025 02:34 PM EDT
--- NOTE | ~2025-06-19 | XR_ITS ---
EXAMINATION: XR FOOT, RIGHT CLINICAL INFORMATION: hx of stress fracture, burning pain x 2 months in right foot and vital COMPARISON: None available. TECHNIQUE: AP, lateral, and oblique views of the right foot. FINDINGS: There is diffuse osteopenia. No fracture lucency is identified. There is no linear sclerosis. There is no periosteal new bone formation. Small calcaneal spurs are incidentally noted. XR/XR foot RT min 3V IMPRESSION: Osteopenia, no visible fracture. Electronically signed by: Kulwinder Caro MD 06/19/2025 02:40 PM EDT
--- OUTSIDE RECORDS SUMMARY | 2025-06-19 14:40 | XMS_ITS | Encounter Summary ---
Author Organization [employer] Address [address] [place] [address] Care Team Providers Care Weigher Bulker Name Role Phone Deborah Joaquin MD Primary Care Provider + Reason for Visit * Reason Comments Leg Pain Knee Pain Encounter Details Date Type Department Care Team (Latest Contact Info) Description 06/19/2025 2:40 PM EDT Office Visit [facility] [address] [place], [place] [phone] Pain of right lower extremity (Primary Dx); Other mononeuropathy Social History Tobacco Use Types Packs/Day Years [...] Sign Reading Time Taken Comments Blood Pressure 138/72 06/19/2025 1:27 PM EDT Pulse 73 06/19/2025 1:27 PM EDT Temperature 36.9 C (98.4 F) 06/19/2025 1:27 PM EDT Respiratory Rate 17 06/19/2025 1:27 PM EDT Oxygen Saturation 97% 06/19/2025 1:27 PM EDT Inhaled Oxygen Concentration - - Weight 54.8 kg (120 lb 12.8 oz) 06/19/2025 1:27 PM EDT Height - - Body Mass Index 21.4 05/15/2025 1:11 PM EDT documented in this encounter Miscellaneous Notes * Assessment & Plan Note - Mya Jordan NP - 06/19/2025 2:40 PM EDTAssociated Problem(s): Pain of right lower extremity Orders: XR Foot 3+ Views Right; Future XR Tibia Fibula 2 Views Right; Future * Assessment & Plan Note - Mya Jordan NP - 06/19/2025 2:40 PM EDTAssociated Problem(s): Peripheral neuropathy documented in this encounter Plan of Treatment Upcoming Encounters Date Type Department Care Team (Late st Contact Info) Description 06/20/2025 10:45 AM EDT Office Visit [facility] [address] [place] [address] Deborah Joaquin MD [address] [place] [address] 07/24/2025 11:00 AM EST Office Visit [facility] [address] [place] [address] Kendy Butler, OD [address] [place] [address] documented as of this encounter Procedures Procedure Name Priority Date/Time Associated Diagnosis Comments XR FOOT 3+ VIEWS RIGHT Routine 06/19/2025 2:25 PM EDT Pain of right lower extremity XR TIBIA FIBULA 2 VIEWS RIGHT Routine 06/19/2025 2:25 PM EDT Pain of right lower extremity documented in this encounter Results * XR Tibia Fibula 2 Views Right (06/19/2025 2:25 PM EDT) Anatomical Region Laterality Modality Lower Extremities, Lower Leg Right Rad iographic Imaging 06/19/2025 2:25 PM EDT Narrative 06/19/2025 2:37 PM EDT [address] [address] XRay Report Signed Patient: Fatoumata Gibson MR#: [id number] : 1950 Acct:[id number] Age/Sex: 75 / F ADM Date: 06/19/25 Loc: HO.HHX Attending Dr: Mya Jordan CIRCUIT WALKER Ordering Physician: Mya Jordan NP Date of Service: 06/19/25 Procedure(s): XR tibia fibula RT 2V Accession Number(s): [id number] cc: Mya Jordan NP Reason for Exam: hx of stress fracture, burning pain x 2 months in right foot and vital EXAMINATION: XR TIBIA AND FIBULA, RIGHT CLINICAL INFORMATION: hx of stress fracture, burning pain x 2 months in right foot and vital COMPARISON: None available. TECHNIQUE: AP and lateral views of the right tibia and fibula were obtained. FINDINGS: The bones and soft tissues are normal. No fracture. No osseous lesions. XR/XR tibia fibula RT 2V IMPRESSION: Unremarkable right tibia and fibula. Electronically signed by: Kulwinder Caro MD 06/19/2025 02:34 PM EDT RP Dictated By: Kulwinder Caro MD Signed By: <Electronically signed by Kulwinder Caro MD in OV> 06/19/25 1434 DD/ 1425 TD/TT: 06/19/251427 Caster Helper: Procedure Note Donotuseinterpreter, Image - 06/19/2025 [place] [address] XRay Report Signed Patient: Fatoumata GibsonMR#: [id number] : 1950cct:[id number] Age/Sex: 75 / FADM Date: 06/19/25 Loc: HO.HHCX Attending Dr: Mya Jordan CIRCUIT WALKER Ordering Physician: Mya Jordan NP Date of Service: 06/19/25 Procedure(s): XR tibia fibula RT 2V Accession Number(s): [id number] cc: Mya Jordan NP Reason for Exam: hx of stress fracture, burning pain x 2 months in rightfoot and vital EXAMINATION: XR TIBIA AND FIBULA, RIGHT CLINICAL INFORMATION: hx of stress fracture, burning pain x 2 months in right foot and vital COMPARISON: None available. TECHNIQUE: AP and lateral views of the right tibia and fibula were obtained. FINDINGS: The bones and soft tissues are normal. No fracture. No osseous lesions. XR/XR tibia fibula RT 2V IMPRESSION: Unremarkable right tibia and fibula. Electronically signed by: Kulwinder Caro MD 06/19/2025 02:34 PM EDT RP Dictated By: Kulwinder Caro MD Signed By: <Electronically signed by Kulwinder Caro MD in OV> 06/19/25 1434 DD/ 24 TD/TT: 06/19/251427 Caster Helper: us Mya Jordan CIRCUIT WALKER IMG XR PROCEDURES Final Result * XR Foot 3+ Views Right (06/19/2025 2:25 PM EDT) Anatomical Region Laterality Modality Lower Extremities, Foot Right Radiogra phic Imaging 06/19/2025 2:25 PM EDT Narrative 06/19/2025 2:43 PM EDT [facility] [address] [place] [address] XRay Report Signed Patient: Fatoumata Gibson MR#: [id number] : 1950 Acct:[id number] Age/Sex: 75 / F ADM Date: 06/19/25 Loc: HO.HHCX Attending Dr: Mya Jordan NP Ordering Physician: Mya Jordan NP Date of Service: 06/19/25 Procedure(s): XR foot RT min 3V Accession Number(s): [id number] cc: Mya Jordan NP Reason for Exam: hx of stress fracture, burning pain x 2 months in right foot and vital EXAMINATION: XR FOOT, RIGHT CLINICAL INFORMATION: hx of stress fracture, burning pain x 2 months in right foot and vital COMPARISON: None available. TECHNIQUE: AP, lateral, and oblique views of the right foot. FINDINGS: There is diffuse osteopenia. No fracture lucency is identified. There is no linear sclerosis. There is no periosteal new bone formation. Small calcaneal spurs are incidentally noted. XR/XR foot RT min 3V IMPRESSION: Osteopenia, no visible fracture. Electronically signed by: Kulwinder Caro MD 06/19/2025 02:40 PM EDT Dictated By: Kulwinder Caro MD Signed By: <Electronically signed by Kulwinder Caro MD in [place]> 06/19/25 1440 DD/ 24 TD/TT: 06/19/251427 Caster Helper: Procedure Note Donotuseinterpreter, Image - 06/19/2025 [facility] [address] [place] [address] XRay Report Signed Patient: Fatoumata GibsonMR#: [id number] : 1950cct:[id number] Age/Sex: 75 / FADM Date: 06/19/25 Loc: HO.HHCX Attending Dr: Mya Jordan CIRCUIT WALKER Ordering Physician: Mya Jordan NP Date of Service: 06/19/25 Procedure(s): XR foot RT min 3V Accession Number(s): [id number] cc: Mya Jordan NP Reason for Exam: hx of stress fracture, burning pain x 2 months in rightfoot and vital EXAMINATION: XR FOOT, RIGHT CLINICAL INFORMATION: hx of stress fracture, burning pain x 2 months in right foot and vital COMPARISON: None available. TECHNIQUE: AP, lateral, and oblique views of the right foot. FINDINGS: There is diffuse osteopenia. No fracture lucency is identified. There is no linear sclerosis. There is no periosteal new bone formation. Small calcaneal spurs are incidentally noted. XR/XR foot RT min 3V IMPRESSION: Osteopenia, no visible fracture. Electronically signed by: Kulwinder Caro MD 06/19/2025 02:40 PM EDT Dictated By: Kulwinder Caro MD Signed By: <Electronically signed by Kulwinder Caro MD in [place]> 06/19/25 1440 DD/ 1425 TD/TT: 06/19/25 1428 Caster Helper: Mya Jordan NP IMG XR PROCEDURES Final Result documented in this encounter Visit Diagnoses Diagnosis Pain of right lower extremity- Primary Other mononeuropathy documented in this encounter Additional Health Concerns Assessment Noted Time PHQ-9 Depression Total Score: 3 05/15/20 25 1:12 PM EDT documented as of this encounter Care Teams Weigher Bulker Relationship Specialty Start Date End Date Deborah Joaquin MD [address] [place] [address] PCP - General Family Medicine 05/14/17 Natalee MARTINEZ 05/10/25 documented as of this encounter
--- OUTSIDE RECORDS SUMMARY | 2025-06-19 16:00 | XMS_ITS | Encounter Summary ---
Author Organization [employer] Address [address] [place] [address] Care Team Providers Care Green Chain Marker Name Role Phone Deborah Joaquin MD Primary Care Provider + Encounter Details Date Type Department Care Team (Late st Contact Info) Description 06/19/2025 Telephone [facility] [address] [place], [place] [phone] Deborah Joaquin MD [address] [place], [place] [phone] Social History Tobacco Use Types Packs/Day Years [...] encounter Miscellaneous Notes * Telephone Encounter - Nicole Pham MA - 06/19/2025 3:20 PM EDT Chart Prep Labs: done Images: done Referrals: not applicable Vaccines due: Covid, Flu, RSV, and Zoster Screenings: colonoscopy Overdue care gaps: Not applicable documented in this encounter Plan of Treatment Upcoming Encounters Date Type Department Care Team (Late st Contact Info) Description 06/20/2025 10:45 AM EDT Office Visit [facility] [address] [place] [address] Deborah Joaquin MD [address] [place] [address] 07/24/2025 11:00 AM EST Office Visit [facility] [address] [place] [address] Kendy Butler, OD [address] [place] [address] documented as of this encounter Visit Diagnoses Not on filedocumented in this encounter Additional Health Concerns Assessment Noted Time PHQ-9 Depression Total Score: 3 05/15/20 1:12 PM EDT documented as of this encounter Care Teams Green Chain Marker Relationship Specialty Start Date End Date Deborah Joaquin MD [address] [place] [address] PCP - General Family Medicine 05/14/17 Natalee Bill 05/10/25 documented as of this encounter
--- OUTSIDE RECORDS SUMMARY | 2025-06-19 16:00 | XMS_ITS | Encounter Summary ---
Author Organization [employer] Address [address]t [place] [address] Care Team Providers Care Labor Crew Supervisor Name Role Phone Deborah Joaquin MD Primary Care Provider + Reason for Visit * Reason Comments Med Refill Encounter Details Date Type Department Care Team (Late st Contact Info) Description 04/21/2023 Refill [facility] [address] [place], [place] [phone] Deborah Joaquin MD [address] [place] [phone] Social History Tobacco Use Types Packs/Day Years [...] Description 06/20/2025 10:45 AM EDT Office Visit [facility] [address] [place], [place] [phone] Deborah Joaquin MD [address] [place] [address] 07/24/2025 11:00 AM EST Office Visit [facility] [address] [place] [address] Lucerosharifa Kendy, OD [address] [place] [address] documented as of this encounter Visit Diagnoses Not on filedocumented in this encounter Care Teams Labor Crew Supervisor Relationship Specialty Start Date End Date Deborah Joaquin MD [address] [place] [address] PCP - General Family Medicine [facility] documented as of this encounter
--- OUTSIDE RECORDS SUMMARY | 2025-06-19 16:00 | XMS_ITS | Encounter Summary ---
Author Organization [employer] Address [address] [place] [address] Care Team Providers Care Manager Commercial Real Estate Name Role Phone Deborah Joaquin MD Primary Care Provider + Reason for Visit * Reason Onset Date Comments Appointment Request 12/16/2024 Encounter Details Date Type Department Care Team ([facility] st Contact Info) Description 12/16/[address] [facility] [address] [place], [place] [phone] Deborah Joaquin MD [address] [place], [place] [phone] Appointment Request Social History Tobacco Use Types [...] R/s appt from 12/16/24. Contact pt at [phone] documented in this encounter Plan of Treatment Upcoming Encounters Date Type Department Care Team (Late st Contact Info) Description 06/20/2025 10:45 AM EDT Office Visit [facility] [address] [place] [address] Deborah Joaquin MD [address] [place] [address] 07/24/2025 11:00 AM EST Office Visit [facility] [address] [place] [address] Kendy Butler, OD [address] [place] [address] documented as of this encounter Visit Diagnoses Not on filedocumented in this encounter Care Teams Manager Commercial Real Estate Relationship Specialty Start Date End Date Deborah Joaquin MD [address] [place] [address] PCP - General Family Medicine 05/14/17 [facility] 05/10/25 documented as of this encounter
--- OUTSIDE RECORDS SUMMARY | 2025-06-19 16:00 | XMS_ITS | Encounter Summary ---
Author Organization [employer] Address [address] [place] [address] Care Team Providers Care Deaf Teacher Name Role Phone Deborah Joaquin MD Primary Care Provider + Reason for Visit * Reason Onset Date Comments Pre-op Exam 03/11/2024 Encounter Details Date Type Department Care Team ([facility] st Contact Info) Description 03/11/2024 Telephone [facility] [address] [place], [place] [phone] Deborah Joaquin MD [address] [place], [place] [phone] Pre-op Exam Social History Tobacco Use Types [...] [facility] Surgeon's office number: [phone] Surgeon's office fax number: [phone] Contact name (person you spoke with): Manisha Last office note from surgeon requested: Will be faxed Date of Surgery: 04/19 Surgical procedure being done: Cataract Surgery on the right eye Type of anesthesia: Mac Lab needed: no EKG: no Surgeon's name: Dr. Sonny Freeman Facility name: [facility] Surgeon's office number: [phone] Surgeon's office fax number: [phone] Contact name (person you spoke with): Manisha Last office note from surgeon requested: Will Be faxed documented in this encounter Plan of Treatment Upcoming Encounters Date Type Department Care Team ([facility] st Contact Info) Description 06/20/2025 10:45 AM EDT Office Visit [facility] [address] [place] [address] Deborah Joaquin MD [address] [place] [address] 07/24/2025 11:00 AM EST Office Visit [facility] [address] [place], [place] [phone] Kendy Butler, OD [address] [place], [place] [phone] documented as of this encounter Visit Diagnoses Not on filedocumented in this encounter Care Teams Deaf Teacher Relationship Specialty Start Date End Date Deborah Joaquin MD [address] [place], [place] [phone] PCP - General Family Medicine 05/14/17 [facility] 05/10/25 documented as of this encounter
--- OUTSIDE RECORDS SUMMARY | 2025-06-19 16:00 | XMS_ITS | Clinical Summary ---
Author Organization [employer] Address [address] [facility] [address] [place] [address] Care Team Providers Care Equine Vet Name Role Phone Deborah Joaquin MD Primary [...] pain. 30 g 2 025 05/15 Active brimonidine (AlphaGAN) 0.2 % [...] BY MOUTH EVERY DAY 90 tablet Active gabapentin (Neurontin) 100 MG capsule Take 1 capsule (100 mg) by mouth Once per day for 3 days, THEN 1 capsule (100 mg) 2 times daily for 3 days, THEN 1 capsule (100 mg) 3 times daily. 99 capsule 025 07/25 Active brimonidine (AlphaGAN) 0.2 % ophthalmic solutionIndications:Pr [...] EVERY DAY 90 tablet 025 05/24 Discontinued Active Problems Problem Noted Date Diagnosed Date Pain of right lower extremity 06/19/2025 Assessment & Plan (06/19/2025 2:06 PM EDT): Orders: XR Foot 3+ Views Right; Future XR Tibia Fibula 2 Views Right; Future Peripheral neuropathy 06/19/2025 Assessment & Plan (06/19/2025 2:06 PM EDT): Paroxysmal A-fib 05/15/2025 Opacity of lung on imaging study 05/01/2025 Overview (05/01/2025): CT scan chest on 04/28/2025 at [facility] showed scattered opacities (approximate 6) on right [...] the house. 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 with cooking instructor Assessment & Plan (01/02/2023 12:05 PM EDT): [...] Encounters Date Type Department Care Team Description 06/19/2025 2:40 PM EDT Office Visit [facility] [address] [place] [phone] Pain of right lower extremity (Primary Dx); Other mononeuropathy 06/19/2025 Telephone [facility] [address] [place] [address] [phone] Deborah Joaquin MD 06/19/2025 Travel 06/12/2025 Patient Outreach [facility] [address] [place] [address] [phone] Deborah Joaquin MD Pre-visit Planning (SDOH screening completed on 12/07/2024) 05/24/2025 Refill [facility] [address] [place] [address] [phone] Sara Patterson, DO Primary hypertension 05/24/2025 Refill [facility] [address] [place] [address] Luke, Kendy, OD Primary open angle glaucoma (POAG) of both eyes, moderate stage 05/18/2025 Telephone [facility] [address] [place] [address] Deborah Joaquin MD Call Back Request 05/15/2025 1:00 PM EDT Office Visit [address] [address] Octavio Billy MD Paroxysmal A-fib (CMS/[facility]) (Primary Dx); Foot pain, right; S/P ORIF (open reduction internal fixation) fracture 05/15/2025 Orders Only GENERIC EXTERNAL DATA DEPARTMENT Provider, Generic External Data 05/15/2025 Travel 05/15/2025 Telephone [facility] [place] [address] Octavio Billy MD CHART PREP 05/01/2025 Results Follow-Up [address] [address] Deborah Joaquin MD CTA Chest PE Protocal 04/28/2025 Orders Only [facility] External Provider, [facility] 04/28/2025 Patient Outreach [address] [address] Deborah Joaquin MD Transition Of Care (Tcm) (HDF unscheduled ) 04/28/[address] [address] Deborah Joaquin MD Hospital Follow-up 04/27/2025 Results Follow-Up [address] [address] Deborah Joaquin MD B Type Natriuretic Peptide (BNP), CBC auto differential, TSH with Reflex to Free T4, Additional followed-up results: 3 04/27/2025 Orders Only GENERIC EXTERNAL DATA DEPARTMENT Provider, Generic External Data 04/27/2025 Refill [facility] [address] [place] [address] Deborah Joaquin MD 04/26/2025 Orders Only [facility] External Provider, [facility] 04/24/2025 Orders Only [facility] [address] [place] [address] Deborah Joaquin MD 04/21/2025 Orders Only GENERIC EXTERNAL DATA DEPARTMENT Provider, Generic External Data 04/19/2025 Refill [facility] [address] [place] [address] Deborah Joaquin MD 04/18/2025 Refill [facility] [address] [place] [address] Deborah Joaquin MD 04/13/2025 Refill [facility] [address] [place], [place] [phone] Deborah Joaquin MD 04/02/2025 Orders Only [facility] External Provider, [facility] 03/29/2025 Refill [facility] [address] [place], [place] [phone] Deborah Joaquin MD Pure hypercholesterolemia from Last [...] 12.8 oz) 06/19/2025 1:27 PM EDT Height 160 cm (5' 3 ) 05/15/2025 1:11 PM EDT Body Mass Index 21.4 05/15/2025 1:11 PM EDT Plan of Treatment Upcoming Encounters Date Type Department Care Team (Late st Contact Info) Description 06/20/2025 10:45 AM EDT Office Visit [facility] [address] [place] [address] Deborah Joaquin MD [address] [place] [address] 07/24/2025 11:00 AM EST Office Visit [facility] [address] [place] [address] Kendy Butler, OD [address] [place] [address] Health Maintenance Due Date Last Done Comments CT Colonography 1950 Colonoscopy 1950 Colorectal Cancer Screening 1950 FIT DNA/Cologuard 1950 FIT 1950 FOBT 1950 Sigmoidoscopy 1950 Hepatitis C Screening 1969 Zoster Vaccines (1 of 2) 2001 RSV Patients and Patients Aged 60 years or older (1 - Risk 60-74 years 1-dose series) 2011 COVID-19 Vaccine ( season) 2025 12/21/2020, 11/23/2020 Influenza Vaccine (#1) [...] Name Priority Date/Time Associated Diagnosis Comments XR TIBIA FIBULA 2 VIEWS RIGHT Routine 06/19/2025 2:25 PM EDT Pain of right lower extremity XR FOOT 3+ VIEWS RIGHT Routine 2:25 PM EDT Pain of right lower extremity COLLAGEN CROSS-LINKED N-TELOPEPTIDE (NTX), U Routine 05/15/2025 [...] EDT from Last 3 Months Results * XR Foot 3+ Views Right (06/19/2025 2:25 PM EDT) Anatomical Region Laterality Modality Lower Extremities, Foot Right Radiogra phic Imaging 06/19/2025 2:25 PM EDT Narrative 06/19/2025 2:43 PM EDT [address] [address] XRay Report Signed Patient: Fatoumata Gibson MR#: [id number] 086 : 1950 Acct:[id number] Age/Sex: 75 / F ADM Date: 06/19/25 Loc: HO.HHCX Attending Dr: Mya Jordan NETWORK SECURITY OFFICER Ordering Physician: Mya Jordan NP Date of Service: 06/19/25 Procedure(s): XR foot RT min 3V Accession Number(s): [id number] cc: Mya Jordan NP Reason for Exam: [...] 06/19/25 1440 DD/ 1425 TD/TT: 06/19/25 1428 Gum Machine Filler: Procedure Note Donotuseinterpreter, Image - 06/19/[address] [address] XRay Report Signed Patient: Fatoumata GibsonMR#: [id number] : 1950cct:[id number] Age/Sex: 75 / FADM Date: 06/19/25 Loc: ANA Attending Dr: Mya Jordan NP Ordering Physician: Mya Jordan NP Date of Service: 06/19/25 Procedure(s): XR foot RT min 3V Accession Number(s): [id number] cc: Mya Jordan NP Reason for Exam: [...] 06/19/25 1440 DD/ 1425 TD/TT: 06/19/25 1428 Gum Machine Filler: us Mya Jordan NP IMG XR PROCEDURES Final Result * XR Tibia Fibula 2 Views Right (06/19/2025 2:25 PM EDT) Anatomical Region Laterality Modality Lower Extremities, Lower Leg Right Rad iographic Imaging 06/19/2025 2:25 PM EDT Narrative 06/19/2025 2:37 PM EDT [address] [address] XRay Report Signed Patient: Fatoumata Gibson MR#: [id number] 086 : 1950 Acct:[id number] Age/Sex: 75 / F ADM Date: 06/19/25 Loc: ANA Attending Dr: Mya Jordan NETWORK SECURITY OFFICER Ordering Physician: Mya Jordan NETWORK SECURITY OFFICER Date of Service: 06/19/25 Procedure(s): XR tibia fibula RT 2V Accession Number(s): [id number] cc: Mya Jordan NETWORK SECURITY OFFICER Reason for Exam: hx of stress fracture, [...] in OV> 06/19/25 1434 DD/ 1425 TD/TT: 06/19/25 1428 Gum Machine Filler: Procedure Note Donotuseinterpreter, Image - 06/19/[address] [address] XRay Report Signed Patient: Fatoumata GibsonMR#: [id number] 086 : 1950cct:[id number] Age/Sex: 75 / FADM Date: 06/19/25 Loc: HO.[place] Attending Dr: Mya Jordan NETWORK SECURITY OFFICER Ordering Physician: Mya Jordan NP Date of Service: 06/19/25 Procedure(s): XR tibia fibula RT 2V Accession Number(s): [id number] cc: Mya Jordan NETWORK SECURITY OFFICER Reason for Exam: hx of stress fracture, [...] in OV> 06/19/25 1434 DD/ 1425 TD/TT: 06/19/25 1428 Gum Machine Filler: us Mya Jordan NETWORK SECURITY OFFICER IMG XR PROCEDURES Final Result * Immunofixation (ROSY), Urine (05/15/2025 1:45 PM EDT) ROSY Interpretation SEE NOTE H [facility] Comment:Normal pattern. No m onoclonal proteins detected.THIS TEST WAS PERFORMED AT:[employer] [place] [id number] JJ MD 05/15/2025 1:45 PM EDT 05/15/2025 4:14 PM EDT us Generic External Data Provider LAB URINE ORDERAB LES Final Result [facility] [address] [place] [phone] * Collagen Cross-Linked N-Telopeptide (NTx), U (05/15/2025 1:45 PM EDT) N Telopetide (NTx) 35 see note H [facility] Comment:Result Units: nM BCE /mM creatPremenopausal Females: 4 - 64 nM BCE/mM creatResults are primarily used for monitoring theresponse to therapy. A value within thepremenopausal range does not rule out osteoporosisnor the need for therapyUnits of Measure: nM BCE/mM creat CREATININE, RANDOM URINE 93 20 - 275 mg/dL [facility] Comment:THIS TEST WAS PERFOR MED AT:[employer]/[id number] [place] [id number] RUBIN MD,PHD 05/15/2025 1:45 PM EDT 05/15/2025 4:14 PM EDT us Generic External Data Provider LAB URINE ORDERAB LES Final Result Performing Organization Address [facility]/ZIP Co de Phone Number [facility] [address] [place] [phone] * TSH (05/15/2025 1:45 PM EDT) Thyroid Stimulating Hormone 1.85 0.32 - 4.0 uIU/mL [facility] Comment:TSH 3rd Generation ( [facility]) 05/15/2025 1:45 PM EDT 05/15/2025 4:05 PM EDT Generic External Data Provider LAB BLOOD ORDERAB LES Final Result Performing Organization Address [facility] de Phone Number [facility] [address] [place] [phone] * T4, Free (05/15/2025 1:45 PM EDT) Free T4 (Free Thyroxine) 1.09 0.71 - 1.85 ng/dL [facility] 05/15/2025 1:45 PM EDT 05/15/2025 4:05 PM EDT Generic External Data Provider LAB BLOOD ORDERAB LES Final Result Performing Organization Address [facility] Co de Phone Number [facility] [address] [place] [phone] * (ABNORMAL) Phosphate (As Phosphorus) (05/15/2025 1:45 PM EDT) Phosphorus 5.1(H) 2.7 - 4.5 mg/dL [facility] 05/15/2025 1:45 PM EDT 05/15/2025 4:05 PM EDT us Generic External Data Provider LAB BLOOD ORDERAB LES Final Result Performing Organization Address [facility]/ZIP Co de Phone Number [facility] [address] [place] [phone] * Magnesium (05/15/2025 1:45 PM EDT) Only the most recent of3 resultswithin the time period is included. Pathologist [facility] Magnesium 2.2 1.6 - 2.6 mg/dL [facility] Blood Venous blood specimen / Unknown 05/15/2025 1:45 PM EDT 05/15/2025 4:05 PM EDT us Deborah Joaquin MD LAB BLOOD ORDERABLES Fin al Result Performing Organization Address [facility] Co de Phone Number [facility] [address] [place] [phone] * (ABNORMAL) Basic Metabolic Panel (05/15/2025 1:45 PM EDT) [facility] Sodium 138 135 - 145 mmol/L [facility] Potassium 5.0 3.3 - 5.1 mmol/L [facility] Comment:Mild Hemolysis.Inter pret result with caution Chloride 105 96 - 108 mmol/L [facility] Carbon Dioxide 23 22 - 29 mmol/L [facility] Anion Gap 15 12 - 20 [facility] Urea Nitrogen (BUN) 39(H) 9 - 16 mg/dL [facility] Creatinine, Serum 1.23 0.5 - 1.4 mg/dL [facility] Estimated Glomerular Filt Rate 43 [facility] Comment:Chronic Kidney Disea se: Estimated GFR < 60 mL/min/1.84u3Nnfyqw Kidney Disease: Estimated GFR < 15 mL/min/1.73m2 Glucose 86 60 - 115 mg/dL [facility] Calcium 9.4 8.4 - 10.2 mg/dL [facility] Blood Venous blood specimen / Unknown 05/15/2025 1:45 PM EDT 05/15/2025 4:05 PM EDT us Deborah Joaquin MD LAB BLOOD ORDERABLES Fin al Result Performing Organization Address City/State/[facility] Co de Phone Number [facility] [address] [place] [phone] * CTA Chest PE Protocal (04/28/2025 11:59 AM EDT) Anatomical Region Laterality Modality Body, Chest Computed Tomogra phy 04/28/2025 11:5 9 AM EDT Narrative 04/28/2025 1:26 PM EDT [address] [address] [address] Scan Report Signed Patient: Fatoumata Gibson MR#: [id number] 086 : 1950 Acct:[id number] Age/Sex: 75 / F ADM Date: 04/28/25 Loc: .ED Attending Dr: Ordering Physician: Hollie Ladd DO Date of Service: 04/28/25 Procedure(s): CT angio chest PE protocol Accession Number(s): [id number] cc: Deborah Joaquin MD; Hollie Ladd DO Report Number: [id number]: Total DLP = 165.00 mGy-cm EXAMINATION: CT [...] 04/28/25 1323 DD/ 1159 TD/TT: 04/28/25 1309 Gum Machine Filler: Procedure Note Donotuseinterpreter, Image - 04/28/[address] [address] [address] Scan Report Signed Patient: Fatoumata Gibson#: [id number] : 1950cct:[id number] Age/Sex: 75 / FADM Date: 04/28/25 Loc: HO.ED Attending Dr: Ordering Physician: Hollie Ladd DO Date of Service: 04/28/25 Procedure(s): CT angio chest PE protocol Accession Number(s): [id number] cc: Deborah Joaquin MD; Hollie Ladd DO Report Number: [id number]: Total DLP = 165.00 mGy-cm EXAMINATION: CT [...] 04/28/25 1323 DD/ 1159 TD/TT: 04/28/25 1309 Gum Machine Filler: [facility] External Provider IMG CT PROCEDURES Final Result * (ABNORMAL) Basic Metabolic Panel, Fasting (04/27/2025 5:33 AM EDT) Sodium 138 135 - 145 mmol/L [facility] Potassium 4.6 3.3 - 5.1 mmol/L [facility] Chloride 103 96 - 108 mmol/L [facility] Carbon Dioxide 27 22 - 29 mmol/L [facility] Anion Gap 13 12 - 20 [facility] Urea Nitrogen (BUN) 22(H) 9 - 16 mg/dL [facility] Creatinine, Serum 1.10 0.5 - 1.4 mg/dL [facility] Creatinine Clr Calc Pharmacy 37.1 [facility] Comment:Provided height and weight: 160.02 cm,53.977 kg.eGFR (calculated from the MDRD study equation) and eCrCl(calculated from the Cockcroft-Gault equation) are based ondifferent parameters and may not yield comparable results.If eCrCl result is absurd, please check patient'sheight/weight. Estimated Glomerular Filt Rate 49 [facility] Comment:Chronic Kidney Disea se: Estimated GFR < 60 mL/min/1.32d3Hssttk Kidney Disease: Estimated GFR < 15 mL/min/1.73m2 Glucose Fasting 108(H) 60 - 99 mg/dL [facility] Comment:A fasting glucose fr om 100-125 mg/dl is considered impaired(pre-diabetes). Calcium 8.3(L) 8.4 - 10.2 mg/dL [facility] 04/27/2025 5:33 AM EDT 04/27/2025 6:49 AM EDT us Generic External Data Provider LAB BLOOD ORDERAB LES Final Result [facility] [address] [place] [phone] * (ABNORMAL) CBC auto differential (04/27/2025 5:33 AM EDT) Only the most recent of2 resultswithin the time period is included. White Blood Count 9.6 4.8 - 10.8 X10*3/uL [facility] Red Blood Count 4.07(L) 4.20 - 5.50 X10*6/uL [facility] Hemoglobin 11.2(L) 12.0 - 16.0 g/dl [facility] Hematocrit 32.5(L) 37.0 - 47.0 % [facility] Mean Corpuscular Volume 79.9(L) 80.0 - 98.0 fL [facility] Mean Corpuscular Hemoglobin 27.5 27.0 - 33.0 pg [facility] Mean Corpuscular HGB Conc 34.5 31.0 - 35.0 g/dl [facility] Red Cell Distribution Width 13.9 11.0 - 16.0 % [facility] Platelet Count 217 160 - 400 X10*3/uL [facility] Mean Platelet Volume 11.6 9.4 - 12.3 fL [facility] Neutrophils Percent Auto 82.1(H) 45 - 73 % [facility] Imm Gran Pct Auto 0.5(H) 0.0 - 0.4 % [facility] Lymphocytes Percent Auto 10.6(L) 20 - 40 % [facility] Monocytes Percent Auto 6.6 2 - 11 % [facility] Eosinophils Percent Auto 0.1 0 - 4 % [facility] Basophils Percent Auto 0.1 0 - 2 % [facility] NRBC Pct Auto 0.0 0.0 - 0.2 /100WBC [facility] Neutrophils Absolute Auto 7.9 2.0 - 8.3 x10*3/uL [facility] Imm Gran Abs Auto 0.05(H) 0.00 - 0.03 X10*3/uL [facility] Lymphocytes Absolute Auto 1.0(L) 1.2 - 4.9 X10*3/uL [facility] Monocytes Absolute Auto 0.6 0.1 - 1.2 X10*3/uL [facility] Eosinophils Absolute Auto 0.0 0.0 - 0.4 X10*3/uL [facility] Basophils Absolute Auto 0.0 0.0 - 0.2 X10*3/uL [facility] NRBC Abs Auto 0.000 0.0 - 0.012 X10*3/uL [facility] 04/27/2025 5:33 AM EDT 04/27/2025 6:49 AM EDT us Generic External Data Provider LAB BLOOD ORDERAB LES Final Result Performing Organization Address City/State/[facility] Co de Phone Number [facility] [address] [place] [phone] * Lipid Panel, Standard (04/27/2025 5:33 AM EDT) Triglycerides 69 <150 mg/dL [facility] Comment:Desirable Triglyceri de: less than 150 mg/dLBorderline High Triglyceride 150-199 mg/dLHigh Triglyceride: 200-499 mg/dLVery High Triglyceride: greater than or equal to 5OO mg/dL Cholesterol 135 <200 mg/dL [facility] Comment:Desirable Cholestero l: less than 200 mg/dLBorderline High Cholesterol: 200-239 mg/dLHigh Cholesterol: greater than 239 mg/dL LDL Cholesterol Calculated 58 <100 mg/dL [facility] Comment:Desirable LDL: less than 100 mg/dLNear Optimal/Above Optimal LDL: 110- 129 mg/dLBorderline High LDL: 130-159 mg/dLHigh LDL: 160-189 mg/dLVery High LDL: greater than or equal to 190 mg/dL HDL Cholesterol 64 >40 mg/dL [facility] Comment:Desirable HDL: great er than 40 mg/dL Note: This HDL assay may give artificially low results in patients with liver disease. 04/27/2025 5:33 AM EDT 04/27/2025 6:49 AM EDT us Generic External Data Provider LAB BLOOD ORDERAB LES Final Result Performing Organization Address [facility]/ZIP Co de Phone Number [facility] [address] [place] [phone] * Slide Review (04/26/2025 7:56 PM EDT) Slide Review VERIFIED [facility] 04/26/2025 7:56 PM EDT 04/26/2025 8:23 PM EDT us Generic External Data Provider LAB BLOOD ORDERAB LES Final Result Performing Organization Address [facility] Co de Phone Number [facility] [address] [place] [phone] * TSH with Reflex to Free T4 (04/26/2025 7:56 PM EDT) TSH reflex Free T4 0.54 0.32 - 4.0 uIU/mL [facility] 04/26/2025 7:56 PM EDT 04/26/2025 8:23 PM EDT Generic External Data Provider LAB BLOOD ORDERAB LES Final Result Performing Organization Address [facility] Co de Phone Number [facility] [address] [place] [phone] * (ABNORMAL) B Type Natriuretic Peptide (BNP) (04/26/2025 7:56 PM EDT) B Type Natriuretic Peptide 321(H) <100 pg/mL [facility] 04/26/2025 7:56 PM EDT 04/26/2025 8:23 PM EDT us Generic External Data Provider LAB BLOOD ORDERAB LES Final Result [facility] [address] [place] [phone] * (ABNORMAL) Comprehensive Metabolic Panel (04/26/2025 7:56 PM EDT) Pathologist [facility] Sodium 138 135 - 145 mmol/L [facility] Potassium 4.2 3.3 - 5.1 mmol/L [facility] Chloride 103 96 - 108 mmol/L [facility] Carbon Dioxide 28 22 - 29 mmol/L [facility] Anion Gap 11(L) 12 - 20 [facility] Urea Nitrogen (BUN) 20(H) 9 - 16 mg/dL [facility] Creatinine, Serum 1.05 0.5 - 1.4 mg/dL [facility] Creatinine Clr Calc Pharmacy 38.8 [facility] Comment:Provided height and weight: 160.02 cm,53.977 kg.eGFR (calculated from the MDRD study equation) and eCrCl(calculated from the Cockcroft-Gault equation) are based ondifferent parameters and may not yield comparable results.If eCrCl result is absurd, please check patient'sheight/weight. Estimated Glomerular Filt Rate 51 [facility] Comment:Chronic Kidney Disea se: Estimated GFR < 60 mL/min/1.36d8Utnpko Kidney Disease: Estimated GFR < 15 mL/min/1.73m2 Glucose 195(H) 60 - 115 mg/dL [facility] Calcium 8.5 8.4 - 10.2 mg/dL [facility] Bilirubin, Total 0.5 0.0 - 1.0 mg/dL [facility] Aspartate Amino Transferase 30 5 - 31 U/L [facility] Alanine Aminotransferase 22 0 - 31 U/L [facility] Total Protein 6.5 6.5 - 8.0 g/dL [facility] Albumin Level 3.9 3.5 - 5.0 g/dL [facility] Alkaline Phosphatase 75 39 - 117 U/L [facility] 04/26/2025 7:56 PM EDT 04/26/2025 8:23 PM EDT us Generic External Data Provider LAB BLOOD ORDERAB LES Final Result [facility] [address] [place] [phone] * [place] Guidance in [place] (04/26/2025 9:45 AM EDT) Anatomical Region Laterality Modality X-Ray Angiograph y 04/26/2025 9:45 AM EDT Narrative 04/26/2025 11:54 AM EDT [place] [address] Fluoroscopy Report Signed Patient: Fatoumata Gibson MR#: [id number] [id number] : 1950 Acct:[id number] Age/Sex: 75 / F ADM Date: 04/26/25 Loc: HO[facility] Attending Dr: Sharron Velez PA-C Ordering Physician: Amanuel Ortiz MD Date of Service: 04/26/25 Procedure(s): [place] guidance in OR Accession Number(s): [id number] cc: Deborah Joaquin MD; Amanuel Ortiz MD [...] by Ramu Caal MD in OV> 04/26/25 115 DD/ 4 TD/TT: 04/26/251054 Gum Machine Filler: Procedure Note Donotuseinterpreter, Image - 04/26/[address] [address] Fluoroscopy Report Signed Patient: Fatoumata GibsonMR#: [id number] : 1950cct:[id number] Age/Sex: 75 / FADM Date: 04/26/25 Loc: HO.[facility] Attending Dr: Sharron Velez PA-C Ordering Physician: Amanuel Ortiz MD Date of Service: 04/26/25 Procedure(s): FL guidance in OR Accession Number(s): [id number] cc: Deborah Joaquin MD; Amanuel Ortiz MD [...] by Ramu Caal MD in OV> 04/26/25 115 DD/ 4 TD/TT: 04/26/251054 Gum Machine Filler: [facility] External Provider IMG IR PROCEDURES Final Result * BI Mammogram Screening Tomosynthesis Bilateral (04/24/2025 9:50 AM EDT) Anatomical Region Laterality Modality Breast Bilateral Mammography 04/24/2025 9:50 AM EDT Narrative 05/02/2025 4:17 PM EDT [facility] [address] [place], [place] [address] Mammography Report Signed Patient: Fatoumata Gibson MR#: [id number] 086 : 1950 Acct:[id number] Age/Sex: 75 / F ADM Date: 04/24/25 Loc: HO.MAMMO Attending Dr: Deborah Joaquin MD Ordering Physician: Deborah Joaquin MD Results: 1Ne gative Date of Service: 04/24/25 Follow Up: 1 Year From Orig inal Mammogram Procedure(s): MM tomosynthesis screening BI Accession Number(s): [id number] cc: Deborah Joaquin MD EXAMINATION: MM SCREENING [...] 05/02/25 1614 DD/ 0950 TD/TT: 04/24/25 1009 Gum Machine Filler: Procedure Note Donotuseinterpreter, Image - 05/02/2025 Natalee [facility]'s [address] [place] [address] Mammography Report Signed Patient: Fatoumata GibsonMR#: [id number] : 1950cct:[id number] Age/Sex: 75 / FADM Date: 04/24/25 Loc: HO.MAMMO Attending Dr: Deborah Joaquin MD Ordering Physician: Deborah Joaquin MDResults: 1Ne gative Date of Service: 04/24/25Follow Up: 1 Year From Orig inal Mammogram Procedure(s): MM tomosynthesis screening BI Accession Number(s): [id number] cc: Deborah Joaquin MD EXAMINATION: MM SCREENING [...] 05/02/25 1614 DD/ 0950 TD/TT: 04/24/25 1009 Gum Machine Filler: Deborah Joaquin MD IMG BI PROCEDURES Final Result * (ABNORMAL) CBC (04/21/2025 2:25 PM EDT) White Blood Count 5.6 4.8 - 10.8 X10*3/uL [facility] Red Blood Count 4.68 4.20 - 5.50 X10*6/uL [facility] Hemoglobin 12.3 12.0 - 16.0 g/dl [facility] Hematocrit 38.7 37.0 - 47.0 % [facility] Mean Corpuscular Volume 82.7 80.0 - 98.0 fL [facility] Mean Corpuscular Hemoglobin 26.3(L) 27.0 - 33.0 pg [facility] Mean Corpuscular HGB Conc 31.8 31.0 - 35.0 g/dl [facility] Red Cell Distribution Width 13.6 11.0 - 16.0 % [facility] Platelet Count 238 160 - 400 X10*3/uL [facility] Mean Platelet Volume 9.4 9.4 - 12.3 fL [facility] NRBC Pct Auto 0.0 0.0 - 0.2 /100WBC [facility] NRBC Abs Auto 0.000 0.0 - 0.012 X10*3/uL [facility] 04/21/2025 2:25 PM EDT 04/21/2025 2:31 PM EDT us Generic External Data Provider LAB BLOOD ORDERAB LES Final Result [facility] [address] [place] [phone] * MR Femur W/o Contrast Right (04/04/2025 7:09 PM EDT) Anatomical Region Laterality Modality Lower Extremities, Femur Right Magneti c Resonance 04/04/2025 7:09 PM EDT Narrative 04/04/2025 7:10 PM EDT [address] [address] Magnetic Resonance Report Signed Patient: Fatoumata Gibson MR#: [id number] : 1950 Acct:[id number] Age/Sex: 74 / F ADM Date: 04/02/25 Loc: HO.MRI Attending Dr: Adiel Henderson PA-C Ordering Physician: Adiel Henderson PA-C Date of Service: 04/02/25 Procedure(s): MR femur RT wo con Accession Number(s): [id number] cc: Deborah Joaquin MD; Adiel Henderson PA-C [...] in OV> 04/04/251909 DD/ 08 TD/TT: 04/04/251908 Gum Machine Filler: Procedure Note Donotuseinterpreter, Image - 04/04/2025 [place] [address] Magnetic Resonance Report Signed Patient: Fatoumata GibsonMR#: [id number] : 1950cct:[id number] Age/Sex: 74 / FADM Date: 04/02/25 Loc: HO.MRI Attending Dr: Adiel Henderson PA-C Ordering Physician: Adiel Henderson PA-C Date of Service: 04/02/25 Procedure(s): MR femur RT wo con Accession Number(s): [id number] cc: Deborah Joaquin MD; Adiel Henderson PA-C [...] Anand MD Signed By: <Electronically signed by Pieor Anand MD in OV> 04/04/251909 DD/ 08 TD/TT: 04/04/251908 Gum Machine Filler: [facility] External Provider IMG MRI PROCEDURES Final Result from Last 3 Months Insurance [facility] [employer] OPTIONS (HMO D-SNP) Care Teams Equine Vet Relationship Specialty Start Date End Date Deborah Joaquin MD [address] [place] [phone] PCP - General Family Medicine [facility]
--- OUTSIDE RECORDS SUMMARY | 2025-06-19 16:00 | XMS_ITS | Encounter Summary ---
Author Organization [employer] Address [address] [address] 7[address] [place] [address] Care Team Providers Care Supervisor Communications And Signals Name Role Phone Deborah Joaquin MD Primary Care Provider + Encounter Details Date Type Department Care Team (Latest Contact Info) Description 06/19/2025 Travel Social History Tobacco Use Types Packs/Day [...] Description 06/20/2025 10:45 AM EDT Office Visit [facility] [address] [place] [address] Deborah Joaquin MD [address] [place] [address] 07/24/2025 11:00 AM EST Office Visit [facility] [address] [place], [place] [phone] Kendy Butler, OD [address] [place] [address] documented as of this encounter Visit Diagnoses Not on filedocumented in this encounter Additional Health Concerns Assessment Noted Time PHQ-9 Depression Total Score: 3 05/15/20 25 1:12 PM EDT documented as of this encounter Care Teams Supervisor Communications And Signals Relationship Specialty Start Date End Date Deborah Joaquin MD [address] [place] [address] PCP - General Family Medicine 05/14/17 [facility] 05/10/25 documented as of this encounter
--- OUTSIDE RECORDS SUMMARY | 2025-06-19 16:00 | XMS_ITS | Encounter Summary ---
Author Organization [employer] Address [address] [facility] 7t [place] [address] Care Team Providers Care Fryer Line Helper Name Role Phone Deborah Joaquin MD Primary Care Provider + Reason for Visit * Reason Onset Date Comments Call Back Request 05/18/2025 Encounter Details Date Type Department Care Team ([facility] st Contact Info) Description 05/18/2025 Telephone [facility] 230 [place], [place] [phone] Deborah Joaquin MD 230 [place], [place] [phone] Call Back Request Social History Tobacco Use [...] placed to patient EC (Zenaida) on HIPAA [phone] regarding below message. RN left an VM for the EC to CB Red team nurses. EC and PT to F/U PRN. * Telephone Encounter - Ina Colon - 05/18/2025 9:43 AM EDT Tc from pt daughter requesting a call back to discuss phosphorus lab results , they are wondering if medication will be needed Contact pt daughter Zenaida (on HIPAA) at [phone] documented in this encounter Plan of Treatment Upcoming Encounters Date Type Department Care Team (Late st Contact Info) Description 06/20/2025 10:45 AM EDT Office Visit [facility] [address] [place] [address] Deborah Joaquin MD [address] [place] [address] 07/24/2025 11:00 AM EST Office Visit [facility] [address] [place] [address] Kendy Butler, OD [address] [place] [address] documented as of this encounter Visit Diagnoses Not on filedocumented in this encounter Additional Health Concerns Assessment Noted Time PHQ-9 Depression Total Score: 3 05/15/20 1:12 PM EDT documented as of this encounter Care Teams Fryer Line Helper Relationship Specialty Start Date End Date Deborah Joaquin MD [address] [place] [address] PCP - General Family Medicine [facility]/14[facility] documented as of this encounter
--- OUTSIDE RECORDS SUMMARY | 2025-06-19 16:00 | XMS_ITS | Encounter Summary ---
Author Organization [email or web address] Address [address] [facility] [address] [facility] [address] [place] [address] Care Team Providers Care Call Center Support Consultant Name Role Phone Deborah Joaquin MD Primary Care Provider + Reason for Visit * Reason Onset Date Comments Hospital Follow-up 04/28/2025 Encounter Details Date Type Department Care Team ([facility] st Contact Info) Description 04/28/2025 Telephone [facility] MED[facility]INE [address] [place], [place] [phone] Deborah Joaquin MD [address] [place], [place] [phone] Hospital Follow-up Social History Tobacco Use Types [...] from pt requesting a HDF appt. Hospital: [facility] Date of admission: 04/25 Discharge date: 04/27 Diagnosed: Surgery Contact pt at [phone] Need spanish interpreter documented in this encounter Plan of Treatment Upcoming Encounters Date Type Department Care Team (Late st Contact Info) Description 06/20/2025 10:45 AM EDT Office Visit [facility] [address] [place] [address] Deborah Joaquin MD [address] [place] [address] 07/24/2025 11:00 AM EST Office Visit [facility] OPT[facility] [address] [place] [address] Kendy Butler, OD [address] [place] [address] documented as of this encounter Visit Diagnoses Not on filedocumented in this encounter Care Teams Call Center Support Consultant Relationship Specialty Start Date End Date Deborah Joaquin MD [address] [place] [address] PCP - General Family Medicine 05/14/17 Natalee [facility] 05/10/25 documented as of this encounter
== END 2025-06-19 14:10 | disposition home or self-care (01) ==
LOC: HO.HHCX 14:09
PROVIDERS: Visit Provider Nurse Practitioner Family
DX: M79.604 Pain in right leg (principal)
CPT/HCPCS: 73590; 73630

== ENCOUNTER → 2025-06-19 14:10 | Outpatient (BNV) | payer OTHER, SELFPAY | PROVIDERS: Visit Provider Radiology Diagnostic Radiology | DX: M85.871 Other specified disorders of bone density and structure, right ankle and foot (principal); M79.661 Pain in right lower leg; M79.671 Pain in right foot; Z87.312 Personal history of (healed) stress fracture | CPT/HCPCS: 73590; 73630 ==

== ENCOUNTER 2025-06-28 16:00 | Outpatient (REF) | payer OTHER, SELFPAY ==
--- NOTE | ~2025-06-28 | US_ITS ---
EXAMINATION: US TRIPLEX LOWER EXTREMITY, RIGHT CLINICAL INFORMATION: Lower extremity edema COMPARISON: None available. TECHNIQUE: Color-flow triplex imaging with spectral analysis and compression Doppler were performed on the right lower extremity. FINDINGS: Respiratory variation, normal compression and augmented flow are noted throughout the right lower extremity. The visualized common femoral vein, superficial femoral vein, profunda femoral vein, popliteal vein and midcalf peroneal and posterior tibial venous segments show no evidence of deep venous thrombosis. There is no Figueroa's cyst. US/US venous duplex LE RT IMPRESSION: No evidence of deep venous thrombosis involving the right lower extremity. Electronically signed by: Brown Vazquez MD 06/28/2025 04:27 PM EDT
== END 2025-06-28 16:01 | disposition home or self-care (01) ==
LOC: HO.US 16:00
PROVIDERS: PCP Internal Medicine; Visit Provider Internal Medicine
DX: R60.0 Localized edema (principal)
CPT/HCPCS: 93971

== ENCOUNTER → 2025-06-28 16:12 | Outpatient (BNV) | payer OTHER, SELFPAY | PROVIDERS: PCP Internal Medicine; Visit Provider Radiology Diagnostic Ultrasound | DX: R60.0 Localized edema (principal) | CPT/HCPCS: 93971 ==

== ENCOUNTER 2025-07-11 10:17 | Outpatient (REF) | payer OTHER, SELFPAY ==
--- NOTE | ~2025-07-11 | US_ITS ---
EXAMINATION: US TRIPLEX LOWER EXTREMITY, RIGHT CLINICAL INFORMATION: Right lower extremity pain COMPARISON: 07/10/2025 TECHNIQUE: Color-flow triplex imaging with spectral analysis and compression Doppler were performed on the right lower extremity. FINDINGS: Respiratory variation, normal compression and augmented flow are noted throughout the right lower extremity. The visualized common femoral vein, superficial femoral vein, profunda femoral vein, popliteal vein and midcalf peroneal and posterior tibial venous segments show no evidence of deep venous thrombosis. There is no Figueroa's cyst. US/US venous duplex LE RT IMPRESSION: No evidence of deep venous thrombosis involving the right lower extremity. Electronically signed by: Kulwinder Caro MD 07/11/2025 11:19 AM EDT
--- OUTSIDE RECORDS SUMMARY | 2025-07-11 08:40 | XMS_ITS | Encounter Summary ---
Author Organization [employer] Address [address] [facility] [facility] [address] [place] [address] Care Team Providers Care Oral Communication Instructor Name Role Phone Deborah Joaquin MD Primary Care Provider + Reason for Referral * Imaging (STAT) - Authorized Specialty Diagnoses / Procedures Referred By Zayda yung Referred To Contact Cardiology Diagnoses Pain and swelling of right lower leg Procedures Vascular US lower extremity venous duplex right Eren Oscar MD [address] [place] [address] Phone: tel: fax: [address] Phone: tel: fax: Referral ID Status Reason Start Date Expiration Date Visits Requested Visits Authorized [id number] Authorized Perform Procedure 07/11/2026 1 1 Reason for Visit * Reason Comments Leg Pain Encounter Details Date Type Department Care Team (Late st Contact Info) Description 07/11/2025 8:40 AM EDT Office Visit [facility] [address] [place] [phone] Pain and swelling of right lower leg (Primary Dx); Contusion of rib on left side, initial encounter Social History Tobacco Use Types Packs/Day Years [...] Sign Reading Time Taken Comments Blood Pressure 140/76 07/11/2025 8:51 AM EDT Pulse 69 07/11/2025 8:51 AM EDT Temperature 36.6 C (97.9 F) 07/11/2025 8:51 AM EDT Respiratory Rate 16 07/11/2025 8:51 AM EDT Oxygen Saturation 96% 07/11/2025 8:51 AM EDT Inhaled Oxygen Concentration - - Weight 56.2 kg (124 lb) 07/11/2025 8:51 AM EDT Height - - Body Mass Index 21.97 06/20/2025 10:49 AM EDT documented in this encounter Plan of Treatment Upcoming Encounters Date Type Department Care Team (Late st Contact Info) Description 07/24/2025 11:00 AM EST Office Visit [facility] [address] [place] [address] Kendy Butler, OD 267 [place] [address] documented as of this encounter Visit Diagnoses Diagnosis Pain and swelling of right lower leg- Primary Contusion of rib on left side, initial encounter documented in this encounter Additional Health Concerns Assessment Noted Time PHQ-9 Depression Total Score: 3 05/15/20 25 1:12 PM EDT documented as of this encounter Care Teams Oral Communication Instructor Relationship Specialty Start Date End Date Deborah Joaquin MD [address] [place] [phone] PCP - General Family Medicine 05/14/17 [facility] documented as of this encounter
--- OUTSIDE RECORDS SUMMARY | 2025-07-11 12:10 | XMS_ITS | Encounter Summary ---
Author Organization [employer] Address [address] [facility] 7t [place] [address] Care Team Providers Care Customer Service Dispatcher Name Role Phone Deborah Joaquin MD Primary Care Provider + Reason for Visit * Reason Comments Med Refill Encounter Details Date Type Department Care Team (Late st Contact Info) Description 04/21/2023 Refill [facility] [address] [place] [address] Deborah Joaquin MD 230 [place] [address] Social History Tobacco Use Types Packs/Day Years [...] Description 07/24/2025 11:00 AM EST Office Visit [facility] [address] [place], [place] [phone] TarkaKendy, OD [address] [place], [place] [phone] documented as of this encounter Visit Diagnoses Not on filedocumented in this encounter Care Teams Customer Service Dispatcher Relationship Specialty Start Date End Date Deborah Joaquin MD [address] [place] [address] PCP - General Family Medicine 05/14/17 Nat[facility]e A 05/10/25 documented as of this encounter
--- OUTSIDE RECORDS SUMMARY | 2025-07-11 12:10 | XMS_ITS | Encounter Summary ---
Author Organization [employer] Address [address] [facility] 7t [place] [address] Care Team Providers Care Finance Consultant Name Role Phone Deborah Joaquin MD Primary Care Provider + Reason for Visit * Reason Onset Date Comments Call Back Request 05/18/2025 Encounter Details Date Type Department Care Team ([facility] st Contact Info) Description 05/18/2025 Telephone [facility] [address] [place], [place] [phone] Deborah Joaquin MD [address] [place], [place] [phone] Call Back Request Social History Tobacco Use [...] placed to patient EC (Zenaida) on HIPAA [phone] regarding below message. RN left an VM for the EC to CB Red team nurses. EC and PT to F/U PRN. * Telephone Encounter - Ina Colon - 05/18/2025 9:43 AM EDT Tc from pt daughter requesting a call back to discuss phosphorus lab results , they are wondering if medication will be needed Contact pt daughter Zenaida (on HIPAA) at [phone] documented in this encounter Plan of Treatment Upcoming Encounters Date Type Department Care Team (Late st Contact Info) Description 07/24/2025 11:00 AM EST Office Visit [facility] [address] [place] [address] Kendy Butler, OD [address] [place] [address] documented as of this encounter Visit Diagnoses Not on filedocumented in this encounter Additional Health Concerns Assessment Noted Time PHQ-9 Depression Total Score: 3 05/15/20 25 1:12 PM EDT documented as of this encounter Care Teams Finance Consultant Relationship Specialty Start Date End Date Deborah Joaquin MD [address] [place] [address] PCP - General Family Medicine 05/14/17 [facility] 05/10/25 documented as of this encounter
--- OUTSIDE RECORDS SUMMARY | 2025-07-11 12:11 | XMS_ITS | Encounter Summary ---
Author Organization [employer] Address [address] 7[address] [place] [address] Care Team Providers Care Salesperson Men'S Hats Name Role Phone Deborah Joaquin MD Primary Care Provider + Reason for Visit * Reason Onset Date Comments Pre-op Exam 03/11/2024 Encounter Details Date Type Department Care Team ([facility] st Contact Info) Description 03/11/2024 Telephone [facility] 230 [place], [place] [phone] Deborah Joaquin MD [address] [place], [place] [phone] Pre-op Exam Social History Tobacco Use Types [...] [facility] Surgeon's office number: [phone] Surgeon's office fax number: [phone] Contact name (person you spoke with): Manisha Last office note from surgeon requested: Will be faxed Date of Surgery: 04/19 Surgical procedure being done: Cataract Surgery on the right eye Type of anesthesia: Mac Lab needed: no EKG: no Surgeon's name: Dr. Sonny Freeman Facility name: [facility] Surgeon's office number: [phone] Surgeon's office fax number: [phone] Contact name (person you spoke with): Manisha Last office note from surgeon requested: Will Be faxed documented in this encounter Plan of Treatment Upcoming Encounters Date Type Department Care Team ([facility] st Contact Info) Description 07/24/2025 11:00 AM EST Office Visit [facility] [address] [place] [address] Kendy Butler, OD [address] [place] [address] documented as of this encounter Visit Diagnoses Not on filedocumented in this encounter Care Teams Salesperson Men'S Hats Relationship Specialty Start Date End Date Deborah Joaquin MD 230 [place] [address] PCP - General Family Medicine 05/14/17 [facility] documented as of this encounter
--- OUTSIDE RECORDS SUMMARY | 2025-07-11 12:11 | XMS_ITS | Clinical Summary ---
Author Organization [employer] Address [address] [facility] [address] [place] [address] Care Team Providers Care Crane Rigger Name Role Phone Deborah Joaquin MD Primary Care Provider + Allergies Active Allergy Reactions Criticality Noted Date Comments Atenolol Swelling Ibuprofen 04/09/2012 Other reaction(s): HEART PALPITATIONS Medications latanoprost (Xalatan) 0.005 % ophthalmic solution INSTILL 1 DROP INTO BOTH EYES AT BEDTIME MUST SEE PROVIDER TO OBTAIN MORE REFILLS 022 Active atorvastatin (Lipitor) 20 MG tabletIndications:Pure hypercholesterolemia [...] Take 1 capsule (100 mg) by mouth 2 times daily. 120 capsule 1 025 08/19 Active cholecalciferol (Vitamin D-3) 25 MCG (1000 UT) tablet Take 1 tablet (25 mcg) by mouth Once per day. 90 tablet Active Diclofenac Sodium 1 % gelIndications:Contusi on of rib on left side, initial encounter APPLY 1 INCH TOPICALLY IF NEEDED FOR PAIN IN THE MORNING AND AT BEDTIME 100 g 025 Active Diclofenac Sodium 1 % gelIndications:Contusi on of rib on left side, initial encounter APPLY 1 INCH TOPICALLY IF NEEDED FOR PAIN IN THE MORNING AND AT BEDTIME 100 g 023 07/11 Discontinued( Reorder (will not trigger notification to Pharmacy)) gabapentin (Neurontin) 100 MG capsule Take 1 capsule (100 mg) by mouth Once per day for 3 days, THEN 1 capsule (100 mg) 2 times daily for 3 days, THEN 1 capsule (100 mg) 3 times daily. 99 capsule 025 06/20 Discontinued( Reorder (will not trigger notification to Pharmacy)) Active Problems Problem Noted Date Diagnosed Date Leg edema, left 06/20/2025 Assessment & Plan (06/20/2025 11:49 AM EDT): Is most likely related to recent femoral fracture and current neuropathy, however due to history of recent right femur fracture, will order LLE Doppler ultrasound to rule out DVT Will continue Eliquis for A-fib Visit for preventive health examination 06/20/20 Assessment & Plan (06/20/2025 11:53 AM EDT): Discussed with patient re increase fresh fruit and vegetable intake. Counseled re moderate exercise as tolerated, up to 20min/d Patient feels safe at home. PAP smear is not applicable due to age. Mammogram is up-to-date this year, next one will be due in April 2026 Bone density test is UTD, next one is due next year and followed by uniform designer due to osteoporosis CRC screen is overdue, patient was referred previously but she had canceled appointment and has declined further CRC screening. Will readdress issue once she is better from fracture Lipids/FBS: UTD, will order TB test as needed per program request Vaccinations: Declined COVID booster. She is advised to have zoster and RSV immunization at the local pharmacy. Other adult immunizations are up-to-date, she got flu immunization today. Pain of right lower extremity 06/19/2025 Assessment & Plan (06/19/2025 5:31 PM EDT): Orders: XR Foot 3+ Views Right; Future XR Tibia Fibula 2 Views Right; Future Peripheral neuropathy 06/19/2025 Assessment & Plan (06/19/2025 5:31 PM EDT): Paroxysmal A-fib 05/15/2025 Opacity of lung on imaging study 05/01/2025 Overview (05/01/2025): CT scan chest on 04/28/2025 at [facility] showed scattered opacities (approximate 6) on right [...] the house. FU w/ knee orthopedics at [facility], they will refer to PT if [...] use plantar pads nad reschedule appointment with water/wastewater engineer Assessment & Plan (01/02/2023 12:05 PM EDT): [...] (mild) 04/09/20 09 Anemia 04/09/2008 Osteoporosis 04/09/2008 Overview (06/20/2025): Status post pathological right femoral fracture/status post ORIF on 04/26/2025 Assessment & Plan (06/20/2025 11:46 AM EDT): Has a pathological femoral fracture. She is currently off biphosphonate, only on calcium + D. Add vitamin D 1000 mg/D and continue calcium + D Follow-up with uniform designer Assessment & Plan (06/10/2024 10:23 AM EDT): [...] Encounters Date Type Department Care Team Description 07/11/2025 8:40 AM EDT Office Visit [facility] [address] [place] [phone] Pain and swelling of right lower leg (Primary Dx); Contusion of rib on left side, initial encounter 07/11/2025 Travel 07/10/2025 Telephone [facility] [address] [place] [phone] Deborah Joaquin MD Results 06/28/2025 Orders Only [facility] [address] [place] [phone] Deborah Joaquin MD 06/20/2025 10:45 AM EDT Office Visit [facility] [address] [place] [phone] Deborah Joaquin MD Age-related osteoporosis with current pathological fracture with routine healing, subsequent encounter (Primary Dx); Leg edema, left; Visit for preventive health examination; Encounter for immunization 06/20/2025 Travel 06/19/2025 2:40 PM EDT Office Visit [facility] [address] [place] [phone] Mya Jordan NP Pain of right lower extremity (Primary Dx); Other mononeuropathy 06/19/2025 Telephone [facility] [address] [place] [address] Deborah Joaquin MD 06/19/2025 Travel 06/12/2025 Patient Outreach [facility] [address] [place] [address] Deborah Joaquin MD Pre-visit Planning (SDOH screening completed on 12/07/2024) 05/24/2025 Refill [facility] [address] [place] [address] Sara Patterson, Primary hypertension 05/24/2025 Refill [facility] [address] [place] [phone] Kendy Butler, OD Primary open angle glaucoma (POAG) of both eyes, moderate stage 05/18/[address] [address] Deborah Joaquin MD Call Back Request 05/15/2025 1:00 PM EDT Office Visit [address] [address] Octavio Billy MD Paroxysmal A-fib (CMS/HCC) (Primary Dx); Foot pain, right; S/P ORIF (open reduction internal fixation) fracture 05/15/2025 Orders Only [facility] EXTERNAL DATA DEPARTMENT Provider, Generic External Data 05/15/2025 Travel 05/15/[address] [address] Octavio Billy MD CHART PREP 05/01/2025 Results Follow-Up [address] [address] Deborah Joaquin MD CTA Chest PE Protocal 04/28/2025 Orders Only [facility] External Provider, [facility] 04/28/2025 Patient Outreach [address] [address] Deborah Joaquin MD Transition Of Care (Tcm) (HDF unscheduled ) 04/28/[address] [address] Deborah Joaquin MD Hospital Follow-up 04/27/2025 Results Follow-Up [facility] [address] [place] [address] Deborah Joaquin MD B Type Natriuretic Peptide (BNP), CBC auto differential, TSH with Reflex to Free T4, Additional followed-up results: 3 04/27/2025 Orders Only GENERIC EXTERNAL DATA DEPARTMENT Provider, Generic External Data 04/27/2025 Refill [facility] [address] [place] [address] Deborah Joaquin MD 04/26/2025 Orders Only [facility] External Provider, [facility] 04/24/2025 Orders Only [facility] [address] [place] [address] Deborah Joaquin MD 04/21/2025 Orders Only GENERIC EXTERNAL DATA DEPARTMENT Provider, Generic External Data 04/19/2025 Refill [facility] [address] [place] [address] Deborah Joaquin MD 04/18/2025 Refill [facility] [address] [place], [place] [phone] Deborah Joaquin MD 04/13/2025 Refill [facility] [address] [place], [place] [phone] Deborah Joaquin MD from Last 3 Months Immunizations Immunization Administration Dates Next Due INFLUENZA INJECTABLE QUADRIV ALANT CCIIV4 MDCK Multi-dose vial 07/19/2020 Influenza High-dose Quadriva lent Preservative Free 06/12/2022,06/14/2021 Influenza, High Dose Seasona l, Preservative Free 06/20/2025,06/10/2024,06/07/2019,07/19,06/09/2017 Influenza, IIV3, injectable 09/26/2011,1 10/08/2009,11/09/2009,06/22,08/02/2001,09/10/2000 Influenza, Split [...] (124 lb) 07/11/2025 8:51 AM EDT Height 160 cm (5' 3 ) 06/20/2025 10:49 AM EDT Body Mass Index 21.97 06/20/2025 10:49 AM EDT Plan of Treatment Upcoming Encounters Date Type Department Care Team (Late st Contact Info) Description 07/24/2025 11:00 AM EST Office Visit [facility] [address] [place], [place] [phone] Kendy Butler, OD [address] [place], [place] [phone] Health Maintenance Due Date Last Done Comments CT Colonography 1950 Colonoscopy 1950 Colorectal Cancer Screening 1950 FIT DNA/Cologuard 1950 FIT 1950 FOBT 1950 Sigmoidoscopy 1950 Hepatitis C Screening 1969 Zoster Vaccines (1 of 2) 2001 RSV Patients and Patients Aged 60 years or older (1 - Risk 60-74 years 1-dose series) 2011 COVID-19 Vaccine ( season) 2025 12/21/2020, 11/23/2020 SDOH Screening 12/07/2025 12/07/2024 Mammogram 04/24/2026 04/24/2025, 03/22, 03/30/2023, Additional history exists Alcohol/Substance Use Screening 05/15/2026 05/15/2025 Depression Screening 05/15/2026 05/15/2025, 05/15/20 Tobacco Screening 07/11/2026 07/11/2025 Lipid Panel 04/27/2030 04/27/2025, 12/31/2021 DTaP/Tdap/Td Vaccines (3 - Td or Tdap) 06/12/2032 06/12/2022, 09/26/2011, 02/22/2008 Pneumococcal Vaccine: 50+ Years Completed 06/12/2022, 03/15/2010, 08/02/2001 Influenza Vaccine Completed 06/20/2025, , 06/12/2022, Additional history exists HIB Vaccines Aged Out [...] topic Meningococcal Vaccine Aged Out No molly rhael eligible based on patient's age to complete this topic RSV under 20 months Aged Out No longe r eligible based on patient's age to complete this topic Rotavirus Vaccines Aged Out No longer eligible based on patient's age to complete this topic Procedures Procedure Name Priority Date/Time Associated Diagnosis Comments US VENOUS DUPLEX LE RT Routine 5 11:06 AM EDT US VENOUS DUPLEX LE RT Routine 5 4:12 PM EDT XR TIBIA FIBULA 2 VIEWS RIGHT Routine 06/19/2025 2:25 PM EDT Pain of right lower extremity XR FOOT 3+ VIEWS RIGHT Routine 5 2:25 PM EDT Pain of right lower [...] EDT CBC Routine 04/21/2025 2:25 PM EDT from Last 3 Months Results * US VENOUS DUPLEX LE RT (07/11/2025 11:06 AM EDT) Only the most recent of2 resultswithin the time period is included. Anatomical Region Laterality Modality Abdomen Ultrasound 07/11/2025 11:0 6 AM EDT Narrative 07/11/2025 11:22 AM EDT [place] [address] Ultrasound Report Signed Patient: Fatoumata Gibson MR#: [id number] 086 : 1950 Acct:[id number] Age/Sex: 75 / F ADM Date: 07/11/25 Loc: HO.US Attending Dr: Eren Rodriguez MD Ordering Physician: EREN RODRIGUEZ MD Date of Service: 07/11/25 Procedure(s): US venous duplex LE RT Accession Number(s): [id number] cc: EREN RODRIGUEZ MD; Deborah Joaquin MD Reason for Exam: right leg pain, r/o dvt EXAMINATION: US TRIPLEX LOWER EXTREMITY, RIGHT CLINICAL INFORMATION: Right lower extremity pain COMPARISON: 07/10/2025 TECHNIQUE: Color-flow triplex imaging with spectral analysis and compression Doppler were performed on the right lower extremity. FINDINGS: Respiratory variation, normal compression and augmented flow are noted throughout the right lower extremity. The visualized common femoral vein, superficial femoral vein, profunda femoral vein, popliteal vein and midcalf peroneal and posterior tibial venous segments show no evidence of deep venous thrombosis. There is no Figueroa's cyst. US/US venous duplex LE RT IMPRESSION: No evidence of deep venous thrombosis involving the right lower extremity. Electronically signed by: Kulwinder Caro MD 07/11/2025 11:19 AM EDT Dictated By: Kulwinder Caro MD Signed By: <Electronically signed by Kulwinder Caro MD in OV> 07/11/25 1119 DD/ 1106 TD/TT: 07/11/25 1112 Slot Ambassador: Procedure Note Donotuseinterpreter, Image - 07/11/[address] [address] Ultrasound Report Signed Patient: Fatoumata GibsonMR#: [id number] 086 : 1950cct:[id number] Age/Sex: 75 / FADM Date: 07/11/25 Loc: HO.US Attending Dr: Eren Rodriguez MD Ordering Physician: EREN RODRIGUEZ MD Date of Service: 07/11/25 Procedure(s): US venous duplex LE RT Accession Number(s): [id number] cc: EREN RODRIGUEZ MD; Deborah Joaquin MD Reason for Exam: right leg pain, r/o dvt EXAMINATION: US TRIPLEX LOWER EXTREMITY, RIGHT CLINICAL INFORMATION: Right lower extremity pain COMPARISON: 07/10/2025 TECHNIQUE: Color-flow triplex imaging with spectral analysis and compression Doppler were performed on the right lower extremity. FINDINGS: Respiratory variation, normal compression and augmented flow are noted throughout the right lower extremity. The visualized common femoral vein, superficial femoral vein, profunda femoral vein, popliteal vein and midcalf peroneal and posterior tibial venous segments show no evidence of deep venous thrombosis. There is no Figueroa's cyst. US/US venous duplex LE RT IMPRESSION: No evidence of deep venous thrombosis involving the right lower extremity. Electronically signed by: Kulwinder Caro MD 07/11/2025 11:19 AM EDT Dictated By: Kulwinder Caro MD Signed By: <Electronically signed by Kulwinder Caro MD in OV> 07/11/25 1119 DD/ 1106 TD/TT: 07/11/25 111 Slot Ambassador: us Eren Rodriguez MD IMG US PROCEDURES Edited Result - Final * XR Foot 3+ Views Right (06/19/2025 2:25 PM EDT) Anatomical Region Laterality Modality Lower Extremities, Foot Right Radiogra phic Imaging 06/19/2025 2:25 PM EDT Narrative 06/19/2025 2:43 PM EDT [facility] [address] [place] [address] XRay Report Signed Patient: Fatoumata Gibson MR#: [id number] 086 : 1950 Acct:[id number] Age/Sex: 75 / F ADM Date: 06/19/25 Loc: YEHUDAX Attending Dr: Mya Jordan LUMBER SALES SUPERVISOR Ordering Physician: Mya Jordan NP Date of Service: 06/19/25 Procedure(s): XR foot RT min 3V Accession Number(s): [id number] cc: Mya Jordan NP Reason for Exam: [...] 06/19/25 1440 DD/ 1425 TD/TT: 06/19/25 1428 Slot Ambassador: Procedure Note Donotuseinterpreter, Image - 06/19/2025 [facility] [address] [place] [address] XRay Report Signed Patient: Fatoumata GibsonMR#: [id number] 086 : 1950cct:[id number] Age/Sex: 75 / FADM Date: 06/19/25 Loc: ANA Attending Dr: Mya Jordan LUMBER SALES SUPERVISOR Ordering Physician: Mya Jordan NP Date of Service: 06/19/25 Procedure(s): XR foot RT min 3V Accession Number(s): [id number] cc: Mya Jordan NP Reason for Exam: [...] 06/19/25 1440 DD/ 1425 TD/TT: 06/19/25 1428 Slot Ambassador: Mya Jordan NP IMG XR PROCEDURES Final Result * XR Tibia Fibula 2 Views Right (06/19/2025 2:25 PM EDT) Anatomical Region Laterality Modality Lower Extremities, Lower Leg Right Rad iographic Imaging 06/19/2025 2:25 PM EDT Narrative 06/19/2025 2:37 PM EDT [address] [address] XRay Report Signed Patient: Fatoumata Gibson MR#: [id number] 086 : 1950 Acct:[id number] Age/Sex: 75 / F ADM Date: 06/19/25 Loc: HO.HHCX Attending Dr: Mya Jordan NP Ordering Physician: Mya Jordan NP Date of Service: 06/19/25 Procedure(s): XR tibia fibula RT 2V Accession Number(s): [id number] cc: Mya Jordan NP Reason for Exam: [...] 06/19/25 1434 DD/ 1425 TD/TT: 06/19/25 1428 Slot Ambassador: Procedure Note Donotuseinterpreter, Image - 06/19/[address] [address] XRay Report Signed Patient: Fatoumata GibsonMR#: [id number] 086 : 1950cct:[id number] Age/Sex: 75 / FADM Date: 06/19/25 Loc: HO.HHCX Attending Dr: Mya Jordan LUMBER SALES SUPERVISOR Ordering Physician: Mya Jordan NP Date of Service: 06/19/25 Procedure(s): XR tibia fibula RT 2V Accession Number(s): [id number] cc: Mya Jordan NP Reason for Exam: hx of stress fracture, burning pain x 2 months in rightfoot and vitla EXAMINATION: XR TIBIA AND FIBULA, RIGHT CLINICAL [...] 06/19/25 1434 DD/ 1425 TD/TT: 06/19/25 1428 Slot Ambassador: us Mya Jordan LUMBER SALES SUPERVISOR IMG XR PROCEDURES Final Result * Immunofixation (ROSY), Urine (05/15/2025 1:45 PM EDT) ROSY Interpretation SEE NOTE [facility] Comment:Normal pattern. No m onoclonal proteins detected.THIS TEST WAS PERFORMED AT:[employer] [place] [phone] JJ MD 05/15/2025 1:45 PM EDT 05/15/2025 4:14 PM EDT us Generic External Data Provider LAB URINE ORDERAB LES Final Result [facility] [address] [place] [phone] * Collagen Cross-Linked N-Telopeptide (NTx), U (05/15/2025 1:45 PM EDT) N Telopetide (NTx) 35 see note [facility] Comment:Result Units: nM BCE /mM creatPremenopausal Females: 4 - 64 nM BCE/mM creatResults are primarily used for monitoring theresponse to therapy. A value within thepremenopausal range does not rule out osteoporosisnor the need for therapyUnits of Measure: nM BCE/mM creat CREATININE, RANDOM URINE 93 20 - 275 mg/dL [facility] Comment:THIS TEST WAS PERFOR MED AT:[employer] [place] [phone] RUBIN MD,PHD 05/15/2025 1:45 PM EDT 05/15/2025 4:14 PM EDT Generic External Data Provider LAB URINE ORDERAB LES Final Result Performing Organization Address [facility] Phone Number [facility] [address] [place] [phone] * TSH (05/15/2025 1:45 PM EDT) Thyroid Stimulating Hormone 1.85 0.32 - 4.0 uIU/mL [facility] Comment:TSH 3rd Generation ( [facility]) 05/15/2025 1:45 PM EDT 05/15/2025 4:05 PM EDT Generic External Data Provider LAB BLOOD ORDERAB LES Final Result Performing Organization Address [facility] Phone Number [facility] [address] [place] [phone] * T4, Free (05/15/2025 1:45 PM EDT) Free T4 (Free Thyroxine) 1.09 0.71 - 1.85 ng/dL [facility] 05/15/2025 1:45 PM EDT 05/15/2025 4:05 PM EDT Generic External Data Provider LAB BLOOD ORDERAB LES Final Result Performing Organization Address [facility] de Phone Number [facility] [address] [place] [phone] * (ABNORMAL) Phosphate (As Phosphorus) (05/15/2025 1:45 PM EDT) Phosphorus 5.1(H) 2.7 - 4.5 mg/dL [facility] 05/15/2025 1:45 PM EDT 05/15/2025 4:05 PM EDT us Generic External Data Provider LAB BLOOD ORDERAB LES Final Result Performing Organization Address [facility]/ZIP Co de Phone Number [facility] [address] [place] [phone] * Magnesium (05/15/2025 1:45 PM EDT) Only the most recent of3 resultswithin the time period is included. Magnesium 2.2 1.6 - 2.6 mg/dL [facility] Blood Venous blood specimen / Unknown 05/15/2025 1:45 PM EDT 05/15/2025 4:05 PM EDT us Deborah Joaquin MD LAB BLOOD ORDERABLES Fin al Result Performing Organization Address [facility] Co de Phone Number [facility] [address] [place] [phone] * (ABNORMAL) Basic Metabolic Panel (05/15/2025 1:45 PM EDT) Sodium 138 135 - 145 mmol/L [facility] Potassium 5.0 3.3 - 5.1 mmol/L [facility] Comment:Mild Hemolysis.Inter pret result with caution Chloride 105 96 - 108 mmol/L [facility] Carbon Dioxide 23 22 - 29 mmol/L [facility] Anion Gap 15 12 - 20 [facility] Urea Nitrogen (BUN) 39(H) 9 - 16 mg/dL [facility] Creatinine, Serum 1.23 0.5 - 1.4 mg/dL [facility] Estimated Glomerular Filt Rate 43 [facility] Comment:Chronic Kidney Disea se: Estimated GFR < 60 mL/min/1.65h5Rmwdmh Kidney Disease: Estimated GFR < 15 mL/min/1.73m2 Glucose 86 60 - 115 mg/dL [facility] Calcium 9.4 8.4 - 10.2 mg/dL [facility] Blood Venous blood specimen / Unknown 05/15/2025 1:45 PM EDT 05/15/2025 4:05 PM EDT Deborah Joaquin MD LAB BLOOD ORDERABLES Fin al Result [facility] [address] [place] [phone] * CTA Chest PE Protocal (04/28/2025 11:59 AM EDT) Anatomical Region Laterality Modality Body, Chest Computed Tomogra phy 04/28/2025 11:5 9 AM EDT Narrative 04/28/2025 1:26 PM EDT [address] [address] [address] Scan Report Signed Patient: Fatoumata Gibson MR#: [id number] 086 : 1950 Acct:[id number] Age/Sex: 75 / F ADM Date: 04/28/25 Loc: HO.ED Attending Dr: Ordering Physician: Hollie Ladd DO Date of Service: 04/28/25 Procedure(s): CT angio chest PE protocol Accession Number(s): [id number] cc: Deborah Joaquin MD; Hollie Ladd DO Report Number: [id number]: Total DLP = 165.00 mGy-cm EXAMINATION: CT [...] 04/28/25 1323 DD/ 1159 TD/TT: 04/28/25 1309 Slot Ambassador: Procedure Note Donotuseinterpreter, Image - 04/28/[address] [address] [address] Scan Report Signed Patient: Carola Gibson#: [id number] : 1Acct:[id number] Age/Sex: 75 / FADM Date: 04/28/25 Loc: HO.ED Attending Dr: Ordering Physician: Hollie Ladd DO Date of Service: 04/28/25 Procedure(s): CT angio chest PE protocol Accession Number(s): [id number] cc: Deborah Joaquin MD; Hollie Ladd DO Report Number: [id number]: Total DLP = 165.00 mGy-cm EXAMINATION: CT [...] 04/28/25 1323 DD/ 1159 TD/TT: 04/28/25 1309 Slot Ambassador: [facility] External Provider IMG CT PROCEDURES Final Result * (ABNORMAL) Basic Metabolic Panel, Fasting (04/27/2025 5:33 AM EDT) Sodium 138 135 - 145 mmol/L [facility] Potassium 4.6 3.3 - 5.1 mmol/L [facility] Chloride 103 96 - 108 mmol/L [facility] Carbon Dioxide 27 22 - 29 mmol/L [facility] Anion Gap 13 12 - 20 [facility] Urea Nitrogen (BUN) 22(H) 9 - 16 mg/dL [facility] Creatinine, Serum 1.10 0.5 - 1.4 mg/dL [facility] Creatinine Clr Calc Pharmacy 37.1 [facility] Comment:Provided height and weight: 160.02 cm,53.977 kg.eGFR (calculated from the MDRD study equation) and eCrCl(calculated from the Cockcroft-Gault equation) are based ondifferent parameters and may not yield comparable results.If eCrCl result is absurd, please check patient'sheight/weight. Estimated Glomerular Filt Rate 49 [facility] Comment:Chronic Kidney Disea se: Estimated GFR < 60 mL/min/1.55r5Yotebs Kidney Disease: Estimated GFR < 15 mL/min/1.73m2 Glucose Fasting 108(H) 60 - 99 mg/dL [facility] Comment:A fasting glucose fr om 100-125 mg/dl is considered impaired(pre-diabetes). Calcium 8.3(L) 8.4 - 10.2 mg/dL [facility] 04/27/2025 5:33 AM EDT 04/27/2025 6:49 AM EDT us Generic External Data Provider LAB BLOOD ORDERAB LES Final Result [facility] [address] [place] [phone] * (ABNORMAL) CBC auto differential (04/27/2025 5:33 AM EDT) Only the most recent of2 resultswithin the time period is included. White Blood Count 9.6 4.8 - 10.8 X10*3/uL [facility] Red Blood Count 4.07(L) 4.20 - 5.50 X10*6/uL [facility] Hemoglobin 11.2(L) 12.0 - 16.0 g/dl [facility] Hematocrit 32.5(L) 37.0 - 47.0 % [facility] Mean Corpuscular Volume 79.9(L) 80.0 - 98.0 fL [facility] Mean Corpuscular Hemoglobin 27.5 27.0 - 33.0 pg [facility] Mean Corpuscular HGB Conc 34.5 31.0 - 35.0 g/dl [facility] Red Cell Distribution Width 13.9 11.0 - 16.0 % [facility] Platelet Count 217 160 - 400 X10*3/uL [facility] Mean Platelet Volume 11.6 9.4 - 12.3 fL [facility] Neutrophils Percent Auto 82.1(H) 45 - 73 % [facility] Imm Gran Pct Auto 0.5(H) 0.0 - 0.4 % [facility] Lymphocytes Percent Auto 10.6(L) 20 - 40 % [facility] Monocytes Percent Auto 6.6 2 - 11 % [facility] Eosinophils Percent Auto 0.1 0 - 4 % [facility] Basophils Percent Auto 0.1 0 - 2 % [facility] NRBC Pct Auto 0.0 0.0 - 0.2 /100WBC [facility] Neutrophils Absolute Auto 7.9 2.0 - 8.3 x10*3/uL [facility] Imm Gran Abs Auto 0.05(H) 0.00 - 0.03 X10*3/uL [facility] Lymphocytes Absolute Auto 1.0(L) 1.2 - 4.9 X10*3/uL [facility] Monocytes Absolute Auto 0.6 0.1 - 1.2 X10*3/uL [facility] Eosinophils Absolute Auto 0.0 0.0 - 0.4 X10*3/uL [facility] Basophils Absolute Auto 0.0 0.0 - 0.2 X10*3/uL [facility] NRBC Abs Auto 0.000 0.0 - 0.012 X10*3/uL [facility] 04/27/2025 5:33 AM EDT 04/27/2025 6:49 AM EDT us Generic External Data Provider LAB BLOOD ORDERAB LES Final Result [facility] [address] [place] [phone] * Lipid Panel, Standard (04/27/2025 5:33 AM EDT) Triglycerides 69 <150 mg/dL [facility] Comment:Desirable Triglyceri de: less than 150 mg/dLBorderline High Triglyceride 150-199 mg/dLHigh Triglyceride: 200-499 mg/dLVery High Triglyceride: greater than or equal to 5OO mg/dL Cholesterol 135 <200 mg/dL [facility] Comment:Desirable Cholestero l: less than 200 mg/dLBorderline High Cholesterol: 200-239 mg/dLHigh Cholesterol: greater than 239 mg/dL LDL Cholesterol Calculated 58 <100 mg/dL [facility] Comment:Desirable LDL: less than 100 mg/dLNear Optimal/Above Optimal LDL: 110- 129 mg/dLBorderline High LDL: 130-159 mg/dLHigh LDL: 160-189 mg/dLVery High LDL: greater than or equal to 190 mg/dL HDL Cholesterol 64 >40 mg/dL [facility] Comment:Desirable HDL: great er than 40 mg/dL Note: This HDL assay may give artificially low results in patients with liver disease. 04/27/2025 5:33 AM EDT 04/27/2025 6:49 AM EDT us Generic External Data Provider LAB BLOOD ORDERAB LES Final Result Performing Organization Address [facility] Co de Phone Number [facility] [address] [place] [address] [phone] * Slide Review (04/26/2025 7:56 PM EDT) Slide Review VERIFIED [facility] 04/26/2025 7:56 PM EDT 04/26/2025 8:23 PM EDT Generic External Data Provider LAB BLOOD ORDERAB LES Final Result Performing Organization Address [facility] Co de Phone Number [facility] [address] [place] [phone] * TSH with Reflex to Free T4 (04/26/2025 7:56 PM EDT) TSH reflex Free T4 0.54 0.32 - 4.0 uIU/mL [facility] 04/26/2025 7:56 PM EDT 04/26/2025 8:23 PM EDT Generic External Data Provider LAB BLOOD ORDERAB LES Final Result Performing Organization Address [facility] de Phone Number [facility] [address] [place] [address] [phone] * (ABNORMAL) B Type Natriuretic Peptide (BNP) (04/26/2025 7:56 PM EDT) B Type Natriuretic Peptide 321(H) <100 pg/mL [facility] 04/26/2025 7:56 PM EDT 04/26/2025 8:23 PM EDT us Generic External Data Provider LAB BLOOD ORDERAB LES Final Result [facility] [address] [place] [phone] * (ABNORMAL) Comprehensive Metabolic Panel (04/26/2025 7:56 PM EDT) Sodium 138 135 - 145 mmol/L [facility] Potassium 4.2 3.3 - 5.1 mmol/L [facility] Chloride 103 96 - 108 mmol/L [facility] Carbon Dioxide 28 22 - 29 mmol/L [facility] Anion Gap 11(L) 12 - 20 [facility] Urea Nitrogen (BUN) 20(H) 9 - 16 mg/dL [facility] Creatinine, Serum 1.05 0.5 - 1.4 mg/dL [facility] Creatinine Clr Calc Pharmacy 38.8 [facility] Comment:Provided height and weight: 160.02 cm,53.977 kg.eGFR (calculated from the MDRD study equation) and eCrCl(calculated from the Cockcroft-Gault equation) are based ondifferent parameters and may not yield comparable results.If eCrCl result is absurd, please check patient'sheight/weight. Estimated Glomerular Filt Rate 51 [facility] Comment:Chronic Kidney Disea se: Estimated GFR < 60 mL/min/1.01q8Pbetjn Kidney Disease: Estimated GFR < 15 mL/min/1.73m2 Glucose 195(H) 60 - 115 mg/dL [facility] Calcium 8.5 8.4 - 10.2 mg/dL [facility] Bilirubin, Total 0.5 0.0 - 1.0 mg/dL [facility] Aspartate Amino Transferase 30 5 - 31 U/L [facility] Alanine Aminotransferase 22 0 - 31 U/L [facility] Total Protein 6.5 6.5 - 8.0 g/dL [facility] Albumin Level 3.9 3.5 - 5.0 g/dL [facility] Alkaline Phosphatase 75 39 - 117 U/L [facility] 04/26/2025 7:56 PM EDT 04/26/2025 8:23 PM EDT us Generic External Data Provider LAB BLOOD ORDERAB LES Final Result Performing Organization Address City/State/[facility] Co de Phone Number [facility] [address] [place] [phone] * FL Guidance in OR (04/26/2025 9:45 AM EDT) Anatomical Region Laterality Modality X-Ray Angiograph y 04/26/2025 9:45 AM EDT Narrative 04/26/2025 11:54 AM EDT [address] [address] Fluoroscopy Report Signed Patient: Fatoumata Gibson MR#: [id number] : 1950 Acct:[id number] Age/Sex: 75 / F ADM Date: 04/26/25 Loc: HO[facility] Attending Dr: Sharron Velez PA-C Ordering Physician: Amanuel Ortiz MD Date of Service: 04/26/25 Procedure(s): FL guidance in OR Accession Number(s): [id number] cc: Deborah Joaquin MD; Amanuel Ortiz MD [...] OV> 04/26/25 1151 DD/ TD/TT: 04/26/25 1055 Slot Ambassador: Procedure Note Donotuseinterpreter, Image - 04/26/[address] [address] Fluoroscopy Report Signed Patient: Fatoumata GibsonMR#: [id number] : 1950cct:[id number] Age/Sex: 75 / FADM Date: 04/26/25 Loc: HO.[facility] Attending Dr: Sharron Velez PA-C Ordering Physician: Amanuel Ortiz MD Date of Service: 04/26/25 Procedure(s): FL guidance in OR Accession Number(s): [id number] cc: Deborah Joaquin MD; Amanuel Ortiz MD [...] OV> 04/26/25 1151 DD/ TD/TT: 04/26/25 1055 Slot Ambassador: us [facility] External Provider IMG IR PROCEDURES Final Result * BI Mammogram Screening Tomosynthesis Bilateral (04/24/2025 9:50 AM EDT) Anatomical Region Laterality Modality Breast Bilateral Mammography 04/24/2025 9:50 AM EDT Narrative 05/02/2025 4:17 PM EDT [address] [place] [address] Mammography Report Signed Patient: Fatoumata Gibson MR#: [id number] : 1950 Acct:[id number] Age/Sex: 75 / F ADM Date: 04/24/25 Loc: HO.MAMMO Attending Dr: Deborah Joaquin MD Ordering Physician: Deborah Joaquin MD Results: 1Ne gative Date of Service: 04/24/25 Follow Up: 1 Year From Orig inal Mammogram Procedure(s): MM tomosynthesis screening BI Accession Number(s): [id number] cc: Deborah Joaquin MD EXAMINATION: MM SCREENING [...] 05/02/25 1614 DD/ 0950 TD/TT: 04/24/25 1009 Slot Ambassador: Procedure Note Donotuseinterpreter, Image - 05/02/2025 [facility] [address] [place] [address] Mammography Report Signed Patient: Fatoumata GibsonMR#: [id number] : 1Acct:[id number] Age/Sex: 75 / FADM Date: 04/24/25 Loc: HO.MAMMO Attending Dr: Deborah Joaquin MD Ordering Physician: Deborah Joaquin MDResults: 1Ne gative Date of Service: 04/24/25Follow Up: 1 Year From Orig inal Mammogram Procedure(s): MM tomosynthesis screening BI Accession Number(s): [id number] cc: Deborah Joaquin MD EXAMINATION: MM SCREENING [...] 05/02/25 1614 DD/ 0950 TD/TT: 04/24/25 1009 Slot Ambassador: us Deborah Joaquin MD IMG BI PROCEDURES Final Result * (ABNORMAL) CBC (04/21/2025 2:25 PM EDT) White Blood Count 5.6 4.8 - 10.8 X10*3/uL [facility] Red Blood Count 4.68 4.20 - 5.50 X10*6/uL [facility] Hemoglobin 12.3 12.0 - 16.0 g/dl [facility] Hematocrit 38.7 37.0 - 47.0 % [facility] Mean Corpuscular Volume 82.7 80.0 - 98.0 fL [facility] Mean Corpuscular Hemoglobin 26.3(L) 27.0 - 33.0 pg [facility] Mean Corpuscular HGB Conc 31.8 31.0 - 35.0 g/dl [facility] Red Cell Distribution Width 13.6 11.0 - 16.0 % [facility] Platelet Count 238 160 - 400 X10*3/uL [facility] Mean Platelet Volume 9.4 9.4 - 12.3 fL [facility] NRBC Pct Auto 0.0 0.0 - 0.2 /100WBC [facility] NRBC Abs Auto 0.000 0.0 - 0.012 X10*3/uL [facility] 04/21/2025 2:25 PM EDT 04/21/2025 2:31 PM EDT us Generic External Data Provider LAB BLOOD ORDERAB LES Final Result Performing Organization Address City/State/[facility] Co de Phone Number [facility] [address] [place] [phone] from Last [address] [facility] STANDARD [facility] OPTIONS (HMO D-SNP) * Guarantor: Fatoumata Prado Account Type Relation to Patient Date of Phone Billing Address Personal/Family Self [address] [place] [address] * Guarantor: Fatoumata Prado Account Type Relation to Patient Date of Phone Billing Address Personal/Family Self [address] [place] [address] Care Teams Crane Rigger Relationship Specialty Start Date End Date Deborah Joaquin MD [address] [place] [phone] PCP - General Family Medicine 05/14/17 [place] A 05/10/25
--- OUTSIDE RECORDS SUMMARY | 2025-07-11 12:11 | XMS_ITS | Encounter Summary ---
Author Organization [employer] Address [address] [place] [address] Care Team Providers Care Accounts Adjustable Clerk Name Role Phone Deborah Joaquin MD Primary Care Provider + Reason for Visit * Reason Onset Date Comments Appointment Request 12/16/2024 Encounter Details Date Type Department Care Team ([facility] st Contact Info) Description 12/16/[address] [facility] [address] [place], [place] [phone] Deborah Joaquin MD [address] [place], [place] [phone] Appointment Request Social History Tobacco Use Types [...] R/s appt from 12/16/24. Contact pt at [phone] documented in this encounter Plan of Treatment Upcoming Encounters Date Type Department Care Team (Late st Contact Info) Description 07/24/2025 11:00 AM EST Office Visit [facility] [address] [place] [address] Kendy Butler, OD [address] [place] [address] documented as of this encounter Visit Diagnoses Not on filedocumented in this encounter Care Teams Accounts Adjustable Clerk Relationship Specialty Start Date End Date Deborah Joaquin MD [address] [place] [phone] PCP - General Family Medicine 05/14/17 [place] [facility] 05/10/25 documented as of this encounter
--- OUTSIDE RECORDS SUMMARY | 2025-07-11 12:11 | XMS_ITS | Encounter Summary ---
Author Organization [employer] Address [address] [place] [address] Care Team Providers Care Stapler Hand Name Role Phone Deborah Joaquin MD Primary Care Provider + Encounter Details Date Type Department Care Team (Latest Contact Info) Description 07/11/2025 Travel Social History Tobacco Use Types Packs/Day [...] 11:00 AM EST Office Visit [facility] [address] [place] [address] Kendy Butler, OD [address] [place] [address] documented as of this encounter Visit Diagnoses Not on filedocumented in this encounter Additional Health Concerns Assessment Noted Time PHQ-9 Depression Total Score: 3 05/15/20 25 1:12 PM EDT documented as of this encounter Care Teams Stapler Hand Relationship Specialty Start Date End Date Deborah Joaquin MD [address] [place] [address] PCP - General Family Medicine 05/14/17 [place] [facility] 05/10/25 documented as of this encounter
--- OUTSIDE RECORDS SUMMARY | 2025-07-11 12:11 | XMS_ITS | Encounter Summary ---
Author Organization [employer] Address [address] [facility] 7t [place] [address] Care Team Providers Care Director Of Quantitative Research Name Role Phone Deborah Joaquin MD Primary Care Provider + Reason for Visit * Reason Onset Date Comments Results 07/10/2025 Encounter Details Date Type Department Care Team ([facility] st Contact Info) Description 07/10/2025 Telephone [facility] [address] [place], [place] [phone] Deborah Joaquin MD [address] [place], [place] [phone] Results Social History Tobacco Use Types Packs/Day Years [...] encounter Miscellaneous Notes * Telephone Encounter - Prudence Garza RN - 07/10/2025 3:23 PM EDT TC placed to patient [phone] via [employer] interpre[employer] ([facility][id number]) in regards to below message.RN spoke to patients paul Estevez (on HIPAA) in regards to below message. Daughter informed US has returned negative for DVT. Daughter verbalized understanding however reports the patients leg continues to be inflamed, red and patient continues to experience pain throughout the day as well asa burning sensation . Daughter advised the patient should be re- evaluated as she may need another STAT US to r/o DVT. Daughter informed the patient was seen on 06/20/25 and had US on 06/28/25 however if s/s continue it is important to be re-evaluated as DVT's can occur at any time. Daughter is reques ting a referral to dermatology instead. RN explained dermatology would not be able to assist in this scenario and patient needs to be reevaluated. RN advised daughter to bring patient to walk in center today however daughter denied and reports she will bring her at 8am tomorrow. Daughter advised ifthe patient does not have any sensation, numbness, tingling, chest pain or SOB to seek ED immediately. Daughter verbalized understanding. Daughter to f/u PRN. * Telephone Encounter - Blake Rodriguez - 07/10/2025 1:44 PM EDT Tc from Daughter ( Zenaida ) requesting a call back regarding ultrasound results done around 1 week ago in [facility] for right leg. Please contact Zenaida at [phone] documented in this encounter Plan of Treatment Upcoming Encounters Date Type Department Care Team ([facility] st Contact Info) Description 07/24/2025 11:00 AM EST Office Visit [facility] [address] [place], [place] [phone] Kendy Butler, OD [address] [place] [address] documented as of this encounter Visit Diagnoses Not on filedocumented in this encounter Additional Health Concerns Assessment Noted Time PHQ-9 Depression Total Score: 3 05/15/20 1:12 PM EDT documented as of this encounter Care Teams Director Of Quantitative Research Relationship Specialty Start Date End Date Deborah Joaquin MD [address] [place] [address] PCP - General Family Medicine 05/14/17 Natalee OCONNORA 05/10/25 documented as of this encounter
== END 2025-07-11 10:18 | disposition home or self-care (01) ==
LOC: HO.US 10:17
PROVIDERS: PCP Internal Medicine; Visit Provider Emergency Medicine
DX: M79.661 Pain in right lower leg (principal); M79.89 Other specified soft tissue disorders
CPT/HCPCS: 93971

== ENCOUNTER → 2025-07-11 11:06 | Outpatient (BNV) | payer OTHER, SELFPAY | PROVIDERS: PCP Internal Medicine; Visit Provider Radiology Diagnostic Radiology | DX: M79.661 Pain in right lower leg (principal) | CPT/HCPCS: 93971 ==

== ENCOUNTER 2025-07-20 08:04 | Outpatient (REF) | payer OTHER, SELFPAY ==
--- NOTE | ~2025-07-20 | XR_ITS ---
EXAMINATION: XR FEMUR, RIGHT CLINICAL INFORMATION: M84.351A - Stress fracture, right femur, initial encounter for fracture COMPARISON: Radiographs on June 08, 2025 TECHNIQUE: AP and lateral views of the right femur were obtained. FINDINGS: Internally fixated femoral fracture. The fixation hardware appears intact, without abnormal perihardware lucency. No acute fractures. Unchanged cortical thickening of the lateral aspect of the femoral diaphysis. Right hip and right knee joints are in normal alignment. Faint amorphous calcifications projecting superior to the right femoral neck on the frontal view is unchanged from prior study. XR/XR femur RT 2V IMPRESSION: Internally fixated right femoral fracture. No complications. Electronically signed by: Vin Lares MD 07/20/2025 11:17 AM EDT
--- OUTSIDE RECORDS SUMMARY | 2025-07-21 08:08 | XMS_ITS | Encounter Summary ---
Author Organization [employer] Address [address] [place] [address] Care Team Providers Care Advertising Consultant Name Role Phone Deborah Joaquin MD Primary Care Provider + Reason for Visit * Reason Onset Date Comments Appointment Request 12/16/2024 Encounter Details Date Type Department Care Team ([facility] st Contact Info) Description 12/16/2024 Telephone [facility] MEDICINE [address] [place], [place] [phone] Deborah Joaquin MD [address] [place], [place] [phone] Appointment Request Social History Tobacco Use Types [...] R/s appt from 12/16/24. Contact pt at [phone] documented in this encounter Plan of Treatment Upcoming Encounters Date Type Department Care Team (Late st Contact Info) Description 07/24/2025 11:00 AM EST Office Visit [facility] OPTOMETRY [address] [place] [address] Kendy Butler, OD [address] [place] [address] documented as of this encounter Visit Diagnoses Not on filedocumented in this encounter Care Teams Advertising Consultant Relationship Specialty Start Date End Date Deborah Joaquin MD [address] [place] [phone] PCP - General Family Medicine 05/14/17 [place] [facility] 05/10/25 documented as of this encounter
--- OUTSIDE RECORDS SUMMARY | 2025-07-21 08:08 | XMS_ITS | Encounter Summary ---
Author Organization [employer] Address [address] [facility] [address] [place] [address] Care Team Providers Care Watch Repair Person Name Role Phone Deborah Joaquin MD Primary Care Provider + Reason for Visit * Reason Comments Med Refill Encounter Details Date Type Department Care Team (Late st Contact Info) Description 04/21/2023 Refill [facility] MEDICINE [address] [place] [address] Deborah Joaquin MD [address] [place] [address] Social History Tobacco Use Types Packs/Day Years [...] Description 07/24/2025 11:00 AM EST Office Visit [facility] OPTOMETRY [address] [place], [place] [phone] TarkaKendy, OD [address] [place] [employer], [place] [phone] documented as of this encounter Visit Diagnoses Not on filedocumented in this encounter Care Teams Watch Repair Person Relationship Specialty Start Date End Date Deborah Joaquin MD [address] [place] [phone] PCP - General Family Medicine 05/14/17 [place] [facility] 05/10/25 documented as of this encounter
--- OUTSIDE RECORDS SUMMARY | 2025-07-21 08:08 | XMS_ITS | Clinical Summary ---
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 FU w/ knee orthopedics at [facility], they will refer to PT if [...] use plantar pads nad reschedule appointment with medical surgery nurse Assessment & Plan (01/02/2023 12:05 PM EDT): [...] and continue calcium + D Follow-up with forensic sergeant Assessment & Plan (06/10/2024 10:23 AM EDT): [...] Type Department Care Team Description 07/13/2025 Telephone [facility] [place] [facility] [address] [place] [phone] Deborah Joaquin MD Medication Question 07/11/2025 8:40 AM EDT Office Visit [facility] [place] [facility] [address] [place] [phone] Eren Rodriguez MD Pain and swelling of right lower leg (Primary Dx); Contusion of rib on left side, initial encounter 07/11/2025 Travel 07/10/2025 Telephone [facility] [place] [facility] [address] [place] [phone] Deborah Joaquin MD Results 06/28/2025 Orders Only [facility] [place] [facility] [address] [place] [phone] Deborah Joaquin MD 06/20/2025 10:45 AM EDT Office Visit [address] [address] Deborah Joaquin MD Age-related osteoporosis with current pathological fracture with routine healing, subsequent encounter (Primary Dx); Leg edema, left; Visit for preventive health examination; Encounter for immunization 06/20/2025 Travel 06/19/2025 2:40 PM EDT Office Visit [facility] [place] [facility] [address] [place] [phone] Mya Jordan NP Pain of right lower extremity (Primary Dx); Other mononeuropathy 06/19/2025 Telephone [facility] [place] [facility] [address] [place] [address] [phone] Deborah Joaquin MD 06/19/2025 Travel 06/12/[address] [facility] [address] [place] [address] Deborah Joaquin MD Pre-visit Planning (SDOH screening completed on 12/07/2024) 05/24/2025 Refill [facility] [place] [facility] [address] [place] [address] Sara Patterson, Primary hypertension 05/24/2025 Refill [facility] [place] OPTOMETRY [address] [place] [address] Tarsharifa Kendy, OD Primary open angle glaucoma (POAG) of both eyes, moderate stage 05/18/[address] [facility] [address] [place] [address] Deborah Joaquin MD Call Back Request 05/15/2025 1:00 PM EDT Office Visit [address] [address] Octavio Billy MD Paroxysmal A-fib ([facility]) (Primary Dx); Foot pain, right; S/P ORIF (open reduction internal fixation) fracture 05/15/2025 Orders Only GENERIC EXTERNAL DATA DEPARTMENT Provider, Generic External Data 05/15/2025 Travel 05/15/[address] [address] Octavio Billy MD CHART PREP 05/01/2025 Results Follow-Up [address] [address] Deborah Joaquin MD CTA Chest PE Protocal 04/28/2025 Orders Only [facility] External Provider, [facility] 04/28/2025 Patient Outreach [address] [address] Deborah Joaquin MD Transition Of Care (Tcm) (HDF unscheduled ) 04/28/[address] [address] Deborah Joaquin MD Hospital Follow-up 04/27/2025 Results Follow-Up [address] [place] [address] Deborah Joaquin MD B Type Natriuretic Peptide (BNP), CBC auto differential, TSH with Reflex to Free T4, Additional followed-up results: 3 04/27/2025 Orders Only GENERIC EXTERNAL DATA DEPARTMENT Provider, Generic External Data 04/27/[address] [facility] [address] [place] [address] Deborah Joaquin MD 04/26/2025 Orders Only [facility] External Provider, [facility] 04/24/[address] [facility] [address] [place] [address] Deborah Joaquin MD 04/21/2025 Orders Only GENERIC EXTERNAL DATA DEPARTMENT Provider, Generic External Data from Last 3 Months Immunizations Immunization Administration [...] Description 07/24/2025 11:00 AM EST Office Visit [facility] OPTOMETRY [address] [place] [address] Kendy Butler, OD [address] [place] [address] Health Maintenance Due Date Last Done Comments CT Colonography 1950 Colonoscopy 1950 Colorectal Cancer Screening 1950 FIT DNA/Cologuard 1950 FIT 1950 FOBT 1950 Sigmoidoscopy 1950 Hepatitis C Screening 1969 Zoster Vaccines (1 of 2) 2001 RSV Patients and Patients Aged 60 years or older (1 - Risk 60-74 years 1-dose series) 2011 COVID-19 Vaccine ( - season) 2025 12/21/2020, 11/23/2020 SDOH Screening [...] AM EDT Narrative 07/11/2025 11:22 AM EDT [address] [address] Ultrasound Report Signed Patient: Fatoumata Gibson MR#: [id number] 086 : 1950 Acct:[id number] Age/Sex: 75 / F ADM Date: 07/11/25 Loc: HO.US Attending Dr: Eren Rodriguez MD Ordering Physician: EREN RODRIGUEZ MD Date of Service: 07/11/25 Procedure(s): US venous duplex LE RT Accession Number(s): [id number] cc: EREN RODRIGUEZ MD; Deborah Joaquin MD [...] 07/11/25 1119 DD/ 1106 TD/TT: 07/11/25 1112 [employer]: Procedure Note Donotuseinterpreter, Image - 07/11/[address] [address] Ultrasound Report Signed Patient: Fatoumata GibsonMR#: [id number] 086 : 1950cct:[id number] Age/Sex: 75 / FADM Date: 07/11/25 Loc: HO.US Attending Dr: Eren Rodriguez MD Ordering Physician: EREN RODRIGUEZ MD Date of Service: 07/11/25 Procedure(s): US venous duplex LE RT Accession Number(s): [id number] cc: EREN RODRIGUEZ MD; Deborah Joaquin MD [...] Kulwinder Caro MD 07/11/2025 11:19 AM EDT RP Dictated By: Kulwinder Caro MD Signed By: <Electronically signed by Kulwinder Caro MD in OV> 07/11/25 1119 DD/ 1106 TD/TT: 07/11/25 1112 [employer]: Eren Rodriguez MD IMG US PROCEDURES Edited Result - Final * XR Foot 3+ Views Right (06/19/2025 2:25 PM EDT) Anatomical Region Laterality Modality Lower Extremities, Foot Right Radiogra phic Imaging 06/19/2025 2:25 PM EDT Narrative 06/19/2025 2:43 PM EDT [address] [address] XRay Report Signed Patient: Fatoumata Gibson MR#: [id number] 086 : 1950 Acct:[id number] Age/Sex: 75 / F ADM Date: 06/19/25 Loc: HO.HHCX Attending Dr: Mya Jordan OUTSOLE LEVELER Ordering Physician: Mya Jordan NP Date of Service: 06/19/25 Procedure(s): XR foot RT min 3V Accession Number(s): [id number] cc: Mya Jordan NP Reason for Exam: [...] 06/19/25 1440 DD/ 1425 TD/TT: 06/19/25 1428 Developer [employer]: Procedure Note Donotuseinterpreter, Image - 06/19/2025 [place] [address] XRay Report Signed Patient: Fatoumata GibsonMR#: [id number] 086 : 1950cct:[id number] Age/Sex: 75 / FADM Date: 06/19/25 Loc: HO.HHCX Attending Dr: Mya Jordan OUTSOLE LEVELER Ordering Physician: Mya Jordan NP Date of Service: 06/19/25 Procedure(s): XR foot RT min 3V Accession Number(s): [id number] cc: Mya Jordan NP Reason for Exam: [...] 06/19/25 1440 DD/ 1425 TD/TT: 06/19/25 1428 Developer [employer]: us Mya Jordan OUTSOLE LEVELER IMG XR PROCEDURES Final Result * XR Tibia Fibula 2 Views Right (06/19/2025 2:25 PM EDT) Anatomical Region Laterality Modality Lower Extremities, Lower Leg Right Rad iographic Imaging 06/19/2025 2:25 PM EDT Narrative 06/19/2025 2:37 [place] [address] XRay Report Signed Patient: Fatoumata Gibson MR#: [id number] [id number] : 1950 Acct:[id number] Age/Sex: 75 / F ADM Date: 06/19/25 Loc: HO.HHCX Attending Dr: Mya Jordan NP Ordering Physician: Mya Jordan NP Date of Service: 06/19/25 Procedure(s): XR tibia fibula RT 2V Accession Number(s): [id number] cc: Mya Jordan NP Reason for Exam: [...] Caro MD in OV> 06/19/25 1434 DD/ 142 TD/TT: 06/19/251427 [employer]: Procedure Note Donamyter, Image - 06/19/[address] [address] XRay Report Signed Patient: Fatoumata GibsonMR#: [id number] 086 : 1950cct:[id number] Age/Sex: 75 / FADM Date: 06/19/25 [facility]: Mya Jordan NP Ordering Physician: Mya Jordan NP Date of Service: 06/19/25 Procedure(s): XR tibia fibula RT 2V Accession Number(s): [id number] cc: Mya Jordan NP Reason for Exam: [...] OV> 06/19/25 1434 DD/ 1425 TD/TT: 06/19/251427 [employer]: us Mya Jordan NP IMG XR PROCEDURES Final Result * Immunofixation (ROSY), Urine (05/15/2025 1:45 PM EDT) ROSY Interpretation SEE NOTE [facility] Comment:Normal pattern. No m onoclonal proteins detected.THIS TEST WAS PERFORMED AT:[employer] [address] [id number] JJ MD 05/15/2025 1:45 PM EDT 05/15/2025 4:14 PM EDT us Generic External Data Provider LAB URINE ORDERAB LES Final Result Performing Organization Address City/[facility]/ZIP Co de Phone Number [facility] [address] [place] [phone] * Collagen Cross-Linked N-Telopeptide (NTx), U (05/15/2025 1:45 PM EDT) N Telopetide (NTx) 35 see note [facility] Comment:Result Units: nM BCE /mM creatPremenopausal Females: 4 - 64 nM BCE/mM creatResults are primarily used for monitoring theresponse to therapy. A value within thepremenopausal range does not rule out osteoporosisnor the need for therapyUnits of Measure: nM BCE/mM creat CREATININE, RANDOM URINE 93 20 - 275 mg/dL [facility] Comment:THIS TEST WAS PERFOR MED AT:[employer]/[facility] [place] [address]TCRKFIR W. MASON,MD,PHD 05/15/2025 1:45 PM EDT 05/15/2025 4:14 PM EDT us Generic External Data Provider LAB URINE ORDERAB LES Final Result Performing Organization Address [facility]/ZIP Co de Phone Number [facility] [address] [place] [address] [phone] * TSH (05/15/2025 1:45 PM EDT) Thyroid Stimulating Hormone 1.85 0.32 - 4.0 uIU/mL [facility] Comment:TSH 3rd Generation ( [facility]) 05/15/2025 1:45 PM EDT 05/15/2025 4:05 PM EDT Generic External Data Provider LAB BLOOD ORDERAB LES Final Result Performing Organization Address [facility] de Phone Number [facility] [address] [place] [phone] * T4, Free (05/15/2025 1:45 PM EDT) Free T4 (Free Thyroxine) 1.09 0.71 - 1.85 ng/dL [facility] 05/15/2025 1:45 PM EDT 05/15/2025 4:05 PM EDT Generic External Data Provider LAB BLOOD ORDERAB LES Final Result Performing Organization Address [facility] Phone Number [facility] [address] [place] [phone] * (ABNORMAL) Phosphate (As Phosphorus) (05/15/2025 1:45 PM EDT) Phosphorus 5.1(H) 2.7 - 4.5 mg/dL [facility] 05/15/2025 1:45 PM EDT 05/15/2025 4:05 PM EDT Generic External Data Provider LAB BLOOD ORDERAB LES Final Result Performing Organization Address [facility] de Phone Number [facility] [address] [place] [phone] * Magnesium (05/15/2025 1:45 PM EDT) Only the most recent of3 resultswithin the time period is included. Magnesium 2.2 1.6 - 2.6 mg/dL [facility] Blood Venous blood specimen / Unknown 05/15/2025 1:45 PM EDT 05/15/2025 4:05 PM EDT us Deborah Joaquin MD LAB BLOOD ORDERABLES Fin al Result Performing Organization Address [facility] Co de Phone Number [facility] [address] [place] [phone] * (ABNORMAL) Basic Metabolic Panel (05/15/2025 1:45 PM EDT) Sodium 138 135 - 145 mmol/L [facility] Potassium 5.0 3.3 - 5.1 mmol/L [facility] Comment:Mild Hemolysis.Inter pret result with caution Chloride 105 96 - 108 mmol/L [facility] Carbon Dioxide 23 22 - 29 mmol/L [facility] Anion Gap 15 12 - 20 [facility] Urea Nitrogen (BUN) 39(H) 9 - 16 mg/dL [facility] Creatinine, Serum 1.23 0.5 - 1.4 mg/dL [facility] Estimated Glomerular Filt Rate 43 [facility] Comment:Chronic Kidney Disea se: Estimated GFR < 60 mL/min/1.54h3Hqrwki Kidney Disease: Estimated GFR < 15 mL/min/1.73m2 Glucose 86 60 - 115 mg/dL [facility] Calcium 9.4 8.4 - 10.2 mg/dL [facility] Blood Venous blood specimen / Unknown 05/15/2025 1:45 PM EDT 05/15/2025 4:05 PM EDT us Deborah Joaquin MD LAB BLOOD ORDERABLES Fin al Result Performing Organization Address [facility]/ZIP Co de Phone Number [facility] [address] [place] [phone] * CTA Chest PE Protocal (04/28/2025 11:59 AM EDT) Anatomical Region Laterality Modality Body, Chest Computed Tomogra phy 04/28/2025 11:5 9 AM EDT Narrative 04/28/2025 1:26 PM EDT [address] [address] [address] Scan Report Signed Patient: Fatoumata Gibson MR#: [id number] 086 : 1950 Acct:[id number] Age/Sex: 75 / F ADM Date: 04/28/25 Loc: HO.ED Attending Dr: Ordering Physician: Hollie Ladd DO Date of Service: 04/28/25 Procedure(s): CT angio chest PE protocol Accession Number(s): [id number] cc: Deborah Joaquin MD; Hollie Ladd DO Report Number: [id number]: Total DLP = 165.00 mGy-cm EXAMINATION: CT [...] 04/28/25 1323 DD/ 1159 TD/TT: 04/28/25 1309 Developer [employer]: Procedure Note Donotuseinterpreter, Image - 04/28/[address] [place] [address] [address] Scan Report Signed Patient: Fatoumata GibsonMR#: [id number] : 1950cct:[id number] Age/Sex: 75 / FADM Date: 04/28/25 Loc: .ED Attending Dr: Ordering Physician: Hollie Ladd DO Date of Service: 04/28/25 Procedure(s): CT angio chest PE protocol Accession Number(s): [id number] cc: Deborah Joaquin MD; Hollie Ladd DO Report Number: [id number]: Total DLP = 165.00 mGy-cm EXAMINATION: CT [...] 04/28/25 1323 DD/ 1159 TD/TT: 04/28/25 1309 Developer [employer]: [facility] External Provider IMG CT PROCEDURES Final Result * (ABNORMAL) Basic Metabolic Panel, Fasting (04/27/2025 5:33 AM EDT) Sodium 138 135 - 145 mmol/L [facility] Potassium 4.6 3.3 - 5.1 mmol/L [facility] Chloride 103 96 - 108 mmol/L [facility] Carbon Dioxide 27 22 - 29 mmol/L [facility] Anion Gap 13 12 - 20 [facility] Urea Nitrogen (BUN) 22(H) 9 - 16 mg/dL [facility] Creatinine, Serum 1.10 0.5 - 1.4 mg/dL [facility] Creatinine Clr Calc Pharmacy 37.1 [facility] Comment:Provided height and weight: 160.02 cm,53.977 kg.eGFR (calculated from the MDRD study equation) and eCrCl(calculated from the Cockcroft-Gault equation) are based ondifferent parameters and may not yield comparable results.If eCrCl result is absurd, please check patient'sheight/weight. Estimated Glomerular Filt Rate 49 [facility] Comment:Chronic Kidney Disea se: Estimated GFR < 60 mL/min/1.22x7Rpaxfg Kidney Disease: Estimated GFR < 15 mL/min/1.73m2 Glucose Fasting 108(H) 60 - 99 mg/dL [facility] Comment:A fasting glucose fr om 100-125 mg/dl is considered impaired(pre-diabetes). Calcium 8.3(L) 8.4 - 10.2 mg/dL [facility] 04/27/2025 5:33 AM EDT 04/27/2025 6:49 AM EDT us Generic External Data Provider LAB BLOOD ORDERAB LES Final Result [facility] [address] [place], [place] [phone] * (ABNORMAL) CBC auto differential (04/27/2025 5:33 AM EDT) Only the most recent of2 resultswithin the time period is included. White Blood Count 9.6 4.8 - 10.8 X10*3/uL [facility] Red Blood Count 4.07(L) 4.20 - 5.50 X10*6/uL [facility] Hemoglobin 11.2(L) 12.0 - 16.0 g/dl [facility] Hematocrit 32.5(L) 37.0 - 47.0 % [facility] Mean Corpuscular Volume 79.9(L) 80.0 - 98.0 fL [facility] Mean Corpuscular Hemoglobin 27.5 27.0 - 33.0 pg [facility] Mean Corpuscular HGB Conc 34.5 31.0 - 35.0 g/dl [facility] Red Cell Distribution Width 13.9 11.0 - 16.0 % [facility] Platelet Count 217 160 - 400 X10*3/uL [facility] Mean Platelet Volume 11.6 9.4 - 12.3 fL [facility] Neutrophils Percent Auto 82.1(H) 45 - 73 % [facility] Imm Gran Pct Auto 0.5(H) 0.0 - 0.4 % [facility] Lymphocytes Percent Auto 10.6(L) 20 - 40 % [facility] Monocytes Percent Auto 6.6 2 - 11 % [facility] Eosinophils Percent Auto 0.1 0 - 4 % [facility] Basophils Percent Auto 0.1 0 - 2 % [facility] NRBC Pct Auto 0.0 0.0 - 0.2 /100WBC [facility] Neutrophils Absolute Auto 7.9 2.0 - 8.3 x10*3/uL [facility] Imm Gran Abs Auto 0.05(H) 0.00 - 0.03 X10*3/uL [facility] Lymphocytes Absolute Auto 1.0(L) 1.2 - 4.9 X10*3/uL [facility] Monocytes Absolute Auto 0.6 0.1 - 1.2 X10*3/uL [facility] Eosinophils Absolute Auto 0.0 0.0 - 0.4 X10*3/uL [facility] Basophils Absolute Auto 0.0 0.0 - 0.2 X10*3/uL [facility] NRBC Abs Auto 0.000 0.0 - 0.012 X10*3/uL [facility] 04/27/2025 5:33 AM EDT 04/27/2025 6:49 AM EDT us Generic External Data Provider LAB BLOOD ORDERAB LES Final Result Performing Organization Address City/[facility]/ZIP Co de Phone Number [facility] [address] [place] [phone] * Lipid Panel, Standard (04/27/2025 5:33 AM EDT) Triglycerides 69 <150 mg/dL [facility] Comment:Desirable Triglyceri de: less than 150 mg/dLBorderline High Triglyceride 150-199 mg/dLHigh Triglyceride: 200-499 mg/dLVery High Triglyceride: greater than or equal to 5OO mg/dL Cholesterol 135 <200 mg/dL [facility] Comment:Desirable Cholestero l: less than 200 mg/dLBorderline High Cholesterol: 200-239 mg/dLHigh Cholesterol: greater than 239 mg/dL LDL Cholesterol Calculated 58 <100 mg/dL [facility] Comment:Desirable LDL: less than 100 mg/dLNear Optimal/Above Optimal LDL: 110- 129 mg/dLBorderline High LDL: 130-159 mg/dLHigh LDL: 160-189 mg/dLVery High LDL: greater than or equal to 190 mg/dL HDL Cholesterol 64 >40 mg/dL [facility] Comment:Desirable HDL: great er than 40 mg/dL Note: This HDL assay may give artificially low results in patients with liver disease. 04/27/2025 5:33 AM EDT 04/27/2025 6:49 AM EDT us Generic External Data Provider LAB BLOOD ORDERAB LES Final Result Performing Organization Address City/[facility]/ZIP Co de Phone Number [facility] [address] [place] [phone] * Slide Review (04/26/2025 7:56 PM EDT) Pathologist [facility] Slide Review VERIFIED [facility] 04/26/2025 7:56 PM EDT 04/26/2025 8:23 PM EDT Generic External Data Provider LAB BLOOD ORDERAB LES Final Result Performing Organization Address [facility] Co de Phone Number [facility] [address] [place] [phone] * TSH with Reflex to Free T4 (04/26/2025 7:56 PM EDT) [facility] TSH reflex Free T4 0.54 0.32 - 4.0 uIU/mL [facility] 04/26/2025 7:56 PM EDT 04/26/2025 8:23 PM EDT Generic External Data Provider LAB BLOOD ORDERAB LES Final Result Performing Organization Address [facility] Co de Phone Number [facility] [address] [place] [phone] * (ABNORMAL) B Type Natriuretic Peptide (BNP) (04/26/2025 7:56 PM EDT) [facility] B Type Natriuretic Peptide 321(H) <100 pg/mL [facility] 04/26/2025 7:56 PM EDT 04/26/2025 8:23 PM EDT Generic External Data Provider LAB BLOOD ORDERAB LES Final Result Performing Organization Address [facility] Co de Phone Number [facility] [address] [place] [phone] * (ABNORMAL) Comprehensive Metabolic Panel (04/26/2025 7:56 PM EDT) [facility] Sodium 138 135 - 145 mmol/L [facility] Potassium 4.2 3.3 - 5.1 mmol/L [facility] Chloride 103 96 - 108 mmol/L [facility] Carbon Dioxide 28 22 - 29 mmol/L [facility] Anion Gap 11(L) 12 - 20 [facility] Urea Nitrogen (BUN) 20(H) 9 - 16 mg/dL [facility] Creatinine, Serum 1.05 0.5 - 1.4 mg/dL [facility] Creatinine Clr Calc Pharmacy 38.8 [facility] Comment:Provided height and weight: 160.02 cm,53.977 kg.eGFR (calculated from the MDRD study equation) and eCrCl(calculated from the Cockcroft-Gault equation) are based ondifferent parameters and may not yield comparable results.If eCrCl result is absurd, please check patient'sheight/weight. Estimated Glomerular Filt Rate 51 [facility] Comment:Chronic Kidney Disea se: Estimated GFR < 60 mL/min/1.71z5Euvegl Kidney Disease: Estimated GFR < 15 mL/min/1.73m2 Glucose 195(H) 60 - 115 mg/dL [facility] Calcium 8.5 8.4 - 10.2 mg/dL [facility] Bilirubin, Total 0.5 0.0 - 1.0 mg/dL [facility] Aspartate Amino Transferase 30 5 - 31 U/L [facility] Alanine Aminotransferase 22 0 - 31 U/L [facility] Total Protein 6.5 6.5 - 8.0 g/dL [facility] Albumin Level 3.9 3.5 - 5.0 g/dL [facility] Alkaline Phosphatase 75 39 - 117 U/L [facility] 04/26/2025 7:56 PM EDT 04/26/2025 8:23 PM EDT us Generic External Data Provider LAB BLOOD ORDERAB LES Final Result [facility] [address] [place] [phone] * FL Guidance in OR (04/26/2025 9:45 AM EDT) Anatomical Region Laterality Modality X-Ray Angiograph y 04/26/2025 9:45 AM EDT Narrative 04/26/2025 11:54 AM EDT [address] [address] Fluoroscopy Report Signed Patient: Fatoumata Gibson MR#: [id number] [id number] : 1950 Acct:[id number] Age/Sex: 75 / F ADM Date: 04/26/25 Loc: HO.SSS Attending Dr: Sharron Velez PA-C Ordering Physician: Amanuel Ortiz MD Date of Service: 04/26/25 Procedure(s): FL guidance in OR Accession Number(s): [id number] cc: Deborah Joaquin MD; Amanuel Ortiz MD [...] 04/26/25 1151 DD/ 0945 TD/TT: 04/26/25 1055 [employer]: Procedure Note Donotuseinterpreter, Image - 04/26/[address] [address] Fluoroscopy Report Signed Patient: Fatoumata GibsonMR#: [id number] : 1950cct:[id number] Age/Sex: 75 / FADM Date: 04/26/25 Loc: HO.SSS Attending Dr: Sharron Velez PA-C Ordering Physician: Amanuel Ortiz MD Date of Service: 04/26/25 Procedure(s): FL guidance in OR Accession Number(s): [id number] cc: Deborah Joaquin MD; Amanuel Ortiz MD [...] 04/26/25 1151 DD/ 0945 TD/TT: 04/26/25 1055 [employer]: [facility] External Provider IMG IR PROCEDURES Final Result * BI Mammogram Screening Tomosynthesis Bilateral (04/24/2025 9:50 AM EDT) Anatomical Region Laterality Modality Breast Bilateral Mammography 04/24/2025 9:50 AM EDT Narrative 05/02/2025 4:17 PM EDT [address] [place] [address] Mammography Report Signed Patient: Fatoumata Gibson MR#: [id number] 086 : 1950 Acct:[id number] Age/Sex: 75 / F ADM Date: 04/24/25 Loc: HO.MAMMO Attending Dr: Deborah Joaquin MD Ordering Physician: Deborah Joaquin MD Results: 1Ne gative Date of Service: 04/24/25 Follow Up: 1 Year From Orig inal Mammogram Procedure(s): MM tomosynthesis screening BI Accession Number(s): [id number] cc: Deborah Joaquin MD EXAMINATION: MM SCREENING [...] 05/02/25 1614 DD/ 0950 TD/TT: 04/24/25 1009 [employer]: Procedure Note Donotuseinterpreter, Image - 05/02/2025 [facility] [address] [place] [address] Mammography Report Signed Patient: Fatoumata Gibson#: [id number] : 1950cct:[id number] Age/Sex: 75 / FADM Date: 04/24/25 Loc: HO.MAMMO Attending Dr: Deborah Joaquin MD Ordering Physician: Deborah Joaquin MDResults: 1Ne gative Date of Service: 04/24/25Follow Up: 1 Year From Orig inal Mammogram Procedure(s): MM tomosynthesis screening BI Accession Number(s): [id number] cc: Deborah Joaquin MD EXAMINATION: MM SCREENING [...] 05/02/25 1614 DD/ 0950 TD/TT: 04/24/25 1009 Developer [employer] Upholstering: us Deborah Joaquin MD IMG BI PROCEDURES Final Result * (ABNORMAL) CBC (04/21/2025 2:25 PM EDT) White Blood Count 5.6 4.8 - 10.8 X10*3/uL [facility] Red Blood Count 4.68 4.20 - 5.50 X10*6/uL [facility] Hemoglobin 12.3 12.0 - 16.0 g/dl [facility] Hematocrit 38.7 37.0 - 47.0 % [facility] Mean Corpuscular Volume 82.7 80.0 - 98.0 fL [facility] Mean Corpuscular Hemoglobin 26.3(L) 27.0 - 33.0 pg [facility] Mean Corpuscular HGB Conc 31.8 31.0 - 35.0 g/dl [facility] Red Cell Distribution Width 13.6 11.0 - 16.0 % [facility] Platelet Count 238 160 - 400 X10*3/uL [facility] Mean Platelet Volume 9.4 9.4 - 12.3 fL [facility] NRBC Pct Auto 0.0 0.0 - 0.2 /100WBC [facility] NRBC Abs Auto 0.000 0.0 - 0.012 X10*3/uL [facility] 04/21/2025 2:25 PM EDT 04/21/2025 2:31 PM EDT us Generic External Data Provider LAB BLOOD ORDERAB LES Final Result [facility] [address] [place] [address] [phone] from Last 3 Months Insurance [facility] [employer] OPTIONS (HMO D-SNP) Care Teams Continuous Mining Machine Operator Relationship Specialty Start Date End Date Deborah Joaquin MD [address] [place] [id number] PCP - General Family Medicine 05/14/17 [facility] 05/10/25
--- OUTSIDE RECORDS SUMMARY | 2025-07-21 08:08 | XMS_ITS | Encounter Summary ---
Author Organization [employer] Address [address] [facility] [address] [place] [address] Care Team Providers Care Smog Technician Name Role Phone Deborah Joaquin MD Primary Care Provider + Reason for Visit * Reason Onset Date Comments Call Back Request 05/18/2025 Encounter Details Date Type Department Care Team ([facility] st Contact Info) Description 05/18/2025 Telephone [facility] [address] [place], [place] [phone] Deborah Joaquin MD [address] [place], [place] [phone] Call Back Request Social History Tobacco Use [...] placed to patient EC (Zenaida) on HIPAA [phone] regarding below message. RN left an VM for the EC to CB Red team nurses. EC and PT to F/U PRN. * Telephone Encounter - Ina Colon - 05/18/2025 9:43 AM EDT Tc from pt daughter requesting a call back to discuss phosphorus lab results , they are wondering if medication will be needed Contact pt daughter Zenaida (on HIPAA) at [phone] documented in this encounter Plan of Treatment Upcoming Encounters Date Type Department Care Team (Late st Contact Info) Description 07/24/2025 11:00 AM EST Office Visit [facility] [address] [place] [address] Kendy Butler, OD [address] [place] [address] documented as of this encounter Visit Diagnoses Not on filedocumented in this encounter Additional Health Concerns Assessment Noted Time PHQ-9 Depression Total Score: 3 05/15/20 25 1:12 PM EDT documented as of this encounter Care Teams Smog Technician Relationship Specialty Start Date End Date Deborah Joaquin MD [address] [place] [address] PCP - General Family Medicine 05/14/17 [place] 05/10/25 documented as of this encounter
--- OUTSIDE RECORDS SUMMARY | 2025-07-21 08:08 | XMS_ITS | Encounter Summary ---
Author Organization [employer] Address [address] [facility] [address] [place] [address] Care Team Providers Care Corporate Physical Security Supervisor Name Role Phone Deborah Joaquin MD Primary Care Provider + Reason for Visit * Reason Onset Date Comments Pre-op Exam 03/11/2024 Encounter Details Date Type Department Care Team ([facility] st Contact Info) Description 03/11/2024 Telephone [facility] [address] [place], [place] [phone] Deborah Joaquin MD [address] [place], [place] [phone] Pre-op Exam Social History Tobacco Use Types [...] [facility] Surgeon's office number: [phone] Surgeon's office fax number: [phone] Contact name (person you spoke with): Manisha Last office note from surgeon requested: Will be faxed Date of Surgery: 04/19 Surgical procedure being done: Cataract Surgery on the right eye Type of anesthesia: Mac Lab needed: no EKG: no Surgeon's name: Dr. Sonny Freeman Facility name: [facility] Surgeon's office number: [phone] Surgeon's office fax number: [phone] Contact name (person you spoke with): Manisha Last office note from surgeon requested: Will Be faxed documented in this encounter Plan of Treatment Upcoming Encounters Date Type Department Care Team ([facility] st Contact Info) Description 07/24/2025 11:00 AM EST Office Visit [facility] [address] [place] [address] Kendy Butler, OD [address] [facility] [place] [address] documented as of this encounter Visit Diagnoses Not on filedocumented in this encounter Care Teams Corporate Physical Security Supervisor Relationship Specialty Start Date End Date Deborah Joaquin MD [address] [place] [address] PCP - General Family Medicine 05/14[facility]17 [facility] documented as of this encounter
== END 2025-07-20 08:05 | disposition home or self-care (01) ==
LOC: HO.HOSX 08:04
PROVIDERS: Visit Provider Physician Assistant
DX: M84.351A Stress fracture, right femur, initial encounter for fracture (principal); I87.2 Venous insufficiency (chronic) (peripheral)
CPT/HCPCS: 73552; 99212

== ENCOUNTER 2025-07-20 09:56 | Outpatient (AMB) | payer OTHER, SELFPAY ==
--- NOTE | 2025-07-20 10:03 | A.OFFVIS_ITS ---
Intake Visit Reasons: PO- RT femur IMN, DOS 04/26/25-w/xrays Intake Note: Fatoumata is a 75 year old female who presents today for a post operative appointment status post of her right femur IM nail 04/26/[address] Ortiz. Patient reports she is not having pain, however she is still having a lot of pain around her foot and ankle. Allergies atenolol Allergy (Unknown, Verified 07/20/25 10:39) swelling ibuprofen (From Motrin) Adverse Reaction (Intermediate, Verified 07/20/25 10:39) palpatations,TACHYCARDIA/CHEST PAIN HPI HPI PO- RT femur IMN, DOS 04/26/25-w/xrays: Details: Ms. Gibson is a 75-year-old female who presents to the office today status post right femur IM nail on 04/26/2025 for prophylaxis in the setting with stress fracture. Patient reports that she is overall doing very well. She continues to have pain in the right foot. [facility] Medical History (Updated 07/20/25 @ 10:34 by Sharron Velez PA-C) Teeth missing Anemia CKD (chronic kidney disease), stage II Benign paroxysmal positional vertigo Ambulates with cane HLD (hyperlipidemia) HTN (hypertension) Osteoporosis Femur fracture, left Surgical History Hx of bilateral cataract extraction (~2023) Hx of colonoscopy History of surgery (~2022) Hx of breast biopsy H/O removal of cyst Family History Father Heart problem HTN (hypertension) CVD (cardiovascular disease) Mother HTN (hypertension) Brother No problems noted. Brother No problems noted. Brother No problems noted. Sister No problems noted. Sister No problems noted. Sister No problems noted. Daughter No problems noted. Daughter No problems noted. Social History Household Members: None Housing: Apartment Are you a primary skin care specialist to a significant other at home: No Do you presently have visiting nurse or other home services: No 75 years or older and lives alone: No Alcohol intake: never Comment: COUNTS CORRECT Patient Tobacco Use Status: Never used Tobacco e-Cigarette/Vaping Use: Never Used Second Hand Smoke Exposure: No service: No Current occupational status: disabled Current occupation: right hand Review of Systems Const All systems reviewed & are unremarkable except as noted in HPI and below Physical Exam Const General: cooperative, healthy appearing and no acute distress Resp Effort & Inspection: normal respiratory effort and able to speak in complete sentences Extrem Other: Right lower extremity: No signs of infection. No surrounding erythema or drainage around the incision sites. Patient is able to dorsiflex and plantar flex. Calf is supple and nontender. Negative Homans. NVI. Psych Appearance: grossly normal Mental Status: mental status grossly normal Attitude: cooperative Assessment & Plan Assessment & Plan (1) Stress fracture, right femur, initial encounter for fracture: Code(s): M84.351A - Stress fracture, right femur, initial encounter for fracture Category: Medical Plan Ms. Gibson is a 75-year-old female who presents to the office today status post right femur IM nail on 04/26/2025 for prophylaxis in the setting with stress fracture. Patient reports that she is overall doing very well. She continues to have pain in the right foot. While in the office today, patient expresses that she continues to have right foot burning sensations ever since surgery. When observing the skin on the right lower extremity does look like she has some venous stasis staining. I have placed a referral to vascular surgery for evaluation. As far as follow-up for right femur IM nail she will follow up PRN, sooner if needed. X-rays of the right femur which were obtained while in the office today and were reviewed by me, Sharron Velez PA-C, revealed intact orthopedic hardware with routine healing. Orders: Orders XR femur RT 2V Today M84.351A - Stress fracture, right femur, initial encounter for fracture Referrals Vascular Surgery Referral I87.2 - Venous insufficiency (chronic) (peripheral) Coding Level of Care Code Global (30795) Diagnoses Stress fracture, right femur, initial encounter for fracture M84.351A
--- OUTSIDE RECORDS SUMMARY | 2025-07-20 11:46 | XMS_ITS | Encounter Summary ---
Author Organization [employer] Address [address] [place] [address] Care Team Providers Care Change Person Name Role Phone Deborah Joaquin MD Primary Care Provider + Reason for Visit * Reason Onset Date Comments Pre-op Exam 03/11/2024 Encounter Details Date Type Department Care Team ([facility] st Contact Info) Description 03/11/2024 Telephone [facility] [address] [place], [place] [phone] Deborah Joaquin MD [address] [place], [place] [phone] Pre-op Exam Social History Tobacco Use Types [...] [facility] Surgeon's office number: [phone] Surgeon's office fax number: [phone] Contact name (person you spoke with): Manisha Last office note from surgeon requested: Will be faxed Date of Surgery: 04/19 Surgical procedure being done: Cataract Surgery on the right eye Type of anesthesia: Mac Lab needed: no EKG: no Surgeon's name: Dr. Sonny Freeman Facility name: [facility] Surgeon's office number: [phone] Surgeon's office fax number: [phone] Contact name (person you spoke with): Manisha Last office note from surgeon requested: Will Be faxed documented in this encounter Plan of Treatment Upcoming Encounters Date Type Department Care Team ([facility] st Contact Info) Description 07/24/2025 11:00 AM EST Office Visit [facility] OPT[facility] [address] [place] [address] Kendy Butler, OD [address] [place] [address] documented as of this encounter Visit Diagnoses Not on filedocumented in this encounter Care Teams Change Person Relationship Specialty Start Date End Date Deborah Joaquin MD [address] [place] [address] PCP - General Family Medicine [facility]17 [facility] documented as of this encounter
--- OUTSIDE RECORDS SUMMARY | 2025-07-20 11:46 | XMS_ITS | Encounter Summary ---
Author Organization [employer] Address [address] [facility] [address] [place] [address] Care Team Providers Care Steam Station Supervisor Name Role Phone Deborah Joaquin MD Primary Care Provider + Reason for Visit * Reason Onset Date Comments Call Back Request 05/18/2025 Encounter Details Date Type Department Care Team ([facility] st Contact Info) Description 05/18/2025 Telephone [facility] [address] [place], [place] [phone] Deborah Joaquin MD [address] [place], [place] [phone] Call Back Request Social History Tobacco Use [...] placed to patient EC (Zenaida) on HIPAA [phone] regarding below message. RN left an VM for the EC to CB Red team nurses. EC and PT to F/U PRN. * Telephone Encounter - Ina Colon - 05/18/2025 9:43 AM EDT Tc from pt daughter requesting a call back to discuss phosphorus lab results , they are wondering if medication will be needed Contact pt daughter Zenaida (on HIPAA) at [phone] documented in this encounter Plan of Treatment Upcoming Encounters Date Type Department Care Team (Late st Contact Info) Description 07/24/2025 11:00 AM EST Office Visit [facility] OPTOMETRY [address] [place] [address] Kendy Butler, OD [address] [place] [address] documented as of this encounter Visit Diagnoses Not on filedocumented in this encounter Additional Health Concerns Assessment Noted Time PHQ-9 Depression Total Score: 3 05/15/20 25 1:12 PM EDT documented as of this encounter Care Teams Steam Station Supervisor Relationship Specialty Start Date End Date Deborah Joaquin MD [address] [place] [address] PCP - General Family Medicine 05/14/17 [facility] 05/10/25 documented as of this encounter
--- OUTSIDE RECORDS SUMMARY | 2025-07-20 11:46 | XMS_ITS | Encounter Summary ---
Author Organization [employer] Address [address] [place] [address] Care Team Providers Care Licensed Marine Engineer Name Role Phone Deborah Joaquin MD Primary Care Provider + Reason for Visit * Reason Onset Date Comments Appointment Request 12/16/2024 Encounter Details Date Type Department Care Team ([facility] st Contact Info) Description 12/16/2024 Telephone [facility] [address] [place], [place] [phone] Deborah Joaquin MD [address] [place], [place] [phone] Appointment Request Social History Tobacco Use Types [...] R/s appt from 12/16/24. Contact pt at [phone] documented in this encounter Plan of Treatment Upcoming Encounters Date Type Department Care Team (Late st Contact Info) Description 07/24/2025 11:00 AM EST Office Visit [facility] [address] [place] [address] Kendy Butler, OD [address] [place] [address] documented as of this encounter Visit Diagnoses Not on filedocumented in this encounter Care Teams Licensed Marine Engineer Relationship Specialty Start Date End Date Deborah Joaquin MD [address] [place] [phone] PCP - General Family Medicine 05/14/17 Natalee [facility] 05/10/25 documented as of this encounter
--- OUTSIDE RECORDS SUMMARY | 2025-07-20 11:46 | XMS_ITS | Encounter Summary ---
Author Organization [employer] Address [address] [facility] [address] [place] [address] Care Team Providers Care Charm Filter Operator Helper Name Role Phone Deborah Joaquin MD Primary Care Provider + Reason for Visit * Reason Comments Med Refill Encounter Details Date Type Department Care Team (Late st Contact Info) Description 04/21/2023 Refill [facility] MEDICINE [address] [place] [phone] Deborah Joaquin MD [address] [place] [address] Social History Tobacco Use Types Packs/Day Years [...] Description 07/24/2025 11:00 AM EST Office Visit [facility] OPTOMETRY [address] [place], [place] [phone] TarkaKendy, OD [address] [place], [place] [phone] documented as of this encounter Visit Diagnoses Not on filedocumented in this encounter Care Teams Charm Filter Operator Helper Relationship Specialty Start Date End Date Deborah Joaquin MD [address] [place] [id number] PCP - General Family Medicine 05/14/17 Natalee A 05/10/25 documented as of this encounter
--- OUTSIDE RECORDS SUMMARY | 2025-07-20 11:47 | XMS_ITS | Clinical Summary ---
Author Organization [employer] Address [address] [facility] [address] [place] [address] Care Team Providers Care Oil Recovery Unit Operator Name Role Phone Deborah Joaquin MD [...] ultrasound to rule out DVT Will continue [facility] for A-fib Visit for preventive health examination [...] is due next year and followed by leather cartridge belt maker due to osteoporosis CRC screen is overdue, [...] the house. FU w/ knee orthopedics at [facility], they will refer to PT if [...] use plantar pads nad reschedule appointment with premium auditor Assessment & Plan (01/02/2023 12:05 PM EDT): [...] and continue calcium + D Follow-up with leather cartridge belt maker Assessment & Plan (06/10/2024 10:23 AM EDT): [...] Encounters Date Type Department Care Team Description 07/13/2025 Telephone [facility] [address] [place] [phone] Deborah Joaquin MD Medication Question 07/11/2025 8:40 AM EDT Office Visit [facility] [address] [place] [phone] Eren Rodriguez MD Pain and swelling of right lower leg (Primary Dx); Contusion of rib on left side, initial encounter 07/11/2025 Travel 07/10/2025 Telephone [facility] [address] [place] [phone] Deborah Joaquin MD Results 06/28/2025 Orders Only [facility] [address] [place] [phone] Deborah Joaquin MD 06/20/2025 10:45 AM EDT Office Visit [address] [address] Deborah Joaquin MD Age-related osteoporosis with current pathological fracture with routine healing, subsequent encounter (Primary Dx); Leg edema, left; Visit for preventive health examination; Encounter for immunization 06/20/2025 Travel 06/19/2025 2:40 PM EDT Office Visit [facility] [address] [place] [phone] Mya Jordan NP Pain of right lower extremity (Primary Dx); Other mononeuropathy 06/19/2025 Telephone [facility] [address] [place] [address] [phone] Deborah Joaquin MD 06/19/2025 Travel 06/12/2025 Patient Outreach [facility] [address] [place] [address] Deborah Joaquin MD Pre-visit Planning (SDOH screening completed on 12/07/2024) 05/24/2025 Refill [facility] [address] [place] [address] Sara Patterson, Primary hypertension 05/24/2025 Refill [facility] [address] [place] [address] Tarsharifa Kendy, OD Primary open angle glaucoma (POAG) of both eyes, moderate stage 05/18/2025 Telephone [facility] [address] [place] [address] Deborah Joaquin MD Call Back Request 05/15/2025 1:00 PM EDT Office Visit [address] [address] Octavio Billy MD Paroxysmal A-fib ([facility]) (Primary Dx); Foot pain, right; S/P ORIF (open reduction internal fixation) fracture 05/15/2025 Orders Only GENERIC EXTERNAL DATA DEPARTMENT Provider, Generic External Data 05/15/2025 Travel 05/15/[address] [address] Octavio Billy MD CHART PREP 05/01/2025 Results Follow-Up [address] [address] Deborah Joaquin MD CTA Chest PE Protocal 04/28/2025 Orders Only [facility] External Provider, [facility] 04/28/2025 Patient Outreach [address] [address] Deborah Joaquin MD Transition Of Care (Tcm) (HDF unscheduled ) 04/28/[address] [address] Deborah Joaquin MD Hospital Follow-up 04/27/2025 Results Follow-Up [address] [place] [address] Deborah Joaquin MD B Type Natriuretic Peptide (BNP), CBC auto differential, TSH with Reflex to Free T4, Additional followed-up results: 3 04/27/2025 Orders Only GENERIC EXTERNAL DATA DEPARTMENT Provider, Generic External Data 04/27/2025 Refill [facility] [address] [place] [address] Deborah Joaquin MD 04/26/2025 Orders Only [facility] External Provider, [facility] 04/24/2025 Orders Only [facility] [address] [place] [address] Deborah Joaquin MD 04/21/2025 Orders Only GENERIC EXTERNAL DATA DEPARTMENT Provider, Generic External Data 04/19/2025 Refill [facility] [address] [place] [address] Deborah Joaquin MD from Last 3 Months [...] Description 07/24/2025 11:00 AM EST Office Visit [facility] [address] [place] [address] Kendy Butler, OD [address] [place] [address] Health Maintenance Due Date Last Done Comments CT Colonography 1950 Colonoscopy 1950 Colorectal Cancer Screening 1950 FIT DNA/Cologuard 1950 FIT 1950 FOBT 1950 Sigmoidoscopy 1950 Hepatitis C Screening 1969 Zoster Vaccines (1 of 2) 2001 RSV Patients and Patients Aged 60 years or older (1 - Risk 60-74 years 1-dose series) 2011 COVID-19 Vaccine (3 - season) 2025 12/21/2020, 11/23/2020 SDOH Screening 12/07/2025 [...] AM EDT Narrative 07/11/2025 11:22 AM EDT [address] [address] Ultrasound Report Signed Patient: Fatoumata Gibson MR#: [id number] 086 : 1950 Acct:[id number] Age/Sex: 75 / F ADM Date: 07/11/25 Loc: .US Attending Dr: Eren Rodriguez MD Ordering Physician: EREN RODRIGUEZ MD Date of Service: 07/11/25 Procedure(s): US venous duplex LE RT Accession Number(s): [id number] cc: EREN RODRIGUEZ MD; Deborah Joaquin MD [...] 07/11/25 1119 DD/ 1106 TD/TT: 07/11/25 1112 Biometrics Technician: Procedure Note Donotuseinterpreter, Image - 07/11/[address] [address] Ultrasound Report Signed Patient: Fatoumata GibsonMR#: [id number] 086 : 1950cct:[id number] Age/Sex: 75 / FADM Date: 07/11/25 Loc: HO.US Attending Dr: Eren Rodriguez MD Ordering Physician: EREN RODRIGUEZ MD Date of Service: 07/11/25 Procedure(s): US venous duplex LE RT Accession Number(s): [id number] cc: EREN RODRIGUEZ MD; Deborah Joaquin MD [...] 07/11/25 1119 DD/ 1106 TD/TT: 07/11/25 1112 Biometrics Technician: Eren Rodriguez MD IMG US PROCEDURES Edited Result - Final * XR Foot 3+ Views Right (06/19/2025 2:25 PM EDT) Anatomical Region Laterality Modality Lower Extremities, Foot Right Radiogra phic Imaging 06/19/2025 2:25 PM EDT Narrative 06/19/2025 2:43 PM EDT [address] [address] XRay Report Signed Patient: Fatoumata Gibson MR#: [id number] 086 : 1950 Acct:[id number] Age/Sex: 75 / F ADM Date: 06/19/25 Loc: HO.CX Attending Dr: Mya Jordan REMEDIAL READING TEACHER Ordering Physician: Mya Jordan NP Date of Service: 06/19/25 Procedure(s): XR foot RT min 3V Accession Number(s): [id number] cc: Mya Jordan NP Reason for Exam: [...] Kulwinder Caro MD 06/19/2025 02:40 PM EDT RP Dictated By: Kulwinder Caro MD Signed By: <Electronically signed by Kulwinder Caro MD in OV> 06/19/25 1440 DD/ 1425 TD/TT: 06/19/25 1428 Biometrics Technician: Procedure Note Donotuseinterpreter, Image - 06/19/[address] [address] XRay Report Signed Patient: Fatoumata GibsonMR#: [id number] 086 : 1950cct:[id number] Age/Sex: 75 / FADM Date: 06/19/25 Loc: HO.HHCX Attending Dr: Mya Jordan REMEDIAL READING TEACHER Ordering Physician: Mya Jordan NP Date of Service: 06/19/25 Procedure(s): XR foot RT min 3V Accession Number(s): [id number] cc: Mya Jordan NP Reason for Exam: [...] Kulwinder Caro MD 06/19/2025 02:40 PM EDT RP Dictated By: Kulwinder Caro MD Signed By: <Electronically signed by Kulwinder Caro MD in OV> 06/19/25 1440 DD/ 1425 TD/TT: 06/19/25 1428 Biometrics Technician: Mya Jordan REMEDIAL READING TEACHER IMG XR PROCEDURES Final Result * XR Tibia Fibula 2 Views Right (06/19/2025 2:25 PM EDT) Anatomical Region Laterality Modality Lower Extremities, Lower Leg Right Rad iographic Imaging 06/19/2025 2:25 PM EDT Narrative 06/19/2025 2:37 [place] [address] XRay Report Signed Patient: Fatoumata Gibson MR#: [id number] : 1950 Acct:[id number] Age/Sex: 75 / F ADM Date: 06/19/25 Loc: HO.HHCX Attending Dr: Mya Jordan NP Ordering Physician: Mya Jordan NP Date of Service: 06/19/25 Procedure(s): XR tibia fibula RT 2V Accession Number(s): [id number] cc: Mya Jordan NP Reason for Exam: [...] OV> 06/19/25 1434 DD/ 1425 TD/TT: 06/19/251427 Biometrics Technician: Procedure Note Donotuseinterpreter, Image - 06/19/[address] [address] XRay Report Signed Patient: Fatoumata GibsonMR#: [id number] 086 : 1950cct:[id number] Age/Sex: 75 / FADM Date: 06/19/25 Loc: .HHX Attending Dr: Mya Jordan REMEDIAL READING TEACHER Ordering Physician: Mya Jordan NP Date of Service: 06/19/25 Procedure(s): XR tibia fibula RT 2V Accession Number(s): [id number] cc: Mya Jordan NP Reason for Exam: [...] OV> 06/19/25 1434 DD/ 1425 TD/TT: 06/19/251427 Biometrics Technician: us Mya Jordan REMEDIAL READING TEACHER IMG XR PROCEDURES Final Result * Immunofixation (ROSY), Urine (05/15/2025 1:45 PM EDT) ROSY Interpretation SEE NOTE [facility] Comment:Normal pattern. No m onoclonal proteins detected.THIS TEST WAS PERFORMED AT:[employer] [address] [id number] JJ MD 05/15/2025 1:45 PM EDT 05/15/2025 4:14 PM EDT us Generic External Data Provider LAB URINE ORDERAB LES Final Result Performing Organization Address [facility]/ZIP Co de Phone Number [facility] [address] [place] [phone] * Collagen Cross-Linked N-Telopeptide (NTx), U (05/15/2025 1:45 PM EDT) Pathologist [facility] N Telopetide (NTx) 35 see note H [facility] Comment:Result Units: nM BCE /mM creatPremenopausal Females: 4 - 64 nM BCE/mM creatResults are primarily used for monitoring theresponse to therapy. A value within thepremenopausal range does not rule out osteoporosisnor the need for therapyUnits of Measure: nM BCE/mM creat CREATININE, RANDOM URINE 93 20 - 275 mg/dL [facility] Comment:THIS TEST WAS PERFOR MED AT:[employer]/SING[id number] [place] [address]OSRGREQLEILANI RUBIN MD,PHD 05/15/2025 1:45 PM EDT 05/15/2025 4:14 PM EDT us Generic External Data Provider LAB URINE ORDERAB LES Final Result Performing Organization Address [facility]/ZIP Co de Phone Number [facility] [address] [place] [phone] * TSH (05/15/2025 1:45 PM EDT) Thyroid Stimulating Hormone 1.85 0.32 - 4.0 uIU/mL [facility] Comment:TSH 3rd Generation ( [facility]) 05/15/2025 1:45 PM EDT 05/15/2025 4:05 PM EDT Generic External Data Provider LAB BLOOD ORDERAB LES Final Result Performing Organization Address [facility] Co de Phone Number [facility] [address] [place] [phone] * T4, Free (05/15/2025 1:45 PM EDT) Pathologist [facility] Free T4 (Free Thyroxine) 1.09 0.71 - 1.85 ng/dL [facility] 05/15/2025 1:45 PM EDT 05/15/2025 4:05 PM EDT Generic External Data Provider LAB BLOOD ORDERAB LES Final Result Performing Organization Address [facility] Phone Number [facility] [address] [place] [phone] * (ABNORMAL) Phosphate (As Phosphorus) (05/15/2025 1:45 PM EDT) Pathologist [facility] Phosphorus 5.1(H) 2.7 - 4.5 mg/dL [facility] 05/15/2025 1:45 PM EDT 05/15/2025 4:05 PM EDT Generic External Data Provider LAB BLOOD ORDERAB LES Final Result Performing Organization Address [facility] de Phone Number [facility] [address] [place] [phone] * Magnesium (05/15/2025 1:45 PM EDT) Only the most recent of3 resultswithin the time period is included. Magnesium 2.2 1.6 - 2.6 mg/dL [facility] Blood Venous blood specimen / Unknown 05/15/2025 1:45 PM EDT 05/15/2025 4:05 PM EDT Deborah Joaquin MD LAB BLOOD ORDERABLES Fin al Result Performing Organization Address [facility]/ZIP Co de Phone Number [facility] [address] [place] [phone] * (ABNORMAL) Basic Metabolic Panel (05/15/2025 1:45 PM EDT) Sodium 138 135 - 145 mmol/L [facility] Potassium 5.0 3.3 - 5.1 mmol/L [facility] Comment:Mild Hemolysis.Inter pret result with caution Chloride 105 96 - 108 mmol/L [facility] Carbon Dioxide 23 22 - 29 mmol/L [facility] Anion Gap 15 12 - 20 [facility] Urea Nitrogen (BUN) 39(H) 9 - 16 mg/dL [facility] Creatinine, Serum 1.23 0.5 - 1.4 mg/dL [facility] Estimated Glomerular Filt Rate 43 [facility] Comment:Chronic Kidney Disea se: Estimated GFR < 60 mL/min/[id number] Kidney Disease: Estimated GFR < 15 mL/min/1.73m2 Glucose 86 60 - 115 mg/dL [facility] Calcium 9.4 8.4 - 10.2 mg/dL [facility] Blood Venous blood specimen / Unknown 05/15/2025 1:45 PM EDT 05/15/2025 4:05 PM EDT Deborah Joaquin MD LAB BLOOD ORDERABLES Fin al Result Performing Organization Address [facility]/ZIP Co de Phone Number [facility] [address] [place] [phone] * CTA Chest PE Protocal (04/28/2025 11:59 AM EDT) Anatomical Region Laterality Modality Body, Chest Computed Tomogra phy 04/28/2025 11:5 9 AM EDT Narrative 04/28/2025 1:26 PM EDT [address] [address] [address] Scan Report Signed Patient: Fatoumata Gibson MR#: [id number] : 1950 Acct:[id number] Age/Sex: 75 / F ADM Date: 04/28/25 Loc: HO.ED Attending Dr: Ordering Physician: Hollie Ladd DO Date of Service: 04/28/25 Procedure(s): CT angio chest PE protocol Accession Number(s): [id number] cc: Deborah Joaquin MD; Hollie Ladd DO Report Number: [id number]: Total DLP = 165.00 mGy-cm EXAMINATION: CT [...] 04/28/25 1323 DD/ 1159 TD/TT: 04/28/25 1309 Biometrics Technician: Procedure Note Donotuseinterpreter, Image - 04/28/[address] [place] [address] [address] Scan Report Signed Patient: Fatoumata GibsonMR#: [id number] : 1950cct:[id number] Age/Sex: 75 / FADM Date: 04/28/25 Loc: .ED Attending Dr: Ordering Physician: Hollie Ladd DO Date of Service: 04/28/25 Procedure(s): CT angio chest PE protocol Accession Number(s): [id number] cc: Deborah Joaquin MD; Hollie Ladd DO Report Number: [id number]: Total DLP = 165.00 mGy-cm EXAMINATION: CT [...] 04/28/25 1323 DD/ 1159 TD/TT: 04/28/25 1309 Biometrics Technician: us [facility] External Provider IMG CT PROCEDURES Final Result * (ABNORMAL) Basic Metabolic Panel, Fasting (04/27/2025 5:33 AM EDT) Sodium 138 135 - 145 mmol/L [facility] Potassium 4.6 3.3 - 5.1 mmol/L [facility] Chloride 103 96 - 108 mmol/L [facility] Carbon Dioxide 27 22 - 29 mmol/L [facility] Anion Gap 13 12 - 20 [facility] Urea Nitrogen (BUN) 22(H) 9 - 16 mg/dL [facility] Creatinine, Serum 1.10 0.5 - 1.4 mg/dL [facility] Creatinine Clr Calc Pharmacy 37.1 [facility] Comment:Provided height and weight: 160.02 cm,53.977 kg.eGFR (calculated from the MDRD study equation) and eCrCl(calculated from the Cockcroft-Gault equation) are based ondifferent parameters and may not yield comparable results.If eCrCl result is absurd, please check patient'sheight/weight. Estimated Glomerular Filt Rate 49 [facility] Comment:Chronic Kidney Disea se: Estimated GFR < 60 mL/min/1.18w7Knwpdf Kidney Disease: Estimated GFR < 15 mL/min/1.73m2 Glucose Fasting 108(H) 60 - 99 mg/dL [facility] Comment:A fasting glucose fr om 100-125 mg/dl is considered impaired(pre-diabetes). Calcium 8.3(L) 8.4 - 10.2 mg/dL [facility] 04/27/2025 5:33 AM EDT 04/27/2025 6:49 AM EDT Generic External Data Provider LAB BLOOD ORDERAB LES Final Result [facility] [address] [place] [phone] * (ABNORMAL) CBC auto differential (04/27/2025 5:33 AM EDT) Only the most recent of2 resultswithin the time period is included. White Blood Count 9.6 4.8 - 10.8 X10*3/uL [facility] Red Blood Count 4.07(L) 4.20 - 5.50 X10*6/uL [facility] Hemoglobin 11.2(L) 12.0 - 16.0 g/dl [facility] Hematocrit 32.5(L) 37.0 - 47.0 % [facility] Mean Corpuscular Volume 79.9(L) 80.0 - 98.0 fL [facility] Mean Corpuscular Hemoglobin 27.5 27.0 - 33.0 pg [facility] Mean Corpuscular HGB Conc 34.5 31.0 - 35.0 g/dl [facility] Red Cell Distribution Width 13.9 11.0 - 16.0 % [facility] Platelet Count 217 160 - 400 X10*3/uL [facility] Mean Platelet Volume 11.6 9.4 - 12.3 fL [facility] Neutrophils Percent Auto 82.1(H) 45 - 73 % [facility] Imm Gran Pct Auto 0.5(H) 0.0 - 0.4 % [facility] Lymphocytes Percent Auto 10.6(L) 20 - 40 % [facility] Monocytes Percent Auto 6.6 2 - 11 % [facility] Eosinophils Percent Auto 0.1 0 - 4 % [facility] Basophils Percent Auto 0.1 0 - 2 % [facility] NRBC Pct Auto 0.0 0.0 - 0.2 /100WBC [facility] Neutrophils Absolute Auto 7.9 2.0 - 8.3 x10*3/uL [facility] Imm Gran Abs Auto 0.05(H) 0.00 - 0.03 X10*3/uL [facility] Lymphocytes Absolute Auto 1.0(L) 1.2 - 4.9 X10*3/uL [facility] Monocytes Absolute Auto 0.6 0.1 - 1.2 X10*3/uL [facility] Eosinophils Absolute Auto 0.0 0.0 - 0.4 X10*3/uL [facility] Basophils Absolute Auto 0.0 0.0 - 0.2 X10*3/uL [facility] NRBC Abs Auto 0.000 0.0 - 0.012 X10*3/uL [facility] 04/27/2025 5:33 AM EDT 04/27/2025 6:49 AM EDT us Generic External Data Provider LAB BLOOD ORDERAB LES Final Result Performing Organization Address City/[facility]/ZIP Co de Phone Number [facility] [address] [place] [phone] * Lipid Panel, Standard (04/27/2025 5:33 AM EDT) Triglycerides 69 <150 mg/dL [facility] Comment:Desirable Triglyceri de: less than 150 mg/dLBorderline High Triglyceride 150-199 mg/dLHigh Triglyceride: 200-499 mg/dLVery High Triglyceride: greater than or equal to 5OO mg/dL Cholesterol 135 <200 mg/dL [facility] Comment:Desirable Cholestero l: less than 200 mg/dLBorderline High Cholesterol: 200-239 mg/dLHigh Cholesterol: greater than 239 mg/dL LDL Cholesterol Calculated 58 <100 mg/dL [facility] Comment:Desirable LDL: less than 100 mg/dLNear Optimal/Above Optimal LDL: 110- 129 mg/dLBorderline High LDL: 130-159 mg/dLHigh LDL: 160-189 mg/dLVery High LDL: greater than or equal to 190 mg/dL HDL Cholesterol 64 >40 mg/dL [facility] Comment:Desirable HDL: great er than 40 mg/dL Note: This HDL assay may give artificially low results in patients with liver disease. 04/27/2025 5:33 AM EDT 04/27/2025 6:49 AM EDT us Generic External Data Provider LAB BLOOD ORDERAB LES Final Result Performing Organization Address City/[facility]/ZIP Co de Phone Number [facility] [address] [place] [phone] * Slide Review (04/26/2025 7:56 PM EDT) Slide Review VERIFIED [facility] 04/26/2025 7:56 PM EDT 04/26/2025 8:23 PM EDT us Generic External Data Provider LAB BLOOD ORDERAB LES Final Result Performing Organization Address [facility] Co de Phone Number [facility] [address] [place] [phone] * TSH with Reflex to Free T4 (04/26/2025 7:56 PM EDT) TSH reflex Free T4 0.54 0.32 - 4.0 uIU/mL [facility] 04/26/2025 7:56 PM EDT 04/26/2025 8:23 PM EDT us Generic External Data Provider LAB BLOOD ORDERAB LES Final Result Performing Organization Address [facility] de Phone Number [facility] [address] [place] [phone] * (ABNORMAL) B Type Natriuretic Peptide (BNP) (04/26/2025 7:56 PM EDT) B Type Natriuretic Peptide 321(H) <100 pg/mL [facility] 04/26/2025 7:56 PM EDT 04/26/2025 8:23 PM EDT us Generic External Data Provider LAB BLOOD ORDERAB LES Final Result Performing Organization Address [facility] Co de Phone Number [facility] [address] [place] [phone] * (ABNORMAL) Comprehensive Metabolic Panel (04/26/2025 7:56 PM EDT) Sodium 138 135 - 145 mmol/L [facility] Potassium 4.2 3.3 - 5.1 mmol/L [facility] Chloride 103 96 - 108 mmol/L [facility] Carbon Dioxide 28 22 - 29 mmol/L [facility] Anion Gap 11(L) 12 - 20 [facility] Urea Nitrogen (BUN) 20(H) 9 - 16 mg/dL [facility] Creatinine, Serum 1.05 0.5 - 1.4 mg/dL [facility] Creatinine Clr Calc Pharmacy 38.8 [facility] Comment:Provided height and weight: 160.02 cm,53.977 kg.eGFR (calculated from the MDRD study equation) and eCrCl(calculated from the Cockcroft-Gault equation) are based ondifferent parameters and may not yield comparable results.If eCrCl result is absurd, please check patient'sheight/weight. Estimated Glomerular Filt Rate 51 [facility] Comment:Chronic Kidney Disea se: Estimated GFR < 60 mL/min/1.92p3Ytfkpn Kidney Disease: Estimated GFR < 15 mL/min/1.73m2 Glucose 195(H) 60 - 115 mg/dL [facility] Calcium 8.5 8.4 - 10.2 mg/dL [facility] Bilirubin, Total 0.5 0.0 - 1.0 mg/dL [facility] Aspartate Amino Transferase 30 5 - 31 U/L [facility] Alanine Aminotransferase 22 0 - 31 U/L [facility] Total Protein 6.5 6.5 - 8.0 g/dL [facility] Albumin Level 3.9 3.5 - 5.0 g/dL [facility] [facility] Alkaline Phosphatase 75 39 - 117 U/L [facility] 04/26/2025 7:56 PM EDT 04/26/2025 8:23 PM EDT us Generic External Data Provider LAB BLOOD ORDERAB LES Final Result [facility] [address] [place] [address] [phone] * FL Guidance in OR (04/26/2025 9:45 AM EDT) Anatomical Region Laterality Modality X-Ray Angiograph y 04/26/2025 9:45 AM EDT Narrative 04/26/2025 11:54 AM EDT [address] [address] Fluoroscopy Report Signed Patient: Fatoumata Gibson MR#: [id number] : 1950 Acct:[id number] Age/Sex: 75 / F ADM Date: 04/26/25 Loc: HO.SSS Attending Dr: Sharron Velez PA-C Ordering Physician: Amanuel Ortiz MD Date of Service: 04/26/25 Procedure(s): FL guidance in OR Accession Number(s): [id number] cc: Deborah Joaquin MD; Amanuel Ortiz MD [...] 04/26/25 1151 DD/ 0945 TD/TT: 04/26/25 1055 Biometrics Technician: Procedure Note Donotuseinterpreter, Image - 04/26/[address] [address] Fluoroscopy Report Signed Patient: Fatoumata GibsonMR#: [id number] : 1950cct:[id number] Age/Sex: 75 / FADM Date: 04/26/25 Loc: HO.SSS Attending Dr: Sharron Velez PA-C Ordering Physician: Amanuel Ortiz MD Date of Service: 04/26/25 Procedure(s): FL guidance in OR Accession Number(s): [id number] cc: Deborah Joaquin MD; Amanuel Ortiz MD [...] 04/26/25 1151 DD/ 0945 TD/TT: 04/26/25 1055 Biometrics Technician: [facility] External Provider IMG IR PROCEDURES Final Result * BI Mammogram Screening Tomosynthesis Bilateral (04/24/2025 9:50 AM EDT) Anatomical Region Laterality Modality Breast Bilateral Mammography 04/24/2025 9:50 AM EDT Narrative 05/02/2025 4:17 PM EDT [facility] [address] [place] [address] Mammography Report Signed Patient: Fatoumata Gibson MR#: [id number] : 1950 Acct:[id number] Age/Sex: 75 / F ADM Date: 04/24/25 Loc: HO.MAMMO Attending Dr: Deborah Joaquin MD Ordering Physician: Deborah Joaquin MD Results: 1Ne gative Date of Service: 04/24/25 Follow Up: 1 Year From Orig inal Mammogram Procedure(s): MM tomosynthesis screening BI Accession Number(s): [id number] cc: Deborah Joaquin MD EXAMINATION: MM SCREENING [...] Evita Marsh DO 05/02/2025 04:14 PM EDT RP Dictated By: Evita Marsh DO Signed By: <Electronically signed by Evita Marsh DO in OV> 05/02/25 1614 DD/ 0950 TD/TT: 04/24/25 1009 Biometrics Technician: Procedure Note Donotuseinterpreter, Image - 05/02/2025 [facility] [address] [place] [address] Mammography Report Signed Patient: Fatoumata GibsonMR#: [id number] : 1Acct:[id number] Age/Sex: 75 / FADM Date: 04/24/25 Loc: MAMMO Attending Dr: Deborah Joaquin MD Ordering Physician: Deborah Joaquin MDResults: 1Ne gative Date of Service: 04/24/25Follow Up: 1 Year From Orig inal Mammogram Procedure(s): MM tomosynthesis screening BI Accession Number(s): [id number] cc: Deborah Joaquin MD EXAMINATION: MM SCREENING [...] 05/02/25 1614 DD/ 0950 TD/TT: 04/24/25 1009 Biometrics Technician: us Deborah Joaquin MD IMG BI PROCEDURES Final Result * (ABNORMAL) CBC (04/21/2025 2:25 PM EDT) White Blood Count 5.6 4.8 - 10.8 X10*3/uL [facility] Red Blood Count 4.68 4.20 - 5.50 X10*6/uL [facility] Hemoglobin 12.3 12.0 - 16.0 g/dl [facility] Hematocrit 38.7 37.0 - 47.0 % [facility] Mean Corpuscular Volume 82.7 80.0 - 98.0 fL [facility] Mean Corpuscular Hemoglobin 26.3(L) 27.0 - 33.0 pg [facility] Mean Corpuscular HGB Conc 31.8 31.0 - 35.0 g/dl [facility] Red Cell Distribution Width 13.6 11.0 - 16.0 % [facility] Platelet Count 238 160 - 400 X10*3/uL [facility] Mean Platelet Volume 9.4 9.4 - 12.3 fL [facility] NRBC Pct Auto 0.0 0.0 - 0.2 /100WBC [facility] NRBC Abs Auto 0.000 0.0 - 0.012 X10*3/uL [facility] 04/21/2025 2:25 PM EDT 04/21/2025 2:31 PM EDT us Generic External Data Provider LAB BLOOD ORDERAB LES Final Result [facility] [address] [place] [address] [phone] from Last 3 Months Insurance * Guarantor: Fatoumata Prado Account Type Relation to Patient Date of Phone Billing Address Personal/Family Self [address] [place] [phone] [facility] [employer] (HMO D-SNP) Care Teams Oil Recovery Unit Operator Relationship Specialty Start Date End Date Deborah Joaquin MD [address] [place] [phone] PCP - General Family Medicine 05/14/17 [place] 05/10/25
== END 2025-07-20 10:39 | disposition home or self-care (01) ==
LOC: HO.HOS 09:57
PROVIDERS: PCP Internal Medicine; Visit Provider Physician Assistant
DX: M84.351A Stress fracture, right femur, initial encounter for fracture (principal)
CPT/HCPCS: 99024

== ENCOUNTER → 2025-07-20 10:11 | Outpatient (BNV) | payer OTHER, SELFPAY | PROVIDERS: Visit Provider Radiology Body Imaging | DX: M84.351A Stress fracture, right femur, initial encounter for fracture (principal) | CPT/HCPCS: 73552 ==

== ENCOUNTER → 2025-07-26 12:51 | Outpatient (BNV) | payer OTHER, SELFPAY | PROVIDERS: PCP Internal Medicine; Visit Provider Internal Medicine | DX: I48.91 Unspecified atrial fibrillation (principal) | CPT/HCPCS: 93244 ==

== ENCOUNTER → 2025-07-26 | Outpatient (REF) | payer OTHER, SELFPAY ==
--- NOTE | 2025-07-26 12:51 | HM_ITS ---
* Total monitoring time 3 days. * Underlying rhythm is sinus with an average rate of 72/Min. * Rare supraventricular ectopy. Short runs noted. * Rare ventricular ectopy. * No significant pauses or high-grade AV blocks. * No patient markers or diary events. MTDD
--- OUTSIDE RECORDS SUMMARY | 2025-07-26 15:24 | XMS_ITS | Encounter Summary ---
Author Organization [employer] Address [address] [facility] [address] [place] [address] Care Team Providers Care Casino Manager Name Role Phone Deborah Joaquin MD Primary Care Provider + Reason for Visit * Reason Onset Date Comments Call Back Request 05/18/2025 Encounter Details Date Type Department Care Team ([facility] st Contact Info) Description 05/18/2025 Telephone [facility] [address] [place], [place] [phone] Deborah Joaquin MD [address] [place], [place] [phone] Call Back Request Social History Tobacco Use [...] placed to patient EC (Zenaida) on HIPAA [phone] regarding below message. RN left an VM for the EC to CB Red team nurses. EC and PT to F/U PRN. * Telephone Encounter - Ina Colon - 05/18/2025 9:43 AM EDT Tc from pt daughter requesting a call back to discuss phosphorus lab results , they are wondering if medication will be needed Contact pt daughter Zenaida (on HIPAA) at [phone] documented in this encounter Plan of Treatment Upcoming Encounters Date Type Department Care Team (Late st Contact Info) Description 08/28/2025 11:30 AM EST Office Visit [facility] [address] [place] [address] Kendy Butler, OD [address] [place] [address] documented as of this encounter Visit Diagnoses Not on filedocumented in this encounter Additional Health Concerns Assessment Noted Time PHQ-9 Depression Total Score: 3 05/15/20 25 1:12 PM EDT documented as of this encounter Care Teams Casino Manager Relationship Specialty Start Date End Date Deborah Joaquin MD [address] [place] [address] PCP - General Family Medicine 05/14/17 [place] [facility] 05/10/25 documented as of this encounter
--- OUTSIDE RECORDS SUMMARY | 2025-07-26 15:24 | XMS_ITS | Encounter Summary ---
Author Organization [employer] Address [address] [facility] [address] [place] [address] Care Team Providers Care Actionscript Developer Name Role Phone Deborah Joaquin MD Primary Care Provider + Reason for Visit * Reason Onset Date Comments Pre-op Exam 03/11/2024 Encounter Details Date Type Department Care Team ([facility] st Contact Info) Description 03/11/2024 Telephone [facility] [address] [place], [place] [phone] Deborah Joaquin MD [address] [place], [place] [phone] Pre-op Exam Social History Tobacco Use Types [...] [facility] Surgeon's office number: [phone] Surgeon's office fax number: [phone] Contact name (person you spoke with): Manisha Last office note from surgeon requested: Will be faxed Date of Surgery: 04/19 Surgical procedure being done: Cataract Surgery on the right eye Type of anesthesia: Mac Lab needed: no EKG: no Surgeon's name: Dr. Sonny Freeman Facility name: [facility] Surgeon's office number: [phone] Surgeon's office fax number: [phone] Contact name (person you spoke with): Manisha Last office note from surgeon requested: Will Be faxed documented in this encounter Plan of Treatment Upcoming Encounters Date Type Department Care Team ([facility] st Contact Info) Description 08/28/2025 11:30 AM EST Office Visit [facility] [address] [place] [address] Kendy Butler, OD [address] [facility] [place] [address] documented as of this encounter Visit Diagnoses Not on filedocumented in this encounter Care Teams Actionscript Developer Relationship Specialty Start Date End Date Deborah Joaquin MD [address] [place] [address] PCP - General Family [facility] documented as of this encounter
--- OUTSIDE RECORDS SUMMARY | 2025-07-26 15:24 | XMS_ITS | Clinical Summary ---
Author Organization [employer] Address [address] [facility] [address] [place] [address] Care Team Providers Care Radial Drill Press Operator For Plastic Name Role Phone Deborah Joaquin MD Primary [...] MOUTH EVERY DAY 90 tablet 025 Active cholecalciferol (Vitamin D-3) 25 MCG (1000 UT) tablet Take 1 tablet (25 mcg) by mouth Once per day. 90 tablet 025 Active Diclofenac Sodium 1 % gelIndications:Contusi on of rib on left side, initial encounter APPLY 1 INCH TOPICALLY IF NEEDED FOR PAIN IN THE MORNING AND AT BEDTIME 100 g 025 Active gabapentin (Neurontin) 100 MG capsule Take 1 capsule (100 mg) by mouth 3 times daily. 90 capsule 3 025 Active Diclofenac Sodium 1 % gelIndications:Contusi on of rib on left side, initial encounter APPLY 1 INCH TOPICALLY IF NEEDED FOR PAIN IN THE MORNING AND AT BEDTIME 100 g 023 07/11 Discontinued( Reorder (will not trigger notification to Pharmacy)) gabapentin (Neurontin) 100 MG capsule Take 1 capsule (100 mg) by mouth 2 times daily. 120 capsule 1 025 07/25 Discontinued Active Problems Problem Noted Date Diagnosed Date Leg edema, left 06/20/2025 Assessment & Plan (06/20/2025 11:49 AM EDT): Is most likely related to recent femoral fracture and current neuropathy, however due to history of recent right femur fracture, will order LLE Doppler ultrasound to rule out DVT Will continue [facility] for A-fib Visit for preventive health examination [...] is due next year and followed by manager highway due to osteoporosis CRC screen is overdue, [...] (05/01/2025): CT scan chest on 04/28/2025 at [facility] showed scattered opacities (approximate 6) on right [...] the house. FU w/ knee orthopedics at [facility], they will refer to PT if [...] use plantar pads nad reschedule appointment with steel die press set up operator Assessment & Plan (01/02/2023 12:05 PM EDT): [...] and continue calcium + D Follow-up with manager highway Assessment & Plan (06/10/2024 10:23 AM EDT): [...] Encounters Date Type Department Care Team Description 07/22/[address] [facility] [address] [place] [phone] Mya Jordan NP 07/13/[address] [facility] [address] [place] [phone] Deborah Joaquin MD Medication Question 07/11/2025 8:40 AM EDT Office Visit [facility] [address] [address] Eren Rodriguez MD Pain and swelling of right lower leg (Primary Dx); Contusion of rib on left side, initial encounter 07/11/2025 Travel 07/10/[address] [facility] [address] [place] [phone] Deborah Joaquin MD Results 06/28/[address] [facility] [address] [place] [phone] Deborah Joaquin MD 06/20/2025 10:45 AM EDT Office Visit [facility] [address] [place] [address] Deborah Joaquin MD Age-related osteoporosis with current pathological fracture with routine healing, subsequent encounter (Primary Dx); Leg edema, left; Visit for preventive health examination; Encounter for immunization 06/20/2025 Travel 06/19/2025 2:40 PM EDT Office Visit [facility] [address] [place] [address] Mya Jordan, VICTOR MANUEL Pain of right lower extremity (Primary Dx); Other mononeuropathy 06/19/[address] [address] Deborah Joaquin MD 06/19/2025 Travel 06/12/2025 Patient Outreach [address] [address] Deborah Joaquin MD Pre-visit Planning (SDOH screening completed on 12/07/2024) 05/24/[address] [address] Sara Patterson DO Primary hypertension 05/24/[address] [facility] [address] [place] [address] Kendy Butler, OD Primary open angle glaucoma (POAG) of both eyes, moderate stage 05/18/[address] [address] Deborah Joaquin MD Call Back Request 05/15/2025 1:00 PM EDT Office Visit [address] [address] Octavio Billy MD Paroxysmal A-fib (CMS/HCC) (Primary Dx); Foot pain, right; S/P ORIF (open reduction internal fixation) fracture 05/15/2025 Orders Only GENERIC EXTERNAL DATA DEPARTMENT Provider, Generic External Data 05/15/2025 Travel 05/15/[address] [address] Octavio Billy MD CHART PREP 05/01/2025 Results Follow-Up [address] [address] Deborah Joaquin MD CTA Chest PE Protocal 04/28/2025 Orders Only [facility] External Provider, [facility] 04/28/2025 Patient Outreach [address] [address] Deborah Joaquin MD Transition Of Care (Tcm) (HDF unscheduled ) 04/28/[address] [facility] [address] [place] [address] Deborah Joaquin MD Hospital Follow-up 04/27/2025 Results Follow-Up [facility] [address] [place] [address] Deborah Joaquin MD B Type Natriuretic Peptide (BNP), CBC auto differential, TSH with Reflex to Free T4, Additional followed-up results: 3 04/27/2025 Orders Only GENERIC EXTERNAL DATA DEPARTMENT Provider, Generic External Data 04/27/[address] [facility] [address] [place] [address] Deborah Joaquin MD 04/26/2025 Orders Only [facility] External Provider, [facility] from Last 3 Months Immunizations Immunization Administration [...] Description 08/28/2025 11:30 AM EST Office Visit [facility] [address] [place] [address] Kendy Butler, OD [address] [place] [address] Health Maintenance Due Date Last Done Comments [...] TOMOSYNTHESIS BILATERAL Routine 04/24/2025 9:50 AM EDT from Last 3 Months or Most Recently Relevant to Health Maintenance Results * US VENOUS DUPLEX LE RT (07/11/2025 11:06 AM EDT) Only the most recent of2 resultswithin the time period is included. Anatomical Region Laterality Modality Abdomen Ultrasound 07/11/2025 11:0 6 AM EDT Narrative 07/11/2025 11:22 AM EDT [address] [address] Ultrasound Report Signed Patient: Fatoumata Gibson MR#: [id number] 086 : 1950 Acct:[id number] Age/Sex: 75 / F ADM Date: 07/11/25 Loc: .US Attending Dr: Eren Rodriguez MD Ordering Physician: EREN RODRIGUEZ MD Date of Service: 07/11/25 Procedure(s): US venous duplex LE RT Accession Number(s): [id number] cc: EREN RODRIGUEZ MD; Deborah Joaquin MD [...] 07/11/25 1119 DD/ 1106 TD/TT: 07/11/25 1112 Calendering Machine Operator: Procedure Note Donotuseinterpreter, Image - 07/11/2025 [place] [address] Ultrasound Report Signed Patient: Fatoumata GibsonMR#: [id number] 086 : 1950cct:[id number] Age/Sex: 75 / FADM Date: 07/11/25 Loc: .US Attending Dr: Eren Rodriguez MD Ordering Physician: EREN RODRIGUEZ MD Date of Service: 07/11/25 Procedure(s): US venous duplex LE RT Accession Number(s): [id number] cc: EREN RODRIGUEZ MD; Deborah Joaquin MD [...] 07/11/25 1119 DD/ 1106 TD/TT: 07/11/25 1112 Calendering Machine Operator: Eren Rodriguez MD IMG US PROCEDURES Edited Result - Final * XR Foot 3+ Views Right (06/19/2025 2:25 PM EDT) Anatomical Region Laterality Modality Lower Extremities, Foot Right Radiogra phic Imaging 06/19/2025 2:25 PM EDT Narrative 06/19/2025 2:43 PM EDT [address] [address] XRay Report Signed Patient: Fatoumata Gibson MR#: [id number] 086 : 1950 Acct:[id number] Age/Sex: 75 / F ADM Date: 06/19/25 Loc: HO.HHCX Attending Dr: Mya Jordan BINDERY CUTTER OPERATOR Ordering Physician: Mya Jordan NP Date of Service: 06/19/25 Procedure(s): XR foot RT min 3V Accession Number(s): [id number] cc: Mya Jordan NP Reason for Exam: [...] 06/19/25 1440 DD/ 1425 TD/TT: 06/19/25 1428 Calendering Machine Operator: Procedure Note Donotuseinterpreter, Image - 06/19/[address] [address] XRay Report Signed Patient: Fatoumata GibsonMR#: [id number] 086 : 1950cct:[id number] Age/Sex: 75 / FADM Date: 06/19/25 Loc: HO.HHCX Attending Dr: Mya Jordan NP Ordering Physician: Mya Jordan NP Date of Service: 06/19/25 Procedure(s): XR foot RT min 3V Accession Number(s): [id number] cc: Mya Jordan NP Reason for Exam: [...] 06/19/25 1440 DD/ 1425 TD/TT: 06/19/25 1428 Calendering Machine Operator: us Mya Jordan BINDERY CUTTER OPERATOR IMG XR PROCEDURES Final Result * XR Tibia Fibula 2 Views Right (06/19/2025 2:25 PM EDT) Anatomical Region Laterality Modality Lower Extremities, Lower Leg Right Rad iographic Imaging 06/19/2025 2:25 PM EDT Narrative 06/19/2025 2:37 [place] [address] XRay Report Signed Patient: Fatoumata Gibson MR#: [id number] 086 : 1950 Acct:[id number] Age/Sex: 75 / F ADM Date: 06/19/25 Loc: HO.HHCX Attending Dr: Mya Jordan NP Ordering Physician: Mya Jordan NP Date of Service: 06/19/25 Procedure(s): XR tibia fibula RT 2V Accession Number(s): [id number] cc: Mya Jordan NP Reason for Exam: [...] OV> 06/19/25 1434 DD/ 1425 TD/TT: 06/19/251427 Calendering Machine Operator: Procedure Note Niharika, Image - 06/19/[address] [address] XRay Report Signed Patient: Fatoumata GibsonMR#: [id number] 086 : 1950cct:[id number] Age/Sex: 75 / FADM Date: 06/19/25 [facility]: Mya Jordan NP Ordering Physician: Mya Jordan NP Date of Service: 06/19/25 Procedure(s): XR tibia fibula RT 2V Accession Number(s): [id number] cc: Mya Jordan NP Reason for Exam: [...] Kulwinder Caro MD 06/19/2025 02:34 PM EDT Dictated By: Kulwinder Caro MD Signed By: <Electronically signed by Kulwinder Caro MD in OV> 06/19/25 1434 DD/ 1425 TD/TT: 06/19/251427 Calendering Machine Operator: Mya Jordan BINDERY CUTTER OPERATOR IMG XR PROCEDURES Final Result * Immunofixation (ROSY), Urine (05/15/2025 1:45 PM EDT) ROSY Interpretation SEE NOTE [facility] Comment:Normal pattern. No m onoclonal proteins detected.THIS TEST WAS PERFORMED AT:[facility] [address] [id number] JJ MD 05/15/2025 1:45 PM EDT 05/15/2025 4:14 PM EDT us Generic External Data Provider LAB URINE ORDERAB LES Final Result Performing Organization Address City/[facility]/ZIP Co de Phone Number [facility] [address] [place] [phone] * Collagen Cross-Linked N-Telopeptide (NTx), U (05/15/2025 1:45 PM EDT) N Telopetide (NTx) 35 see note [facility] Comment:Result Units: nM BCE /mM creatPremenopausal Females: 4 - 64 nM BCE/mM creatResults are primarily used for monitoring theresponse to therapy. A value within thepremenopausal range does not rule out osteoporosisnor the need for therapyUnits of Measure: nM BCE/mM creat CREATININE, RANDOM URINE 93 20 - 275 mg/dL [facility] Comment:THIS TEST WAS PERFOR MED AT:[facility] [place] [address]JNARSKBLEILANI RUBIN MD,PHD 05/15/2025 1:45 PM EDT 05/15/2025 4:14 PM EDT us Generic External Data Provider LAB URINE ORDERAB LES Final Result Performing Organization Address [facility]/ZIP Co de Phone Number [facility] [address] [place] [phone] * TSH (05/15/2025 1:45 PM EDT) Thyroid Stimulating Hormone 1.85 0.32 - 4.0 uIU/mL [facility] Comment:TSH 3rd Generation ( [facility]) 05/15/2025 1:45 PM EDT 05/15/2025 4:05 PM EDT Generic External Data Provider LAB BLOOD ORDERAB LES Final Result Performing Organization Address [facility] de Phone Number [facility] [address] [place] [phone] * T4, Free (05/15/2025 1:45 PM EDT) Free T4 (Free Thyroxine) 1.09 0.71 - 1.85 ng/dL [facility] 05/15/2025 1:45 PM EDT 05/15/2025 4:05 PM EDT Generic External Data Provider LAB BLOOD ORDERAB LES Final Result Performing Organization Address [facility] de Phone Number [facility] [address] [place] [phone] * (ABNORMAL) Phosphate (As Phosphorus) (05/15/2025 1:45 PM EDT) Phosphorus 5.1(H) 2.7 - 4.5 mg/dL [facility] 05/15/2025 1:45 PM EDT 05/15/2025 4:05 PM EDT Generic External Data Provider LAB BLOOD ORDERAB LES Final Result Performing Organization Address [facility] de Phone Number [facility] [address] [place] [phone] * Magnesium (05/15/2025 1:45 PM EDT) Only the most recent of3 resultswithin the time period is included. Magnesium 2.2 1.6 - 2.6 mg/dL [facility] Blood Venous blood specimen / Unknown 05/15/2025 1:45 PM EDT 05/15/2025 4:05 PM EDT us Deborah Joaquin MD LAB BLOOD ORDERABLES Fin al Result Performing Organization Address [facility] Co de Phone Number [facility] [address] [place] [phone] * (ABNORMAL) Basic Metabolic Panel (05/15/2025 1:45 PM EDT) Sodium 138 135 - 145 mmol/L [facility] Potassium 5.0 3.3 - 5.1 mmol/L [facility] Comment:Mild Hemolysis.Inter pret result with caution Chloride 105 96 - 108 mmol/L [facility] Carbon Dioxide 23 22 - 29 mmol/L [facility] Anion Gap 15 12 - 20 [facility] Urea Nitrogen (BUN) 39(H) 9 - 16 mg/dL [facility] Creatinine, Serum 1.23 0.5 - 1.4 mg/dL [facility] Estimated Glomerular Filt Rate 43 [facility] Comment:Chronic Kidney Disea se: Estimated GFR < 60 mL/min/1.57l5Tcniqt Kidney Disease: Estimated GFR < 15 mL/min/1.73m2 Glucose 86 60 - 115 mg/dL [facility] Calcium 9.4 8.4 - 10.2 mg/dL [facility] Blood Venous blood specimen / Unknown 05/15/2025 1:45 PM EDT 05/15/2025 4:05 PM EDT us Deborah Joaquin MD LAB BLOOD ORDERABLES Fin al Result Performing Organization Address [facility]/ZIP Co de Phone Number [facility] [address] [place] [phone] * CTA Chest PE Protocal (04/28/2025 11:59 AM EDT) Anatomical Region Laterality Modality Body, Chest Computed Tomogra phy 04/28/2025 11:5 9 AM EDT Narrative 04/28/2025 1:26 PM EDT [address] [address] [address] Scan Report Signed Patient: Fatoumata Gibson MR#: [id number] 086 : 1950 Acct:[id number] Age/Sex: 75 / F ADM Date: 04/28/25 Loc: HO.ED Attending Dr: Ordering Physician: Hollie Ladd DO Date of Service: 04/28/25 Procedure(s): CT angio chest PE protocol Accession Number(s): [id number] cc: Deborah Joaquin MD; Hollie Ladd DO Report Number: [id number]: Total DLP = 165.00 mGy-cm EXAMINATION: CT [...] 04/28/25 1323 DD/ 1159 TD/TT: 04/28/25 1309 Calendering Machine Operator: Procedure Note Donotuseinterpreter, Image - 04/28/[address] [place] [address] [address] Scan Report Signed Patient: Fatoumata GibsonMR#: [id number] 086 : 1950cct:[id number] Age/Sex: 75 / FADM Date: 04/28/25 Loc: .ED Attending Dr: Ordering Physician: Hollie Ladd DO Date of Service: 04/28/25 Procedure(s): CT angio chest PE protocol Accession Number(s): [id number] cc: Deborah Joaquin MD; Hollie Ladd DO Report Number: [id number]: Total DLP = 165.00 mGy-cm EXAMINATION: CT [...] 04/28/25 1323 DD/ 1159 TD/TT: 04/28/25 1309 Calendering Machine Operator: [facility] External Provider IMG CT PROCEDURES Final Result * (ABNORMAL) Basic Metabolic Panel, Fasting (04/27/2025 5:33 AM EDT) Sodium 138 135 - 145 mmol/L [facility] Potassium 4.6 3.3 - 5.1 mmol/L [facility] Chloride 103 96 - 108 mmol/L [facility] Carbon Dioxide 27 22 - 29 mmol/L [facility] Anion Gap 13 12 - 20 [facility] Urea Nitrogen (BUN) 22(H) 9 - 16 mg/dL [facility] Creatinine, Serum 1.10 0.5 - 1.4 mg/dL [facility] Creatinine Clr Calc Pharmacy 37.1 [facility] Comment:Provided height and weight: 160.02 cm,53.977 kg.eGFR (calculated from the MDRD study equation) and eCrCl(calculated from the Cockcroft-Gault equation) are based ondifferent parameters and may not yield comparable results.If eCrCl result is absurd, please check patient'sheight/weight. Estimated Glomerular Filt Rate 49 [facility] Comment:Chronic Kidney Disea se: Estimated GFR < 60 mL/min/1.02m2Htfcst Kidney Disease: Estimated GFR < 15 mL/min/1.73m2 Glucose Fasting 108(H) 60 - 99 mg/dL [facility] Comment:A fasting glucose fr om 100-125 mg/dl is considered impaired(pre-diabetes). Calcium 8.3(L) 8.4 - 10.2 mg/dL [facility] 04/27/2025 5:33 AM EDT 04/27/2025 6:49 AM EDT us Generic External Data Provider LAB BLOOD ORDERAB LES Final Result [facility] [address] [place] [phone] * (ABNORMAL) CBC auto differential (04/27/2025 5:33 AM EDT) Only the most recent of2 resultswithin the time period is included. White Blood Count 9.6 4.8 - 10.8 X10*3/uL [facility] Red Blood Count 4.07(L) 4.20 - 5.50 X10*6/uL [facility] Hemoglobin 11.2(L) 12.0 - 16.0 g/dl [facility] Hematocrit 32.5(L) 37.0 - 47.0 % [facility] Mean Corpuscular Volume 79.9(L) 80.0 - 98.0 fL [facility] Mean Corpuscular Hemoglobin 27.5 27.0 - 33.0 pg [facility] Mean Corpuscular HGB Conc 34.5 31.0 - 35.0 g/dl [facility] Red Cell Distribution Width 13.9 11.0 - 16.0 % [facility] Platelet Count 217 160 - 400 X10*3/uL [facility] Mean Platelet Volume 11.6 9.4 - 12.3 fL [facility] Neutrophils Percent Auto 82.1(H) 45 - 73 % [facility] Imm Gran Pct Auto 0.5(H) 0.0 - 0.4 % [facility] Lymphocytes Percent Auto 10.6(L) 20 - 40 % [facility] Monocytes Percent Auto 6.6 2 - 11 % [facility] Eosinophils Percent Auto 0.1 0 - 4 % [facility] Basophils Percent Auto 0.1 0 - 2 % [facility] NRBC Pct Auto 0.0 0.0 - 0.2 /100WBC [facility] Neutrophils Absolute Auto 7.9 2.0 - 8.3 x10*3/uL [facility] Imm Gran Abs Auto 0.05(H) 0.00 - 0.03 X10*3/uL [facility] Lymphocytes Absolute Auto 1.0(L) 1.2 - 4.9 X10*3/uL [facility] Monocytes Absolute Auto 0.6 0.1 - 1.2 X10*3/uL [facility] Eosinophils Absolute Auto 0.0 0.0 - 0.4 X10*3/uL [facility] Basophils Absolute Auto 0.0 0.0 - 0.2 X10*3/uL [facility] NRBC Abs Auto 0.000 0.0 - 0.012 X10*3/uL [facility] 04/27/2025 5:33 AM EDT 04/27/2025 6:49 AM EDT us Generic External Data Provider LAB BLOOD ORDERAB LES Final Result Performing Organization Address City/[facility]/ZIP Co de Phone Number [facility] [address] [place] [phone] * Lipid Panel, Standard (04/27/2025 5:33 AM EDT) Triglycerides 69 <150 mg/dL [facility] Comment:Desirable Triglyceri de: less than 150 mg/dLBorderline High Triglyceride 150-199 mg/dLHigh Triglyceride: 200-499 mg/dLVery High Triglyceride: greater than or equal to 5OO mg/dL Cholesterol 135 <200 mg/dL [facility] Comment:Desirable Cholestero l: less than 200 mg/dLBorderline High Cholesterol: 200-239 mg/dLHigh Cholesterol: greater than 239 mg/dL LDL Cholesterol Calculated 58 <100 mg/dL [facility] Comment:Desirable LDL: less than 100 mg/dLNear Optimal/Above Optimal LDL: 110- 129 mg/dLBorderline High LDL: 130-159 mg/dLHigh LDL: 160-189 mg/dLVery High LDL: greater than or equal to 190 mg/dL HDL Cholesterol 64 >40 mg/dL [facility] Comment:Desirable HDL: great er than 40 mg/dL Note: This HDL assay may give artificially low results in patients with liver disease. 04/27/2025 5:33 AM EDT 04/27/2025 6:49 AM EDT us Generic External Data Provider LAB BLOOD ORDERAB LES Final Result Performing Organization Address City/[facility]/ZIP Co de Phone Number [facility] [address] [place] [phone] * Slide Review (04/26/2025 7:56 PM EDT) Pathologist [facility] Slide Review VERIFIED [facility] 04/26/2025 7:56 PM EDT 04/26/2025 8:23 PM EDT Generic External Data Provider LAB BLOOD ORDERAB LES Final Result Performing Organization Address [facility] Co de Phone Number [facility] [address] [place] [phone] * TSH with Reflex to Free T4 (04/26/2025 7:56 PM EDT) [facility] TSH reflex Free T4 0.54 0.32 - 4.0 uIU/mL [facility] 04/26/2025 7:56 PM EDT 04/26/2025 8:23 PM EDT Generic External Data Provider LAB BLOOD ORDERAB LES Final Result Performing Organization Address [facility] Co de Phone Number [facility] [address] [place] [phone] * (ABNORMAL) B Type Natriuretic Peptide (BNP) (04/26/2025 7:56 PM EDT) [facility] B Type Natriuretic Peptide 321(H) <100 pg/mL [facility] 04/26/2025 7:56 PM EDT 04/26/2025 8:23 PM EDT Generic External Data Provider LAB BLOOD ORDERAB LES Final Result Performing Organization Address [facility] Co de Phone Number [facility] [address] [place] [phone] * (ABNORMAL) Comprehensive Metabolic Panel (04/26/2025 7:56 PM EDT) [facility] Sodium 138 135 - 145 mmol/L [facility] Potassium 4.2 3.3 - 5.1 mmol/L [facility] Chloride 103 96 - 108 mmol/L [facility] Carbon Dioxide 28 22 - 29 mmol/L [facility] Anion Gap 11(L) 12 - 20 [facility] Urea Nitrogen (BUN) 20(H) 9 - 16 mg/dL [facility] Creatinine, Serum 1.05 0.5 - 1.4 mg/dL [facility] Creatinine Clr Calc Pharmacy 38.8 [facility] Comment:Provided height and weight: 160.02 cm,53.977 kg.eGFR (calculated from the MDRD study equation) and eCrCl(calculated from the Cockcroft-Gault equation) are based ondifferent parameters and may not yield comparable results.If eCrCl result is absurd, please check patient'sheight/weight. Estimated Glomerular Filt Rate 51 [facility] Comment:Chronic Kidney Disea se: Estimated GFR < 60 mL/min/1.22t9Bbvgab Kidney Disease: Estimated GFR < 15 mL/min/1.73m2 Glucose 195(H) 60 - 115 mg/dL [facility] [facility] Calcium 8.5 8.4 - 10.2 mg/dL [facility] Bilirubin, Total 0.5 0.0 - 1.0 mg/dL [facility] Aspartate Amino Transferase 30 5 - 31 U/L [facility] Alanine Aminotransferase 22 0 - 31 U/L [facility] Total Protein 6.5 6.5 - 8.0 g/dL [facility] Albumin Level 3.9 3.5 - 5.0 g/dL [facility] Alkaline Phosphatase 75 39 - 117 U/L [facility] 04/26/2025 7:56 PM EDT 04/26/2025 8:23 PM EDT us Generic External Data Provider LAB BLOOD ORDERAB LES Final Result [facility] [address] [place] [address] [phone] * [place] Guidance in OR (04/26/2025 9:45 AM EDT) Anatomical Region Laterality Modality X-Ray Angiograph y 04/26/2025 9:45 AM EDT Narrative 04/26/2025 11:54 AM EDT [address] [address] Fluoroscopy Report Signed Patient: Fatoumata Gibson MR#: [id number] : 1950 Acct:[id number] Age/Sex: 75 / F ADM Date: 04/26/25 Loc: HO.SSS Attending Dr: Sharron Velez PA-C Ordering Physician: Amanuel Ortiz MD Date of Service: 04/26/25 Procedure(s): FL guidance in OR Accession Number(s): [id number] cc: Deborah Joaquin MD; Amanuel Ortiz MD [...] 04/26/25 1151 DD/ 0945 TD/TT: 04/26/25 1055 Calendering Machine Operator: Procedure Note Donotuseinterpreter, Image - 04/26/[address] [address] Fluoroscopy Report Signed Patient: Fatoumata GibsonMR#: [id number] : 1950cct:[id number] Age/Sex: 75 / FADM Date: 04/26/25 Loc: HO.SSS Attending Dr: Sharron Velez PA-C Ordering Physician: Amanuel Ortiz MD Date of Service: 04/26/25 Procedure(s): FL guidance in OR Accession Number(s): [id number] cc: Deborah Joaquin MD; Amanuel Ortiz MD [...] 04/26/25 1151 DD/ 0945 TD/TT: 04/26/25 1055 Calendering Machine Operator: [facility] External Provider IMG IR PROCEDURES Final Result * BI Mammogram Screening Tomosynthesis Bilateral (04/24/2025 9:50 AM EDT) Anatomical Region Laterality Modality Breast Bilateral Mammography 04/24/2025 9:50 AM EDT Narrative 05/02/2025 4:17 PM EDT [facility] [place] [address] Mammography Report Signed Patient: Fatoumata Gibson MR#: [id number] : 1950 Acct:[id number] Age/Sex: 75 / F ADM Date: 04/24/25 Loc: HO.MAMMO Attending Dr: Deborah Joaquin MD Ordering Physician: Deborah Joaquin MD Results: 1Ne gative Date of Service: 04/24/25 Follow Up: 1 Year From Orig inal Mammogram Procedure(s): MM tomosynthesis screening BI Accession Number(s): [id number] cc: Deborah Joaquin MD EXAMINATION: MM SCREENING [...] 05/02/25 1614 DD/ 0950 TD/TT: 04/24/25 1009 Calendering Machine Operator: Procedure Note Donotuseinterpreter, Image - 05/02/2025 [facility] [address] [place] [address] Mammography Report Signed Patient: Fatoumata Gibson#: [id number] : 1950cct:[id number] Age/Sex: 75 / FADM Date: 04/24/25 Loc: HO.MAMMO Attending Dr: Dbeorah Joaquin MD Ordering Physician: Deborah Joaquin MDResults: 1Ne gative Date of Service: 04/24/25Follow Up: 1 Year From Orig ina Mammogram Procedure(s): MM tomosynthesis screening BI Accession Number(s): [id number] cc: Deborah Joaquin MD EXAMINATION: MM SCREENING [...] 05/02/25 1614 DD/ 0950 TD/TT: 04/24/25 1009 Calendering Machine Operator: Deborah Joaquin MD IMG BI PROCEDURES Final Result from Last 3 Months or Most Recently Relevant to Health Maintenance [place] [address] [address] STANDARD [facility] CARE HOME OPTIONS (O D-SNP) DELANEY WOLF [phone] Care Teams Radial Drill Press Operator For Plastic Relationship Specialty Start Date End Date Deborah Joaquin MD [address] [place] [address] PCP - General Family Medicine 05/14/17 Natalee A 05/10/25
--- OUTSIDE RECORDS SUMMARY | 2025-07-26 15:24 | XMS_ITS | Encounter Summary ---
Author Organization [employer] Address [address] [place] [address] Care Team Providers Care Fighting Vehicle Systems Maintainer Name Role Phone Deborah Joaquin MD Primary Care Provider + Reason for Visit * Reason Onset Date Comments Appointment Request 12/16/2024 Encounter Details Date Type Department Care Team ([facility] st Contact Info) Description 12/16/2024 Telephone [facility] MEDICINE [address] [place], [place] [phone] Deborah Joaquin MD [address] [place], [place] [phone] Appointment Request Social History Tobacco Use Types [...] R/s appt from 12/16/24. Contact pt at [phone] documented in this encounter Plan of Treatment Upcoming Encounters Date Type Department Care Team (Late st Contact Info) Description 08/28/2025 11:30 AM EST Office Visit [facility] OPTOMETRY [address] [place] [address] Kendy Butler, OD [address] [place] [address] documented as of this encounter Visit Diagnoses Not on filedocumented in this encounter Care Teams Fighting Vehicle Systems Maintainer Relationship Specialty Start Date End Date Deborah Joaquin MD [address] [place] [address] PCP - General Family Medicine 05/14/17 [facility] 05/10/25 documented as of this encounter
--- OUTSIDE RECORDS SUMMARY | 2025-07-26 15:24 | XMS_ITS | Encounter Summary ---
Author Organization [employer] Address [address] [place] [address] Care Team Providers Care Gear Grinder Name Role Phone Deborah Joaquin MD Primary Care Provider + Reason for Visit * Reason Comments Med Refill Encounter Details Date Type Department Care Team (Late st Contact Info) Description 04/21/2023 Refill [facility] MEDICINE [address] [place] [address] Deborah Joaquin MD [address] [place] [address] Social History Tobacco Use Types Packs/Day Years [...] Description 08/28/2025 11:30 AM EST Office Visit [facility] OPTOMETRY [address] [place], [place] [phone] TarkaKendy, OD [address] [place], [place] [phone] documented as of this encounter Visit Diagnoses Not on filedocumented in this encounter Care Teams Gear Grinder Relationship Specialty Start Date End Date Deborah Joaquin MD [address] [place] [address] PCP - General Family Medicine 05/14/17 Natalee A 05/10/25 documented as of this encounter
--- OUTSIDE RECORDS SUMMARY | 2025-07-26 15:24 | XMS_ITS | Encounter Summary ---
Author Organization [employer] Address [address] [place] [address] Care Team Providers Care Trailer Body Assembler Name Role Phone Deborah Joaquin MD Primary Care Provider + Reason for Visit * Reason Comments Med Refill Encounter Details Date Type Department Care Team ([facility] st Contact Info) Description 07/22/2025 Refill [facility] [address] [place], [place] [phone] Mya Jordan NP [address] [place] [address] Social History Tobacco Use Types Packs/Day Years [...] Description 08/28/2025 11:30 AM EST Office Visit [facility] OPTOMETRY [address] [place] [address] Kendy Butler, OD [address] [place] [address] documented as of this encounter Visit Diagnoses Not on filedocumented in this encounter Additional Health Concerns Assessment Noted Time PHQ-9 Depression Total Score: 3 05/15/20 25 1:12 PM EDT documented as of this encounter Care Teams Trailer Body Assembler Relationship Specialty Start Date End Date Deborah Joaquin MD [address] [place] [address] PCP - General Family Medicine 05/14[facility]17 [facility] documented as of this encounter
--- OUTSIDE RECORDS SUMMARY | 2025-08-15 12:36 | XMS_ITS | Encounter Summary ---
Author Organization [employer] Address [address] [place] [address] Care Team Providers Care Furnace Converter Name Role Phone Deborah Joaquin MD Primary Care Provider + Reason for Visit * Reason Onset Date Comments Pre-op Exam 03/11/2024 Encounter Details Date Type Department Care Team ([facility] st Contact Info) Description 03/11/2024 Telephone [facility] [address], [place] [phone] Deborah Joaquin MD [address] [place], [place] [phone] Pre-op Exam Social History Tobacco Use Types [...] encounter Miscellaneous Notes * Telephone Encounter - Sjeal Grider - 03/14/2024 4:14 PM EDT Pt [...] [facility] Surgeon's office number: [phone] Surgeon's office fax number: [phone] Contact name (person you spoke with): Manisha Last office note from surgeon requested: Will be faxed Date of Surgery: 04/19 Surgical procedure being done: Cataract Surgery on the right eye Type of anesthesia: Mac Lab needed: no EKG: no Surgeon's name: Dr. Sonny Freeman Facility name: [facility] Surgeon's office number: [phone] Surgeon's office fax number: [phone] Contact name (person you spoke with): Manisha Last office note from surgeon requested: Will Be faxed documented in this encounter Plan of Treatment Upcoming Encounters Date Type Department Care Team ([facility] st Contact Info) Description 08/28/2025 11:30 AM EST Office Visit [facility] [address] [place] [address] Kendy Butler, OD [address] [place] [address] 09/04/2025 10:00 AM EST Clinical Support [facility] [address] [place] [address] documented as of this encounter Visit Diagnoses Not on filedocumented in this encounter Care Teams Furnace Converter Relationship Specialty Start Date End Date Deborah Joaquin MD [address] [place] [address] PCP - General [facility] documented as of this encounter
--- OUTSIDE RECORDS SUMMARY | 2025-08-15 12:36 | XMS_ITS | Encounter Summary ---
Author Organization [employer] Address [address] [place] [address] Care Team Providers Care Reinsurance Accountant Name Role Phone Deborah Joaquin MD Primary Care Provider + Reason for Visit * Reason Onset Date Comments Call Back Request 08/03/2025 Encounter Details Date Type Department Care Team ([facility] st Contact Info) Description 08/03/2025 Telephone [facility] [address] [place], [place] [phone] Deborah Joaquin MD [address] [place] [address] Call Back Request Social History Tobacco Use [...] Telephone Encounter - Prudence Garza RN - 08/14/2025 9:53 AM EST TC placed to patient [phone], spoek to daughter Zenaida (on HIPAA) in regards to below message. Daughter verbalized understanding and agreed to RN NV appointment on 09/04/25 at 10am. Daughter requested a new vascular referral for patient d/t [facility] vascular not being able to see patient until 09/2025. Daughter advised [facility] Ortho placed vascular referral and daughter will need to contact [facility] ortho and request a new referral location. Daughter verbalized understanding. Daughter to f/u PRN. TC placed to [facility] endo [phone] to inform of medication change. Shayna verbalized understanding. [facility] endo to f/u PRN. * Addendum Note - Deborah Joaquin MD - 08/11/2025 2:43 PM ESTAddended by: DEBORAH JOAQUIN on: 08/11/2025 02:43 PM Modules accepted: Orders * Telephone Encounter - Deborah Joaquin MD - 08/11/2025 2:42 PM EST Regarding HCTZ and calcium, please call patient and tell her to stop hydrochlorothiazide and start amlodipine due to calcium metabolism concerns as below. She will need BP check 2 to 3 weeks after she starts amlodipine amlodipine can increase up to 10 mg if needed for BP below 140/90. She can continue lisinopril 40 mg and other medications. Please call Dr. Mahoney's office and update on medicationprofile. * Telephone Encounter - Ina Colon - 08/10/2025 1:54 PM EST Tc from pt Shayna at [facility] endocrinology requesting a call back regarding prior message Contact at [phone] * Telephone Encounter - Prudence Garza RN - 08/07/2025 2:03 PM EST TC returned to Shayna [phone] in regards to below message. Shayna did not answer, RN left VMrequesting CB to red team nurses. Shayna to f/u PRN. * Telephone Encounter - Isabella Mccarty - 08/07/2025 9:52 AM EST Tc from Shayna requesting a call back in regard of prior message Contact Shayna at [phone] ext. [phone] * Telephone Encounter - Leola Sarah RN - 08/04/2025 10:15 AM EST TC placed to Shayna ([facility] Endocrinology) [phone] regarding below message. Staff reported Shayna is currently out of the office an will CB when available. RN verbalized understanding. Shayna toF/U PRN. * Telephone Encounter - Octavio Swann - 08/03/2025 2:01 PM EST Tc from Shayna with [facility] requesting a call back regarding an alternative for the medication hydroCHLOROthiazide (HYDRODiuril) 25 MG tablet . Due to her Urine calcium being low. Contact [facility] endo at [phone] documented in this encounter Plan of Treatment Upcoming Encounters Date Type Department Care Team (Late st Contact Info) Description 08/28/2025 11:30 AM EST Office Visit [facility] [address] [place] [address] Kendy Butler, OD [address] [place] [address] 09/04/2025 10:00 AM EST Clinical Support [facility] [address] [place] [address] documented as of this encounter Visit Diagnoses Not on filedocumented in this encounter Additional Health Concerns Assessment Noted Time PHQ-9 Depression Total Score: 3 05/15/20 1:12 PM EDT documented as of this encounter Care Teams Reinsurance Accountant Relationship Specialty Start Date End Date Deborah Joaquin MD [address] [place] [address] PCP - General Family Medicine 05/14/17 [facility] 05/10/25 documented as of this encounter
--- OUTSIDE RECORDS SUMMARY | 2025-08-15 12:36 | XMS_ITS | Clinical Summary ---
Author Organization [employer] Address [address] [facility] [address] [place] [address] Care Team Providers Care Chief Operating Engineer Name Role Phone Deborah Joaquin MD [...] DAILY. 45 mL 1 025 11/20 Active lisinopril 40 MG tablet TAKE 1 TABLET BY MOUTH EVERY DAY 90 tablet Active cholecalciferol (Vitamin D-3) 25 MCG (1000 UT) tablet Take 1 tablet (25 mcg) by mouth Once per day. 90 tablet Active Diclofenac Sodium 1 % gelIndications:Contusi on of rib on left side, initial encounter APPLY 1 INCH TOPICALLY IF NEEDED FOR PAIN IN THE MORNING AND AT BEDTIME 100 g Active gabapentin (Neurontin) 100 MG capsule Take 1 capsule (100 mg) by mouth 3 times daily. 90 capsule 3 Active amLODIPine (Norvasc) 5 MG tablet Take 1 tablet (5 mg) by mouth Once per day. 30 tablet 11 025 08/11 Active hydroCHLOROthiazide (HYDRODiuril) 25 MG tabletIndications:Prim pascual hypertension TAKE 1 TABLET BY MOUTH EVERY DAY 90 tablet 025 08/11 Discontinued( Side effects) gabapentin (Neurontin) 100 MG capsule Take 1 capsule (100 mg) by mouth 2 times daily. 120 capsule 1 07/25 Discontinued Active Problems Problem Noted Date Diagnosed Date Leg edema, left 06/20/2025 Assessment & Plan (06/20/2025 11:49 AM EDT): Is most likely related to recent femoral fracture and current neuropathy, however due to history of recent right femur fracture, will order LLE Doppler ultrasound to rule out DVT Will continue [facility] for A-fib Visit for preventive health examination [...] is due next year and followed by laboratory development technician due to osteoporosis CRC screen is overdue, [...] (05/01/2025): CT scan chest on 04/28/2025 at [facility] [place] showed scattered opacities (approximate 6) on [...] the house. FU w/ knee orthopedics at [facility], they will refer to PT if [...] use plantar pads nad reschedule appointment with ballet master/mistress Assessment & Plan (01/02/2023 12:05 PM EDT): [...] and continue calcium + D Follow-up with laboratory development technician Assessment & Plan (06/10/2024 10:23 AM EDT): [...] Encounters Date Type Department Care Team Description 08/07/2025 Orders Only [facility] External Provider, [facility] 08/03/[address] [address] Deborah Joaquin MD Call Back Request 07/31/2025 Telephone [facility] [address] [place] [address] Deborah Joaquin MD Referral 07/22/2025 Refill [facility] [address] [address] Mya Jordan NP 07/13/[address] [address] Deborah Joaquin MD Medication Question 07/11/2025 8:40 AM EDT Office Visit [facility] [address] [address] Eren Rodriguez MD Pain and swelling of right lower leg (Primary Dx); Contusion of rib on left side, initial encounter 07/11/2025 Travel 07/10/2025 Telephone [facility] [address] [place] [phone] Deborah Joaquin MD Results 06/28/2025 Orders Only [address] [address] Deborah Joaquin MD 06/20/2025 10:45 AM EDT Office Visit [facility] [address] [place] [address] Deborah Joaquin MD Age-related osteoporosis with current pathological fracture with routine healing, subsequent encounter (Primary Dx); Leg edema, left; Visit for preventive health examination; Encounter for immunization 06/20/2025 Travel 06/19/2025 2:40 PM EDT Office Visit [facility] [address] [place] [address] Mya Jordan NP Pain of right lower extremity (Primary Dx); Other mononeuropathy 06/19/[address] [address] Deborah Joaquin MD 06/19/2025 Travel 06/12/2025 Patient Outreach [address] [address] Deborah Joaquin MD Pre-visit Planning (SDOH screening completed on 12/07/2024) 05/24/2025 Refill [facility] [address] [place] [address] Sara Patterson DO Primary hypertension 05/24/2025 Refill [facility] [address] [place] [address] Kendy Butler, OD Primary open angle glaucoma (POAG) of both eyes, moderate stage 05/18/[address] [address] Deborah Joaquin MD Call Back Request 05/15/2025 1:00 PM EDT Office Visit [facility] [address] [place] [phone] Octavio Billy MD Paroxysmal A-fib (CMS/HCC) (Primary Dx); Foot pain, right; S/P ORIF (open reduction internal fixation) fracture 05/15/2025 Orders Only GENERIC EXTERNAL DATA DEPARTMENT Provider, Generic External Data 05/15/2025 Travel 05/15/[address] [address] Octavio Billy MD CHART PREP from Last 3 Months Immunizations Immunization Administration [...] Description 08/28/2025 11:30 AM EST Office Visit [facility] [address] [place] [address] Kendy Butler, OD [address] [place] [address] 09/04/2025 10:00 AM EST Clinical Support [facility] [address] [place] [address] Health Maintenance Due Date Last Done Comments CT Colonography 1950 Colonoscopy 1950 Colorectal Cancer Screening 1950 FIT DNA/Cologuard 1950 FIT 1950 FOBT 1950 Sigmoidoscopy 1950 Hepatitis C Screening 1969 Zoster Vaccines (1 of 2) 2001 COVID-19 Vaccine (3 - season) 2025 12/21/2020, 11/23/2020 SDOH Screening 12/07/2025 12/07/2024 RSV Patients and Patients Aged 60 years or older (1 - 1-dose 75+ series) 2026 Mammogram 04/24/2026 04/24/2025, 03/22, 03/30/2023, Additional history [...] XR TIBIA FIBULA 2 VIEWS RIGHT Routine 08/07/2025 12:15 PM EST US VENOUS DUPLEX LE RT Routine 11:06 AM EDT US VENOUS DUPLEX LE RT Routine 4:12 PM EDT XR TIBIA FIBULA 2 [...] MAGNESIUM Routine 05/15/2025 1:45 PM EDT Hypomagnesemia LIPID PANEL, STANDARD Routine 04/27/2025 5:33 AM EDT BI MAMMOGRAM SCREENING TOMOSYNTHESIS BILATERAL Routine 04/24/2025 9:50 AM EDT from Last 3 Months or Most Recently Relevant to Health Maintenance Results * XR Tibia Fibula 2 Views Right (08/07/2025 12:15 PM EST) Only the most recent of2 resultswithin the time period is included. Anatomical Region Laterality Modality Lower Extremities, Lower Leg Right Rad iographic Imaging 08/07/2025 12:1 5 PM EST Narrative 08/07/2025 12:37 PM EST [address] [address] XRay Report Signed Patient: Fatoumata Gibson MR#: [id number] [id number] : 1950 Acct:[id number] Age/Sex: 75 / F ADM Date: 08/07/25 Loc: HO.ED Attending Dr: Ordering Physician: Geovanny Kelley Date of Service: 08/07/25 Procedure(s): XR tibia fibula RT 2V Accession Number(s): [id number] cc: Geovanny Kelley; Deborah Joaquin MD Reason for Exam: weeping wound. osteomytlitits EXAMINATION: XR TIBIA AND FIBULA, RIGHT CLINICAL INFORMATION: weeping wound. osteomytlitits COMPARISON: 06/19/2025. TECHNIQUE: AP and lateral views of the right tibia and fibula were obtained. FINDINGS: No fracture, dislocation, or suspicious bone lesion. No focal osteopenia, focus of osseous erosion, or focal periostitis identified. There is mild subcutaneous soft tissue edema of the calf. XR/XR tibia fibula RT 2V IMPRESSION: No radiographic evidence of osteomyelitis. Soft tissue swelling. Electronically signed by: Crow Cobian MD 08/07/2025 12:35 PM EST Dictated By: Crow Cobian MD Signed By: <Electronically signed by Crow Cobian MD in OV> 08/07/25 1235 DD/ 1215 TD/TT: 08/07/25 1221 Child Attendant: Procedure Note Donotuseinterpreter, Image - 08/07/[address] [address] XRay Report Signed Patient: Fatoumata GibsonMR#: [id number] 086 : 1950cct:[id number] Age/Sex: 75 / FADM Date: 08/07/25 Loc: HO.ED Attending Dr: Ordering Physician: Geovanny Kelley Date of Service: 08/07/25 Procedure(s): XR tibia fibula RT 2V Accession Number(s): [id number] cc: Geovanny Kelley; Deborah Joaquin MD Reason for Exam: weeping wound. osteomytlitits EXAMINATION: XR TIBIA AND FIBULA, RIGHT CLINICAL INFORMATION: weeping wound. osteomytlitits COMPARISON: 06/19/2025. TECHNIQUE: AP and lateral views of the right tibia and fibula were obtained. FINDINGS: No fracture, dislocation, or suspicious bone lesion. No focal osteopenia, focus of osseous erosion, or focal periostitis identified. There is mild subcutaneous soft tissue edema of the calf. XR/XR tibia fibula RT 2V IMPRESSION: No radiographic evidence of osteomyelitis. Soft tissue swelling. Electronically signed by: Crow Cobian MD 08/07/2025 12:35 PM [facility] Dictated By: Crow Cobian MD Signed By: <Electronically signed by Crow Cobian MD in OV> 08/07/25 1235 DD/ 1215 TD/TT: 08/07/25 1221 Child Attendant: [facility] External Provider IMG XR PROCEDURES Final Result * US VENOUS DUPLEX LE RT (07/11/2025 11:06 AM EDT) Only the most recent of2 resultswithin the time period is included. Anatomical Region Laterality Modality Abdomen Ultrasound 07/11/2025 11:0 6 AM EDT Narrative 07/11/2025 11:22 AM EDT [address] [address] Ultrasound Report Signed Patient: Fatoumata Gibson MR#: [id number] 086 : 1950 Acct:[id number] Age/Sex: 75 / F ADM Date: 07/11/25 Loc: HO.US Attending Dr: Eren Rodriguez MD Ordering Physician: EREN RODRIGUEZ MD Date of Service: 07/11/25 Procedure(s): US venous duplex LE RT Accession Number(s): [id number] cc: EREN RODRIGUEZ MD; Deborah Joaquin MD [...] 07/11/25 1119 DD/ 1106 TD/TT: 07/11/25 1112 Child Attendant: Procedure Note Donotuseinterpreter, Image - 07/11/2025 [place] [address] Ultrasound Report Signed Patient: Fatoumata GibsonMR#: [id number] 086 : 1950cct:[id number] Age/Sex: 75 / FADM Date: 07/11/25 Loc: .US Attending Dr: Eren Rodriguez MD Ordering Physician: EREN RODRIGUEZ MD Date of Service: 07/11/25 Procedure(s): US venous duplex LE RT Accession Number(s): [id number] cc: EREN RODRIGUEZ MD; Deborah Joaquin MD [...] 07/11/25 1119 DD/ 1106 TD/TT: 07/11/25 1112 Child Attendant: Eren Rodriguez MD IMG US PROCEDURES Edited Result - Final * XR Foot 3+ Views Right (06/19/2025 2:25 PM EDT) Anatomical Region Laterality Modality Lower Extremities, Foot Right Radiogra phic Imaging 06/19/2025 2:25 PM EDT Narrative 06/19/2025 2:43 PM EDT [address] [address] XRay Report Signed Patient: Fatoumata Gibson MR#: [id number] 086 : 1950 Acct:[id number] Age/Sex: 75 / F ADM Date: 06/19/25 Loc: HO.HHCX Attending Dr: Mya Jordan NP Ordering Physician: Mya Jordan NP Date of Service: 06/19/25 Procedure(s): XR foot RT min 3V Accession Number(s): [id number] cc: Mya Jordan NP Reason for Exam: [...] in OV> 06/19/25 1440 DD/ 1425 TD/TT: 06/19/251427 Child Attendant: Procedure Note Donotuseinterpreter, Image - 06/19/[address] [address] XRay Report Signed Patient: Fatoumata GibsonMR#: [id number] : 1950cct:[id number] Age/Sex: 75 / FADM Date: 06/19/25 Loc: .HHX Attending Dr: Mya Jordan REGULATORY COORDINATOR Ordering Physician: Mya Jordan NP Date of Service: 06/19/25 Procedure(s): XR foot RT min 3V Accession Number(s): [id number] cc: Mya Jordan NP Reason for Exam: [...] in OV> 06/19/25 1440 DD/ 1425 TD/TT: 09/29/25 1428 Child Attendant: us Mya Jordan REGULATORY COORDINATOR IMG XR PROCEDURES Final Result * Immunofixation (ROSY), Urine (05/15/2025 1:45 PM EDT) ROSY Interpretation SEE NOTE [facility] Comment:Normal pattern. No m onoclonal proteins detected.THIS TEST WAS PERFORMED AT:[employer] [address] [id number] JJ MD 05/15/2025 1:45 PM EDT 05/15/2025 4:14 PM EDT us Generic External Data Provider LAB URINE ORDERAB LES Final Result Performing Organization Address [facility]/ZIP Co de Phone Number [facility] [address] [place] [phone] * Collagen Cross-Linked N-Telopeptide (NTx), U (05/15/2025 1:45 PM EDT) N Telopetide (NTx) 35 see note [facility] Comment:Result Units: nM BCE /mM creatPremenopausal Females: 4 - 64 nM BCE/mM creatResults are primarily used for monitoring theresponse to therapy. A value within thepremenopausal range does not rule out osteoporosisnor the need for therapyUnits of Measure: nM BCE/mM creat CREATININE, RANDOM URINE 93 20 - 275 mg/dL [facility] Comment:THIS TEST WAS PERFOR MED AT:[employer]/[facility] [place] [address]QTVYNZYLEILANI RUBIN MD,PHD 05/15/2025 1:45 PM EDT 05/15/2025 4:14 PM EDT us Generic External Data Provider LAB URINE ORDERAB LES Final Result Performing Organization Address [facility]/ZIP Co de Phone Number [facility] [address] [place] [phone] * TSH (05/15/2025 1:45 PM EDT) Thyroid Stimulating Hormone 1.85 0.32 - 4.0 uIU/mL [facility] Comment:TSH 3rd Generation ( [facility]) 05/15/2025 1:45 PM EDT 05/15/2025 4:05 PM EDT Generic External Data Provider LAB BLOOD ORDERAB LES Final Result Performing Organization Address [facility] Co de Phone Number [facility] [address] [place] [phone] * T4, Free (05/15/2025 1:45 PM EDT) Free T4 (Free Thyroxine) 1.09 0.71 - 1.85 ng/dL [facility] 05/15/2025 1:45 PM EDT 05/15/2025 4:05 PM EDT Generic External Data Provider LAB BLOOD ORDERAB LES Final Result Performing Organization Address [facility] de Phone Number [facility] [address] [place] [phone] * (ABNORMAL) Phosphate (As Phosphorus) (05/15/2025 1:45 PM EDT) Phosphorus 5.1(H) 2.7 - 4.5 mg/dL [facility] 05/15/2025 1:45 PM EDT 05/15/2025 4:05 PM EDT Generic External Data Provider LAB BLOOD ORDERAB LES Final Result Performing Organization Address [facility] Co de Phone Number [facility] [address] [place] [phone] * Magnesium (05/15/2025 1:45 PM EDT) Pathologist [facility] Magnesium 2.2 1.6 - 2.6 mg/dL [facility] Blood Venous blood specimen / Unknown 05/15/2025 1:45 PM EDT 05/15/2025 4:05 PM EDT Deborah Joaquin MD LAB BLOOD ORDERABLES Fin al Result Performing Organization Address [facility] Co de Phone Number [facility] [address] [place] [phone] * (ABNORMAL) Basic Metabolic Panel (05/15/2025 1:45 PM EDT) [facility] Sodium 138 135 - 145 mmol/L [facility] Potassium 5.0 3.3 - 5.1 mmol/L [facility] Comment:Mild Hemolysis.Inter pret result with caution Chloride 105 96 - 108 mmol/L [facility] Carbon Dioxide 23 22 - 29 mmol/L [facility] Anion Gap 15 12 - 20 [facility] Urea Nitrogen (BUN) 39(H) 9 - 16 mg/dL [facility] Creatinine, Serum 1.23 0.5 - 1.4 mg/dL [facility] Estimated Glomerular Filt Rate 43 [facility] Comment:Chronic Kidney Disea se: Estimated GFR < 60 mL/min/1.25u1Gufscb Kidney Disease: Estimated GFR < 15 mL/min/1.73m2 Glucose 86 60 - 115 mg/dL [facility] Calcium 9.4 8.4 - 10.2 mg/dL [facility] Blood Venous blood specimen / Unknown 05/15/2025 1:45 PM EDT 05/15/2025 4:05 PM EDT Deborah Joaquin MD LAB BLOOD ORDERABLES Fin al Result Performing Organization Address [facility]/ZIP Co de Phone Number [facility] [address] [place] [phone] * Lipid Panel, Standard (04/27/2025 5:33 AM EDT) Triglycerides 69 <150 mg/dL [facility] Comment:Desirable Triglyceri de: less than 150 mg/dLBorderline High Triglyceride 150-199 mg/dLHigh Triglyceride: 200-499 mg/dLVery High Triglyceride: greater than or equal to 5OO mg/dL Cholesterol 135 <200 mg/dL [facility] Comment:Desirable Cholestero l: less than 200 mg/dLBorderline High Cholesterol: 200-239 mg/dLHigh Cholesterol: greater than 239 mg/dL LDL Cholesterol Calculated 58 <100 mg/dL [facility] Comment:Desirable LDL: less than 100 mg/dLNear Optimal/Above Optimal LDL: 110- 129 mg/dLBorderline High LDL: 130-159 mg/dLHigh LDL: 160-189 mg/dLVery High LDL: greater than or equal to 190 mg/dL HDL Cholesterol 64 >40 mg/dL [facility] Comment:Desirable HDL: great er than 40 mg/dL Note: This HDL assay may give artificially low results in patients with liver disease. 04/27/2025 5:33 AM EDT 04/27/2025 6:49 AM EDT us Generic External Data Provider LAB BLOOD ORDERAB LES Final Result [facility] [address] [place] [phone] * BI Mammogram Screening Tomosynthesis Bilateral (04/24/2025 9:50 AM EDT) Anatomical Region Laterality Modality Breast Bilateral Mammography 04/24/2025 9:50 AM EDT Narrative 05/02/2025 4:17 PM EDT [facility] [address] [place] [address] [place] [address] Mammography Report Signed Patient: Fatoumata Gibson MR#: [id number] 086 : 1950 Acct:[id number] Age/Sex: 75 / F ADM Date: 04/24/25 Loc: MAMMO Attending Dr: Deborah Joaquin MD Ordering Physician: Deborah Joaquin MD Results: 1Ne gative Date of Service: 04/24/25 Follow Up: 1 Year From Orig ina Mammogram Procedure(s): MM tomosynthesis screening BI Accession Number(s): [id number] cc: Deborah Joaquin MD EXAMINATION: MM SCREENING [...] 05/02/25 1614 DD/ 0950 TD/TT: 04/24/25 1009 Child Attendant: Procedure Note Donotuseinterpreter, Image - 05/02/20[facility] [address] [place] [address] Mammography Report Signed Patient: Fatoumata GibsonMR#: [id number] : 1Acct:[id number] Age/Sex: 75 / FADM Date: 04/24/25 Loc: MAMMO Attending Dr: Deborah Joaquin MD Ordering Physician: Deborah Joaquin MDResults: 1Ne gative Date of Service: 04/24/25Follow Up: 1 Year From Orig ina Mammogram Procedure(s): MM tomosynthesis screening BI Accession Number(s): [id number] cc: Deborah Joaquin MD EXAMINATION: MM SCREENING [...] 05/02/25 1614 DD/ 0950 TD/TT: 04/24/25 1009 Child Attendant: Deborah Joaquin MD IMG BI PROCEDURES Final Result from Last 3 Months or Most Recently Relevant to Health Maintenance Insurance [facility] [facility] RESIDENTIAL OPTIONS (HMO D-SNP) Care Teams Chief Operating Engineer Relationship Specialty Start Date End Date Deborah Joaquin MD [address] [place] [phone] PCP - General Family Medicine 05/14/17 [facility] 05/10/25
--- OUTSIDE RECORDS SUMMARY | 2025-08-15 12:36 | XMS_ITS | Encounter Summary ---
Author Organization [employer] Address [address] [place] [address] Care Team Providers Care Stock Wetter Name Role Phone Deborah Joaquin MD Primary Care Provider + Reason for Visit * Reason Onset Date Comments Appointment Request 12/16/2024 Encounter Details Date Type Department Care Team ([facility] st Contact Info) Description 12/16/2024 Telephone [facility] [address] [place], [place] [phone] Deborah Joaquin MD [address] [place], [place] [phone] Appointment Request Social History Tobacco Use Types [...] Miscellaneous Notes * Telephone Encounter - Tim Santi - 12/16/2024 8:15 AM EDT Tc from pt requesting nto R/s appt from 12/16/24. Contact pt at [phone] documented in this encounter Plan of Treatment Upcoming Encounters Date Type Department Care Team (Late st Contact Info) Description 08/28/2025 11:30 AM EST Office Visit [facility] [address] [place] [address] Kendy Butler, OD [address] [place] [address] 09/04/2025 10:00 AM EST Clinical Support [facility] [address] [place] [phone] documented as of this encounter Visit Diagnoses Not on filedocumented in this encounter Care Teams Stock Wetter Relationship Specialty Start Date End Date Deborah Joaquin MD [address] [place] [address] PCP - General Family Medicine 05/14/17 [facility] 05/10/25 documented as of this encounter
--- OUTSIDE RECORDS SUMMARY | 2025-08-15 12:36 | XMS_ITS | Encounter Summary ---
Author Organization [employer] Address [address] [facility] [address] [place] [address] Care Team Providers Care Medical Sales Consultant Name Role Phone Deborah Joaquin MD Primary Care Provider + Reason for Visit * Reason Comments Med Refill Encounter Details Date Type Department Care Team (Late st Contact Info) Description 04/21/2023 Refill [facility] [address] [place] [address] [phone] Deborah Joaquin MD [address] [place] [address] [phone] Social History Tobacco Use Types Packs/Day Years [...] Description 08/28/2025 11:30 AM EST Office Visit [facility] [address] [place], [place] [phone] TarKendy skaggs, OD [address] [place], [place] [phone] 09/04/2025 10:00 AM EST Clinical Support [facility] [address] [place] [phone] documented as of this encounter Visit Diagnoses Not on filedocumented in this encounter Care Teams Medical Sales Consultant Relationship Specialty Start Date End Date Deborah Joaquin MD [address] [place] [address] ELISA Albright [id number] PCP - General Family Medicine 05/14/17 Natalee MARTINEZ 05/10/25 documented as of this encounter
--- OUTSIDE RECORDS SUMMARY | 2025-08-15 12:36 | XMS_ITS | Encounter Summary ---
Author Organization [employer] Address [address] [facility] 7[address] [place] [address] Care Team Providers Care Transmitter Engineer Name Role Phone Deborah Joaquin MD Primary Care Provider + Reason for Visit * Reason Onset Date Comments Call Back Request 05/18/2025 Encounter Details Date Type Department Care Team ([facility] st Contact Info) Description 05/18/2025 Telephone [facility] [address] [place], [place] [phone] Deborah Joaquin MD [address] [place], [place] [phone] Call Back Request Social History Tobacco Use [...] placed to patient EC (Zenaida) on HIPAA [phone] regarding below message. RN left an VM for the EC to CB Red team nurses. EC and PT to F/U PRN. * Telephone Encounter - Ina Colon - 05/18/2025 9:43 AM EDT Tc from pt daughter requesting a call back to discuss phosphorus lab results , they are wondering if medication will be needed Contact pt daughter Zenaida (on HIPAA) at [phone] documented in this encounter Plan of Treatment Upcoming Encounters Date Type Department Care Team (Late st Contact Info) Description 08/28/2025 11:30 AM EST Office Visit [facility] [address] [place] [address] Kendy Butler, OD [address] [place] [address] 09/04/2025 10:00 AM EST Clinical Support [facility] [address] [place] [address] documented as of this encounter Visit Diagnoses Not on filedocumented in this encounter Additional Health Concerns Assessment Noted Time PHQ-9 Depression Total Score: 3 05/15/20 1:12 PM EDT documented as of this encounter Care Teams Transmitter Engineer Relationship Specialty Start Date End Date Deborah Joaquin MD [address] [place] [address] PCP - General Family Medicine 05/14/17 Natalee MARTINEZ 05/10/25 documented as of this encounter
== END ==
LOC: HO.CARD
PROVIDERS: PCP Internal Medicine; Visit Provider Internal Medicine
DX: I48.91 Unspecified atrial fibrillation (principal)
CPT/HCPCS: 93242

== ENCOUNTER 2025-07-28 11:30 | Outpatient (REF) | payer OTHER, SELFPAY ==
[2025-07-28 12:24] LABS: Creatinine, mg/dL 102.04
[2025-07-28 12:29] LABS: Total Volume 24 Hour Urine 800 mL
--- OUTSIDE RECORDS SUMMARY | 2025-07-28 13:54 | XMS_ITS | Encounter Summary ---
Author Organization [employer] Address [address] [facility] [address] [place] [address] Care Team Providers Care Textile Scrap Salvager Name Role Phone Deborah Joaquin MD Primary Care Provider + Reason for Visit * Reason Onset Date Comments Call Back Request 05/18/2025 Encounter Details Date Type Department Care Team ([facility] st Contact Info) Description 05/18/2025 Telephone [facility] MEDICINE [address] [place], [place] [phone] Deborah Joaquin MD [address] [place], [place] [phone] Call Back Request Social History Tobacco Use [...] placed to patient EC (Zenaida) on HIPAA [phone] regarding below message. RN left an VM for the EC to CB Red team nurses. EC and PT to F/U PRN. * Telephone Encounter - Ina Colon - 05/18/2025 9:43 AM EDT Tc from pt daughter requesting a call back to discuss phosphorus lab results , they are wondering if medication will be needed Contact pt daughter Zenaida (on HIPAA) at [phone] documented in this encounter Plan of Treatment Upcoming Encounters Date Type Department Care Team (Late st Contact Info) Description 08/28/2025 11:30 AM EST Office Visit [facility] OPTOMETRY [address] [place] [address] Kendy Butler, OD [address] [place] [address] documented as of this encounter Visit Diagnoses Not on filedocumented in this encounter Additional Health Concerns Assessment Noted Time PHQ-9 Depression Total Score: 3 05/15/20 25 1:12 PM EDT documented as of this encounter Care Teams Textile Scrap Salvager Relationship Specialty Start Date End Date Deborah Joaquin MD [address] [place] [address] PCP - General Family Medicine 05/14/17 [facility] 05/10/25 documented as of this encounter
--- OUTSIDE RECORDS SUMMARY | 2025-07-28 13:54 | XMS_ITS | Encounter Summary ---
Author Organization [employer] Address [address] [place] [address] Care Team Providers Care Packaging Materials Inspector Name Role Phone Deborah Joaquin MD Primary Care Provider + Reason for Visit * Reason Comments Med Refill Encounter Details Date Type Department Care Team ([facility] st Contact Info) Description 07/22/2025 Refill [facility] [address] [place], [place] [phone] Mya Jordan NP [address] [place] [address] Social History Tobacco Use Types Packs/Day Years [...] Description 08/28/2025 11:30 AM EST Office Visit [facility] OPT[facility]RY [address] [place] [address] Kendy Butler, OD [address] [place] [address] documented as of this encounter Visit Diagnoses Not on filedocumented in this encounter Additional Health Concerns Assessment Noted Time PHQ-9 Depression Total Score: 3 05/15/20 25 1:12 PM EDT documented as of this encounter Care Teams Packaging Materials Inspector Relationship Specialty Start Date End Date Deborah Joaquin MD [address] [place] [address] PCP - General Family Medicine 05/14[facility]17 [facility] documented as of this encounter
--- OUTSIDE RECORDS SUMMARY | 2025-07-28 13:54 | XMS_ITS | Encounter Summary ---
Author Organization [employer] Address [address] [place] [address] Care Team Providers Care Group Chief Operator Name Role Phone Deborah Joaquin MD Primary Care Provider + Reason for Visit * Reason Onset Date Comments Appointment Request 12/16/2024 Encounter Details Date Type Department Care Team ([facility] st Contact Info) Description 12/16/2024 Telephone [facility] MEDICINE [address] [place], [place] [phone] Deborah Joaquin MD [address] [place], [place] [phone] Appointment Request Social History Tobacco Use Types [...] R/s appt from 12/16/24. Contact pt at [phone] documented in this encounter Plan of Treatment Upcoming Encounters Date Type Department Care Team (Late st Contact Info) Description 08/28/2025 11:30 AM EST Office Visit [facility] OPTOMETRY [address] [place] [address] Kendy Butler, OD [address] [place] [address] documented as of this encounter Visit Diagnoses Not on filedocumented in this encounter Care Teams Group Chief Operator Relationship Specialty Start Date End Date Deborah Joaquin MD [address] [place] [address] PCP - General Family Medicine 05/14/17 [facility] 05/10/25 documented as of this encounter
--- OUTSIDE RECORDS SUMMARY | 2025-07-28 13:54 | XMS_ITS | Encounter Summary ---
Author Organization [employer] Address [address] [facility] 7t [place] [address] Care Team Providers Care Machine Clipper Name Role Phone Deborah Joaquin MD Primary Care Provider + Reason for Visit * Reason Comments Med Refill Encounter Details Date Type Department Care Team (Late st Contact Info) Description 04/21/2023 Refill [facility] MEDICINE [address] [place] [address] Deborah Joaquin MD [address] [place] [address] Social History Tobacco Use Types Packs/Day Years [...] Description 08/28/2025 11:30 AM EST Office Visit [facility] OPTOMETRY [address] [place], [place] [phone] TarkaKendy, OD [address] [place], [place] [phone] documented as of this encounter Visit Diagnoses Not on filedocumented in this encounter Care Teams Machine Clipper Relationship Specialty Start Date End Date Deborah Joaquin MD [address] [place] [address] PCP - General Family Medicine 05/14/17 Natalee A 05/10/25 documented as of this encounter
--- OUTSIDE RECORDS SUMMARY | 2025-07-28 13:54 | XMS_ITS | Encounter Summary ---
Author Organization [employer] Address [address] [place] [address] Care Team Providers Care Aws Architect Name Role Phone Deborah Joaquin MD Primary Care Provider + Reason for Visit * Reason Onset Date Comments Pre-op Exam 03/11/2024 Encounter Details Date Type Department Care Team ([facility] st Contact Info) Description 03/11/2024 Telephone [facility] MEDICINE [address] [place], [place] [phone] Deborah Joaquin MD [address] [place], [place] [phone] Pre-op Exam Social History Tobacco Use Types [...] [facility] Surgeon's office number: [phone] Surgeon's office fax number: [phone] Contact name (person you spoke with): Manisha Last office note from surgeon requested: Will be faxed Date of Surgery: 04/19 Surgical procedure being done: Cataract Surgery on the right eye Type of anesthesia: Mac Lab needed: no EKG: no Surgeon's name: Dr. Sonny Freeman Facility name[facility] Surgeon's office number: [phone] Surgeon's office fax number: [phone] Contact name (person you spoke with): Manisha Last office note from surgeon requested: Will Be faxed documented in this encounter Plan of Treatment Upcoming Encounters Date Type Department Care Team ([facility] st Contact Info) Description 08/28/2025 11:30 AM EST Office Visit [facility] OPTOMETRY [address] [place] [address] Kendy Butler, OD [address] [place] [address] documented as of this encounter Visit Diagnoses Not on filedocumented in this encounter Care Teams Aws Architect Relationship Specialty Start Date End Date Deborah Joaquin MD [address] [place] [address] PCP - General Family Medicine 05/14[facility]17 [facility] documented as of this encounter
--- OUTSIDE RECORDS SUMMARY | 2025-07-28 13:55 | XMS_ITS | Clinical Summary ---
Author Organization [employer] Address [address] [facility] [address] [place] [address] Care Team Providers Care Residential Director Name Role Phone Deborah Joaquin MD Primary [...] ultrasound to rule out DVT Will continue [facility] for A-fib Visit for preventive health [...] is due next year and followed by ladle pourer due to osteoporosis CRC screen is overdue, [...] (05/01/2025): CT scan chest on 04/28/2025 at [facility] showed scattered opacities (approximate 6) on right [...] the house. FU w/ knee orthopedics at [facility], they will refer to PT if [...] use plantar pads nad reschedule appointment with qa automation developer Assessment & Plan (01/02/2023 12:05 PM EDT): [...] and continue calcium + D Follow-up with ladle pourer Assessment & Plan (06/10/2024 10:23 AM EDT): [...] Type Department Care Team Description 07/22/2025 Refill [facility] [address] [place] [phone] Mya Jordan NP 07/13/2025 Telephone [facility] [address] [place] [phone] Deborah Joaquin MD Medication Question 07/11/2025 8:40 AM EDT Office Visit [facility] [address] [address] Eren Rodriguez MD Pain and swelling of right lower leg (Primary Dx); Contusion of rib on left side, initial encounter 07/11/2025 Travel 07/10/2025 Telephone [facility] [address] [place] [phone] Deborah Joaquin MD Results 06/28/2025 Orders Only [facility] [address] [place] [phone] Deborah Joaquin MD 06/20/2025 10:45 AM EDT Office Visit [facility] [address] [place] [phone] Deborah Joaquin MD Age-related osteoporosis with current pathological fracture with routine healing, subsequent encounter (Primary Dx); Leg edema, left; Visit for preventive health examination; Encounter for immunization 06/20/2025 Travel 06/19/2025 2:40 PM EDT Office Visit [facility] [address] [place] [address] Mya Jordan, VICTOR MANUEL Pain of right lower extremity (Primary Dx); Other mononeuropathy 06/19/[address] [address] Deborah Joaquin MD 06/19/2025 Travel 06/12/2025 Patient Outreach [address] [address] Deborah Joaquin MD Pre-visit Planning (SDOH screening completed on 12/07/2024) 05/24/[address] [address] Sara Patterson DO Primary hypertension 05/24/2025 Refill [facility] [address] [place] [address] Kendy Butler, OD Primary open angle glaucoma (POAG) of both eyes, moderate stage 05/18/[address] [address] Deborah Joaquin MD Call Back Request 05/15/2025 1:00 PM EDT Office Visit [address] [address] Octavio Billy MD Paroxysmal A-fib (CMS/HCC) (Primary Dx); Foot pain, right; S/P ORIF (open reduction internal fixation) fracture 05/15/2025 Orders Only GENERIC EXTERNAL DATA DEPARTMENT Provider, Generic External Data 05/15/2025 Travel 05/15/[address] [address] Octavio Billy MD CHART PREP 05/01/2025 Results Follow-Up [address] [address] Deborah Joaquin MD CTA Chest PE Protocal 04/28/2025 Orders Only [facility] External Provider, [facility] 04/28/2025 Patient Outreach [address] [address] Deborah Joaquin MD Transition Of Care (Tcm) (HDF unscheduled ) 04/28/2025 Telephone [facility] [address] [place] [address] Deborah Joaquin MD Hospital Follow-up 04/27/2025 Results Follow-Up [facility] [address] [place] [address] Deborah Joaquin MD B Type Natriuretic Peptide (BNP), CBC auto differential, TSH with Reflex to Free T4, Additional followed-up results: 3 04/27/2025 Orders Only GENERIC EXTERNAL DATA DEPARTMENT Provider, Generic External Data 04/27/2025 Refill [facility] [address] [place], [place] [phone] Deborah Joaquin MD from Last 3 Months [...] Upcoming Encounters Date Type Department Care Team ([facility] st Contact Info) Description 08/28/2025 11:30 AM EST Office Visit [facility] [address] [place] [address] Kendy Butler, OD [address] [place] [address] Health Maintenance Due Date Last Done Comments [...] AUTO DIFFERENTIAL Routine 04/27/2025 5:33 AM EDT BI MAMMOGRAM SCREENING TOMOSYNTHESIS BILATERAL Routine 04/24/2025 9:50 AM EDT from Last 3 Months or Most Recently Relevant to Health Maintenance Results * US VENOUS DUPLEX LE RT (07/11/2025 11:06 AM EDT) Only the most recent of2 resultswithin the time period is included. Anatomical Region Laterality Modality Abdomen Ultrasound 07/11/2025 11:0 6 AM EDT Narrative 07/11/2025 11:22 AM EDT [place] [address] Ultrasound Report Signed Patient: Fatoumata Gibson MR#: [id number] 086 : 1950 Acct:[id number] Age/Sex: 75 / F ADM Date: 07/11/25 Loc: .US Attending Dr: Eren Rodriguez MD Ordering Physician: EREN RODRIGUEZ MD Date of Service: 07/11/25 Procedure(s): US venous duplex LE RT Accession Number(s): [id number] cc: EREN RODRIGUEZ MD; Deborah Joaquin MD [...] 07/11/25 1119 DD/ 1106 TD/TT: 07/11/25 1112 Chronic Care Nurse: Procedure Note Donotuseinterpreter, Image - 07/11/2025 [place] [address] Ultrasound Report Signed Patient: Carola Gibson#: [id number] [id number] : 1950cct:[id number] Age/Sex: 75 / FADM Date: 07/11/25 Loc: HO.US Attending Dr: Eren Rodriguez MD Ordering Physician: EREN RODRIGUEZ MD Date of Service: 07/11/25 Procedure(s): US venous duplex LE RT Accession Number(s): [id number] cc: EREN RODRIGUEZ MD; Deborah Joaquin MD [...] 07/11/25 1119 DD/ 1106 TD/TT: 07/11/25 1112 Chronic Care Nurse: Eren Rodriguez MD IMG US PROCEDURES Edited Result - Final * XR Foot 3+ Views Right (06/19/2025 2:25 PM EDT) Anatomical Region Laterality Modality Lower Extremities, Foot Right Radiogra phic Imaging 06/19/2025 2:25 PM EDT Narrative 06/19/2025 2:43 PM EDT [address] [address] XRay Report Signed Patient: Fatoumata Gibson MR#: [id number] 086 : 1950 Acct:[id number] Age/Sex: 75 / F ADM Date: 06/19/25 [facility]: Mya Jordan OPTICAL STORE MANAGER Ordering Physician: Mya Jordan NP Date of Service: 06/19/25 Procedure(s): XR foot RT min 3V Accession Number(s): [id number] cc: Mya Jordan NP Reason for Exam: [...] 06/19/25 1440 DD/ 1425 TD/TT: 06/19/25 1428 Chronic Care Nurse: Procedure Note Donotuseinterpreter, Image - 06/19/[address] [place] [address] XRay Report Signed Patient: Fatoumata GibsonMR#: [id number] 086 : 1950cct:[id number] Age/Sex: 75 / FADM Date: 06/19/25 Loc: HO.HHCX Attending Dr: Mya Jordan NP Ordering Physician: yMa Jordan NP Date of Service: 06/19/25 Procedure(s): XR foot RT min 3V Accession Number(s): [id number] cc: Mya Jordan NP Reason for Exam: [...] 06/19/25 1440 DD/ 1425 TD/TT: 06/19/25 1428 Chronic Care Nurse: us Mya Jordan OPTICAL STORE MANAGER IMG XR PROCEDURES Final Result * XR Tibia Fibula 2 Views Right (06/19/2025 2:25 PM EDT) Anatomical Region Laterality Modality Lower Extremities, Lower Leg Right Rad iographic Imaging 06/19/2025 2:25 PM EDT Narrative 06/19/2025 2:37 PM EDT [place] [address] XRay Report Signed Patient: Fatoumata Gibson MR#: [id number] 086 : 1950 Acct:[id number] Age/Sex: 75 / F ADM Date: 06/19/25 [facility]: Mya Jordan OPTICAL STORE MANAGER Ordering Physician: Mya Jordan OPTICAL STORE MANAGER Date of Service: 06/19/25 Procedure(s): XR tibia fibula RT 2V Accession Number(s): [id number] cc: Mya Jordan OPTICAL STORE MANAGER Reason for Exam: hx of stress fracture, [...] 06/19/25 1434 DD/ 1425 TD/TT: 06/19/25 1428 Chronic Care Nurse: Procedure Note Donotuseinterpreter, Image - 06/19/[address] [address] XRay Report Signed Patient: Fatoumata GibsonMR#: [id number] 086 : 1950cct:[id number] Age/Sex: 75 / FADM Date: 06/19/25 Loc: ANJALIX Attending Dr: Mya Jordan OPTICAL STORE MANAGER Ordering Physician: Mya Jordan NP Date of Service: 06/19/25 Procedure(s): XR tibia fibula RT 2V Accession Number(s): [id number] cc: Graef,Mya B OPTICAL STORE MANAGER Reason for Exam: hx of stress fracture, [...] 06/19/25 1434 DD/ 1425 TD/TT: 06/19/25 1428 Chronic Care Nurse: us Mya Jordan OPTICAL STORE MANAGER IMG XR PROCEDURES Final Result * Immunofixation (ROSY), Urine (05/15/2025 1:45 PM EDT) ROSY Interpretation SEE NOTE [facility] Comment:Normal pattern. No m onoclonal proteins detected.THIS TEST WAS PERFORMED AT:[employer] [place] [phone] JJ MD 05/15/2025 1:45 PM EDT 05/15/2025 4:14 PM EDT us Generic External Data Provider LAB URINE ORDERAB LES Final Result [facility] [address] [place] [phone] * Collagen Cross-Linked N-Telopeptide (NTx), U (05/15/2025 1:45 PM EDT) N Telopetide (NTx) 35 see note [facility] Comment:Result Units: nM BCE /mM creatPremenopausal Females: 4 - 64 nM BCE/mM creatResults are primarily used for monitoring theresponse to therapy. A value within thepremenopausal range does not rule out osteoporosisnor the need for therapyUnits of Measure: nM BCE/mM creat CREATININE, RANDOM URINE 93 20 - 275 mg/dL [facility] Comment:THIS TEST WAS PERFOR MED AT:[id number] [place] [phone] RUBIN MD,PHD 05/15/2025 1:45 PM EDT 05/15/2025 4:14 PM EDT Generic External Data Provider LAB URINE ORDERAB LES Final Result Performing Organization Address [facility] de Phone Number [facility] [address] [place] [phone] * TSH (05/15/2025 1:45 PM EDT) Thyroid Stimulating Hormone 1.85 0.32 - 4.0 uIU/mL [facility] Comment:TSH 3rd Generation ( [facility]) 05/15/2025 1:45 PM EDT 05/15/2025 4:05 PM EDT Generic External Data Provider LAB BLOOD ORDERAB LES Final Result Performing Organization Address [facility] Co de Phone Number [facility] [address] [place] [phone] * T4, Free (05/15/2025 1:45 PM EDT) Free T4 (Free Thyroxine) 1.09 0.71 - 1.85 ng/dL [facility] 05/15/2025 1:45 PM EDT 05/15/2025 4:05 PM EDT Generic External Data Provider LAB BLOOD ORDERAB LES Final Result Performing Organization Address [facility]/ZIP Co de Phone Number [facility] [address] [place] [phone] * (ABNORMAL) Phosphate (As Phosphorus) (05/15/2025 1:45 PM EDT) Pathologist [facility] Phosphorus 5.1(H) 2.7 - 4.5 mg/dL [facility] 05/15/2025 1:45 PM EDT 05/15/2025 4:05 PM EDT us Generic External Data Provider LAB BLOOD ORDERAB LES Final Result Performing Organization Address [facility] de Phone Number [facility] [address] [place] [phone] * Magnesium (05/15/2025 1:45 PM EDT) Only the most recent of2 resultswithin the time period is included. [facility] Magnesium 2.2 1.6 - 2.6 mg/dL [facility] Blood Venous blood specimen / Unknown 05/15/2025 1:45 PM EDT 05/15/2025 4:05 PM EDT us Deborah Joaquin MD LAB BLOOD ORDERABLES Fin al Result Performing Organization Address [facility] de Phone Number [facility] [address] [place] [phone] * (ABNORMAL) Basic Metabolic Panel (05/15/2025 1:45 PM EDT) [facility] Sodium 138 135 - 145 mmol/L [facility] Potassium 5.0 3.3 - 5.1 mmol/L [facility] Comment:Mild Hemolysis.Inter pret result with caution Chloride 105 96 - 108 mmol/L [facility] Carbon Dioxide 23 22 - 29 mmol/L [facility] Anion Gap 15 12 - 20 [facility] Urea Nitrogen (BUN) 39(H) 9 - 16 mg/dL [facility] Creatinine, Serum 1.23 0.5 - 1.4 mg/dL [facility] Estimated Glomerular Filt Rate 43 [facility] Comment:Chronic Kidney Disea se: Estimated GFR < 60 mL/min/1.42p6Vcxxvl Kidney Disease: Estimated GFR < 15 mL/min/1.73m2 Glucose 86 60 - 115 mg/dL [facility] Calcium 9.4 8.4 - 10.2 mg/dL [facility] Blood Venous blood specimen / Unknown 05/15/2025 1:45 PM EDT 05/15/2025 4:05 PM EDT us Deborah Joaquin MD LAB BLOOD ORDERABLES Fin al Result Performing Organization Address City/State/[facility] Co de Phone Number [facility] [address] [place] [phone] * CTA Chest PE Protocal (04/28/2025 11:59 AM EDT) Anatomical Region Laterality Modality Body, Chest Computed Tomogra phy 04/28/2025 11:5 9 AM EDT Narrative 04/28/2025 1:26 PM EDT [place] [address] CT Scan Report Signed Patient: Fatoumata Gibson MR#: [id number] 086 : 1950 Acct:[id number] Age/Sex: 75 / F ADM Date: 04/28/25 Loc: HO.ED Attending Dr: Ordering Physician: Hollie Ladd DO Date of Service: 04/28/25 Procedure(s): CT angio chest PE protocol Accession Number(s): [id number] cc: Deborah Joaquin MD; Hollie Ladd DO Report Number: [id number]: Total DLP = 165.00 mGy-cm EXAMINATION: CT [...] 04/28/25 1323 DD/ 1159 TD/TT: 04/28/25 1309 Chronic Care Nurse: Procedure Note Donotuseinterpreter, Image - 04/28/[address] [address] [address] Scan Report Signed Patient: Fatoumata GibsonMR#: [id number] : 1Acct:[id number] Age/Sex: 75 / FADM Date: 04/28/25 Loc: HO.ED Attending Dr: Ordering Physician: Hollie Ladd DO Date of Service: 04/28/25 Procedure(s): CT angio chest PE protocol Accession Number(s): [id number] cc: Deborah Joaquin MD; Hollie Ladd DO Report Number: [id number]: Total DLP = 165.00 mGy-cm EXAMINATION: CT [...] 04/28/25 1323 DD/ 1159 TD/TT: 04/28/25 1309 Chronic Care Nurse: [facility] External Provider IMG CT PROCEDURES Final Result * (ABNORMAL) Basic Metabolic Panel, Fasting (04/27/2025 5:33 AM EDT) Sodium 138 135 - 145 mmol/L [facility] Potassium 4.6 3.3 - 5.1 mmol/L [facility] Chloride 103 96 - 108 mmol/L [facility] Carbon Dioxide 27 22 - 29 mmol/L [facility] Anion Gap 13 12 - 20 [facility] Urea Nitrogen (BUN) 22(H) 9 - 16 mg/dL [facility] Creatinine, Serum 1.10 0.5 - 1.4 mg/dL [facility] Creatinine Clr Calc Pharmacy 37.1 [facility] Comment:Provided height and weight: 160.02 cm,53.977 kg.eGFR (calculated from the MDRD study equation) and eCrCl(calculated from the Cockcroft-Gault equation) are based ondifferent parameters and may not yield comparable results.If eCrCl result is absurd, please check patient'sheight/weight. Estimated Glomerular Filt Rate 49 [facility] Comment:Chronic Kidney Disea se: Estimated GFR < 60 mL/min/1.67r6Ndikbq Kidney Disease: Estimated GFR < 15 mL/min/1.73m2 Glucose Fasting 108(H) 60 - 99 mg/dL [facility] Comment:A fasting glucose fr om 100-125 mg/dl is considered impaired(pre-diabetes). Calcium 8.3(L) 8.4 - 10.2 mg/dL [facility] 04/27/2025 5:33 AM EDT 04/27/2025 6:49 AM EDT us Generic External Data Provider LAB BLOOD ORDERAB LES Final Result [facility] [address] [place] [phone] * (ABNORMAL) CBC auto differential (04/27/2025 5:33 AM EDT) White Blood Count 9.6 4.8 - 10.8 X10*3/uL [facility] Red Blood Count 4.07(L) 4.20 - 5.50 X10*6/uL [facility] Hemoglobin 11.2(L) 12.0 - 16.0 g/dl [facility] Hematocrit 32.5(L) 37.0 - 47.0 % [facility] Mean Corpuscular Volume 79.9(L) 80.0 - 98.0 fL [facility] Mean Corpuscular Hemoglobin 27.5 27.0 - 33.0 pg [facility] Mean Corpuscular HGB Conc 34.5 31.0 - 35.0 g/dl [facility] Red Cell Distribution Width 13.9 11.0 - 16.0 % [facility] Platelet Count 217 160 - 400 X10*3/uL [facility] Mean Platelet Volume 11.6 9.4 - 12.3 fL [facility] Neutrophils Percent Auto 82.1(H) 45 - 73 % [facility] Imm Gran Pct Auto 0.5(H) 0.0 - 0.4 % [facility] Lymphocytes Percent Auto 10.6(L) 20 - 40 % [facility] Monocytes Percent Auto 6.6 2 - 11 % [facility] Eosinophils Percent Auto 0.1 0 - 4 % [facility] Basophils Percent Auto 0.1 0 - 2 % [facility] NRBC Pct Auto 0.0 0.0 - 0.2 /100WBC [facility] Neutrophils Absolute Auto 7.9 2.0 - 8.3 x10*3/uL [facility] Imm Gran Abs Auto 0.05(H) 0.00 - 0.03 X10*3/uL [facility] Lymphocytes Absolute Auto 1.0(L) 1.2 - 4.9 X10*3/uL [facility] Monocytes Absolute Auto 0.6 0.1 - 1.2 X10*3/uL [facility] Eosinophils Absolute Auto 0.0 0.0 - 0.4 X10*3/uL [facility] Basophils Absolute Auto 0.0 0.0 - 0.2 X10*3/uL [facility] NRBC Abs Auto 0.000 0.0 - 0.012 X10*3/uL [facility] 04/27/2025 5:33 AM EDT 04/27/2025 6:49 AM EDT us Generic External Data Provider LAB BLOOD ORDERAB LES Final Result [facility] [address] [place] [phone] * Lipid Panel, Standard (04/27/2025 5:33 AM EDT) Triglycerides 69 <150 mg/dL [facility] Comment:Desirable Triglyceri de: less than 150 mg/dLBorderline High Triglyceride 150-199 mg/dLHigh Triglyceride: 200-499 mg/dLVery High Triglyceride: greater than or equal to 5OO mg/dL Cholesterol 135 <200 mg/dL [facility] Comment:Desirable Cholestero l: less than 200 mg/dLBorderline High Cholesterol: 200-239 mg/dLHigh Cholesterol: greater than 239 mg/dL LDL Cholesterol Calculated 58 <100 mg/dL [facility] Comment:Desirable LDL: less than 100 mg/dLNear Optimal/Above Optimal LDL: 110- 129 mg/dLBorderline High LDL: 130-159 mg/dLHigh LDL: 160-189 mg/dLVery High LDL: greater than or equal to 190 mg/dL HDL Cholesterol 64 >40 mg/dL [facility] Comment:Desirable HDL: great er than 40 mg/dL Note: This HDL assay may give artificially low results in patients with liver disease. 04/27/2025 5:33 AM EDT 04/27/2025 6:49 AM EDT us Generic External Data Provider LAB BLOOD ORDERAB LES Final Result [facility] [address] [place] [phone] * BI Mammogram Screening Tomosynthesis Bilateral (04/24/2025 9:50 AM EDT) Anatomical Region Laterality Modality Breast Bilateral Mammography 04/24/2025 9:50 AM EDT Narrative 05/02/2025 4:17 PM EDT [facility] [address] [place] [address] Mammography Report Signed Patient: Fatoumata Gibson MR#: [id number] 086 : 1950 Acct:[id number] Age/Sex: 75 / F ADM Date: 04/24/25 Loc: HO.MAMMO Attending Dr: Deborah Joaquin MD Ordering Physician: Deborah Joaquin MD Results: 1Ne gative Date of Service: 04/24/25 Follow Up: 1 Year From Orig ina Mammogram Procedure(s): MM tomosynthesis screening BI Accession Number(s): [id number] cc: Deborah Joaquin MD EXAMINATION: MM SCREENING [...] 05/02/25 1614 DD/ 0950 TD/TT: 04/24/25 1009 Chronic Care Nurse: Procedure Note Donotuseinterpreter, Image - 05/02/2025 [place] [facility] [address] [place] [address] Mammography Report Signed Patient: Fatoumata GibsonMR#: [id number] : 1950cct:[id number] Age/Sex: 75 / FADM Date: 04/24/25 Loc: NARGIS Attending Dr: Deborah Joaquin MD Ordering Physician: Deborah Joaquin MDResults: 1Ne gative Date of Service: 04/24/25Follow Up: 1 Year From Orig inal Mammogram Procedure(s): MM tomosynthesis screening BI Accession Number(s): [id number] cc: Deborah Joaquin MD EXAMINATION: MM SCREENING [...] 05/02/25 1614 DD/ 0950 TD/TT: 04/24/25 1009 Chronic Care Nurse: Deborah Joaquin MD IMG BI PROCEDURES Final Result from Last 3 Months or Most Recently Relevant to Health Maintenance Insurance [facility] STANDARD [facility] S[facility] L[facility] OPTIONS (HMO D-SNP) Care Teams Residential Director Relationship Specialty Start Date End Date Deborah Joaquin MD [address] [place] [phone] PCP - General Family Medicine 05/14/17 [place] [facility] 05/10/25
[2025-08-02 22:33] LABS: Calcium/Creatinine Ratio 21 mg/g creat (30-275); Creatinine 24Hr Urine 0.80 g/24 h (0.50-2.15)
== END 2025-07-28 11:31 | disposition home or self-care (01) ==
LOC: HO.LNP 11:30
PROVIDERS: Visit Provider Internal Medicine Endocrinology, Diabetes & Metabolism
DX: M84.351A Stress fracture, right femur, initial encounter for fracture (principal); M81.0 Age-related osteoporosis without current pathological fracture
CPT/HCPCS: 82340; 82570

== ENCOUNTER 2025-08-07 09:59 | Outpatient (AMB) | payer OTHER, SELFPAY ==
[2025-08-07 10:05] VITALS: BP 120/60; PULSE 70; BMI 21.9
--- NOTE | 2025-08-07 10:05 | A.OFFVIS_ITS ---
Vital Signs 08/07/25 10:05 Height 5 ft 3 in Weight 123 lb 7.342 oz BMI 21.9 BP 120/60 Blood Pressure Location Rt brachial Position Sitting Pulse 70 Pulse Source Pulse Oximeter Intake Visit Reasons: f/u osteoporosis Intake Note: Patient present today for Osteoporosis follow up. Zone Supervisor Firearms Required: Yes Zone Supervisor Firearms Language: Project Control Officer Services: Zone Supervisor Firearms Present Zone Supervisor Firearms [place] [facility] [place] Information Interpreted: non-clinical & clinical Accompanied by: Daughter Allergies atenolol Allergy (Unknown, Verified 07/20/25 10:39) swelling ibuprofen (From Motrin) Adverse Reaction (Intermediate, Verified 07/20/25 10:39) palpatations,TACHYCARDIA/CHEST PAIN Medication List - Last Reconciled 08/07/25 by Ramu Mahoney MD acetaminophen 650 mg (2 x 325 mg) PO Q6H PRN 30 days apixaban (Eliquis) 5 mg PO BID brimonidine 0.2% 1 drp ophthalmic (eye) BEDTIME docusate sodium 100 mg PO BID 30 days hydrochlorothiazide 25 mg PO DAILY lisinopril 40 mg PO DAILY HPI Comments Details: 75 YO Female is seen in consultation at the request of PCP for Osteoporosis. First diagnosed in >10 yrs . Received treatment in the past with alendronate , from more than 10 yrs . Developed a right femoral stress fracture on alendronate.Stopped alendronate last wk history of pathologic fracture in hip or ONJ. Has servings of dietary calcium per day in the form of []. Takes Calcium supplement 600 mg daily once a day. Takes [] IU of Vitamin D daily. Denies ever using PPI, anticoagulant, antiepileptic or glucocorticoid medication. 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 UTD on dental cleanings and sees dentist every 6 months. No planned upcoming dental work or extractions. No tabacco use or heavy ETOH abuse DXA dated 2020 :FINDINGS: AP SPINE L1-L3 (excluding L4): The data of L1-L4 has been changed to exclude the L4 vertebral body, because degenerative sclerosis at this level may cause overestimation of lumbar spine density. Current: BMD 0.872 g/cm2, Z-score -0.7, T-score -2.5, osteoporosis, 9.5% increase from previous, 2.0% decrease from baseline (<5% change is not significant). Prior: BMD 0.796 g/cm2. Baseline: BMD 0.890 g/cm2. LEFT FEMUR, NECK: Current: BMD 0.552 g/cm2, Z-score -1.7, T-score -3.5, osteoporosis. Prior: BMD 0.724 g/cm2. Baseline: BMD 0.803 g/cm2. LEFT FEMUR, TOTAL: Current: BMD 0.517 g/cm2, Z-score -2.3, T-score -3.9, osteoporosis, 22.0% decrease from previous, 32.8% decrease from baseline (<5% change is not significant). Prior: BMD 0.663 g/cm2. Baseline: BMD 0.769 g/cm2. IDENTIFIED RISK FACTORS: Rheumatoid arthritis, osteoporosis, menopause. HISTORY OF FRACTURE: None listed. MEDICATIONS: Calcium supplements or multivitamin, vitamin D. MM/XR DEXA axial skeleton IMPRESSION: 1. DIAGNOSIS: Osteoporosis based on the lowest T-score v Labs: Secondary workup was negative except for low urinary calcium 24 hour. However the patient is on hydrochlorothiazide [facility] Medical History (Updated 07/20/25 @ 10:34 by Sharron Velez PA-C) Teeth missing Anemia CKD (chronic kidney disease), stage II Benign paroxysmal positional vertigo Ambulates with cane HLD (hyperlipidemia) HTN (hypertension) Osteoporosis Femur fracture, left Surgical History Hx of bilateral cataract extraction (~2023) Hx of colonoscopy History of surgery (~2022) Hx of breast biopsy H/O removal of cyst Family History Father Heart problem HTN (hypertension) CVD (cardiovascular disease) Mother HTN (hypertension) Brother No problems noted. Brother No problems noted. Brother No problems noted. Sister No problems noted. Sister No problems noted. Sister No problems noted. Daughter No problems noted. Daughter No problems noted. Social History Household Members: None Housing: Apartment Are you a primary healthcare liaison to a significant other at home: No Do you presently have visiting nurse or other home services: No 75 years or older and lives alone: No Alcohol intake: never Comment: COUNTS CORRECT Patient Tobacco Use Status: Never used Tobacco e-Cigarette/Vaping Use: Never Used Second Hand Smoke Exposure: No service: No Current occupational status: disabled Current occupation: right hand Physical Exam Vital Signs: Last Vital Signs Pulse 70 08/07/25 10:05 BP 120/60 08/07/25 10:05 BMI result Body Mass Index 21.9 Assessment & Plan Assessment & Plan (1) Stress fracture, right femur, initial encounter for fracture: Code(s): M84.351A - Stress fracture, right femur, initial encounter for fracture Category: Medical Plan: Plan as below (2) Osteoporosis: Code(s): M81.0 - Age-related osteoporosis without current pathological fracture Category: Medical Plan: This is a 75-year-old female with a history of severe osteoporosis currently being treated the bisphosphonate and having a stress fracture of the right femur while on alendronate. Secondary workup was negative except for low 24 hour urinary calcium the patient is on hydrochlorothiazide. Urine NTX was low. The patient is off alendronate The plan is to talk to the primary care provider about switching the hydrochlorothiazide to another agent for hypertension. Once the hydrochlorothiazide is discontinued for 6 weeks, recheck a 24 hour urine for calcium and creatinine. We will then adjust calcium intake accordingly. Once patient is calcium replete, we then consider use of anabolic agent in this patient would very low bone density and high risk for fracture. Her daughter tells me through an inventory analyst that she is going to the emergency room today for an ankle infection Orders: Orders Calcium, 24 Hr Ur 6 Weeks M81.0 - Age-related osteoporosis without current pathological fracture Creatinine, 24 Hr Group 6 Weeks M81.0 - Age-related osteoporosis without current pathological fracture Coding Level of Care Code Est Pt Level 3 (49532) Diagnoses Stress fracture, right femur, initial encounter for fracture M84.351A Osteoporosis M81.0
== END 2025-08-07 10:24 | disposition home or self-care (01) ==
LOC: HO.ENCR 10:00
PROVIDERS: PCP Internal Medicine; Visit Provider Internal Medicine Endocrinology, Diabetes & Metabolism
DX: M84.351A Stress fracture, right femur, initial encounter for fracture (principal); M81.0 Age-related osteoporosis without current pathological fracture
CPT/HCPCS: 99213

== ENCOUNTER 2025-08-07 10:31 | Emergency (ER) | payer OTHER, SELFPAY ==
--- NOTE | ~2025-08-07 | XR_ITS ---
EXAMINATION: XR TIBIA AND FIBULA, RIGHT CLINICAL INFORMATION: weeping wound. osteomytlitits COMPARISON: 06/19/2025. TECHNIQUE: AP and lateral views of the right tibia and fibula were obtained. FINDINGS: No fracture, dislocation, or suspicious bone lesion. No focal osteopenia, focus of osseous erosion, or focal periostitis identified. There is mild subcutaneous soft tissue edema of the calf. XR/XR tibia fibula RT 2V IMPRESSION: No radiographic evidence of osteomyelitis. Soft tissue swelling. Electronically signed by: Crow Cobian MD 08/07/2025 12:35 PM EST
[2025-08-07 11:08] VITALS: BP 139/66; PULSE 67; RESP 18; TEMP 36.6; O2SAT 98; BMI 22.5
--- NOTE | 2025-08-07 11:12 | ED.GENADULT ---
HPI - General Adult General Chief complaint: Skin/Abscess/Foreign Body Stated complaint: Knee Leg Pain Time Seen by Provider: 08/07/25 12:23 History of Present Illness ED Provider: Babita Mars HPI narrative: 75-year-old female with medical history that is significant for hypertension, varicose veins, osteoporosis, venous stasis dermatitis of the lower extremities presents to the ED from home with her daughter for evaluation of a right lower extremity wound. Patient reports the wound is now oozing and burning. She has had the wound since the procedure back in April of this year that was [facility]. Initially the area was discolored and mildly bruised, the skin began to turn colors, and now there is a small open wound. She denies any fever, chills. Denies any calf pain or tenderness. Does report having an outpatient venous duplex study that showed no evidence of DVT. Reports the pain feels like burning in the anterior vital, she is currently on gabapentin. She reports that her orthopedic doctor wants her to follow up outpatient with vascular surgery. No tingling or numbness in the toes. No chest pain or pressure, shortness of breath or abdominal pain, nausea or vomiting. No recent illnesses. No trauma to the lower leg. Related Data Home Medications ?Medication ?Instructions ?Recorded ?Confirmed hydrochlorothiazide 25 mg tablet 25 mg PO DAILY 07/19/20 08/07/25 lisinopril 40 mg tablet 40 mg PO DAILY 08/22/21 08/07/25 brimonidine 0.2 % eye drops 1 drp ophthalmic (eye) BEDTIME 04/26/25 08/07/25 Previous Rx's ?Medication ?Instructions ?Recorded acetaminophen 325 mg tablet 650 mg (2 x 325 mg) PO Q6H PRN 04/27/25 Pain, Mild 1-3,Fever,Headache 30 days #240 tabs docusate sodium 100 mg capsule 100 mg PO BID 30 days #60 caps 04/27/25 apixaban 5 mg tablet (Eliquis) 5 mg PO BID #90 tabs 06/02/25 doxycycline hyclate 100 mg capsule 100 mg PO BID 10 days #20 caps 08/07/25 Allergies Allergy/AdvReac Type Severity Reaction Status Date / Time atenolol Allergy Unknown swelling Verified 08/07/25 11:10 ibuprofen (From Motrin) AdvReac Intermediate palpatations,TACHYCARDIA/CHEST Verified 08/07/25 11:10 PAIN Review of Systems Review of Systems: Yes all other systems are reviewed and are negative [facility] Past Medical History Medical History (Updated 08/07/25 @ 13:54 by [facility] Teeth missing Anemia CKD (chronic kidney disease), stage II Benign paroxysmal positional vertigo Ambulates with cane HLD (hyperlipidemia) HTN (hypertension) Osteoporosis Femur fracture, left Surgical History Hx of bilateral cataract extraction (~2023) Hx of colonoscopy History of surgery (~2022) Hx of breast biopsy H/O removal of cyst Family History Family History Father Heart problem HTN (hypertension) CVD (cardiovascular disease) Mother HTN (hypertension) Brother No problems noted. Brother No problems noted. Brother No problems noted. Sister No problems noted. Sister No problems noted. Sister No problems noted. Daughter No problems noted. Daughter No problems noted. Social History Social History Household Members: None Housing: Apartment Are you a primary long term acute care registered nurse to a significant other at home: No Do you presently have visiting nurse or other home services: No Alcohol intake: never Comment: COUNTS CORRECT Patient Tobacco Use Status: Never used Tobacco Smoked in Last 30 Days: No e-Cigarette/Vaping Use: Never Used Second Hand Smoke Exposure: No Use of substances other than those prescribed or required for medical reasons: No Advance Directives: No Advance Directives Information Provided: Yes Do you have a plan to hurt others: No Plan service: No Current occupational status: disabled Current occupation: right hand Physical Exam ED Vital Signs: Vital Signs - 24 hr 08/07/25 11:08 08/07/25 12:40 08/07/25 14:19 Temperature 98 F 97.8 F 97.8 F Pulse Rate 67 72 72 Respiratory Rate 18 16 16 Blood Pressure 139/66 177/84 H 177/84 H Pulse Oximetry 98 98 98 Oxygen Delivery Method Room Air Room Air Room Air BMI result Body Mass Index 22.5 Const General: cooperative, healthy appearing, comfortable, no acute distress, well developed, alert, awake and Physically active Nutritional Appearance: well nourished Orientation/consciousness: patient oriented x3 Limitations: no limitations HENMT Head: Yes normocephalic and Yes atraumatic Ears: hearing grossly normal bilaterally and external ears normal General nose exam: Normal external nose present and No nasal discharge present Face and sinus: Yes normal facial exam Mouth: Normal oral and palatal mucosa present and lip normal Eyes General: appearance normal, both eyes and all related structures Visual Marie: normal visual marie by confrontation Eyelids: Yes eyelids normal Conjunctivae: conjunctivae normal Sclerae: sclerae normal EOM: EOMs intact bilaterally Neck Neck: Yes full ROM and Yes no lymphadenopathy Lymphatic: no lymphadenopathy noted Chest Chest palpation & inspection: normal inspection of the chest Resp Effort & Inspection: normal respiratory effort and able to speak in complete sentences Cardio Peripheral pulses: Peripheral pulses 2+ throughout GI Inspection: Yes normal to inspection Back/Spine/Pelvis Cervical Spine: cervical ROM normal Skin Other: General skin exam: turgor normal Rashes: no rashes Wounds: wounds noted (RLE, anterior vital) Hair: normal Nails: normal Neuro General: patient oriented x3, gait normal and moves all extremities Cognition (Neuro): normal cognition Gait exam (Neuro): Normal gait present Motor exam (neuro): 5/5 motor strength present throughout Extrem General: Yes full ROM and Yes capillary refill normal Right upper extremity: normal to inspection Left upper extremity: normal to inspection Right lower extremity: edema Left lower extremity: normal to inspection Psych Appearance: well kempt Mental Status: mental status grossly normal Speech and movement: Normal speech and movement present Course Course Course Narrative: RME: 75-year-old female presents to ED for right lower extremity chronic wound that is oozing with and burning. Patient denies any new trauma. Tomasz inspection right lower extremity shows open wound was slight oozing with surrounding venous stasis skin changes. Labs x-ray ordered Medications Administered Discontinued Medications Generic Name Dose Route Start Last Admin Trade Name Freq PRN Reason Stop Dose Admin Ceftriaxone Sodium 1 gm/ 50 mls @ 100 mls/hr 08/07/25 12:43 08/07/25 14:21 Sodium Chloride IV 08/07/25 13:12 Infused ONCE ONE Infusion Medical Decision Making Medical Decision Making [facility] Narrative: She appears well. No tachycardia, afebrile, low clinical suspicion for sepsis. This appears to be a venous stasis ulcer though possibly infected given the weeping. Plan for labs, xr. She reports that she had an outpatient ultrasound which showed no DVT. There is no calf pain, no indication for repeating the imaging today. Plan to administer a dose of IV antibiotics and reassess. 1345--blood work without leukocytosis, overall reassuring. Actually does show mild subcutaneous soft tissue edema of the calf but no evidence of osteomyelitis. Given the reassuring workup, there is no indication for hospitalization or admission. It is appropriate for discharge outpatient with oral antibiotics. I did recommend she trial a few days of outpatient antibiotics, within the next 1-2 days she should see some improvement, and given she has a scheduled appointment with vascular surgery in September, I did recommend she also attempts to move this appointment earlier. She clearly has a venous stasis dermatitis, now has an active infection there. However, she is not septic. Therefore, she and her daughter are agreeable for discharge plan with outpatient follow-up. We also recommended she follow up with the orthopedic provider that performed the initial procedure in April in the office as well. Provided return precautions to the ED. Differential Diagnosis Differential Diagnoses: The differential diagnosis associated with the presentation includes cellulitis, osteomyelitis, DVT, venous stasis ulceration Admission/Observation Consideration of admission/observation: Escalation of care including admission/observation considered Lab Data MDM Lab Attestation statement: I reviewed the patient's lab results. 08/07/25 11:35 08/07/25 11:35 Labs: Lab Results 08/07/25 Range/Units 11:35 WBC 5.9 (4.8-10.8) X10*3/uL RBC 4.60 (4.20-5.50) X10*6/uL Hgb 11.8 L (12.0-16.0) g/dl Hct 37.6 (37.0-47.0) % MCV 81.7 (80.0-98.0) fL MCH 25.7 L (27.0-33.0) pg MCHC 31.4 (31.0-35.0) g/dl RDW 13.3 (11.0-16.0) % Plt Count 247 D (160-400) X10*3/uL MPV 9.0 L (9.4-12.3) fL Immature Gran % (Auto) 0.2 (0.0-0.4) % Neut % (Auto) 61.2 (45-73) % Lymph % (Auto) 30.0 (20-40) % Terrell % (Auto) 5.9 (2-11) % Eos % (Auto) 2.2 (0-4) % Baso % (Auto) 0.5 (0-2) % Lymph # (Auto) 1.8 (1.2-4.9) X10*3/uL Terrell # (Auto) 0.4 (0.1-1.2) X10*3/uL Eos # (Auto) 0.1 (0.0-0.4) X10*3/uL Baso # (Auto) 0.0 (0.0-0.2) X10*3/uL Abs Immat Gran (auto) 0.01 (0.00-0.03) X10*3/uL Absolute Neuts (auto) 3.6 (2.0-8.3) x10*3/uL Absolute Nucleated RBC 0.000 (0.0-0.012) X10*3/uL Nucleated RBC % (auto) 0.0 (0.0-0.2) /100WBC ESR 18 (0-20) MM/HR Sodium 142 (135-145) mmol/L Potassium 3.8 D (3.3-5.1) mmol/L Chloride 106 (96-108) mmol/L Carbon Dioxide 29 (22-29) mmol/L Anion Gap 11 L (12-20) BUN 23 H (9-16) mg/dL Creatinine 1.12 (0.5-1.4) mg/dL Estim Creat Clear Calc 34.9 Estimated GFR 48 Random Glucose 95 (60-115) mg/dL Calcium 9.1 (8.4-10.2) mg/dL Total Bilirubin 0.3 (0.0-1.0) mg/dL AST 29 (5-31) U/L ALT 23 (0-31) U/L Alkaline Phosphatase 120 H (39-117) U/L C-Reactive Protein 0.20 (< or = 0.50) mg/dL Total Protein 7.4 (6.5-8.0) g/dL Albumin 4.4 (3.5-5.0) g/dL Independent Interpretation I performed an independent interpretation of an: Plain X-Ray Interpretation: I have reviewed the patient's imaging and agree with the radiologist's findings. Radiology Impression Discussion of test interpretation with radiology: I have reviewed the radiologist's reading. Radiologist Impression: XR Tibia and Fibula, Right IMPRESSION: No radiographic evidence of osteomyelitis. Soft tissue swelling. Electronically signed by: Crow Cobian MD 08/07/2025 12:35 PM EST RP Independent Historian Clinical information obtained from an independent historian. History obtained from or confirmed by: Other Daughter External Record Review External record reviewed: Inpatient record, Office record, Prior outpatient radiology and Primary care record Tests considered The following testing was considered but not selected: None Prescription Management I considered prescription management with: Pain Medication Not indicated, on oral pain control at home Chronic Conditions Patient?s care impacted by: Hypertension Social Determinants Patient?s care significantly limited by Social Determinants of Health including: Other Social Determinant of Health Language Barrier--Diversified Crops Supervisor used Discharge Plan Discharge Clinical Impression: Acute venous stasis dermatitis of right lower extremity, Cellulitis of right anterior lower leg Patient Disposition: Home, Self-Care Instructions: Cellulitis (ED), Peripheral Vascular Disease (ED) Additional Instructions: As we discussed, the lab work, XR imaging today was overall reassuring. However, we have concern that you have a stasis dermatitis skin condition of the lower extremity. We would like for you to keep the follow-up appointment with vascular surgery outpatient, and if possible move this appointment earlier. We have also provided you a dose of IV antibiotics while in the ED to treat the skin infection surrounding this dermatitis. I have provided you a course of oral antibiotics to be taken over the next 10 days. You should be good to see improvement over the next 1-2 days. If you develop any worsening complaints any time as we have discussed, please seek re-evaluation in the ED. Malika comentamos, los an?lisis de laboratorio y las radiograf?as de hoy fueron, en general, tranquilizadores. Sin embargo, nos preocupa que presente lars dermatitis por estasis en la extremidad inferior. Le pedimos que acuda a estrella irineo de seguimiento con el cirujano vascular ambulatorio y, si es posible, que la adelante. Tambi?n le administramos antibi?ticos intravenosos en urgencias para tratar la infecci?n cut?nemesio que rodea la dermatitis. Le he recetado un tratamiento con antibi?ticos orales que deber? kg darcie los pr?ximos 10 d?as. Deber?a notar mejor?a en los pr?ximos 1 o 2 d?as. Si presenta alg?n empeoramiento de bennett s?ntomas, malika ya hemos comentado, por favor, acuda a urgencias para lars reevaluaci?n. Prescriptions: New doxycycline hyclate 100 mg capsule 100 mg PO BID 10 Days Qty: 20 0RF No Action brimonidine 0.2 % drops 1 drp ophthalmic (eye) BEDTIME acetaminophen 325 mg Tablet 650 mg PO Q6H PRN (Reason: Pain, Mild 1-3,Fever,Headache) 30 Days Qty: 240 0RF docusate sodium 100 mg Capsule 100 mg PO BID 30 Days Qty: 60 0RF hydrochlorothiazide 25 mg tablet 25 mg PO DAILY lisinopril 40 mg tablet 40 mg PO DAILY Eliquis 5 mg tablet 5 mg PO BID Qty: 90 3RF Referrals: Deborah Joaquin MD [Primary Care Provider, Internal Medicine] Interventions: ED Discharge Assessment Last Done: 08/07/25 14:19 Discharge Date/Time: 08/07/25 14:20 Print Language: Danish
[2025-08-07 11:39] LABS: MANUAL DIFF FLAG NO
[2025-08-07 11:42] LABS: Hematocrit 37.6 % (37.0-47.0); Hemoglobin 11.8 g/dl (12.0-16.0); Imm Gran Abs Auto 0.01 X10*3/uL (0.00-0.03); Imm Gran Pct Auto 0.2 % (0.0-0.4); Lymphocytes Absolute Auto 1.8 X10*3/uL (1.2-4.9); Mean Corpuscular HGB Conc 31.4 g/dl (31.0-35.0); Mean Corpuscular Hemoglobin 25.7 pg (27.0-33.0); Mean Corpuscular Volume 81.7 fL (80.0-98.0); NRBC Abs Auto 0.000 X10*3/uL (0.0-0.012); NRBC Pct Auto 0.0 /100WBC (0.0-0.2); Platelet Count 247 X10*3/uL (160-400); Red Blood Count 4.60 X10*6/uL (4.20-5.50); White Blood Count 5.9 X10*3/uL (4.8-10.8)
[2025-08-07 11:55] LABS: Alanine Aminotransferase 23 U/L (0-31); Albumin Level 4.4 g/dL (3.5-5.0); Alkaline Phosphatase 120 U/L (39-117); Anion Gap 11 (12-20); Aspartate Amino Transferase 29 U/L (5-31); Blood Urea Nitrogen 23 mg/dL (9-16); Calcium 9.1 mg/dL (8.4-10.2); Carbon Dioxide 29 mmol/L (22-29); Chloride 106 mmol/L (96-108); Creatinine Clr Calc Pharmacy 34.9; Estimated Glomerular Filt Rate 48; Potassium 3.8 mmol/L (3.3-5.1); Sodium 142 mmol/L (135-145); Total Protein 7.4 g/dL (6.5-8.0)
[2025-08-07 12:20] LABS: Erythrocyte Sedimentation Rate 18 MM/HR (0-20)
[2025-08-07 12:40] VITALS: BP 177/84; PULSE 72; RESP 16; TEMP 36.6; O2SAT 98
[2025-08-07 14:19] VITALS: BP 177/84; PULSE 72; RESP 16; TEMP 36.6; O2SAT 98
== END 2025-08-07 14:20 | disposition home or self-care (01) ==
PROVIDERS: Physician Assistant; Emergency Provider Emergency Medicine; PCP Internal Medicine
DX: L03.115 Cellulitis of right lower limb (principal); I87.2 Venous insufficiency (chronic) (peripheral); M79.604 Pain in right leg; Z79.899 Other long term (current) drug therapy
CPT/HCPCS: 36415; 73590; 80053; 85025; 85652; 86140; 96365; 99212; 99284; J0696

== ENCOUNTER → 2025-08-07 11:11 | Outpatient (BNV) | payer OTHER, SELFPAY | PROVIDERS: PCP Internal Medicine; Visit Provider Radiology Diagnostic Radiology | DX: M79.89 Other specified soft tissue disorders (principal) | CPT/HCPCS: 73590 ==